=== PATIENT | female | born 1980 | race Caucasian/White ===

== ENCOUNTER → 2019-10-07 | Outpatient (CLI) | payer OTHER ==
[~2019-10-07] MED LIST: ATEN50TA PO; CETI10CA PO; CIPR5DRO OP; FLUO20CA25 PO; TOLTA4 PO
--- NOTE | 2019-10-07 16:10 | Diagnostic Imaging Report ---
PROCEDURE: US Non-ob pelvis comp/trans. TECHNIQUE: Multiple realtime grayscale images were obtained of the pelvis in various projections endovaginally. Transabdominal imaging was also performed. INDICATION: Abnormal uterine bleeding. COMPARISON: None available FINDINGS: The uterus measures 9.0 x 6.0 x 6.9 cm. The endometrium is slightly irregular and ill-defined. The endometrium measures up to 1.8 cm, though it is slightly irregular at this location. No significant fluid within the endometrial cavity. Nabothian cysts within the cervix. The right ovary is not well visualized. The right ovary appears grossly unremarkable. Vascular flow is noted within the right ovary. A 4.6 x 4.5 cm anechoic thin-walled cyst is noted within the left ovary. Otherwise, the left ovary is unremarkable. Vascular flow is seen within the left ovary. No significant free fluid. IMPRESSION: The endometrium is slightly irregular measuring just under 2 cm. This can be simply physiologic for the patient given patient's age, though given irregularity of the endometrial cavity, follow-up ultrasound in four to six weeks is recommended to reevaluate, as underlying malignancy or polyp would be additional considerations. 4.6 cm simple-appearing left ovarian cyst, likely a dominant follicle. Dictated by: Dictated on workstation # [id number]
== END ==
LOC: RAD 14:53
PROVIDERS: ATTEND Obstetrics & Gynecology
DX: N83.202 Unspecified ovarian cyst, left side (principal); N93.8 Other specified abnormal uterine and vaginal bleeding; Z68.34 Body mass index [BMI] 34.0-34.9, adult
CPT/HCPCS: 76830; 76856

== ENCOUNTER → 2019-12-23 | Outpatient (CLI) | payer OTHER ==
--- NOTE | 2019-12-23 15:17 | Diagnostic Imaging Report ---
PROCEDURE: MRI right lower extremity without contrast. TECHNIQUE: Multiplanar, multisequence non contrast-enhanced MRI of the right lower extremity was accomplished. INDICATION: Ulceration on the right fourth toe between the fourth and fifth toes. COMPARISON: None. FINDINGS: There is a soft tissue ulceration at the lateral aspect of the right fourth toe with a small underlying soft tissue fluid collection which measures 7 x 6 x 9 mm in size, may represent an abscess or hematoma. The proximal phalanx of the fourth toe is fractured, with superior and medial displacement. There is significant bone marrow edema and T1-weighted marrow replacement in the proximal phalanx, concerning for osteomyelitis. There is also a focal area of erosive change and edema at the fourth metatarsal head, which could represent osteomyelitis as well. No other fractures are seen. There appear to be old fractures of the first through third metatarsal bases. The fourth and fifth metatarsal bases are not included on the exam. No bony bridging is seen by MRI of these fractures. There is marked edema about the musculature. No other fluid collections are seen. IMPRESSION: 1. Osteomyelitis of the right fourth toe proximal phalanx and possibly fourth metatarsal head, with a displaced fracture of the fourth toe proximal phalanx. 2. Soft tissue ulceration of the left fourth toe with underlying small subcentimeter soft tissue fluid collection. 3. Chronic-appearing fractures of the first through third metatarsal bases. Dictated by: Dictated on workstation # [id number]
== END ==
LOC: RAD 13:44
PROVIDERS: ATTEND Nurse Practitioner Community Health
DX: L03.031 Cellulitis of right toe (principal); M86.171 Other acute osteomyelitis, right ankle and foot

== ENCOUNTER 2020-01-04 05:31 | Outpatient (RCR) | payer OTHER ==
[~2020-01-04] VITALS: Ht 177 cm; Wt 104.5 kg
[~2020-01-04 05:31] MED LIST changes: +FERR-84 PO; +GABA-486 PO; +METF-399 PO; +NAPR-915 PO
== END 2020-01-04 11:00 | disposition home or self-care (01) ==
LOC: PREOP 05:31
PROVIDERS: ATTEND Podiatrist Foot & Ankle Surgery
DX: Z01.812 Encounter for preprocedural laboratory examination (principal); Z20.828 Contact with and (suspected) exposure to other viral communicable diseases
CPT/HCPCS: 87635

== ENCOUNTER 2020-01-06 11:25 | Day surgery (SDC) | payer OTHER ==
[~2020-01-06] VITALS: Ht 152 cm; Wt 104.5 kg
[2020-01-06] VITALS (10 sets, daily range): BP systolic 108–154; BP diastolic 74–98
[2020-01-06] MEDS ORDERED: BUPIVACAINE 0.5% 30 ML (SENSORCAINE) VIAL ONE (11:44)
[2020-01-06] MEDS ORDERED: LIDOCAINE 1% INJ 20 ML 20 ML VIAL ONE (11:45)
[2020-01-06] MEDS ORDERED: LACTATED RINGERS 1,000 ML IV PRN (11:48)
[2020-01-06] MEDS ORDERED: MIDAZOLAM 2 MG/2 ML (VERSED) VIAL ONE (11:51)
[2020-01-06] MEDS ORDERED: PROPOFOL INJECTION 50 ML IV ONE (11:51)
[2020-01-06] MEDS ORDERED: fentaNYL INJECTION 100 MCG/2 ML AMP ONE (11:51)
--- OUTSIDE RECORDS SUMMARY | 2020-01-06 11:53 | XMS REPORT ---
Author Author Anusha Delacruz Organization [facility] Address [address] [place] [address] Care Team Providers Care Cannon Fire Direction Specialist Name Role Phone MALCOLM Delacruz Unavailable PROBLEMS Type Condition ICD9-CM Code [id number] Code Onset Dates Condition S tatus SNOMED Code Problem Hypertension, benign I10 Active 21256491 Problem Polyneuropathy G62.9 Active 03883 000 Problem Major depressive disorder, single episode, unspecified F32.9 Active 17097895 Problem Other chronic pain G89.29 Active 8 6964467 Problem Amenorrhea N91.2 Active 33071468 Problem Vitamin D deficiency, unspecified E55.9 Active 58575975 Problem Iron deficiency anemia, unspecified D50.9 Active 65783957 Problem Obesity (BMI 30-39.9) E66.9 Active 991633783 Problem Type 2 diabetes mellitus wit hout complication, without long-term current use of insulin E11.9 Active 598776343 ALLERGIES No Information ENCOUNTERS Encounter Location Date Diagnosis [place] [address] [place] [id number] [address] [place] [id number] Jan, [place] [address] [place] [id number] [address] [place] [address] Nov, Encounter for other preproce dural examination Z01.818 ; Osteomyelitis of fourth toe of right foot M86.9 ; Type 2 diabetes mellitus without complication, without long-term current use of insulin E11.9 ; Hypertension, benign I10 and Obesity (BMI 30-39.9) E66.9 [place] [address] [facility] [id number] [address] [place] [id number] Nov, [facility] [address] [facility] [id number] [address] [place] [phone] Nov, [place] [address] [place] [id number] [place] [id number] Nov, [facility] [address] [id number] [address] [place] [phone] Nov, Cellulitis of toe, right L03 .031 [facility] [address] [facility] [id number] [address] [place] [phone] Nov, [facility] [address] [facility] [id number] [address] [place] [phone] Nov, [facility] [address] [facility] [id number] [address] [place] [phone] Nov, Cellulitis of toe of right f oot L03.031 [place] [address] [facility] [id number] [address] [place] [id number] Oct, Foot pain, right M79.671 ; I nadir deficiency anemia, unspecified D50.9 and Type 2 diabetes mellitus without complication, without long-term current use of insulin E11.9 [facility] [address] [facility] [id number] [address] [place] [phone] Jul, [place] [address] [facility] [id number] [address] [place] [phone] Jul, [place] [address] [facility] [id number] [address] [place] [phone] Jul, [facility] [address] [facility] [id number] [address] [place] [phone] Jun, Dental infection K04.7 [facility] [address] [facility] [id number] [address] [place] [phone] Jun, [facility] [address] [facility] [id number] [address] [place] [phone] Jun, [place] [address] [facility] [id number] [address] [place] [phone] Jun, Metatarsal stress fracture o f right foot with routine healing M84.374D ; Possible Z32.00 and Amenorrhea N91.2 [place] [address] [facility] [id number] [address] [place] [id number] 06 Jun, 2019 Type 2 diabetes mellitus wit hout complication, without long-term current use of insulin E11.9 [place] [address] [facility] [id number] [address] [place] [phone] Jun, [place] [id number] [place] [address] Jun, [place] [address] [place] [address] Jun, Foot pain, right M79.671 and Other fracture of right foot, initial encounter for closed fracture S92.811A [place] [address] [place] [id number] [place] [address] May, Cellulitis of foot, right L0 3.115 [place] [address] [place] [id number] [address] [place] [address] Apr, Other chronic pain G89.29 an d Pain in right foot M79.671 [facility] [address] [place] [address] Apr, Left otitis media, unspecifi ed otitis media type H66.92 [place] [address] [place] [id number] [place] [address] Mar, Well woman exam with routine gynecological exam Z01.419 ; Obesity (BMI 30-39.9) E66.9 ; Hypertension, benign I10 and Type 2 diabetes mellitus without complication, without long-term current use of insulin E11.9 [place] [address] [place] [id number] [place] [phone] Mar, Encounter for immunization Z 23 [place] [address] [place] [id number] [place] [phone] Dec, Plantar fasciitis of right f oot M72.2 [place] [address] [address] Dec, Hypertension, benign I10 and Iron deficiency anemia, unspecified D50.9 [place] [address] [address] Nov, Hypertension, benign I10 and Iron deficiency anemia, unspecified D50.9 [facility] [address] [address] Oct, Mouth pain K13.79 [facility] [address] [address] Apr, Sore throat J02.9 and Acute sinusitis J01.90 [place] [address] [address] Oct, Iron deficiency anemia, unsp ecified D50.9 [place] [address] [address] Oct, Iron deficiency anemia, unsp ecified D50.9 [place] [address] [address] Oct, Vitamin D deficiency, unspec ified E55.9 ; Iron deficiency anemia, unspecified D50.9 ; Major depressive disorder, single episode, unspecified F32.9 ; Polyneuropathy G62.9 and Hypertension, benign I10 [place] [address] [address] Oct, Vitamin D deficiency, unspec ified E55.9 ; Iron deficiency anemia, unspecified D50.9 ; Major depressive disorder, single episode, unspecified F32.9 ; Polyneuropathy G62.9 ; Hypertension, benign I10 and Hyperglycemia R73.9 [place] [address] [address] Apr, [place] [address] [address] Dec, Polyneuropathy G62.9 [place] [address] [facility] [id number] [address] [place] [phone] Nov, Hyperglycemia R73.9 [place] [address] [facility] [id number] [address] [place] [phone] Nov, Family history of diabetes m ellitus Z83.3 and Hyperglycemia R73.9 [place] [address] [facility] [id number] [address] [place] [phone] Nov, Family history of diabetes m ellitus Z83.3 and Hyperglycemia R73.9 [place] [address] [facility] [id number] [address] [place] [phone] Nov, Neuropathy of both feet G57. 93 and Hypertension, benign I10 [place] [address] [facility] [id number] [address] [place] [id number] Nov, Essential (primary) hyperten elda I10 [place] [address] [place] [id number] [place] [phone] September, Acute non-recurrent frontal sinusitis J01.10 [facility] [address] [facility] [id number] [address] [place] [phone] Jul, Tooth abscess K04.7 [place] [address] [place] [id number] [place] [phone] Jan, [place] [address] [place] [id number] [place] [address] Dec, Hearing loss, bilateral H91. 93 [place] [address] [facility] [id number] [address] [place] [id number] Nov, Retraction of tympanic membr ane of both ears H73.823 [place] [address] [place] [id number] [place] [phone] May, [place] [address] [place] [id number] [place] [address] May, Bronchitis J40 [place] [address] [place] [id number] [place] [phone] Apr, Upper respiratory infection J06.9 [facility] [address] [place] [id number] [place] [phone] Nov, Unspecified iron deficiency anemia 280.9 [facility] [address] [place] [id number] [place] [phone] Oct, Anemia 285.9 [facility] [address] [place] [id number] [place] [phone] September, Unspecified urinary incontin ence 788.30 ; Family history of diabetes mellitus in father V18.0 ; Glucose found in urine on examination 791.5 ; Urinary frequency 788.41 and Hypertension 401.9 [facility] [address] [place] [id number] [place] [phone] September, Unspecified urinary incontin ence 788.30 ; Family history of diabetes mellitus in father V18.0 ; Glucose found in urine on examination 791.5 ; Urinary frequency 788.41 and Hypertension 401.9 [facility] [address] [place] [id number] [place] [phone] Aug, [facility] [address] [facility] [id number] [address] [place] [phone] Aug, [facility] [address] [place] [id number] [place] [id number] Jul, [facility] [address] [facility] [id number] [address] [place] [phone] Jul, [facility] [address] [facility] [id number] [address] [place] [phone] Jun, [facility] [address] [facility] [id number] [address] [place] [phone] Jun, [facility] [address] [facility] [id number] [address] [place] [phone] Jun, [facility] [address] [place] [id number] [place] [id number] Jun, [facility] [address] [id number] [address] [place] [address], [place] [address] May, [facility] [address] [id number] [address] [place] [address], [place] [address] May, [facility] [address] [id number] [address] [place] [address], [place] [address] Oct, [facility] [address] [id number] [address] [place] [address], [place] [address] Oct, [facility] [address] [id number] [address] [place] [address], [place] [address] May, [facility] [address] [id number] [address] [place] [address], [place] [address] May, [facility] [address] [id number] [address] [place] [address], [place] [address] May, [facility] [address] [id number] [address] [place] [address], [place] [address] May, [facility] [address] [id number] [address] [place] [address], [place] [address] Apr, [facility] [address] [id number] [address] [place] [address], [place] [address] Apr, [facility] [address] [id number] [address] [place] [address], [place] [address] Apr, [facility] [address] [id number] [address] [place] [address], [place] [address] Apr, [facility] [address] [id number] [address] [place] [address], [place] [address] Apr, [facility] [address] [id number] [address] [place] [address], [place] [address] Apr, [facility] [address] [id number] [address] [place] [address], [place] [address] Apr, [facility] [address] [id number] [address] [place] [address], [place] [address] Apr, [facility] [address] [id number] [address] [place] [address], [place] [address] Dec, [facility] [address] [id number] [address] [place] [address], [place] [address] Nov, [facility] [address] [id number] [address] [place] [address], [place] [address] Jul, [facility] [address] [id number] [address] [place] [address], [place] [address] May, [facility] [address] [id number] [address] [place] [address], [place] [address] May, [facility] [address] [id number] [address] [place] [address], [place] [address] May, [facility] [address] [id number] [address] [place] [address], [place] [address] May, [facility] [address] [id number] [address] [place] [address], [place] [address] Apr, [facility] [address] [id number] [address] [place] [address], [place] [address] Apr, [facility] [address] [id number] [address] [place] [address], [place] [address] 16 Mar, 2012 [facility] [address] [id number] [address] [place] [address], [place] [address] 16 Mar, 2012 [facility] [address] [id number] [address] [place] [address], [place] [address] Mar, [facility] [address] [id number] [address] [place] [address], [place] [address] 08 Mar, 2012 [facility] [address] [id number] [address] [place] [address], [place] [address] Mar, [facility] [address] [id number] [address] [place] [address], [place] [address] Jan, [facility] [address] [id number] [address] [place] [address], [place] [address] 26 Jan, 2012 [facility] [address] [id number] [address] [place] [address], [place] [address] 25 Jan, 2012 [facility] [address] [id number] [address] [place] [address], [place] [address] 21 Jan, 2012 [facility] [address] [id number] [address] [place] [address], [place] [address] 30 Oct, 2011 [facility] [address] [id number] [address] [place] [address], [place] [address] 18 Oct, 2011 [facility] [address] [id number] [address] [place] [address], [place] [address] 29 Sep, 2011 [facility] [address] [id number] [address] [place] [address], [place] [address] 30 Aug, 2011 [facility] [address] [id number] [address] [place] [address], [place] [address] 24 Aug, 2011 [facility] [address] [id number] [address] [place] [address], [place] [address] 13 Aug, 2011 [facility] [address] [id number] [address] [place] [address], [place] [address] 22 Jul, 2011 [facility] [address] [id number] [address] [place] [address], [place] [address] 19 Jul, 2011 [facility] [address] [id number] [address] [place] [address], [place] [address] 13 Jul, 2011 [facility] [address] [id number] [address] [place] [address], [place] [address] 12 Jul, 2011 [facility] [address] [id number] [address] [place] [address], [place] [address] 07 Jul, 2011 [facility] [address] [id number] [address] [place] [address], [place] [address] 06 Jul, 2011 [facility] [address] [id number] [address] [place] [address], [place] [address] 02 Jul, 2011 [facility] [address] [id number] [address] [place] [address], [place] [address] 20 Jul, 2011 [facility] [address] [id number] [address] [place] [address], [place] [address] 14 Jul, 2011 [facility] [address] [id number] [address] [place] [address], [place] [address] 13 Jul, 2011 [facility] [address] [id number] [address] [place] [address], [place] [address] 11 Jul, 2011 [facility] [address] [id number] [address] [place] [address], [place] [address] 10 Jul, 2011 [facility] [address] [id number] [address] [place] [address], [place] [address] 10 Jul, 2011 [facility] [address] [id number] [address] [place] [address], [place] [address] 07 May, 2010 [facility] [address] [id number] [address] [place] [id number] 18 Oct, 2009 [facility] [address] [id number] [address] [place] [address], [place] [address] Jun, [facility] [address] [id number] [address] [place] [id number] 18 May, 2009 [facility] [address] [id number] [address] [place] [id number] 18 May, 2009 [facility] [address] [id number] [address] [place] [phone] Apr, [facility] [address] [id number] [address] [place] [id number] 23 Mar, 2009 [facility] [address] [id number] [address] [place] [id number] 14 Mar, 2009 [facility] [address] [id number] [address] [place] [id number] 14 Mar, 2009 IMMUNIZATIONS No Known Immunizations SOCIAL HISTORY Never Assessed REASON FOR VISIT PLAN OF CARE VITAL SIGNS Height 67 in 2012-08-06 Weight 246.12 lbs 2012-08-06 Temperature 98.9 degrees Fahrenheit 2012-08-06 Heart Rate 80 bpm 2012-08-06 Respiratory Rate 18 2012-08-06 Blood pressure systolic 132 mmHg 2012-08-06 Blood pressure diastolic 80 mmHg 2012-08-06 MEDICATIONS Unknown Medications RESULTS No Results PROCEDURES No Known procedures INSTRUCTIONS MEDICATIONS ADMINISTERED No Known Medications MEDICAL (GENERAL) HISTORY Type Description Date Medical History Hypertension Medical History borderline Type II diabetes Surgical History Tonsillectomy Surgical History Tubal ligation 2004 Surgical History Otolaryngologic surgery tubes in ears Hospitalization History Child 3 para 3 with 3 full term vaginal delivery (s)
--- OUTSIDE RECORDS SUMMARY | 2020-01-06 11:53 | XMS REPORT ---
Author Author [employer] [facility] Work [facility] Address [address] [address] Care Team Providers Care Hotel Server Name Role Phone ELINA MUNOZ Unavailable Unavailable ALEXANDERELINA Unavailable ALEXANDER ELINA Unavailable TERESA GUERRERO Unavailable Unavailable YOCASTA DENNISON Unavailable Unavailable ZOILA VU Unavailable ALEXANDERELINA Unavailable ELINA MUNOZ Unavailable ELINA MUNOZ Unavailable ALEXANDER ELINA Unavailable ALEXANDER ELINA Unavailable CHARISMA LUEVANO Unavailable Migration, Doctor Unavailable Unavailable Migration, Doctor Unavailable Unavailable Migration, Doctor Unavailable Unavailable Migration, Doctor Unavailable Unavailable Migration, Doctor Unavailable Unavailable Migration, Doctor Unavailable Unavailable Migration, Doctor Unavailable Unavailable TERESA GUERRERO Unavailable ALEXANDER ELINA Unavailable CHARISMA GOMEZ Unavailable ELINA MUNOZ Unavailable ELINA MUNOZ T Unavailable Unavailable ALEXANDERELINA Unavailable TERESA GUERRERO Unavailable LUCILA GUTIERREZ Unavailable AYLA DODGE MD Unavailable Unavailable Migration, Doctor Unavailable Unavailable AYLA BROWN DO Unavailable Unavailable ELINA MUNOZ Unavailable ELINA MUNOZ Unavailable Unavailable Unavailable ELINA MUNOZ T Unavailable Unavailable ALEXANDER ELINA POLK Unavailable Unavailable LIBORIO DPM, FREDDIE Q Unavailable Unavailable MALCOLM Delacruz Unavailable Unavailable Unavailable Unavailable Unavailable Unavailable Unavailable Unavailable Unavailable Allergies The data below is from unstructured sources Substance Reaction Event Type N.K.D.A. Info Not Available Non Drug Allergy Substance Reaction Event Type Date Status N.K.D.A. Unknown Non Archie g Allergy Dec, Unknown No Information Encounters Encounter Date Encounter Type Encounter Diagnosis Care Provider Facility Start: Patient encounter FREDDIE CAPONE DPM [facility] 01-04-2020 [facility] Start: Patient encounter FREDDIE CAPONE DPM [facility] 12-30-2019 procedure [facility] Start: Patient encounter [facility] Start: Patient encounter ELINA MUNOZ [facility] 12-23-2019 procedure [facility] Start: Patient encounter ELINA MUNOZ [facility] ealt 12-16-2019 procedure [facility] Start: Patient encounter ELINA MUNOZ [facility] ealt 11-04-2019 procedure [facility] Start: Patient encounter AYLA BROWN DO [facility] 10-07-2019 procedure [facility] Start: Encounter for other AYLA DODGE MD [facility] 10-03-2019 preprocedural [facility] examination ([id number]) Start: Patient encounter ELINA MUNOZ [facility] ealt 06-13-2019 procedure [facility] ([id number]) Start: Patient encounter ELINA MUNOZ [facility] ealt 06-02-2019 procedure [facility] ([id number]) Start: Patient encounter NA NA [facility] ealt 04-15-2019 procedure [facility] ([id number]) Start: Patient encounter ELINA MUNOZ [facility] ealt 03-02-2019 procedure [facility] ([id number]) Start: Patient encounter NA NA [facility] ealt 12-30-2018 procedure [facility] ([id number]) Start: Patient encounter NA NA [facility] ealth 12-30-2018 procedure [facility] ([id number]) Start: Patient encounter ELINA MUNOZ [facility] ealt 12-22-2018 procedure [facility] ([id number]) Start: Patient encounter ELINA MUNOZ [facility] ealt 12-22-2018 procedure [facility] ([id number]) Start: Patient encounter ELINA MUNOZ [facility] ealt 11-14-2018 procedure [facility] ([id number]) Start: Patient encounter CHINO MAGANA [facility] 04-25-2018 procedure [facility] ([id number]) Start: Patient encounter ELINA MUNOZ [facility] 11-06-2017 [place] [facility] ([id number]) Start: Patient encounter 11-05-2017 Start: Patient encounter AYLA DODGE MD [facility] 02-29-2016 [facility] End: 02-29-2016 Start: Patient encounter AYLA DODGE MD [facility] 02-26-2016 [facility] End: 02-26-2016 Encounter for FREDDIE CAPONE MARIELY [id number] Medical Equipment No Information Goals No Information Immunizations Immunizatio Immunization Notes Care Provider Facility n Date 03-02-2019 influenza, seasonal, NA NA [facility] ([id number]) Interventions No Information Medications Medication Drug Dates Sig Sig (Original) Class(es) (Normalized) amoxicillin 875 mg / Penicillin Start: take 1 tablet Aug mentin 875-125 mg take 1 tablet by clavulanate 125 mg oral -class 07-12-2011 by mouth every oral route every 12 hours Jul, tablet Antibacter twelve hours Active (1 source) ial cephalexin 500 mg oral Cephalospo Start: take 1 capsule Keflex 500 mg take 1 capsule (500 mg) by capsule rin 05-22-2014 by mouth every oral route every 6 hours for 6 days 22 (1 source) Antibacter six hours May, 2014 Activ e ial Gentamicin Sulfate (LONG-TERM) Start: gentamicin 0 .3 % 1 drop by Ophthalmic (1 source) 06-17-2014 route every other h our for 1 day then qid for 6 more days Jun, Active Asvdicnr-Jzdtrsmbs-HL Start: Neomycin-Polymy kathy-HC 3.5-10,000-1 3.5-10,000-1 07-21-2011 mg-unit/mL-% instil l 4 drops into mg-unit/mL-% affected ear(s) by otic rou te 4 times (1 source) per day for 10 day(s) 2011 Active Ofloxacin Quinolone Start: Ofloxacin 0.3 % 3 drop by Otic route 2 (1 source) Antimicrob 11-29-2011 times per day f or 10 day(s) Oct, ial Active sulfamethoxazole 800 mg Dihydrofol Start: take 1 tablet Bactrim DS 800-160 mg 1 tablet by Oral / trimethoprim 160 mg ate 02-24-2012 by mouth twice r oute 2 times per day for 10 day(s) 25 oral tablet Reductase daily Jan, 2012 Activ e (1 source) Inhibitor Antibacter ial, Sulfonamid e Antimicrob ial Payers No Information Plan of Treatment The data below is from unstructured sources Discharge Date 02/26/16 4:04pm Prescriptions See Medication Section Discharge Date 02/29/16 10:35am Instructions/Education Provided DORIS DIEHL INSTRUCTIONS POSTOP DR. DODGE-TYMPANOSTOMY TUBES Prescriptions See Medication Section Activity Details Follow Up prn Reason: Activity Details Follow Up 3 Months Reason:3mo. dm 2 checkup Activity Details Follow Up if not improving with PCP or reg follow up Reason: Problems Problem Problem Date Last Documented Episodic/Chr Provider Classificati Recorded Date onic on Other female Other specified abnormal uterine 10-10-2019 Chron salvador AGUILA genital and vaginal bleeding FENECH DO disorders (2 sources) Other Body mass index (BMI) 34.0-34.9, 10-10-2019 Chronfelicitas AGUILA nutritional; adult FENECH DO endocrine; and metabolic disorders (2 sources) Otitis media Chronic serous otitis media, Chronic AYLA and related bilateral DAR FORD conditions (2 sources) Ovarian cyst Unspecified ovarian cyst, left side 10-10-2019 Ep isodic AYLA (2 sources) FENECH DO Procedures Date Procedure Procedure Detail Performing Cl inician Start: Rinku LUEVANO 04-25-2018 streptococcus group a Start: Shannon MUNOZ 09-12-2011 unilateral 2 views Results Test Name Value Interpreta Reference Facilit Date tion Range y Time not yet categorized on 2019-11-04 Exp date 05/2021 Invalid Communi Interpreta ty tion Code [facility] ([id number]) Lot [id number]~[id number] Invalid Communi Interpreta ty tion Code [facility] (05274) not yet categorized on 2019-06-13 Exp date +~01/2020 Invalid Communi Interpreta ty tion Code [facility] (69244) Lot # [id number] Invalid Communi Interpreta ty tion Code [facility] (45585) RESULTS Negative Invalid Communi Interpreta ty tion Code [facility] (31071) laboratory on 2019-06-02 Basophils (Bld) 0.007 10*3/uL Normal 0-200 Communi [#/Vol] cells/uL ty [facility] (91669) Basophils/100 WBC 0.1 % Normal % Communi (Bld) ty [facility] (10045) Eosinophils (Bld) 0.153 10*3/uL Normal 15-500 Commun i [#/Vol] cells/uL ty [facility] (30006) Eosinophils/100 WBC 2.1 % Normal % Commun i (Bld) [facility] (37120) Erythrocyte 13.3 % Normal 11.0-15.0 Communi distribution width % ty (RBC) [Ratio] [facility] (26664) Hematocrit (Bld) 37.0 % Normal 35.0-45.0 Communi [Volume fraction] % ty [facility] (25968) Hemoglobin (Bld) 11.5 g/dL Low 11.7-15.5 Communi [Mass/Vol] g/dL [facility] (27380) Lymphocytes (Bld) 1.949 10*3/uL Normal 850-3900 Commun i [#/Vol] cells/uL ty [facility] (97406) Lymphocytes/100 WBC 26.7 % Normal % Commun i (Bld) [facility] (09714) MCH (RBC) [Entitic 26.7 pg Low 27.0-33.0 Communi mass] pg ty [facility] (86223) MCHC (RBC) 31.1 g/dL Low 32.0-36.0 Communi [Mass/Vol] g/dL ty [facility] (78558) MCV (RBC) [Entitic 86.0 fL Normal 80.0-100.0 Communi vol] fL [facility] (96335) Monocytes (Bld) 0.416 10*3/uL Normal 200-950 Communi [#/Vol] cells/uL ty [facility] (52247) Monocytes/100 WBC 5.7 % Normal % Communi (Bld) [facility] (56385) Neutrophils (Bld) 4.774 10*3/uL Normal 5801-3991 Commun i [#/Vol] cells/uL ty [facility] (20067) Neutrophils/100 WBC 65.4 % Normal % Commun i (Bld) [facility] (48379) Platelet mean volume 9.7 fL Normal 7.5-12.5 Commu ni (Bld) [Entitic vol] fL [facility] (34065) Platelets (Bld) 284 10*3/uL Normal 140-400 Communi [#/Vol] Thousand/u ty [facility] (74109) RBC (Bld) [#/Vol] 4.30 10*6/uL Normal 3.80-5.10 Communi Million/uL [facility] (01894) Urate [Mass/Vol] 5.1 mg/dL Normal 2.5-7.0 Communi mg/dL [facility] (02065) WBC (Bld) [#/Vol] 7.3 10*3/uL Normal 3.8-10.8 Communi Thousand/u ty L [facility] (68685) not yet categorized on 2019-03-03 Clinical information Normal Communi ty [facility] (28830) COMMENT Invalid Communi Interpreta ty tion Code [facility] (65228) Date of previous N/A Normal Communi biopsy [facility] (61255) Date of previous PAP 2011 Normal Communi smear [facility] (88848) Exp date 08/19 Invalid Communi Interpreta ty tion Code [facility] (07296) Last menstrual 9-19 Normal Communi period start date [facility] (21873) Lot 6.4~7.8~[id number] Invalid Communi Interpreta ty tion Code [facility] (12998) laboratory on 2019-03-03 Nutritional Services Cook Cyto Normal Communi stain Nom (Cvx/Vag) ty [ID] [facility] (96725) HPV E6+E7 mRNA Not Detected Normal NOT Communi RENATO+probe Ql (Cvx) DETECTED ty [facility] (54106) Microscopic Normal Communi observation Cyto ty stain Nom (Cvx) [facility] (90133) Specimen source Cyto Cervix Normal Communi stain Nom (Cvx/Vag) ty [facility] (26239) Statement of Normal Communi adequacy Cyto stain ty (Cvx/Vag) [Interp] [facility] (21354) laboratory on 2018-12-30 Albumin [Mass/Vol] 4.0 g/dL Normal 3.6-5.1 Communi g/dL ty [facility] (99581) Albumin/Globulin 1.5 {ratio} Normal 1.0-2.5 Communi [Mass ratio] (calc) ty [facility] (62431) ALP [Catalytic 46 U/L Normal 33-115 U/L Communi activity/Vol] [facility] (19697) ALT [Catalytic 20 U/L Normal 6-29 U/L Communi activity/Vol] ty [facility] (07894) AST [Catalytic 20 U/L Normal 10-30 U/L Communi activity/Vol] ty [facility] (83437) Basophils (Bld) 0.032 10*3/uL Normal 0-200 Communi [#/Vol] cells/uL ty [facility] (21724) Basophils/100 WBC 0.5 % Normal % Communi (Bld) [facility] (92059) Bilirubin [Mass/Vol] 0.7 mg/dL Normal 0.2-1.2 Commu ni mg/dL ty [facility] (77877) Calcium [Mass/Vol] 9.0 mg/dL Normal 8.6-10.2 Communi mg/dL ty [facility] (71346) Chloride [Moles/Vol] 102 mmol/L Normal 98-110 Commu ni mmol/L ty [facility] (97493) Cholesterol 150 mg/dL Normal <200 mg/dL Communi [Mass/Vol] ty [facility] (29926) Cholesterol in HDL 46 mg/dL Low >50 mg/dL Communi [Mass/Vol] ty [facility] (81668) Cholesterol in LDL 75 mg/dL Normal mg/dL Communi [Mass/Vol] (calc) [facility] (06193) Cholesterol non HDL 104 mg/dL Normal <130 mg/dL Commun i [Mass/Vol] (calc) [facility] (81076) Cholesterol.total/Ch 3.3 {ratio} Normal <5.0 Commu ni olesterol in HDL (calc) ty [Mass ratio] [facility] (01435) CO2 [Moles/Vol] 27 mmol/L Normal 20-32 Communi mmol/L [facility] (20854) Creatinine 0.65 mg/dL Normal 0.50-1.10 Communi [Mass/Vol] mg/dL [facility] (73468) Eosinophils (Bld) 0.183 10*3/uL Normal 15-500 Commun i [#/Vol] cells/uL ty [facility] (41734) Eosinophils/100 WBC 2.9 % Normal % Commun i (Bld) [facility] (76042) Erythrocyte 13.7 % Normal 11.0-15.0 Communi distribution width % ty (RBC) [Ratio] [facility] (28812) GFR/1.73 sq M 131 mL/min/{1.73_m2} Normal > OR = 60 Com missy predicted among mL/min/1.7 ty blacks MDRD [address] [place] [address] (S/P/Bld) [Vol Center rate/Area] [facility] (31954) GFR/1.73 sq 113 mL/min/{1.73_m2} Normal > OR = 60 Commu ni M.predicted MDRD mL/min/1.7 ty (S/P/Bld) [Vol 3m2 Health rate/Area] [facility] (07834) Globulin (S) 2.6 g/dL Normal 1.9-3.7 Communi [Mass/Vol] g/dL ty (calc) [facility] (39567) Glucose [Mass/Vol] 110 mg/dL High 65-99 Communi mg/dL ty [facility] (80366) Hematocrit (Bld) 37.8 % Normal 35.0-45.0 Communi [Volume fraction] % ty [facility] (85301) Hemoglobin (Bld) 11.6 g/dL Low 11.7-15.5 Communi [Mass/Vol] g/dL [facility] (81901) Lymphocytes (Bld) 1.644 10*3/uL Normal 850-3900 Commun i [#/Vol] cells/uL [facility] (85035) Lymphocytes/100 WBC 26.1 % Normal % Commun i (Bld) [facility] (20604) MCH (RBC) [Entitic 26.6 pg Low 27.0-33.0 Communi mass] pg [facility] (58221) MCHC (RBC) 30.7 g/dL Low 32.0-36.0 Communi [Mass/Vol] g/dL [facility] (51404) MCV (RBC) [Entitic 86.7 fL Normal 80.0-100.0 Communi vol] fL [facility] (41728) Monocytes (Bld) 0.46 10*3/uL Normal 200-950 Communi [#/Vol] cells/uL [facility] (52777) Monocytes/100 WBC 7.3 % Normal % Communi (Bld) [facility] (27740) Neutrophils (Bld) 3.982 10*3/uL Normal 6094-2511 Commun i [#/Vol] cells/uL [facility] (74485) Neutrophils/100 WBC 63.2 % Normal % Commun i (Bld) ty [facility] (29168) Platelet mean volume 9.2 fL Normal 7.5-12.5 Commu ni (Bld) [Entitic vol] fL ty [facility] (46161) Platelets (Bld) 273 10*3/uL Normal 140-400 Communi [#/Vol] Thousand/u ty L [facility] (06196) Potassium 5.2 mmol/L Normal 3.5-5.3 Communi [Moles/Vol] mmol/L ty [facility] (19286) Protein [Mass/Vol] 6.6 g/dL Normal 6.1-8.1 Communi g/dL [facility] (42435) RBC (Bld) [#/Vol] 4.36 10*6/uL Normal 3.80-5.10 Communi Million/uL [facility] (26232) Sodium [Moles/Vol] 138 mmol/L Normal 135-146 Communi mmol/L ty [facility] (43292) Triglyceride 192 mg/dL High <150 mg/dL Communi [Mass/Vol] [facility] (45335) TSH Qn 1.00 m[IU]/L Normal mIU/L Communi ty [facility] (36970) Urea nitrogen 9 mg/dL Normal 7-25 mg/dL Communi [Mass/Vol] ty [facility] (14129) Urea NOT APPLICABLE Invalid 11-20 Communi nitrogen/Creatinine Interpreta (calc) ty [Mass ratio] tion [facility] (29684) WBC (Bld) [#/Vol] 6.3 10*3/uL Normal 3.8-10.8 Communi Thousand/u ty L [facility] (61366) strep a (in house) on 2018-04-25 STREP A (IN HOUSE) Negative Invalid [facility] ([address]) STREP A (IN HOUSE) + Invalid Communi Interpreta ty 018 tion Code Health 13:00-0 Center [address] [facility] (45970) STREP A (IN HOUSE) [id number] Invalid Communi Interpreta ty 018 tion Code Health 13:00-0 Center [address] [facility] (91807) STREP A (IN HOUSE) 10/29/2018 Invalid Communi Interpreta ty 018 tion Code Health 13:00-0 Center [address] [facility] (93325) other on 2018-04-25 Exp date Negative Invalid Communi Interpreta ty tion Code [facility] (56160) other on 2017-11-06 Cholesterol in LDL 76 Normal mg/dL Communi mass conc (calc) [facility] (69297) Cholesterol non HDL 99 Normal <130 mg/dL Commun i mass conc (calc) [facility] (28322) Cholesterol.total/Ch 3.8 Normal <5.0 Commu ni olesterol in HDL (calc) ty mass ratio [facility] (16383) cardiac on 2017-11-06 Cholesterol in HDL 36 mg/dL Low >50 mg/dL Communi mass conc [facility] (90124) Cholesterol mass 135 mg/dL Normal <200 mg/dL Communi conc [facility] (45859) Triglyceride mass 150 mg/dL High <150 mg/dL Communi conc [facility] (70139) thyroid on 2017-11-05 Thyrotropin Qn 0.79 m[IU]/L Normal mIU/L other on 2017-11-05 Albumin/Globulin 1.6 Normal 1.0-2.5 Communi mass ratio (calc) [facility] (52798) Calcidiol mass conc 26 ng/mL Low 30-100 Commun i ng/mL [facility] (90397) Exp date 03/09/19 Invalid Interpreta tion Code Exp date 08/18 Invalid Communi Interpreta ty tion Code [facility] (74271) Globulin Calculated 2.7 Normal 1.9-3.7 Commun i mass conc (S) g/dL ty (calc) [facility] (79659) Lot [id number] Invalid Communi Interpreta ty tion Code [facility] (73115) Lot # [id number] Invalid Interpreta tion Code metabolic panel on 2017-11-05 Albumin mass conc 4.4 g/dL Normal 3.6-5.1 Communi g/dL ty [facility] (32873) ALP enzyme act/vol 59 U/L Normal 33-115 U/L Communi ty [facility] (51012) ALT enzyme act/vol 11 U/L Normal 6-29 U/L Communi ty [facility] (56710) AST enzyme act/vol 17 U/L Normal 10-30 U/L Communi ty [facility] (22025) Bilirubin mass conc 1.2 mg/dL Normal 0.2-1.2 Commun i mg/dL ty [facility] (71898) Calcium mass conc 9.6 mg/dL Normal 8.6-10.2 Communi mg/dL ty [facility] (76056) Chloride molar conc 105 mmol/L Normal 98-110 Commun i mmol/L ty [facility] (11117) CO2 molar conc 27 mmol/L Normal 20-31 Communi mmol/L ty [facility] (59953) Creatinine mass conc 0.66 mg/dL Normal 0.50-1.10 Commu ni mg/dL ty [facility] (59811) GFR/1.73 sq M 132 mL/min/{1.73_m2} Normal > OR = 60 Com missy predicted among mL/min/1.7 ty blacks MDRD vol 3m2 Health rate/area (S/P/Bld) [facility] (12104) GFR/1.73 sq 114 mL/min/{1.73_m2} Normal > OR = 60 Commu ni M.predicted MDRD vol mL/min/1.7 ty rate/area 2 [facility] (84008) Glucose mass conc 113 mg/dL High 65-99 Communi mg/dL ty [facility] (27075) Hemoglobin 6.4 High <5.7 % of Communi A1c/Hemoglobin.total total Hgb ty mass fraction (Bld) [facility] (93957) Potassium molar conc 4.2 mmol/L Normal 3.5-5.3 Commu ni mmol/L ty [facility] (79323) Protein mass conc 7.1 g/dL Normal 6.1-8.1 Communi g/dL ty [facility] (30410) Sodium molar conc 137 mmol/L Normal 135-146 Communi mmol/L ty [facility] (56237) Urea nitrogen mass 9 mg/dL Normal 7-25 mg/dL Communi conc [facility] (43723) Urea NOT APPLICABLE Invalid 6-22 Communi nitrogen/Creatinine Interpreta (calc) ty mass ratio tion Code [facility] (42243) hematology on 2017-11-05 Basophils Auto #/vol 0.022 10*3/uL Normal 0-200 Com missy (Bld) cells/uL [facility] (30543) Basophils/100 WBC 0.3 % Normal % Communi Auto (Bld) [facility] (55052) Eosinophils Auto 0.187 10*3/uL Normal 15-500 Communi #/vol (Bld) cells/uL [facility] (79434) Eosinophils/100 WBC 2.6 % Normal % Commun i Auto (Bld) [facility] (70856) Erythrocyte 16.6 % High 11.0-15.0 Communi distribution width % ty Auto Ratio (RBC) [facility] (64742) Hematocrit Auto 28.4 % Low 35.0-45.0 Communi Volume Fraction % ty (Bld) [facility] (76252) Hemoglobin mass conc 7.4 g/dL Low 11.7-15.5 Commu ni (Bld) g/dL [facility] (81267) Lymphocytes Auto 1.685 10*3/uL Normal 850-3900 Communi #/vol (Bld) cells/uL [facility] (84929) Lymphocytes/100 WBC 23.4 % Normal % Commun i Auto (Bld) [facility] (77005) MCH Auto Entitic 16.6 pg Low 27.0-33.0 Communi mass (RBC) pg [facility] (50340) MCHC Auto mass conc 26.1 g/dL Low 32.0-36.0 Commun i (RBC) g/dL [facility] (73913) MCV Auto Entitic 63.7 fL Low 80.0-100.0 Communi volume (RBC) fL [facility] (10967) Monocytes Auto #/vol 0.446 10*3/uL Normal 200-950 Com missy (Bld) cells/uL [facility] (81774) Monocytes/100 WBC 6.2 % Normal % Communi Auto (Bld) [facility] (37031) Neutrophils Auto 4.86 10*3/uL Normal 0612-2920 Communi #/vol (Bld) cells/uL [facility] (61854) Neutrophils/100 WBC 67.5 % Normal % Commun i Auto (Bld) [facility] (70325) Platelet mean volume 9.3 fL Normal 7.5-12.5 Commu ni Auto Entitic volume fL ty (Bld) [facility] (37426) Platelets Auto #/vol 347 10*3/uL Normal 140-400 Commu ni (Bld) Thousand/u ty L [facility] (58280) RBC Auto #/vol (Bld) 4.46 10*6/uL Normal 3.80-5.10 Comm uni Million/uL [facility] (25005) WBC Auto #/vol (Bld) 7.2 10*3/uL Normal 3.8-10.8 Commu ni Thousand/u ty L [facility] (66177) Social History No Information Vital Signs Date Time Vital Sign Value Performing Clinician Facil ity 04-25-2018 BMI (Body Mass 35.24 kg/m2 [facility] 16:20-0500 Index) [facility] (27254) 04-25-2018 Body Temperature 97.4 [degF] [facility] 16:20-0500 [facility] (60903) 04-25-2018 Height 170.18 cm CHARISMA LUEVANO [facility] He alth 16:20-0500 [facility] (34534) 04-25-2018 [facility] 102.06 [facility] 16:20-[facility] (60586) 06-17-2014 Body height 170.18 cm [facility] ealth 14:45-0500 [facility] ([id number]) 06-17-2014 Body temperature 98.6 [degF] [facility] 14:45-0500 [facility] (99586) 06-17-2014 Body weight 106.6 kg [facility] ealt 14:45-0500 [facility] (91168) 06-05-2014 Body height 170.18 cm LUCILA GUTIERREZ [facility] 13:08-0500 [facility] (47350) 06-05-2014 Body temperature 98.2 [degF] LUCILA MATT [facility] hospital 13:08-0500 [facility] (50013) 06-05-2014 Body weight 108.95 kg LUCILA GUTIERREZ [facility] 13:08-0500 [facility] (10213) 05-22-2014 Body Temperature 99 [degF] CHARISMA GOMEZ [facility] 15:40-0500 [facility] ([id number]) 05-22-2014 Body weight 108.23 kg [facility] 15:40-0500 [facility] ([id number]) 05-22-2014 Height 170.18 cm [facility] 15:40-0500 [facility] ([id number]) 11-29-2011 Body height 170.18 cm Doctor Migration [facility] Health 13: [facility] ([id number]) 11-29-2011 Body temperature 99 [degF] Doctor Migration [facility] 13: [facility] ([id number]) 11-29-2011 Body weight 112.21 kg Doctor Migration [facility] 13: [facility] ([id number]) 09-12-2011 Body weight 110.99 kg ELINA MUNOZ [facility] 10:34-0400 [facility] ([id number]) 09-12-2011 Height 170.18 cm ELINA MUNOZ [facility] 10:340400 [facility] ([id number]) Functional Status The data below is from unstructured sourcesNo functional status results.No functional status results.No functional status results. Mental Status No Information Coronavirus Ab Qn (S) 2020-01-04 Note Date & Note Facility Type 01-04-2020 NOT DETECTED (L) [facility] S-CoV-2 RT PCR~~The PENDING LOCATION [facility] Coronavirus Ab SARS-CoV-2 (COVID-19) RT-PCR procedure performed at~[facility] ([id number]) Qn (S) Laboratory is a real-time R T-PCR test intended for~the qualitative detection of SARS-CoV-2 specific nuclei c~acid from upper respiratory tract specimens (nasopharyn geal~or oropharyngeal swabs). The performance of this test hale s~not been established for monitoring treatment of SARS-CoV-2~infe ction. This test was developed and its performance~character istics determined by [facility]. This test~was developed fo r use as a part of a response to the public~health emergency declared to address the outbreak of~COVID-19. This test has not been reviewed by the Food and~Drug Administration. The FDA has de termined that such~clearance or approval is not neces shannan. This test is used~for clinical purposes. It should not be reg arded as~investigational or for research. This laboratory is~certif ied under the Clinical Laboratory Improvement Act of~1987 (CLI A-88) as qualified to perform high complexity~clinical labora tory testing. A positive (DETECTED) result is~indicative of the presence of SARS-CoV-2 RNA but does not~rule out bacterial infecti on or co-infection with other~viruses. Laboratories within the [place] and its~territories are required to report all positive results to~the appropriate public health authorities. A negative (NOT~DETECTED) result does not definitively rule out S ARS-CoV-2~infection and should be combined with clinical observ ations,~patient history, and epidemiological information when ma ~clinical decisions.~~Test Performed at:~[facility]~[address]~[place] [address]~ ~ Summary Purpose eClinicalWorks SubmissioneClinicalWorks SubmissioneClinicalWorks SubmissioneClinicalWorks Submission Advance Directives Directive Response Recor ded Date/Time Advance Directives No 3:55pm Health Care Power of Dietetic Technician No 02/26/16 3:55pm Resuscitation Status Full Code 02/26/16 3:55pm Directive Response Recor ded Date/Time Advance Directives No 7:50am Health Care Power of Dietetic Technician No 02/29/16 7:50am Resuscitation Status Full Code 02/29/16 7:50am Discharge Instructions No hospital discharge instructions.No hospital discharge instructions. Additional Source Comments This clinical document has been generated using [employer] software that has been certified by the Office of the National Coordinator for Health Information Technology (ONC 15.99.04.3023.Diam.31.00.0.337520) and the National Committee for Sales Trader (NCQA, as an eMeasure certified technology). FOR RECORDS PERTAINING TO PATIENTS WHO ARE OR HAVE BEEN ENROLLED IN A CHEMICAL D EPENDENCY/SUBSTANCE ABUSE PROGRAM, SOME INFORMATION MAY BE OMITTED. This clinica l summary was aggregated from multiple sources. Caution should be exercised in using it in the provision of clinical care. This summary normalizes information from multiple sources, and as a consequence, information in this document may ma terially change the coding, format and clinical context of patient data. In sam tion, data may be omitted in some cases. CLINICAL DECISIONS SHOULD BE BASED ON T HE PRIMARY CLINICAL RECORDS. [employer]. provides no warranty or guara ntee of the accuracy or completeness of information in this document.The followi ng information is based on time limited clinical information UNRECOGNIZED CONTENT PROVIDED BELOW FOR UNRECOGNIZED SECTION MEDICAL (GENERAL) HISTORY Type Description Date Medical History Hypertension Medical History borderline Type II diabete s Surgical History Tonsillectomy Surgical History Tubal ligation 2004 Surgical History Otolaryngologic ric jacob tubes in ears Hospitalization History Child 3 para 3 with 3 full term vaginal delivery (s) UNRECOGNIZED CONTENT PROVIDED BELOW FOR UNRECOGNIZED SECTION REASON FOR VISIT Sore throat, right ear pain, sinus congestion x 2 days. Denies fevers. Suphedrin e PE (4mg chlorpheniramine malealte and 10mg phenylephrine) last taken at 11:30 today which relieved the sinus congestion for approximately 3 hours. [facility] [id number]
--- OUTSIDE RECORDS SUMMARY | 2020-01-06 11:53 | XMS REPORT ---
Author Author Anusha Delcid Organization [facility] [place] Address [address] [place] [address] Care Team Providers Care Greaser And Oiler Name Role Phone ROC Delcid Unavailable PROBLEMS Type Condition ICD9-CM Code AKI09-TY Code Onset Dates Condition S tatus SNOMED Code Problem Hypertension, benign I10 Active 35779419 Problem Polyneuropathy G62.9 Active 74571 000 Problem Major depressive disorder, single episode, unspecified F32.9 Active 84786536 Problem Other chronic pain G89.29 Active 8 3770967 Problem Amenorrhea N91.2 Active 55624348 Problem Vitamin D deficiency, unspecified E55.9 Active 94879164 Problem Iron deficiency anemia, unspecified D50.9 Active 51896681 Problem Obesity (BMI 30-39.9) E66.9 Active 713357548 Problem Type 2 diabetes mellitus wit hout complication, without long-term current use of insulin E11.9 Active 960051549 ALLERGIES No Information ENCOUNTERS Encounter Location Date Diagnosis [place] [address] [address] [facility] [id number] [address] [place] [address] Jan, [place] [address] [address] [facility] [id number] [address] [place] [address] Nov, [place] [address] [address] [facility] [id number] [address] [place] [address] Nov, Cellulitis of toe, right L03 .031 [place] [address] [address] [facility] [id number] [address] [place] [address] Nov, [place] [address] [address] [facility] [id number] [address] [place] [address] Nov, [place] [address] [address] [facility] [id number] [address] [place] [address] Nov, Cellulitis of toe of right f oot L03.031 [facility] [place] [address] [id number] [address] [place] [address] Oct, Foot pain, right M79.671 ; I nadir deficiency anemia, unspecified D50.9 and Type 2 diabetes mellitus without complication, without long-term current use of insulin E11.9 [facility] [place] [address] [id number] [address] [place] [address] Jul, [facility] [place] [address] [id number] [address] [place] [address] Jul, [facility] [place] [address] [id number] [address] [place] [address] Jul, [facility] [address] [id number] [address] [place] [address] Jun, Dental infection K04.7 [place] [address] [id number] [address] [place] [address] Jun, [facility] [place] [address] [id number] [address] [place] [address] Jun, [place] [address] [address] [facility] [id number] [address] [place] [address] Jun, Metatarsal stress fracture o f right foot with routine healing M84.374D ; Possible Z32.00 and Amenorrhea N91.2 [place] [address] [id number] [address] [place] [address] Jun, Type 2 diabetes mellitus wit hout complication, without long-term current use of insulin E11.9 [place] [address] [id number] [address] [place] [address] Jun, [place] [address] [id number] [address] [place] [address] Jun, [place] [address] [address] [facility] [id number] [address] [place] [address] Jun, Foot pain, right M79.671 and Other fracture of right foot, initial encounter for closed fracture S92.811A [place] [address] [address] May, Cellulitis of foot, right L0 3.115 [place] [address] [address] 15 Apr, 2019 Other chronic pain G89.29 an d Pain in right foot M79.671 [facility] [address] [address] Apr, Left otitis media, unspecifi ed otitis media type H66.[address] [address] Mar, Well woman exam with routine gynecological exam Z01.419 ; Obesity (BMI 30-39.9) E66.9 ; Hypertension, benign I10 and Type 2 diabetes mellitus without complication, without long-term current use of insulin E11.9 [place] [address] [address] Mar, Encounter for immunization Z 23 [place] [address] [address] Dec, Plantar fasciitis of right f oot M72.[address] [address] Dec, Hypertension, benign I10 and Iron deficiency anemia, unspecified D50.9 [place] [address] [address] Nov, Hypertension, benign I10 and Iron deficiency anemia, unspecified D50.9 [facility] [address] [address] Oct, Mouth pain K13.79 [facility] [address] [place] [address] 25 Nov, 2018 Sore throat J02.9 and Acute sinusitis J01.90 [place] [address] [address] Oct, Iron deficiency anemia, unsp ecified D50.9 [place] [address] [address] Oct, Iron deficiency anemia, unsp ecified D50.9 [place] [address] [address] Oct, Vitamin D deficiency, unspec ified E55.9 ; Iron deficiency anemia, unspecified D50.9 ; Major depressive disorder, single episode, unspecified F32.9 ; Polyneuropathy G62.9 and Hypertension, benign I10 [place] [address] [address] Oct, Vitamin D deficiency, unspec ified E55.9 ; Iron deficiency anemia, unspecified D50.9 ; Major depressive disorder, single episode, unspecified F32.9 ; Polyneuropathy G62.9 ; Hypertension, benign I10 and Hyperglycemia R73.9 [place] [address] [address] Apr, [place] [address] [address] Dec, Polyneuropathy G62.9 [place] [address] [address] Nov, Hyperglycemia R73.9 [place] [address] [address] Nov, Family history of diabetes m enzoitus Z83.3 and Hyperglycemia R73.9 [place] [address] [address] Nov, Family history of diabetes m ellitus Z83.3 and Hyperglycemia R73.9 [place] [address] [address] Nov, Neuropathy of both feet G57. 93 and Hypertension, benign I10 [facility] [place] [address] [place] [id number] [place] [address] Nov, Essential (primary) hyperten elda I10 [facility] [place] [address] [place] [id number] [address] [place] [address] September, Acute non-recurrent frontal sinusitis J01.10 [facility] [address] [place] [id number] [address] [place] [address] Jul, Tooth abscess K04.7 [place] [address] [address] Jan, [place] [address] [address] Dec, Hearing loss, bilateral H91. 93 [place] [address] [address] 14 Nov, 2015 Retraction of tympanic membr ane of both ears H73.823 [place] [address] [address] May, [place] [address] [address] May, Bronchitis J40 [place] [address] [address] Apr, Upper respiratory infection J06.9 [place] [address] [place] [id number] [address] [place] [address] Nov, Unspecified iron deficiency anemia 280.9 [place] [address] [address] Oct, Anemia 285.9 [place] [address] [address] September, Unspecified urinary incontin ence 788.30 ; Family history of diabetes mellitus in father V18.0 ; Glucose found in urine on examination 791.5 ; Urinary frequency 788.41 and Hypertension 401.9 [facility] [place] [address] [id number] [address] [place] [address] September, Unspecified urinary incontin ence 788.30 ; Family history of diabetes mellitus in father V18.0 ; Glucose found in urine on examination 791.5 ; Urinary frequency 788.41 and Hypertension 401.9 [facility] [place] [address] [id number] [address] [place] [address] 14 Aug, 2014 [facility] [place] [address] [id number] [address] [place] [address] Aug, [facility] [place] [address] [id number] [address] [place] [address] Jul, [facility] [place] [address] [id number] [address] [place] [address] Jul, [facility] [place] [address] [id number] [address] [place] [address] Jun, [facility] [place] [address] [id number] [address] [place] [address] Jun, [facility] [place] [address] [id number] [address] [place] [address] Jun, [facility] [place] [address] [id number] [address] [place] [address] Jun, [facility] [place] [address] [id number] [address] [place] [address] May, [facility] [place] [address] [id number] [address] [place] [address] May, [facility] [place] [address] [id number] [address] [place] [address] Oct, [facility] [place] [address] [id number] [address] [place] [address] Oct, [facility] [place] [address] [id number] [address] [place] [address] [place] [address] May, [facility] [address] [id number] [address] [place] [address], [place] [address] May, [facility] [address] [id number] [address] [place] [address], [place] [address] May, [facility] [address] [id number] [address] [place] [address], [place] [address] May, [facility] [address] [id number] [address] [place] [address], [place] [address] Apr, [facility] [address] [id number] [address] [place] [address], [place] [address] Apr, [facility] [address] [id number] [address] [place] [address], [place] [address] Apr, [facility] [address] [id number] [address] [place] [address], [place] [address] Apr, [facility] [address] [id number] [address] [place] [address], [place] [address] Apr, [facility] [address] [id number] [address] [place] [address], [place] [address] Apr, [facility] [address] [id number] [address] [place] [address], [place] [address] Apr, [facility] [address] [id number] [address] [place] [address], [place] [address] Apr, [facility] [address] [id number] [address] [place] [address], [place] [address] Dec, [facility] [address] [id number] [address] [place] [address], [place] [address] Nov, [facility] [address] [id number] [address] [place] [address], [place] [address] Jul, [facility] [address] [id number] [address] [place] [address], [place] [address] May, [facility] [address] [id number] [address] [place] [address], [place] [address] 19 May, 2012 [facility] [address] [id number] [address] [place] [address], [place] [address] 17 May, 2012 [facility] [address] [id number] [address] [place] [address], [place] [address] 17 May, 2012 [facility] [address] [id number] [address] [place] [address], [place] [address] 14 Apr, 2012 [facility] [address] [id number] [address] [place] [address], [place] [address] 14 Apr, 2012 [facility] [address] [id number] [address] [place] [address], [place] [address] 16 Mar, 2012 [facility] [address] [id number] [address] [place] [address], [place] [address] 16 Mar, 2012 [facility] [address] [id number] [address] [place] [address], [place] [address] 11 Mar, 2012 [facility] [address] [id number] [address] [place] [address], [place] [address] 08 Mar, 2012 [facility] [address] [id number] [address] [place] [address], [place] [address] 03 Mar, 2012 [facility] [address] [id number] [address] [place] [address], [place] [address] 27 Jan, 2012 [facility] [address] [id number] [address] [place] [address], [place] [address] 26 Sep2011 [facility] [address] [id number] [address] [place] [address], [place] [address] 25 Sep2011 [facility] [address] [id number] [address] [place] [address], [place] [address] 21 Jan, 2012 [facility] [address] [id number] [address] [place] [address], [place] [address] 30 Oct, 2011 [facility] [address] [id number] [address] [place] [address], [place] [address] 18 Oct, 2011 [facility] [address] [id number] [facility] [place] [address] September, [facility] [address] [id number] [address] [place] [address], [place] [address] 30 Aug, 2011 [facility] [address] [id number] [address] [place] [address], [place] [address] 24 Aug, 2011 [facility] [address] [id number] [address] [place] [address], [place] [address] 13 Aug, 2011 [facility] [address] [id number] [address] [place] [address], [place] [address] 22 Jul, 2011 [facility] [address] [id number] [address] [place] [address], [place] [address] 19 Jul, 2011 [facility] [address] [id number] [address] [place] [address], [place] [address] 13 Jul, 2011 [facility] [address] [id number] [address] [place] [address], [place] [address] 12 Jul, 2011 [facility] [address] [id number] [address] [place] [address], [place] [address] 07 Jul, 2011 [facility] [address] [id number] [address] [place] [address], [place] [address] 06 Jul, 2011 [facility] [address] [id number] [address] [place] [address], [place] [address] 02 Jul, 2011 [facility] [address] [id number] [address] [place] [address], [place] [address] 20 Jul, 2011 [facility] [address] [id number] [address] [place] [address], [place] [address] 14 Jul, 2011 [facility] [address] [id number] [address] [place] [address], [place] [address] 13 Jul, 2011 [facility] [address] [id number] [address] [place] [address], [place] [address] 11 Jul, 2011 [facility] [address] [id number] [address] [place] [address] 10 Jul, 2011 [facility] [place] [address] [id number] [address] [place] [id number] 10 Jul, 2011 [facility] [place] [address] [id number] [address] [place] [address] 07 May, 2010 [facility] [place] [address] [id number] [address] [place] [address] Oct, [facility] [place] [address] [id number] [address] [place] [address] Jun, [facility] [place] [address] [id number] [address] [place] [address] May, [facility] [place] [address] [id number] [address] [place] [address] May, [facility] [place] [address] [id number] [address] [place] [address] Apr, [facility] [place] [address] [id number] [address] [place] [address] Mar, [facility] [place] [address] [id number] [address] [place] [address] Mar, [facility] [place] [address] [id number] [address] [place] [address] Mar, IMMUNIZATIONS No Known Immunizations SOCIAL HISTORY Never Assessed REASON FOR VISIT PLAN OF CARE VITAL SIGNS MEDICATIONS Unknown Medications RESULTS No Results PROCEDURES [...]
--- OUTSIDE RECORDS SUMMARY | 2020-01-06 11:53 | XMS REPORT ---
Author Author Anusha MUNOZ Organization [facility] Address [address] [place] [address] Care Team Providers Care Quality Consultant Name Role Phone ALEXANDERELINA Unavailable PROBLEMS Type Condition ICD9-CM Code LNP24-GJ Code Onset Dates Condition S tatus SNOMED Code Problem Hypertension, benign I10 Active 41006748 Problem Polyneuropathy G62.9 Active 07845 000 Problem Major depressive disorder, single episode, unspecified F32.9 Active 02284982 Problem Other chronic pain G89.29 Active 8 0984509 Problem Amenorrhea N91.2 Active 56879083 Problem Vitamin D deficiency, unspecified E55.9 Active 44807828 Problem Iron deficiency anemia, unspecified D50.9 Active 81895689 Problem Obesity (BMI 30-39.9) E66.9 Active 784427725 Problem Type 2 diabetes mellitus wit hout complication, without long-term current use of insulin E11.9 Active 727186126 ALLERGIES No Information ENCOUNTERS Encounter Location Date Diagnosis [place] [address] [id number] [address] [place] [address] Jan, [place] [address] [address] [facility] [id number] [address] [place] [address] Nov, [place] [address] [id number] [address] [place] [address] Nov, Cellulitis of toe, right L03 .031 [place] [address] [id number] [address] [place] [address] Nov, [place] [address] [address] [facility] [id number] [address] [place] [address] Nov, [place] [address] [id number] [address] [place] [address] Nov, Cellulitis of toe of right f oot L03.031 [facility] [address] [id number] [address] [place] [address] 05 Oct, 2019 Foot pain, right M79.671 ; I nadir deficiency anemia, unspecified D50.9 and Type 2 diabetes mellitus without complication, without long-term current use of insulin E11.9 [facility] [address] [id number] [address] [place] [address] Jul, [facility] [address] [id number] [address] [place] [address] Jul, [facility] [address] [id number] [address] [place] [address] Jul, [facility] [address] [id number] [address] [place] [address] Jun, Dental infection K04.7 [place] [address] [address] [facility] [id number] [address] [place] [address] Jun, [place] [address] [id number] [address] [place] [address] Jun, [place] [address] [address] [facility] [id number] [address] [place] [address] Jun, Metatarsal stress fracture o f right foot with routine healing M84.374D ; Possible Z32.00 and Amenorrhea N91.2 [place] [address] [address] [facility] [id number] [address] [place] [address] Jun, [place] [address] [address] [facility] [id number] [address] [place] [address] Jun, Type 2 diabetes mellitus wit hout complication, without long-term current use of insulin E11.9 [place] [address] [address] [facility] [id number] [address] [place] [address] Jun, [place] [address] [address] [facility] [id number] [address] [place] [address] Jun, Foot pain, right M79.671 and Other fracture of right foot, initial encounter for closed fracture S92.811A [place] [address] [address] 11 May, 2019 Cellulitis of foot, right L0 3.115 [place] [address] [address] 15 Apr, 2019 Other chronic pain G89.29 an d Pain in right foot M79.671 [facility] [address] [address] Apr, Left otitis media, unspecifi ed otitis media type H66.[address] [address] Mar, Well woman exam with routine gynecological exam Z01.419 ; Obesity (BMI 30-39.9) E66.9 ; Hypertension, benign I10 and Type 2 diabetes mellitus without complication, without long-term current use of insulin E11.9 [place] [address] [address] Mar, Encounter for immunization Z [address] [address] Dec, Plantar fasciitis of right f oot M72.[address] [address] Dec, Hypertension, benign I10 and Iron deficiency anemia, unspecified D50.9 [place] [address] [address] Nov, Hypertension, benign I10 and Iron deficiency anemia, unspecified D50.9 [facility] [address] [address] Oct, Mouth pain K13.79 [facility] [address] [address] Apr, Sore throat J02.9 and Acute sinusitis J01.90 [place] [address] [address] Oct, Iron deficiency anemia, unsp ecified D50.9 [place] [address] [address] Oct, Iron deficiency anemia, unsp ecified D50.9 [place] [address] [address] Oct, Vitamin D deficiency, unspec ified E55.9 ; Iron deficiency anemia, unspecified D50.9 ; Major depressive disorder, single episode, unspecified F32.9 ; Polyneuropathy G62.9 and Hypertension, benign I10 [place] [address] [address] Oct, Vitamin D deficiency, unspec ified E55.9 ; Iron deficiency anemia, unspecified D50.9 ; Major depressive disorder, single episode, unspecified F32.9 ; Polyneuropathy G62.9 ; Hypertension, benign I10 and Hyperglycemia R73.9 [place] [address] [address] Apr, [place] [address] [address] Dec, Polyneuropathy G62.9 [place] [address] [address] Nov, Hyperglycemia R73.9 [place] [address] [address] Nov, Family history of diabetes m ellitus Z83.3 and Hyperglycemia R73.9 [place] [address] [address] Nov, Family history of diabetes m ellitus Z83.3 and Hyperglycemia R73.9 [place] [address] [address] 10 Francisco, 2017 Neuropathy of both feet G57. 93 and Hypertension, benign I10 [facility] [address] [place] [id number] [address] [place] [address] Nov, Essential (primary) hyperten elda I10 [facility] [id number] [place] [address] September, Acute non-recurrent frontal sinusitis J01.10 [facility] [address] [address] Jul, Tooth abscess K04.7 [facility] [address] [address] Jan, [place] [address] [address] Dec, Hearing loss, bilateral H91. 93 [place] [address] [address] Nov, Retraction of tympanic membr ane of both ears H73.823 [place] [address] [address] May, [place] [address] [address] May, Bronchitis J40 [place] [address] [address] Apr, Upper respiratory infection J06.9 [place] [address] [address] Nov, Unspecified iron deficiency anemia 280.9 [place] [address] [address] Oct, Anemia 285.9 [place] [address] [address] September, Unspecified urinary incontin ence 788.30 ; Family history of diabetes mellitus in father V18.0 ; Glucose found in urine on examination 791.5 ; Urinary frequency 788.41 and Hypertension 401.9 [facility] [address] [id number] [address] [place] [address] September, Unspecified urinary incontin ence 788.30 ; Family history of diabetes mellitus in father V18.0 ; Glucose found in urine on examination 791.5 ; Urinary frequency 788.41 and Hypertension 401.9 [facility] [address] [id number] [address] [place] [address] 14 Aug, 2014 [facility] [address] [id number] [address] [place] [address] Aug, [facility] [address] [id number] [address] [place] [address] Jul, [facility] [address] [id number] [address] [place] [address] Jul, [facility] [address] [id number] [address] [place] [address] Jun, [facility] [address] [id number] [address] [place] [address] Jun, [facility] [address] [id number] [address] [place] [address] Jun, [facility] [address] [facility] [id number] [address] [place] [address] Jun, [facility] [address] [id number] [address] [place] [address] May, [facility] [address] [id number] [address] [place] [address] May, [facility] [address] [id number] [address] [place] [address] Oct, [facility] [address] [id number] [address] [place] [address] Oct, [facility] [address] [id number] [address] [place] [address] May, [facility] [address] [id number] [address] [place] [address], [place] [address] May, [facility] [address] [id number] [address] [place] [address], [place] [address] May, [facility] [address] [id number] [address] [place] [address], [place] [address] May, [facility] [address] [id number] [address] [place] [address], [place] [address] Apr, [facility] [address] [id number] [address] [place] [address], [place] [address] Apr, [facility] [address] [id number] [address] [place] [address], [place] [address] Apr, [facility] [address] [id number] [address] [place] [address], [place] [address] Apr, [facility] [address] [id number] [address] [place] [address], [place] [address] Apr, [facility] [address] [id number] [address] [place] [address], [place] [address] Apr, [facility] [address] [id number] [address] [place] [address], [place] [address] Apr, [facility] [address] [id number] [address] [place] [address], [place] [address] Apr, [facility] [address] [id number] [address] [place] [address], [place] [address] Dec, [facility] [address] [id number] [address] [place] [address], [place] [address] Nov, [facility] [address] [id number] [address] [place] [address], [place] [address] Jul, [facility] [address] [id number] [address] [place] [address], [place] [address] May, [facility] [address] [id number] [address] [place] [address] [place] [address] 19 May, 2012 [facility] [address] [id number] [address] [place] [address], [place] [address] 17 May, 2012 [facility] [address] [id number] [address] [place] [address], [place] [address] 17 May, 2012 [facility] [address] [id number] [address] [place] [address], [place] [address] 14 Apr, 2012 [facility] [address] [id number] [address] [place] [address], [place] [address] 14 Apr, 2012 [facility] [address] [id number] [address] [place] [address], [place] [address] 16 Mar, 2012 [facility] [address] [id number] [address] [place] [address], [place] [address] 16 Mar, 2012 [facility] [address] [id number] [address] [place] [address], [place] [address] 11 Mar, 2012 [facility] [address] [id number] [address] [place] [address], [place] [address] 08 Mar, 2012 [facility] [address] [id number] [address] [place] [address], [place] [address] 03 Mar, 2012 [facility] [address] [id number] [address] [place] [address], [place] [address] 27 Jan, 2012 [facility] [address] [id number] [address] [place] [address], [place] [address] 26 Jan, 2012 [facility] [address] [id number] [address] [place] [address], [place] [address] 25 Jan, 2012 [facility] [address] [id number] [address] [place] [address], [place] [address] 21 Jan, 2012 [facility] [address] [id number] [address] [place] [address], [place] [address] 30 Oct, 2011 [facility] [address] [id number] [address] [place] [address], [place] [address] 18 Oct, 2011 [facility] [address] [id number] [facility] [place] [address] 29 Sep, 2011 [facility] [address] [id number] [address] [place] [address], [place] [address] 30 Aug, 2011 [facility] [address] [id number] [address] [place] [address], [place] [address] 24 Aug, 2011 [facility] [address] [id number] [address] [place] [address], [place] [address] 13 Aug, 2011 [facility] [address] [id number] [address] [place] [address], [place] [address] 22 Jul, 2011 [facility] [address] [id number] [address] [place] [address], [place] [address] 19 Jul, 2011 [facility] [address] [id number] [address] [place] [address], [place] [address] 13 Jul, 2011 [facility] [address] [id number] [address] [place] [address], [place] [address] 12 Jul, 2011 [facility] [address] [id number] [address] [place] [address], [place] [address] 07 Jul, 2011 [facility] [address] [id number] [address] [place] [address], [place] [address] 06 Jul, 2011 [facility] [address] [id number] [address] [place] [address], [place] [address] 02 Jul, 2011 [facility] [address] [id number] [address] [place] [address], [place] [address] 20 Jul, 2011 [facility] [address] [id number] [address] [place] [address], [place] [address] 14 Jul, 2011 [facility] [address] [id number] [address] [place] [address], [place] [address] 13 Jul, 2011 [facility] [address] [id number] [address] [place] [address], [place] [address] 11 Jul, 2011 [facility] [address] [id number] [address] [place] [address] 10 Jul, 2011 [facility] [address] [id number] [address] [place] [address] 10 Jul, 2011 [facility] [address] [id number] [address] [place] [address] May, [facility] [address] [id number] [address] [place] [address] Oct, [facility] [address] [id number] [address] [place] [address] Jun, [facility] [address] [id number] [address] [place] [address] May, [facility] [address] [id number] [address] [place] [address] May, [facility] [address] [id number] [address] [place] [address] Apr, [facility] [address] [id number] [address] [place] [address] Mar, [facility] [address] [id number] [address] [place] [address] Mar, [facility] [address] [id number] [address] [place] [address] 14 Mar, 2009 IMMUNIZATIONS No Known Immunizations [...]
--- OUTSIDE RECORDS SUMMARY | 2020-01-06 11:54 | XMS REPORT ---
Author Author Anusha GUERRERO Organization [facility] Address [address] [place] [address] Care Team Providers Care Stock Patch Sawyer Name Role Phone TERESA GUERRERO Unavailable PROBLEMS Type Condition ICD9-CM Code [id number] Code Onset Dates Condition S tatus SNOMED Code Problem Hypertension, benign I10 Active 00459394 Problem Polyneuropathy G62.9 Active 42438 000 Problem Major depressive disorder, single episode, unspecified F32.9 Active 13779895 Problem Other chronic pain G89.29 Active 8 8839580 Problem Amenorrhea N91.2 Active 70459893 Problem Vitamin D deficiency, unspecified E55.9 Active 11236348 Problem Iron deficiency anemia, unspecified D50.9 Active 85503256 Problem Obesity (BMI 30-39.9) E66.9 Active 153229387 Problem Type 2 diabetes mellitus wit hout complication, without long-term current use of insulin E11.9 Active 852876924 ALLERGIES No Information ENCOUNTERS Encounter Location Date Diagnosis [facility] [address] [id number] [address] [place] [address] Jul, [facility] [address] [id number] [address] [place] [address] Jul, [facility] [address] [id number] [address] [place] [address] Jul, [facility] [address] [id number] [address] [place] [address] Jun, Dental infection K04.7 [facility] [address] [id number] [address] [place] [address] Jun, [facility] [address] [id number] [address] [place] [address] Jun, [place] [address] [place] [id number] [address] [place] [address] 13 Jun, 2019 Metatarsal stress fracture o f right foot with routine healing M84.374D ; Possible Z32.00 and Amenorrhea N91.2 [place] [address] [place] [address] 06 Jun, 2019 Type 2 diabetes mellitus wit hout complication, without long-term current use of insulin E11.9 [place] [address] [place] [id number] [address] [place] [address] 06 Jun, 2019 [place] [address] [address] Jun, [place] [address] [address] 02 Jun, 2019 Foot pain, right M79.671 and Other fracture of right foot, initial encounter for closed fracture S92.811A [place] [address] [address] May, Cellulitis of foot, right L0 3.115 [place] [address] [address] 15 Apr, 2019 Other chronic pain G89.29 an d Pain in right foot M79.671 [facility] [address] [place] [id number] [address] [place] [address] Apr, Left otitis media, unspecifi ed otitis media type H66.92 [place] [address] [place] [id number] [address] [place] [address] 03 Mar, 2019 Well woman exam with routine gynecological exam Z01.419 ; Obesity (BMI 30-39.9) E66.9 ; Hypertension, benign I10 and Type 2 diabetes mellitus without complication, without long-term current use of insulin E11.9 [place] [address] [place] [address] 02 Mar, 2019 Encounter for immunization Z 23 [place] [address] [address] Dec, Plantar fasciitis of right f oot M72.2 [place] [address] [address] Dec, Hypertension, benign I10 and Iron deficiency anemia, unspecified D50.9 [place] [address] [address] Nov, Hypertension, benign I10 and Iron deficiency anemia, unspecified D50.9 [facility] [place] [address] [address] Oct, Mouth pain K13.79 [facility] [place] [address] [address] Apr, Sore throat J02.9 and Acute sinusitis J01.90 [place] [address] [address] Oct, Iron deficiency anemia, unsp ecified D50.9 [place] [address] [address] Oct, Iron deficiency anemia, unsp ecified D50.9 [place] [address] [address] Oct, Vitamin D deficiency, unspec ified E55.9 ; Iron deficiency anemia, unspecified D50.9 ; Major depressive disorder, single episode, unspecified F32.9 ; Polyneuropathy G62.9 and Hypertension, benign I10 [place] [address] [address] Oct, Vitamin D deficiency, unspec ified E55.9 ; Iron deficiency anemia, unspecified D50.9 ; Major depressive disorder, single episode, unspecified F32.9 ; Polyneuropathy G62.9 ; Hypertension, benign I10 and Hyperglycemia R73.9 [place] [address] [address] Apr, [facility] [address] [place] [address] Dec, Polyneuropathy G62.9 [place] [address] [place] [id number] [address] [place] [address] Nov, Hyperglycemia R73.9 [place] [address] [address] Nov, Family history of diabetes m ellitus Z83.3 and Hyperglycemia R73.9 [place] [address] [place] [id number] [place] [address] Nov, Family history of diabetes m ellitus Z83.3 and Hyperglycemia R73.9 [place] [address] [place] [id number] [place] [address] Nov, Neuropathy of both feet G57. 93 and Hypertension, benign I10 [place] [address] [place] [address] Nov, Essential (primary) hyperten elda I10 [place] [address] [address] September, Acute non-recurrent frontal sinusitis J01.10 [facility] [address] [place] [id number] [address] [place] [address] Jul, Tooth abscess K04.7 [facility] [address] [place] [id number] [address] [place] [address] Jan, [place] [address] [address] Dec, Hearing loss, bilateral H91. 93 [place] [address] [address] Nov, Retraction of tympanic membr ane of both ears H73.823 [place] [address] [address] May, [facility] [address] [place] [address] May, Bronchitis J40 [facility] [address] [place] [id number] [address] [place] [address] 25 Apr, 2015 Upper respiratory infection J06.9 [facility] [address] [place] [id number] [address] [place] [address] 13 Nov, 2014 Unspecified iron deficiency anemia 280.9 [facility] [address] [place] [id number] [address] [place] [address] 12 Oct, 2014 Anemia 285.9 [facility] [address] [address] 13 Sep, 2014 Unspecified urinary incontin ence 788.30 ; Family history of diabetes mellitus in father V18.0 ; Glucose found in urine on examination 791.5 ; Urinary frequency 788.41 and Hypertension 401.9 [facility] [address] [place] [address] 11 Sep, 2014 Unspecified urinary incontin ence 788.30 ; Family history of diabetes mellitus in father V18.0 ; Glucose found in urine on examination 791.5 ; Urinary frequency 788.41 and Hypertension 401.9 [facility] [address] [place] [id number] [address] [place] [phone] 14 Aug, 2014 [facility] [address] [place] [address] Aug, [facility] [address] [place] [id number] [address] [place] [address] Jul, [facility] [address] [place] [id number] [address] [place] [address] Jul, [facility] [address] [place] [id number] [address] [place] [phone] Jun, [facility] [address] [place] [id number] [address] [place] [address] Jun, [facility] [address] [id number] [address] [place] [address], [place] [address] Jun, [facility] [address] [id number] [address] [place] [address], [place] [address] Jun, [facility] [address] [id number] [address] [place] [address], [place] [address] May, [facility] [address] [id number] [address] [place] [address], [place] [address] May, [facility] [address] [id number] [address] [place] [address], [place] [address] Oct, [facility] [address] [id number] [address] [place] [address], [place] [address] Oct, [facility] [address] [id number] [address] [place] [address], [place] [address] May, [facility] [place] [address] [id number] [address] [place] [address], [place] [address] May, [facility] [place] [address] [id number] [address] [place] [address], [place] [address] May, [facility] [address] [id number] [address] [place] [address], [place] [address] May, [facility] [address] [id number] [address] [place] [address], [place] [address] Apr, [facility] [address] [id number] [address] [place] [address], [place] [address] Apr, [facility] [address] [id number] [address] [place] [address], [place] [address] Apr, [facility] [address] [id number] [address] [place] [address], [place] [address] Apr, [facility] [address] [id number] [address] [place] [address], [place] [address] Apr, [facility] [address] [id number] [address] [place] [phone] Apr, [facility] [address] [id number] [address] [place] [address], [place] [address] Apr, [facility] [address] [id number] [address] [place] [address], [place] [address] Apr, [facility] [address] [id number] [address] [place] [address], [place] [address] Dec, [facility] [address] [id number] [address] [place] [address], [place] [address] Nov, [facility] [address] [id number] [address] [place] [address], [place] [address] Jul, [facility] [address] [id number] [address] [place] [address], [place] [address] May, [facility] [address] [id number] [address] [place] [address], [place] [address] May, [facility] [address] [id number] [address] [place] [address], [place] [address] May, [facility] [address] [id number] [address] [place] [address], [place] [address] 17 May, 2012 [facility] [address] [id number] [address] [place] [address], [place] [address] Apr, [facility] [address] [id number] [address] [place] [address], [place] [address] 14 Apr, 2012 [facility] [address] [id number] [address] [place] [address], [place] [address] 16 Mar, 2012 [facility] [address] [id number] [address] [place] [address], [place] [address] 16 Mar, 2012 [facility] [address] [id number] [address] [place] [address], [place] [address] 11 Mar, 2012 [facility] [address] [id number] [address] [place] [address], [place] [address] 08 Mar, 2012 [facility] [address] [id number] [address] [place] [address], [place] [address] 03 Mar, 2012 [facility] [address] [id number] [address] [place] [address], [place] [address] 27 Jan, 2012 [facility] [address] [id number] [address] [place] [address], [place] [address] 26 Jan, 2012 [facility] [address] [id number] [address] [place] [address], [place] [address] 25 Jan, 2012 [facility] [address] [id number] [address] [place] [address], [place] [address] 21 Jan, 2012 [facility] [address] [id number] [address] [place] [address], [place] [address] 30 Oct, 2011 [facility] [address] [id number] [address] [place] [address], [place] [address] 18 Oct, 2011 [facility] [address] [id number] [address] [place] [address], [place] [address] 29 Sep, 2011 [facility] [address] [id number] [address] [place] [address], [place] [address] 30 Aug, 2011 [facility] [address] [id number] [address] [place] [address], [place] [address] 24 Aug, 2011 [facility] [address] [id number] [address] [place] [address], [place] [address] 13 Aug, 2011 [facility] [address] [id number] [address] [place] [address], [place] [address] 22 Jul, 2011 [facility] [address] [id number] [address] [place] [address], [place] [address] 19 Jul, 2011 [facility] [address] [id number] [address] [place] [address], [place] [address] 13 Jul, 2011 [facility] [address] [id number] [address] [place] [address], [place] [address] 12 Jul, 2011 [facility] [address] [id number] [address] [place] [address], [place] [address] 07 Jul, 2011 [facility] [address] [id number] [address] [place] [address], [place] [address] 06 Jul, 2011 [facility] [address] [id number] [address] [place] [address], [place] [address] 02 Jul, 2011 [facility] [address] [id number] [address] [place] [address], [place] [address] 20 Jul, 2011 [facility] [address] [id number] [address] [place] [address], [place] [address] 14 Jul, 2011 [facility] [address] [id number] [address] [place] [address], [place] [address] 13 Jul, 2011 [facility] [address] [id number] [address] [place] [address], [place] [address] 11 Jul, 2011 [facility] [address] [id number] [address] [place] [address], [place] [address] 10 Jul, 2011 [facility] [address] [id number] [address] [place] [address], [place] [address] 10 Jul, 2011 [facility] [address] [id number] [address] [place] [address], [place] [address] May, [facility] [address] [id number] [address] [place] [address], [place] [address] Oct, [facility] [address] [id number] [address] [place] [address], [place] [address] Jun, [facility] [address] [id number] [address] [place] [address], [place] [address] May, [facility] [address] [id number] [address] [place] [address], [place] [address] May, [facility] [address] [id number] [address] [place] [address], [place] [address] Apr, [facility] [address] [id number] [address] [place] [address], [place] [address] Mar, [facility] [address] [id number] [address] [place] [address] 14 Mar, 2009 [facility] [address] [id number] [address] [place] [address] Mar, IMMUNIZATIONS No Known Immunizations SOCIAL HISTORY Never Assessed REASON FOR VISIT PLAN OF CARE VITAL SIGNS Height 67 in 2014-06-17 Weight 235 lbs 2014-06-17 Temperature 98.6 degrees Fahrenheit 2014-06-17 Heart Rate 100 bpm 2014-06-17 Respiratory Rate 20 2014-06-17 Blood pressure systolic 136 mmHg 2014-06-17 Blood pressure diastolic 84 mmHg 2014-06-17 MEDICATIONS Unknown Medications RESULTS No Results PROCEDURES [...]
--- OUTSIDE RECORDS SUMMARY | 2020-01-06 11:54 | XMS REPORT ---
Author Author Anusha GUTIERREZ Organization [facility] Address [address] [place] [address] Care Team Providers Care Quarter Backer Name Role Phone LUCILA GUTIERREZ Unavailable PROBLEMS Type Condition ICD9-CM Code HMM69-MS Code Onset Dates Condition S tatus SNOMED Code Problem Hypertension, benign I10 Active 94023774 Problem Polyneuropathy G62.9 Active 92114 000 Problem Major depressive disorder, single episode, unspecified F32.9 Active 84232723 Problem Other chronic pain G89.29 Active 8 8819819 Problem Amenorrhea N91.2 Active 99036810 Problem Vitamin D deficiency, unspecified E55.9 Active 36131781 Problem Iron deficiency anemia, unspecified D50.9 Active 20319432 Problem Obesity (BMI 30-39.9) E66.9 Active 740283137 Problem Type 2 diabetes mellitus wit hout complication, without long-term current use of insulin E11.9 Active [id number] ALLERGIES No Information ENCOUNTERS Encounter Location Date Diagnosis [facility] [address] [facility] [id number] [address] [place] [address] Jul, [facility] [address] [facility] [id number] [address] [place] [address] Jul, [facility] [address] [facility] [id number] [address] [place] [address] Jul, [facility] [address] [facility] [id number] [address] [place] [address] Jun, Dental infection K04.7 [facility] [address] [facility] [id number] [address] [place] [address] Jun, [facility] [address] [facility] [id number] [address] [place] [address] Jun, [place] [address] [place] [address] 13 Jun, 2019 Metatarsal stress fracture o f right foot with routine healing M84.374D ; Possible Z32.00 and Amenorrhea N91.2 [place] [address] [place] [id number] [address] [place] [address] 06 Jun, 2019 Type 2 diabetes mellitus wit hout complication, without long-term current use of insulin E11.9 [place] [address] [place] [id number] [address] [place] [address] 06 Jun, 2019 [place] [address] [place] [address] Jun, [place] [address] [place] [id number] [address] [place] [address] Jun, Foot pain, right M79.671 and Other fracture of right foot, initial encounter for closed fracture S92.811A [place] [address] [place] [id number] [address] [place] [address] May, Cellulitis of foot, right L0 3.115 [place] [address] [address] Apr, Other chronic pain G89.29 an d Pain in right foot M79.671 [facility] [address] [place] [id number] [address] [place] [address] Apr, Left otitis media, unspecifi ed otitis media type H66.92 [place] [address] [place] [id number] [address] [place] [address] Mar, Well woman exam with routine gynecological exam Z01.419 ; Obesity (BMI 30-39.9) E66.9 ; Hypertension, benign I10 and Type 2 diabetes mellitus without complication, without long-term current use of insulin E11.9 [place] [address] [place] [id number] [address] [place] [address] 02 Mar, 2019 Encounter for immunization Z 23 [place] [address] [address] Dec, Plantar fasciitis of right f oot M72.2 [place] [address] [address] Dec, Hypertension, benign I10 and Iron deficiency anemia, unspecified D50.9 [place] [address] [address] Nov, Hypertension, benign I10 and Iron deficiency anemia, unspecified D50.9 [facility] [place] [address] [address] Oct, Mouth pain K13.79 [facility] [place] [address] [address] Apr, Sore throat J02.9 and Acute sinusitis J01.[address] [address] Oct, Iron deficiency anemia, unsp ecified D50.9 [place] [address] [address] Oct, Iron deficiency anemia, unsp ecified D50.9 [place] [address] [address] Oct, Vitamin D deficiency, unspec ified E55.9 ; Iron deficiency anemia, unspecified D50.9 ; Major depressive disorder, single episode, unspecified F32.9 ; Polyneuropathy G62.9 and Hypertension, benign I10 [place] [address] [address] Oct, Vitamin D deficiency, unspec ified E55.9 ; Iron deficiency anemia, unspecified D50.9 ; Major depressive disorder, single episode, unspecified F32.9 ; Polyneuropathy G62.9 ; Hypertension, benign I10 and Hyperglycemia R73.9 [place] [address] [address] Apr, [facility] [address] [address] Dec, Polyneuropathy G62.9 [place] [address] [place] [address] Nov, Hyperglycemia R73.9 [place] [address] [address] Nov, Family history of diabetes m ellitus Z83.3 and Hyperglycemia R73.9 [place] [address] [address] Nov, Family history of diabetes m ellitus Z83.3 and Hyperglycemia R73.9 [place] [address] [address] Nov, Neuropathy of both feet G57. 93 and Hypertension, benign I10 [place] [address] [address] Nov, Essential (primary) hyperten elda I10 [place] [address] [address] September, Acute non-recurrent frontal sinusitis J01.10 [facility] [address] [address] Jul, Tooth abscess K04.7 [place] [address] [address] Jan, [place] [address] [address] Dec, Hearing loss, bilateral H91. 93 [place] [address] [address] Nov, Retraction of tympanic membr ane of both ears H73.823 [place] [address] [address] May, [facility] [address] [place] [address] 14 May, 2015 Bronchitis J40 [facility] [address] [address] Apr, Upper respiratory infection J06.9 [facility] [address] [place] [id number] [address] [place] [address] 13 Nov, 2014 Unspecified iron deficiency anemia 280.9 [facility] [address] [place] [id number] [address] [place] [address] 12 Oct, 2014 Anemia 285.9 [place] [address] [address] 13 Sep, 2014 Unspecified urinary incontin ence 788.30 ; Family history of diabetes mellitus in father V18.0 ; Glucose found in urine on examination 791.5 ; Urinary frequency 788.41 and Hypertension 401.9 [facility] [address] [place] [id number] [address] [place] [address] 11 Sep, 2014 Unspecified urinary incontin ence 788.30 ; Family history of diabetes mellitus in father V18.0 ; Glucose found in urine on examination 791.5 ; Urinary frequency 788.41 and Hypertension 401.9 [facility] [address] [place] [id number] [address] [place] [address] 14 Aug, 2014 [facility] [address] [place] [address] Aug, [facility] [address] [place] [id number] [address] [place] [address] Jul, [facility] [address] [place] [address] Jul, [facility] [address] [place] [id number] [address] [place] [address] Jun, [facility] [address] [place] [id number] [address] [place] [address] Jun, [facility] [address] [id number] [address] [place] [address], [place] [address] Jun, [facility] [address] [id number] [address] [place] [address], [place] [address] Jun, [facility] [address] [id number] [address] [place] [address], [place] [address] May, [facility] [address] [id number] [address] [place] [address], [place] [address] May, [facility] [address] [id number] [address] [place] [address], [place] [address] Oct, [facility] [address] [id number] [address] [place] [address], [place] [address] Oct, [facility] [address] [id number] [address] [place] [address], [place] [address] May, [facility] [address] [id number] [address] [place] [address], [place] [address] May, [facility] [address] [id number] [address] [place] [address], [place] [address] May, [facility] [address] [id number] [address] [place] [address], [place] [address] May, [facility] [address] [id number] [address] [place] [address], [place] [address] Apr, [facility] [address] [id number] [address] [place] [address], [place] [address] Apr, [facility] [address] [id number] [address] [place] [address], [place] [address] Apr, [facility] [address] [id number] [address] [place] [address], [place] [address] Apr, [facility] [address] [id number] [address] [place] [address], [place] [address] Apr, [facility] [address] [id number] [address] [place] [address], [place] [address] Apr, [facility] [address] [id number] [address] [place] [address], [place] [address] Apr, [facility] [address] [id number] [address] [place] [address], [place] [address] Apr, [facility] [address] [id number] [address] [place] [address], [place] [address] Dec, [facility] [address] [id number] [address] [place] [address], [place] [address] Nov, [facility] [address] [id number] [address] [place] [address], [place] [address] Jul, [facility] [address] [id number] [address] [place] [address], [place] [address] May, [facility] [address] [id number] [address] [place] [address], [place] [address] May, [facility] [address] [id number] [address] [place] [address], [place] [address] 17 May, 2012 [facility] [address] [id number] [address] [place] [address], [place] [address] 17 May, 2012 [facility] [address] [id number] [address] [place] [address], [place] [address] 14 Apr, 2012 [facility] [address] [id number] [address] [place] [address], [place] [address] 14 Apr, 2012 [facility] [address] [id number] [address] [place] [address], [place] [address] 16 Mar, 2012 [facility] [address] [id number] [address] [place] [address], [place] [address] 16 Mar, 2012 [facility] [address] [id number] [address] [place] [address], [place] [address] 11 Mar, 2012 [facility] [address] [id number] [address] [place] [address], [place] [address] 08 Mar, 2012 [facility] [address] [id number] [address] [place] [address], [place] [address] 03 Mar, 2012 [facility] [address] [id number] [address] [place] [address], [place] [address] 27 Jan, 2012 [facility] [address] [id number] [address] [place] [address], [place] [address] 26 Jan, 2012 [facility] [address] [id number] [address] [place] [address], [place] [address] 25 Jan, 2012 [facility] [address] [id number] [address] [place] [address], [place] [address] 21 Jan, 2012 [facility] [address] [id number] [address] [place] [address], [place] [address] 30 Oct, 2011 [facility] [address] [id number] [address] [place] [address], [place] [address] 18 Oct, 2011 [facility] [address] [id number] [address] [place] [address], [place] [address] 29 Sep, 2011 [facility] [address] [id number] [address] [place] [address], [place] [address] 30 Aug, 2011 [facility] [address] [id number] [address] [place] [address], [place] [address] 24 Aug, 2011 [facility] [address] [id number] [address] [place] [address], [place] [address] 13 Aug, 2011 [facility] [address] [id number] [address] [place] [address], [place] [address] 22 Jul, 2011 [facility] [address] [id number] [address] [place] [address], [place] [address] 19 Jul, 2011 [facility] [address] [id number] [address] [place] [address], [place] [address] 13 Jul, 2011 [facility] [address] [id number] [address] [place] [address], [place] [address] 12 Jul, 2011 [facility] [address] [id number] [address] [place] [address], [place] [address] 07 Jul, 2011 [facility] [address] [id number] [address] [place] [address], [place] [address] 06 Jul, 2011 [facility] [address] [id number] [address] [place] [address], [place] [address] 02 Jul, 2011 [facility] [address] [id number] [address] [place] [address], [place] [address] 20 Jul, 2011 [facility] [address] [id number] [address] [place] [address], [place] [address] 14 Jul, 2011 [facility] [address] [id number] [address] [place] [address], [place] [address] 13 Jul, 2011 [facility] [address] [id number] [address] [place] [address], [place] [address] 11 Jul, 2011 [facility] [address] [id number] [address] [place] [address], [place] [address] 10 Jul, 2011 [facility] [address] [id number] [address] [place] [address], [place] [address] 10 Jul, 2011 [facility] [address] [id number] [address] [place] [address], [place] [address] May, [facility] [address] [id number] [address] [place] [address], [place] [address] Oct, [facility] [address] [id number] [address] [place] [address], [place] [address] Jun, [facility] [address] [id number] [address] [place] [address] May, [facility] [address] [id number] [address] [place] [address], [place] [address] May, [facility] [address] [id number] [address] [place] [address], [place] [address] Apr, [facility] [address] [id number] [address] [place] [address], [place] [address] Mar, [facility] [address] [id number] [address] [place] [address] Mar, [facility] [address] [facility] [id number] [address] [place] [address] Mar, IMMUNIZATIONS No Known Immunizations SOCIAL HISTORY Never Assessed REASON FOR VISIT PLAN OF CARE VITAL SIGNS Height 67 in 2014-06-05 Weight 240.2 lbs 2014-06-05 Temperature 98.2 degrees Fahrenheit 2014-06-05 Heart Rate 78 bpm 2014-06-05 Respiratory Rate 16 2014-06-05 Blood pressure systolic 190 mmHg 2014-06-05 Blood pressure diastolic 100 mmHg 2014-06-05 MEDICATIONS Unknown Medications RESULTS No Results PROCEDURES [...]
--- OUTSIDE RECORDS SUMMARY | 2020-01-06 11:54 | XMS REPORT ---
Author Author Anusha MUNOZ Organization [facility] Address [address] [place] [address] Care Team Providers Care Circuitry Negative Inspector Name Role Phone ALEXANDER ELINA Unavailable PROBLEMS Type Condition ICD9-CM Code ZTT21-DB Code Onset Dates Condition S tatus SNOMED Code Problem Hypertension, benign I10 Active 77297633 Problem Polyneuropathy G62.9 Active 84030 000 Problem Major depressive disorder, single episode, unspecified F32.9 Active 73446053 Problem Other chronic pain G89.29 Active 8 3489185 Problem Amenorrhea N91.2 Active 97360680 Problem Vitamin D deficiency, unspecified E55.9 Active 40560982 Problem Iron deficiency anemia, unspecified D50.9 Active 13097901 Problem Obesity (BMI 30-39.9) E66.9 Active 120556413 Problem Type 2 diabetes mellitus wit hout complication, without long-term current use of insulin E11.9 Active [id number] ALLERGIES No Information ENCOUNTERS Encounter Location Date Diagnosis [facility] [address] [facility] [id number] [address] [place] [phone] Oct, [facility] [address] [facility] [id number] [address] [place] [phone] Jul, [facility] [address] [facility] [id number] [address] [place] [address] Jul, [facility] [address] [facility] [id number] [address] [place] [address] Jul, [facility] [address] [facility] [id number] [address] [place] [address] Jun, Dental infection K04.7 [facility] [address] [facility] [id number] [address] [place] [address] Jun, [facility] [address] [place] [id number] [address] [place] [address] 17 Jun, 2019 [facility] [address] [facility] [id number] [address] [place] [address] Jun, Metatarsal stress fracture o f right foot with routine healing M84.374D ; Possible Z32.00 and Amenorrhea N91.2 [place] [address] [place] [address] 06 Jun, 2019 Type 2 diabetes mellitus wit hout complication, without long-term current use of insulin E11.9 [place] [address] [place] [id number] [address] [place] [address] Jun, [place] [address] [place] [id number] [address] [place] [address] Jun, [place] [address] [place] [address] Jun, Foot pain, right M79.671 and Other fracture of right foot, initial encounter for closed fracture S92.811A [place] [address] [address] [place] [id number] [address] [place] [address] May, Cellulitis of foot, right L0 3.115 [place] [address] [address] [place] [id number] [address] [place] [address] Apr, Other chronic pain G89.29 an d Pain in right foot M79.671 [facility] [address] [place] [id number] [address] [place] [address] Apr, Left otitis media, unspecifi ed otitis media type H66.92 [place] [address] [address] [place] [id number] [address] [place] [address] Mar, Well woman exam with routine gynecological exam Z01.419 ; Obesity (BMI 30-39.9) E66.9 ; Hypertension, benign I10 and Type 2 diabetes mellitus without complication, without long-term current use of insulin E11.9 [place] [address] [place] [id number] [place] [address] Mar, Encounter for immunization Z 23 [place] [address] [address] Dec, Plantar fasciitis of right f oot M72.2 [place] [address] [address] Dec, Hypertension, benign I10 and Iron deficiency anemia, unspecified D50.9 [place] [address] [address] Nov, Hypertension, benign I10 and Iron deficiency anemia, unspecified D50.9 [facility] [address] [address] Oct, Mouth pain K13.79 [facility] [address] [address] Apr, Sore throat J02.9 and Acute sinusitis J01.90 [place] [address] [address] Oct, Iron deficiency anemia, unsp ecified D50.9 [place] [address] [address] Oct, Iron deficiency anemia, unsp ecified D50.9 [place] [address] [address] Oct, Vitamin D deficiency, unspec ified E55.9 ; Iron deficiency anemia, unspecified D50.9 ; Major depressive disorder, single episode, unspecified F32.9 ; Polyneuropathy G62.9 and Hypertension, benign I10 [place] [address] [address] 07 Oct, 2017 Vitamin D deficiency, unspec ified E55.9 ; Iron deficiency anemia, unspecified D50.9 ; Major depressive disorder, single episode, unspecified F32.9 ; Polyneuropathy G62.9 ; Hypertension, benign I10 and Hyperglycemia R73.9 [facility] [address] [facility] [id number] [address] [place] [address] Apr, [facility] [address] [facility] [id number] [address] [place] [address] Dec, Polyneuropathy G62.9 [facility] [address] [facility] [id number] [address] [place] [address] Nov, Hyperglycemia R73.9 [facility] [address] [facility] [id number] [address] [place] [address] Nov, Family history of diabetes m ellitus Z83.3 and Hyperglycemia R73.9 [place] [address] [facility] [id number] [address] [place] [address] Nov, Family history of diabetes m ellitus Z83.3 and Hyperglycemia R73.9 [place] [address] [place] [id number] [address] [place] [address] Nov, Neuropathy of both feet G57. 93 and Hypertension, benign I10 [facility] [address] [facility] [id number] [address] [place] [address] Nov, Essential (primary) hyperten elda I10 [place] [address] [facility] [id number] [address] [place] [address] September, Acute non-recurrent frontal sinusitis J01.10 [facility] [address] [facility] [id number] [address] [place] [address] Jul, Tooth abscess K04.7 [facility] [address] [facility] [id number] [address] [place] [address] Jan, [place] [address] [place] [id number] [address] [place] [address] Dec, Hearing loss, bilateral H91. 93 [place] [address] [facility] [id number] [address] [place] [address] 14 Nov, 2015 Retraction of tympanic membr ane of both ears H73.823 [place] [id number] [facility] [id number] [address] [place] [address] May, [facility] [address] [place] [id number] [address] [place] [address] 14 May, 2015 Bronchitis J40 [facility] [address] [facility] [id number] [address] [place] [address] 25 Apr, 2015 Upper respiratory infection J06.9 [facility] [address] [place] [id number] [address] [place] [address] 13 Nov, 2014 Unspecified iron deficiency anemia 280.9 [facility] [address] [place] [id number] [address] [place] [address] 12 Oct, 2014 Anemia 285.9 [facility] [address] [place] [id number] [address] [place] [address] 13 Sep, 2014 Unspecified urinary incontin ence 788.30 ; Family history of diabetes mellitus in father V18.0 ; Glucose found in urine on examination 791.5 ; Urinary frequency 788.41 and Hypertension 401.9 [facility] [address] [place] [address] 11 Sep, 2014 Unspecified urinary incontin ence 788.30 ; Family history of diabetes mellitus in father V18.0 ; Glucose found in urine on examination 791.5 ; Urinary frequency 788.41 and Hypertension 401.9 [facility] [address] [place] [id number] [address] [place] [address] 14 Aug, 2014 [facility] [address] [place] [id number] [address] [place] [address] 13 Aug, 2014 [facility] [address] [place] [id number] [address] [place] [address] Jul, [facility] [address] [place] [id number] [address] [place] [address] Jul, [facility] [address] [place] [id number] [address] [place] [address] 17 Jun, 2014 [facility] [address] [id number] [address] [place] [address], [place] [address] Jun, [facility] [address] [id number] [address] [place] [address], [place] [address] Jun, [facility] [address] [id number] [address] [place] [address], [place] [address] Jun, [facility] [address] [id number] [address] [place] [address], [place] [address] May, [facility] [address] [id number] [address] [place] [address], [place] [address] May, [facility] [address] [id number] [address] [place] [address], [place] [address] Oct, [facility] [address] [id number] [address] [place] [address], [place] [address] Oct, [facility] [address] [id number] [address] [place] [address], [place] [address] May, [facility] [address] [id number] [address] [place] [address], [place] [address] May, [facility] [address] [id number] [address] [place] [address], [place] [address] May, [facility] [address] [id number] [address] [place] [address], [place] [address] May, [facility] [address] [id number] [address] [place] [address], [place] [address] Apr, [facility] [address] [id number] [address] [place] [address], [place] [address] Apr, [facility] [address] [id number] [address] [place] [address], [place] [address] Apr, [facility] [address] [id number] [address] [place] [address], [place] [address] Apr, [facility] [address] [id number] [address] [place] [address], [place] [address] Apr, [facility] [address] [id number] [address] [place] [address], [place] [address] Apr, [facility] [address] [id number] [address] [place] [address], [place] [address] Apr, [facility] [address] [id number] [address] [place] [address], [place] [address] Apr, [facility] [address] [id number] [address] [place] [address], [place] [address] Dec, [facility] [address] [id number] [address] [place] [address], [place] [address] Nov, [facility] [address] [id number] [address] [place] [address], [place] [address] Jul, [facility] [address] [id number] [address] [place] [address], [place] [address] May, [facility] [address] [id number] [address] [place] [address], [place] [address] 19 May, 2012 [facility] [address] [id number] [address] [place] [address], [place] [address] 17 May, 2012 [facility] [address] [id number] [address] [place] [address], [place] [address] 17 May, 2012 [facility] [address] [id number] [address] [place] [address], [place] [address] 14 Apr, 2012 [facility] [address] [id number] [address] [place] [address], [place] [address] 14 Apr, 2012 [facility] [address] [id number] [address] [place] [address], [place] [address] 16 Mar, 2012 [facility] [address] [id number] [address] [place] [address], [place] [address] 16 Mar, 2012 [facility] [address] [id number] [address] [place] [address], [place] [address] 11 Mar, 2012 [facility] [address] [id number] [address] [place] [address], [place] [address] 08 Mar, 2012 [facility] [address] [id number] [address] [place] [address], [place] [address] 03 Mar, 2012 [facility] [address] [id number] [address] [place] [address], [place] [address] 27 Jan, 2012 [facility] [address] [id number] [address] [place] [address], [place] [address] 26 Jan, 2012 [facility] [address] [id number] [address] [place] [address], [place] [address] 25 Jan, 2012 [facility] [address] [id number] [address] [place] [address], [place] [address] 21 Jan, 2012 [facility] [address] [id number] [address] [place] [address], [place] [address] 30 Oct, 2011 [facility] [address] [id number] [address] [place] [address], [place] [address] 18 Oct, 2011 [facility] [address] [id number] [address] [place] [address], [place] [address] 29 Sep, 2011 [facility] [address] [id number] [address] [place] [address], [place] [address] 30 Aug, 2011 [facility] [address] [id number] [address] [place] [address], [place] [address] 24 Aug, 2011 [facility] [address] [id number] [address] [place] [address], [place] [address] 13 Aug, 2011 [facility] [address] [id number] [address] [place] [address], [place] [address] 22 Jul, 2011 [facility] [address] [id number] [address] [place] [address], [place] [address] 19 Jul, 2011 [facility] [address] [id number] [address] [place] [address], [place] [address] 13 Jul, 2011 [facility] [address] [id number] [address] [place] [address], [place] [address] 12 Jul, 2011 [facility] [address] [id number] [address] [place] [address], [place] [address] 07 Jul, 2011 [facility] [address] [id number] [address] [place] [address], [place] [address] 06 Jul, 2011 [facility] [address] [id number] [address] [place] [address], [place] [address] 02 Jul, 2011 [facility] [address] [id number] [address] [place] [address], [place] [address] 20 Jul, 2011 [facility] [address] [id number] [address] [place] [address], [place] [address] 14 Jul, 2011 [facility] [address] [id number] [address] [place] [address], [place] [address] 13 Jul, 2011 [facility] [address] [id number] [address] [place] [address], [place] [address] 11 Jul, 2011 [facility] [address] [id number] [address] [place] [address], [place] [address] 10 Jul, 2011 [facility] [address] [id number] [address] [place] [address], [place] [address] 10 Jul, 2011 [facility] [address] [id number] [address] [place] [address], [place] [address] 07 May, 2010 [facility] [address] [id number] [address] [place] [id number] Oct, [facility] [address] [id number] [address] [place] [address] Jun, [facility] [address] [id number] [address] [place] [address], [place] [address] May, [facility] [address] [id number] [address] [place] [address], [place] [address] May, [facility] [address] [id number] [address] [place] [address] Apr, [facility] [address] [id number] [address] [place] [address] Mar, [facility] [address] [facility] [id number] [address] [place] [address] Mar, [facility] [address] [facility] [id number] [address] [place] [address] Mar, IMMUNIZATIONS No Known Immunizations SOCIAL HISTORY Never Assessed REASON FOR VISIT PLAN OF CARE VITAL SIGNS MEDICATIONS Unknown Medications RESULTS No Results PROCEDURES Procedure Date Ordered Result Body Site COMPLETE CBC W/AUTO DIFF WBC Apr 26, 2013 ASSAY THYROID STIM HORMONE Apr 26, 2013 LIPID PANEL Apr 26, 2013 COMPREHEN METABOLIC PANEL Apr 26, 2013 ASSAY OF VITAMIN D Apr 26, 2013 VENIPUNCT, ROUTINE* Apr 26, 2013 INSTRUCTIONS MEDICATIONS ADMINISTERED No Known Medications MEDICAL (GENERAL) HISTORY Type Description Date Medical History Hypertension Medical History borderline Type II diabetes Surgical History Tonsillectomy Surgical History Tubal ligation 2004 Surgical History Otolaryngologic surgery tubes in ears Hospitalization History Child 3 para 3 with 3 full term vaginal delivery (s)
--- OUTSIDE RECORDS SUMMARY | 2020-01-06 11:54 | XMS REPORT ---
Author Author Anusha MUNOZ Organization [facility] Address [address] [place] [address] Care Team Providers Care Electro Plater Name Role Phone ALEXANDERELINA Unavailable PROBLEMS Type Condition ICD9-CM Code NFA02-KH Code Onset Dates Condition S tatus SNOMED Code Problem Hypertension, benign I10 Active 42745723 Problem Polyneuropathy G62.9 Active 28642 000 Problem Major depressive disorder, single episode, unspecified F32.9 Active 09495736 Problem Other chronic pain G89.29 Active 8 9221666 Problem Amenorrhea N91.2 Active 44512448 Problem Vitamin D deficiency, unspecified E55.9 Active 66337976 Problem Iron deficiency anemia, unspecified D50.9 Active 99174158 Problem Obesity (BMI 30-39.9) E66.9 Active 277015022 Problem Type 2 diabetes mellitus wit hout complication, without long-term current use of insulin E11.9 Active 247765467 ALLERGIES No Information ENCOUNTERS Encounter Location Date Diagnosis [place] [address] [id number] [address] [place] [address] Jan, [place] [address] [facility] [id number] [address] [place] [address] Nov, [place] [address] [id number] [address] [place] [address] Nov, Cellulitis of toe, right L03 .031 [place] [address] [id number] [address] [place] [address] Nov, [place] [address] [facility] [id number] [address] [place] [address] Nov, [place] [address] [id number] [address] [place] [address] Nov, Cellulitis of toe of right f oot L03.031 [facility] [address] [id number] [address] [place] [address] 05 Oct, 2019 Foot pain, right M79.671 ; I nadir deficiency anemia, unspecified D50.9 and Type 2 diabetes mellitus without complication, without long-term current use of insulin E11.9 [facility] [address] [id number] [address] [place] [address] Jul, [facility] [address] [id number] [address] [place] [address] Jul, [facility] [address] [id number] [address] [place] [address] Jul, [facility] [address] [id number] [address] [place] [address] Jun, Dental infection K04.7 [place] [address] [facility] [id number] [address] [place] [address] Jun, [place] [address] [id number] [address] [place] [address] Jun, [place] [address] [facility] [id number] [address] [place] [address] Jun, Metatarsal stress fracture o f right foot with routine healing M84.374D ; Possible Z32.00 and Amenorrhea N91.2 [place] [address] [facility] [id number] [address] [place] [address] Jun, [place] [address] [facility] [id number] [address] [place] [address] Jun, Type 2 diabetes mellitus wit hout complication, without long-term current use of insulin E11.9 [place] [address] [facility] [id number] [address] [place] [address] Jun, [place] [address] [facility] [id number] [address] [place] [address] Jun, Foot pain, right M79.671 and Other fracture of right foot, initial encounter for closed fracture S92.811A [place] [address] [address] 11 May, 2019 Cellulitis of foot, right L0 3.115 [place] [address] [address] 15 Apr, 2019 Other chronic pain G89.29 an d Pain in right foot M79.671 [facility] WALK IN [address] [address] Apr, Left otitis media, unspecifi ed otitis media type H66.[address] [address] Mar, Well woman exam with routine gynecological exam Z01.419 ; Obesity (BMI 30-39.9) E66.9 ; Hypertension, benign I10 and Type 2 diabetes mellitus without complication, without long-term current use of insulin E11.9 [place] [address] [address] Mar, Encounter for immunization Z [address] [address] Dec, Plantar fasciitis of right f oot M72.[address] [address] Dec, Hypertension, benign I10 and Iron deficiency anemia, unspecified D50.9 [place] [address] [address] Nov, Hypertension, benign I10 and Iron deficiency anemia, unspecified D50.9 [facility] WALK IN [address] [address] Oct, Mouth pain K13.79 [facility] IN [address] [address] Apr, Sore throat J02.9 and Acute sinusitis J01.90 [place] [address] [address] Oct, Iron deficiency anemia, unsp ecified D50.9 [place] [address] [address] Oct, Iron deficiency anemia, unsp ecified D50.9 [place] [address] [address] Oct, Vitamin D deficiency, unspec ified E55.9 ; Iron deficiency anemia, unspecified D50.9 ; Major depressive disorder, single episode, unspecified F32.9 ; Polyneuropathy G62.9 and Hypertension, benign I10 [place] [address] [address] Oct, Vitamin D deficiency, unspec ified E55.9 ; Iron deficiency anemia, unspecified D50.9 ; Major depressive disorder, single episode, unspecified F32.9 ; Polyneuropathy G62.9 ; Hypertension, benign I10 and Hyperglycemia R73.9 [place] [address] [address] Apr, [place] [address] [address] Dec, Polyneuropathy G62.9 [place] [address] [address] Nov, Hyperglycemia R73.9 [place] [address] [address] Nov, Family history of diabetes m ellitus Z83.3 and Hyperglycemia R73.9 [place] [address] [address] Nov, Family history of diabetes m ellitus Z83.3 and Hyperglycemia R73.9 [place] [address] [address] 10 Francisco, 2017 Neuropathy of both feet G57. 93 and Hypertension, benign I10 [facility] [address] [place] [id number] [address] [place] [address] Nov, Essential (primary) hyperten elda I10 [facility] [id number] [place] [address] September, Acute non-recurrent frontal sinusitis J01.10 [facility] [address] [address] Jul, Tooth abscess K04.7 [facility] [address] [address] Jan, [place] [address] [address] Dec, Hearing loss, bilateral H91. 93 [place] [address] [address] Nov, Retraction of tympanic membr ane of both ears H73.823 [place] [address] [address] May, [place] [address] [address] May, Bronchitis J40 [place] [address] [address] Apr, Upper respiratory infection J06.9 [place] [address] [address] Nov, Unspecified iron deficiency anemia 280.9 [place] [address] [address] Oct, Anemia 285.9 [place] [address] [address] September, Unspecified urinary incontin ence 788.30 ; Family history of diabetes mellitus in father V18.0 ; Glucose found in urine on examination 791.5 ; Urinary frequency 788.41 and Hypertension 401.9 [facility] [address] [id number] [address] [place] [address] September, Unspecified urinary incontin ence 788.30 ; Family history of diabetes mellitus in father V18.0 ; Glucose found in urine on examination 791.5 ; Urinary frequency 788.41 and Hypertension 401.9 [facility] [address] [id number] [address] [place] [address] 14 Aug, 2014 [facility] [address] [id number] [address] [place] [address] Aug, [facility] [address] [id number] [address] [place] [address] Jul, [facility] [address] [id number] [address] [place] [address] Jul, [facility] [address] [id number] [address] [place] [address] Jun, [facility] [address] [id number] [address] [place] [address] Jun, [facility] [address] [id number] [address] [place] [address] Jun, [facility] [address] [facility] [id number] [address] [place] [address] Jun, [facility] [address] [id number] [address] [place] [address] May, [facility] [address] [id number] [address] [place] [address] May, [facility] [address] [id number] [address] [place] [address] Oct, [facility] [address] [id number] [address] [place] [address] Oct, [facility] [address] [id number] [address] [place] [address] May, [facility] [address] [id number] [address] [place] [address], [place] [address] May, [facility] [address] [id number] [address] [place] [address], [place] [address] May, [facility] [address] [id number] [address] [place] [address], [place] [address] May, [facility] [address] [id number] [address] [place] [address], [place] [address] Apr, [facility] [address] [id number] [address] [place] [address], [place] [address] Apr, [facility] [address] [id number] [address] [place] [address], [place] [address] Apr, [facility] [address] [id number] [address] [place] [address], [place] [address] Apr, [facility] [address] [id number] [address] [place] [address], [place] [address] Apr, [facility] [address] [id number] [address] [place] [address], [place] [address] Apr, [facility] [address] [id number] [address] [place] [address], [place] [address] Apr, [facility] [address] [id number] [address] [place] [address], [place] [address] Apr, [facility] [address] [id number] [address] [place] [address], [place] [address] Dec, [facility] [address] [id number] [address] [place] [address], [place] [address] Nov, [facility] [address] [id number] [address] [place] [address], [place] [address] Jul, [facility] [address] [id number] [address] [place] [address], [place] [address] May, [facility] [address] [id number] [address] [place] [address] [place] [address] 19 May, 2012 [facility] [address] [id number] [address] [place] [address], [place] [address] 17 May, 2012 [facility] [address] [id number] [address] [place] [address], [place] [address] 17 May, 2012 [facility] [address] [id number] [address] [place] [address], [place] [address] 14 Apr, 2012 [facility] [address] [id number] [address] [place] [address], [place] [address] 14 Apr, 2012 [facility] [address] [id number] [address] [place] [address], [place] [address] 16 Mar, 2012 [facility] [address] [id number] [address] [place] [address], [place] [address] 16 Mar, 2012 [facility] [address] [id number] [address] [place] [address], [place] [address] 11 Mar, 2012 [facility] [address] [id number] [address] [place] [address], [place] [address] 08 Mar, 2012 [facility] [address] [id number] [address] [place] [address], [place] [address] 03 Mar, 2012 [facility] [address] [id number] [address] [place] [address], [place] [address] 27 Jan, 2012 [facility] [address] [id number] [address] [place] [address], [place] [address] 26 Jan, 2012 [facility] [address] [id number] [address] [place] [address], [place] [address] 25 Jan, 2012 [facility] [address] [id number] [address] [place] [address], [place] [address] 21 Jan, 2012 [facility] [address] [id number] [address] [place] [address], [place] [address] 30 Oct, 2011 [facility] [address] [id number] [address] [place] [address], [place] [address] 18 Oct, 2011 [facility] [address] [id number] [facility] [address] 29 Sep, 2011 [facility] [address] [id number] [address] [place] [address], [place] [address] 30 Aug, 2011 [facility] [address] [id number] [address] [place] [address], [place] [address] 24 Aug, 2011 [facility] [address] [id number] [address] [place] [address], [place] [address] 13 Aug, 2011 [facility] [address] [id number] [address] [place] [address], [place] [address] 22 Jul, 2011 [facility] [address] [id number] [address] [place] [address], [place] [address] 19 Jul, 2011 [facility] [address] [id number] [address] [place] [address], [place] [address] 13 Jul, 2011 [facility] [address] [id number] [address] [place] [address], [place] [address] 12 Jul, 2011 [facility] [address] [id number] [address] [place] [address], [place] [address] 07 Jul, 2011 [facility] [address] [id number] [address] [place] [address], [place] [address] 06 Jul, 2011 [facility] [address] [id number] [address] [place] [address], [place] [address] 02 Jul, 2011 [facility] [address] [id number] [address] [place] [address], [place] [address] 20 Jul, 2011 [facility] [address] [id number] [address] [place] [address], [place] [address] 14 Jul, 2011 [facility] [address] [id number] [address] [place] [address], [place] [address] 13 Jul, 2011 [facility] [address] [id number] [address] [place] [address], [place] [address] 11 Jul, 2011 [facility] [address] [id number] [address] [place] [address] 10 Jul, 2011 [facility] [address] [id number] [address] [place] [address] 10 Jul, 2011 [facility] [address] [id number] [address] [place] [address] May, [facility] [address] [id number] [address] [place] [address] 18 Oct, 2009 [facility] [address] [id number] [address] [place] [address] Jun, [facility] [address] [id number] [address] [place] [address] May, [facility] [address] [id number] [address] [place] [address] May, [facility] [address] [id number] [address] [place] [address] Apr, [facility] [address] [id number] [address] [place] [address] Mar, [facility] [address] [id number] [address] [place] [address] Mar, [facility] [address] [id number] [address] [place] [address] 14 Mar, 2009 IMMUNIZATIONS No Known Immunizations SOCIAL HISTORY Never Assessed REASON FOR VISIT PLAN OF CARE VITAL SIGNS Height 67 in 2013-04-22 Weight 248 lbs 2013-04-22 Heart Rate 80 bpm 2013-04-22 Respiratory Rate 20 2013-04-22 Blood pressure systolic 128 mmHg 2013-04-22 Blood pressure diastolic 62 mmHg 2013-04-22 MEDICATIONS Unknown Medications RESULTS No Results PROCEDURES [...]
--- OUTSIDE RECORDS SUMMARY | 2020-01-06 11:54 | XMS REPORT ---
Author Author Anusha Martin Doctor Organization [facility] Address Unknown Phone Unavailable Care Team Providers Care Drill Sharpener Operator Name Role Phone Migration, Doctor Unavailable Unavailable PROBLEMS Type Condition ICD9-CM Code VPA34-MT Code Onset Dates Condition S tatus SNOMED Code Problem Hypertension, benign I10 Active 71478697 Problem Polyneuropathy G62.9 Active 78344 000 Problem Major depressive disorder, single episode, unspecified F32.9 Active 18676979 Problem Other chronic pain G89.29 Active 8 9437732 Problem Amenorrhea N91.2 Active 66361130 Problem Vitamin D deficiency, unspecified E55.9 Active 16943509 Problem Iron deficiency anemia, unspecified D50.9 Active 55695348 Problem Obesity (BMI 30-39.9) E66.9 Active 967615543 Problem Type 2 diabetes mellitus wit hout complication, without long-term current use of insulin E11.9 Active [id number] ALLERGIES No Information ENCOUNTERS Encounter Location Date Diagnosis [facility] [address] [facility] [id number] [address] [place] [address] Jul, [facility] [address] [facility] [id number] [address] [place] [address] Jul, [facility] [address] [facility] [id number] [address] [place] [address] Jul, [facility] [address] [facility] [id number] [address] [place] [address] Jun, Dental infection K04.7 [facility] [address] [facility] [id number] [address] [place] [address] Jun, [facility] [address] [facility] [id number] [address] [place] [address] Jun, [facility] [address] [facility] [id number] [address] [place] [address] Jun, Metatarsal stress fracture o f right foot with routine healing M84.374D ; Possible Z32.00 and Amenorrhea N91.2 [place] [address] [address] Jun, Type 2 diabetes mellitus wit hout complication, without long-term current use of insulin E11.9 [place] [address] [place] [address] Jun, [place] [address] [address] Jun, [place] [address] [address] Jun, Foot pain, right M79.671 and Other fracture of right foot, initial encounter for closed fracture S92.811A [place] [address] [address] May, Cellulitis of foot, right L0 3.115 [place] [address] [address] 15 Apr, 2019 Other chronic pain G89.29 an d Pain in right foot M79.671 [facility] [address] [place] [id number] [address] [place] [address] Apr, Left otitis media, unspecifi ed otitis media type H66.92 [place] [address] [address] [place] [id number] [address] [place] [address] Mar, Well woman exam with routine gynecological exam Z01.419 ; Obesity (BMI 30-39.9) E66.9 ; Hypertension, benign I10 and Type 2 diabetes mellitus without complication, without long-term current use of insulin E11.9 [place] [address] [address] [place] [id number] [address] [place] [address] Mar, Encounter for immunization Z 23 [place] [address] [address] [place] [id number] [address] [place] [address] 27 Aug, 2019 Plantar fasciitis of right f oot M72.2 [place] [address] [address] Dec, Hypertension, benign I10 and Iron deficiency anemia, unspecified D50.9 [place] [address] [address] Nov, Hypertension, benign I10 and Iron deficiency anemia, unspecified D50.9 [facility] [place] [address] [address] Oct, Mouth pain K13.79 [facility] [place] [address] [address] Apr, Sore throat J02.9 and Acute sinusitis J01.90 [place] [address] [address] Oct, Iron deficiency anemia, unsp ecified D50.9 [place] [address] [address] Oct, Iron deficiency anemia, unsp ecified D50.9 [place] [address] [address] Oct, Vitamin D deficiency, unspec ified E55.9 ; Iron deficiency anemia, unspecified D50.9 ; Major depressive disorder, single episode, unspecified F32.9 ; Polyneuropathy G62.9 and Hypertension, benign I10 [place] [address] [address] Oct, Vitamin D deficiency, unspec ified E55.9 ; Iron deficiency anemia, unspecified D50.9 ; Major depressive disorder, single episode, unspecified F32.9 ; Polyneuropathy G62.9 ; Hypertension, benign I10 and Hyperglycemia R73.9 [place] [address] [address] Apr, [place] [address] [address] Dec, Polyneuropathy G62.9 [place] [id number] [facility] [id number] [address] [place] [address] Nov, Hyperglycemia R73.9 [place] [address] [address] [place] [id number] [address] [place] [address] Nov, Family history of diabetes m ellitus Z83.3 and Hyperglycemia R73.9 [place] [address] [place] [address] Nov, Family history of diabetes m ellitus Z83.3 and Hyperglycemia R73.9 [place] [address] [address] Nov, Neuropathy of both feet G57. 93 and Hypertension, benign I10 [place] [address] [address] Nov, Essential (primary) hyperten elda I10 [place] [address] [address] [place] [id number] [address] [place] [address] September, Acute non-recurrent frontal sinusitis J01.10 [facility] [address] [address] Jul, Tooth abscess K04.7 [place] [address] [place] [id number] [address] [place] [address] Jan, [place] [address] [address] 08 Dec, 2015 Hearing loss, bilateral H91. 93 [place] [address] [address] 14 Nov, 2015 Retraction of tympanic membr ane of both ears H73.823 [place] [address] [address] [place] [id number] [address] [place] [address] May, [place] [address] [address] May, Bronchitis J40 [facility] [address] [place] [id number] [address] [place] [address] Apr, Upper respiratory infection J06.9 [facility] [address] [place] [id number] [address] [place] [address] 13 Nov, 2014 Unspecified iron deficiency anemia 280.9 [facility] [address] [address] 12 Oct, 2014 Anemia 285.9 [facility] [address] [address] 13 Sep, 2014 Unspecified urinary incontin ence 788.30 ; Family history of diabetes mellitus in father V18.0 ; Glucose found in urine on examination 791.5 ; Urinary frequency 788.41 and Hypertension 401.9 [facility] [address] [place] [id number] [address] [place] [address] September, Unspecified urinary incontin ence 788.30 ; Family history of diabetes mellitus in father V18.0 ; Glucose found in urine on examination 791.5 ; Urinary frequency 788.41 and Hypertension 401.9 [facility] [address] [place] [id number] [address] [place] [address] 14 Aug, 2014 [facility] [address] [place] [id number] [address] [place] [address] Aug, [facility] [address] [place] [id number] [address] [place] [address] Jul, [facility] [address] [place] [address] Jul, [facility] [address] [address] Jun, [facility] [address] [place] [id number] [address] [place] [address] Jun, [facility] [address] [place] [id number] [address] [place] [address] Jun, [facility] [address] [id number] [address] [place] [address], [place] [address] Jun, [facility] [address] [id number] [address] [place] [address], [place] [address] May, [facility] [address] [id number] [address] [place] [address], [place] [address] May, [facility] [address] [id number] [address] [place] [address], [place] [address] Oct, [facility] [address] [id number] [address] [place] [address], [place] [address] Oct, [facility] [address] [id number] [address] [place] [address], [place] [address] May, [facility] [address] [id number] [address] [place] [address], [place] [address] May, [facility] [address] [id number] [address] [place] [address], [place] [address] May, [facility] [address] [id number] [address] [place] [address], [place] [address] May, [facility] [address] [id number] [address] [place] [address], [place] [address] Apr, [facility] [address] [id number] [address] [place] [address], [place] [address] Apr, [facility] [address] [id number] [address] [place] [address], [place] [address] Apr, [facility] [address] [id number] [address] [place] [address], [place] [address] Apr, [facility] [address] [id number] [address] [place] [address], [place] [address] Apr, [facility] [address] [id number] [address] [place] [address], [place] [address] Apr, [facility] [address] [id number] [address] [place] [address] Apr, [facility] [address] [id number] [address] [place] [address], [place] [address] Apr, [facility] [address] [id number] [address] [place] [address], [place] [address] Dec, [facility] [address] [id number] [address] [place] [address], [place] [address] Nov, [facility] [address] [id number] [address] [place] [address], [place] [address] Jul, [facility] [address] [id number] [address] [place] [address], [place] [address] May, [facility] [address] [id number] [address] [place] [address], [place] [address] May, [facility] [address] [id number] [address] [place] [address], [place] [address] May, [facility] [address] [id number] [address] [place] [address], [place] [address] 17 May, 2012 [facility] [address] [id number] [address] [place] [address], [place] [address] 14 Apr, 2012 [facility] [address] [id number] [address] [place] [address], [place] [address] 14 Apr, 2012 [facility] [address] [id number] [address] [place] [address], [place] [address] 16 Mar, 2012 [facility] [address] [id number] [address] [place] [address] 16 Mar, 2012 [facility] [address] [id number] [address] [place] [address], [place] [address] 11 Mar, 2012 [facility] [address] [id number] [address] [place] [address], [place] [address] 08 Mar, 2012 [facility] [address] [id number] [address] [place] [address], [place] [address] Mar, [facility] [address] [id number] [facility] [place] [address] 27 Sep2011 [facility] [address] [id number] [address] [place] [address], [place] [address] 26 Jan, 2012 [facility] [address] [id number] [address] [place] [address], [place] [address] 25 Jan, 2012 [facility] [address] [id number] [address] [place] [address], [place] [address] 21 Jan, 2012 [facility] [address] [id number] [address] [place] [address], [place] [address] 30 Oct, 2011 [facility] [address] [id number] [address] [place] [address], [place] [address] 18 Oct, 2011 [facility] [address] [id number] [address] [place] [address], [place] [address] 29 Sep, 2011 [facility] [address] [id number] [address] [place] [address], [place] [address] 30 Aug, 2011 [facility] [address] [id number] [address] [place] [address], [place] [address] 24 Aug, 2011 [facility] [address] [id number] [address] [place] [address], [place] [address] 13 Aug, 2011 [facility] [address] [id number] [address] [place] [address], [place] [address] 22 Jul, 2011 [facility] [address] [id number] [address] [place] [address], [place] [address] 19 Jul, 2011 [facility] [address] [id number] [address] [place] [address], [place] [address] 13 Jul, 2011 [facility] [address] [id number] [address] [place] [address], [place] [address] 12 Jul, 2011 [facility] [address] [id number] [address] [place] [address], [place] [address] 07 Jul, 2011 [facility] [address] [id number] [address] [place] [address], [place] [address] 06 Jul, 2011 [facility] [address] [id number] [address] [place] [address], [place] [address] Jul, [facility] [address] [id number] [address] [place] [address], [place] [address] 20 Jul, 2011 [facility] [address] [id number] [address] [place] [address], [place] [address] 14 Jul, 2011 [facility] [address] [id number] [address] [place] [address], [place] [address] 13 Jul, 2011 [facility] [address] [id number] [address] [place] [address], [place] [address] 11 Jul, 2011 [facility] [address] [id number] [address] [place] [address], [place] [address] 10 Jul, 2011 [facility] [address] [id number] [address] [place] [address], [place] [address] 10 Jul, 2011 [facility] [address] [id number] [address] [place] [address], [place] [address] May, [facility] [address] [id number] [address] [place] [address], [place] [address] Oct, [facility] [address] [id number] [address] [place] [address], [place] [address] Jun, [facility] [address] [id number] [address] [place] [address], [place] [address] May, [facility] [address] [id number] [address] [place] [address], [place] [address] 18 May, 2009 [facility] [address] [id number] [address] [place] [address], [place] [address] Apr, [facility] [address] [id number] [address] [place] [address], [place] [address] 23 Mar, 2009 [facility] [address] [id number] [address] [place] [address], [place] [address] 14 Mar, 2009 [facility] [address] [id number] [address] [place] [address] 14 Mar, 2009 IMMUNIZATIONS No Known Immunizations SOCIAL HISTORY Never Assessed REASON FOR VISIT PLAN OF CARE VITAL SIGNS Height 67 in 2011-11-29 Weight 247.38 lbs 2011-11-29 Temperature 99 degrees Fahrenheit 2011-11-29 Heart Rate 72 bpm 2011-11-29 Respiratory Rate 18 2011-11-29 Blood pressure systolic 124 mmHg 2011-11-29 Blood pressure diastolic 80 mmHg 2011-11-29 MEDICATIONS Unknown Medications RESULTS No Results PROCEDURES [...]
--- OUTSIDE RECORDS SUMMARY | 2020-01-06 11:54 | XMS REPORT ---
Author Author Anusha MUNOZ Organization [facility] Address [address] [place] [address] Care Team Providers Care Organ Tuner Name Role Phone ALEXANDER ELINA Unavailable PROBLEMS Type Condition ICD9-CM Code [id number] Code Onset Dates Condition S tatus SNOMED Code Problem Hypertension, benign I10 Active 84949426 Problem Polyneuropathy G62.9 Active 45481 000 Problem Major depressive disorder, single episode, unspecified F32.9 Active 46915903 Problem Other chronic pain G89.29 Active 8 4151456 Problem Amenorrhea N91.2 Active 27687127 Problem Vitamin D deficiency, unspecified E55.9 Active 36072716 Problem Iron deficiency anemia, unspecified D50.9 Active 08035678 Problem Obesity (BMI 30-39.9) E66.9 Active 328417578 Problem Type 2 diabetes mellitus wit hout complication, without long-term current use of insulin E11.9 Active [id number] ALLERGIES No Information ENCOUNTERS Encounter Location Date Diagnosis [facility] [address] [facility] [id number] [address] [place] [address] Oct, [facility] [address] [facility] [id number] [address] [place] [address] Jul, [facility] [address] [facility] [id number] [address] [place] [address] Jul, [facility] [address] [facility] [id number] [address] [place] [id number] Jul, [facility] [address] [facility] [id number] [address] [place] [address] Jun, Dental infection K04.7 [facility] [address] [facility] [id number] [address] [place] [address] Jun, [facility] [address] [place] [id number] [address] [place] [id number] 17 Jun, 2019 [facility] [address] [facility] [id number] [address] [place] [address] Jun, Metatarsal stress fracture o f right foot with routine healing M84.374D ; Possible Z32.00 and Amenorrhea N91.2 [place] [address] [place] [id number] 06 Jun, 2019 Type 2 diabetes mellitus wit hout complication, without long-term current use of insulin E11.9 [place] [address] [place] [id number] [address] [place] [address] Jun, [place] [address] [place] [id number] [address] [place] [address] Jun, [place] [address] [place] [address] Jun, Foot pain, right M79.671 and Other fracture of right foot, initial encounter for closed fracture S92.811A [place] [address] [place] [id number] [address] [place] [address] May, Cellulitis of foot, right L0 3.115 [place] [address] [place] [id number] [address] [place] [address] Apr, Other chronic pain G89.29 an d Pain in right foot M79.671 [facility] [address] [place] [id number] [address] [place] [address] Apr, Left otitis media, unspecifi ed otitis media type H66.92 [place] [address] [place] [id number] [address] [place] [address] Mar, Well woman exam with routine gynecological exam Z01.419 ; Obesity (BMI 30-39.9) E66.9 ; Hypertension, benign I10 and Type 2 diabetes mellitus without complication, without long-term current use of insulin E11.9 [place] [address] [place] [id number] [place] [address] Mar, Encounter for immunization Z 23 [place] [address] [address] Dec, Plantar fasciitis of right f oot M72.2 [place] [address] [address] Dec, Hypertension, benign I10 and Iron deficiency anemia, unspecified D50.9 [place] [address] [address] Nov, Hypertension, benign I10 and Iron deficiency anemia, unspecified D50.9 [facility] [address] [address] Oct, Mouth pain K13.79 [facility] [address] [address] Apr, Sore throat J02.9 and Acute sinusitis J01.90 [place] [address] [address] Oct, Iron deficiency anemia, unsp ecified D50.9 [place] [address] [address] Oct, Iron deficiency anemia, unsp ecified D50.9 [place] [address] [address] Oct, Vitamin D deficiency, unspec ified E55.9 ; Iron deficiency anemia, unspecified D50.9 ; Major depressive disorder, single episode, unspecified F32.9 ; Polyneuropathy G62.9 and Hypertension, benign I10 [place] [address] [address] 07 Oct, 2017 Vitamin D deficiency, unspec ified E55.9 ; Iron deficiency anemia, unspecified D50.9 ; Major depressive disorder, single episode, unspecified F32.9 ; Polyneuropathy G62.9 ; Hypertension, benign I10 and Hyperglycemia R73.9 [facility] [address] [facility] [id number] [address] [place] [address] Apr, [facility] [address] [facility] [id number] [address] [place] [id number] Dec, Polyneuropathy G62.9 [facility] [address] [facility] [id number] [address] [place] [address] Nov, Hyperglycemia R73.9 [facility] [address] [facility] [id number] [address] [place] [address] Nov, Family history of diabetes m ellitus Z83.3 and Hyperglycemia R73.9 [place] [address] [facility] [id number] [address] [place] [address] Nov, Family history of diabetes m ellitus Z83.3 and Hyperglycemia R73.9 [place] [address] [place] [id number] [address] [place] [address] Nov, Neuropathy of both feet G57. 93 and Hypertension, benign I10 [facility] [address] [facility] [id number] [address] [place] [address] Nov, Essential (primary) hyperten elda I10 [place] [address] [facility] [id number] [address] [place] [address] September, Acute non-recurrent frontal sinusitis J01.10 [facility] [address] [facility] [id number] [address] [place] [address] Jul, Tooth abscess K04.7 [facility] [address] [facility] [id number] [address] [place] [address] Jan, [place] [address] [place] [id number] [address] [place] [address] Dec, Hearing loss, bilateral H91. 93 [place] [address] [facility] [id number] [address] [place] [address] 14 Nov, 2015 Retraction of tympanic membr ane of both ears H73.823 [place] [address] [facility] [id number] [address] [place] [address] May, [facility] [address] [place] [id number] [address] [place] [address] 14 May, 2015 Bronchitis J40 [facility] [address] [facility] [id number] [address] [place] [address] 25 Apr, 2015 Upper respiratory infection J06.9 [facility] [address] [place] [id number] [address] [place] [address] 13 Nov, 2014 Unspecified iron deficiency anemia 280.9 [facility] [address] [place] [id number] [address] [place] [address] 12 Oct, 2014 Anemia 285.9 [facility] [address] [place] [id number] [address] [place] [address] 13 Sep, 2014 Unspecified urinary incontin ence 788.30 ; Family history of diabetes mellitus in father V18.0 ; Glucose found in urine on examination 791.5 ; Urinary frequency 788.41 and Hypertension 401.9 [facility] [address] [place] [address] 11 Sep, 2014 Unspecified urinary incontin ence 788.30 ; Family history of diabetes mellitus in father V18.0 ; Glucose found in urine on examination 791.5 ; Urinary frequency 788.41 and Hypertension 401.9 [facility] [address] [place] [id number] [address] [place] [address] 14 Aug, 2014 [facility] [address] [place] [id number] [address] [place] [id number] 13 Aug, 2014 [facility] [address] [place] [id number] [address] [place] [address] Jul, [facility] [address] [place] [id number] [address] [place] [address] Jul, [facility] [address] [place] [id number] [address] [place] [id number] 17 Jun, 2014 [facility] [address] [id number] [address] [place] [address], [place] [address] Jun, [facility] [address] [id number] [address] [place] [address], [place] [address] Jun, [facility] [address] [id number] [address] [place] [address], [place] [address] Jun, [facility] [address] [id number] [address] [place] [address], [place] [address] May, [facility] [address] [id number] [address] [place] [address], [place] [address] May, [facility] [address] [id number] [address] [place] [address], [place] [address] Oct, [facility] [address] [id number] [address] [place] [address], [place] [address] Oct, [facility] [address] [id number] [address] [place] [address], [place] [address] May, [facility] [address] [id number] [address] [place] [address], [place] [address] May, [facility] [address] [id number] [address] [place] [address], [place] [address] May, [facility] [address] [id number] [address] [place] [address], [place] [address] May, [facility] [address] [id number] [address] [place] [address], [place] [address] Apr, [facility] [address] [id number] [address] [place] [address], [place] [address] Apr, [facility] [address] [id number] [address] [place] [address], [place] [address] Apr, [facility] [address] [id number] [address] [place] [address], [place] [address] Apr, [facility] [address] [id number] [address] [place] [address], [place] [address] Apr, [facility] [address] [id number] [address] [place] [address], [place] [address] Apr, [facility] [address] [id number] [address] [place] [address], [place] [address] Apr, [facility] [address] [id number] [address] [place] [address], [place] [address] Apr, [facility] [address] [id number] [address] [place] [address], [place] [address] Dec, [facility] [address] [id number] [address] [place] [address], [place] [address] Nov, [facility] [address] [id number] [address] [place] [address], [place] [address] Jul, [facility] [address] [id number] [address] [place] [address], [place] [address] May, [facility] [address] [id number] [address] [place] [address], [place] [address] 19 May, 2012 [facility] [address] [id number] [address] [place] [address], [place] [address] 17 May, 2012 [facility] [address] [id number] [address] [place] [address], [place] [address] 17 May, 2012 [facility] [address] [id number] [address] [place] [address], [place] [address] 14 Apr, 2012 [facility] [address] [id number] [address] [place] [address], [place] [address] 14 Apr, 2012 [facility] [address] [id number] [address] [place] [address], [place] [address] 16 Mar, 2012 [facility] [address] [id number] [address] [place] [address], [place] [address] 16 Mar, 2012 [facility] [address] [id number] [address] [place] [address], [place] [address] 11 Mar, 2012 [facility] [address] [id number] [address] [place] [address], [place] [address] 08 Mar, 2012 [facility] [address] [id number] [address] [place] [address], [place] [address] 03 Mar, 2012 [facility] [address] [id number] [address] [place] [address], [place] [address] 27 Jan, 2012 [facility] [address] [id number] [address] [place] [address], [place] [address] 26 Jan, 2012 [facility] [address] [id number] [address] [place] [address], [place] [address] 25 Jan, 2012 [facility] [address] [id number] [address] [place] [address], [place] [address] 21 Jan, 2012 [facility] [address] [id number] [address] [place] [address], [place] [address] 30 Oct, 2011 [facility] [address] [id number] [address] [place] [address], [place] [address] 18 Oct, 2011 [facility] [address] [id number] [address] [place] [address], [place] [address] 29 Sep, 2011 [facility] [address] [id number] [address] [place] [address], [place] [address] 30 Aug, 2011 [facility] [address] [id number] [address] [place] [address], [place] [address] 24 Aug, 2011 [facility] [address] [id number] [address] [place] [address], [place] [address] 13 Aug, 2011 [facility] [address] [id number] [address] [place] [address], [place] [address] 22 Jul, 2011 [facility] [address] [id number] [address] [place] [address], [place] [address] 19 Jul, 2011 [facility] [address] [id number] [address] [place] [address], [place] [address] 13 Jul, 2011 [facility] [address] [id number] [address] [place] [address], [place] [address] 12 Jul, 2011 [facility] [address] [id number] [address] [place] [address], [place] [address] 07 Jul, 2011 [facility] [address] [id number] [address] [place] [address], [place] [address] 06 Jul, 2011 [facility] [address] [id number] [address] [place] [address], [place] [address] 02 Jul, 2011 [facility] [address] [id number] [address] [place] [address], [place] [address] 20 Jul, 2011 [facility] [address] [id number] [address] [place] [address], [place] [address] 14 Jul, 2011 [facility] [address] [id number] [address] [place] [address], [place] [address] 13 Jul, 2011 [facility] [address] [id number] [address] [place] [address], [place] [address] 11 Jul, 2011 [facility] [address] [id number] [address] [place] [address], [place] [address] 10 Jul, 2011 [facility] [address] [id number] [address] [place] [address], [place] [address] 10 Jul, 2011 [facility] [address] [id number] [address] [place] [address], [place] [address] 07 May, 2010 [facility] [address] [id number] [address] [place] [address] Oct, [facility] [address] [id number] [address] [place] [address] Jun, [facility] [address] [id number] [address] [place] [address], [place] [address] May, [facility] [address] [id number] [address] [place] [address], [place] [address] May, [facility] [address] [id number] [address] [place] [address] Apr, [facility] [address] [id number] [address] [place] [address] Mar, [facility] [address] [facility] [id number] [address] [place] [address] Mar, [facility] [address] [facility] [id number] [address] [place] [address] Mar, IMMUNIZATIONS No Known Immunizations SOCIAL HISTORY Never Assessed REASON FOR VISIT PLAN OF CARE VITAL SIGNS Height 67 in 2013-04-29 Weight 250.4 lbs 2013-04-29 Heart Rate 80 bpm 2013-04-29 Respiratory Rate 20 2013-04-29 Blood pressure systolic 144 mmHg 2013-04-29 Blood pressure diastolic 72 mmHg 2013-04-29 MEDICATIONS Unknown Medications RESULTS No Results PROCEDURES [...]
--- OUTSIDE RECORDS SUMMARY | 2020-01-06 11:55 | XMS REPORT ---
Author Author Anusha GOMEZ Organization [facility] Address [address] [place] [address] Care Team Providers Care Refinery Operator Helper Name Role Phone CHARISMA GOMEZ Unavailable PROBLEMS Type Condition ICD9-CM Code RRG98-FC Code Onset Dates Condition S tatus SNOMED Code Problem Vitamin D deficiency, unspecified E55.9 Active 83577060 Problem Iron deficiency anemia, unspecified D50.9 Active 81355371 Problem Hypertension, benign I10 Active 58143871 Problem Polyneuropathy G62.9 Active 47015 000 Problem Major depressive disorder, single episode, unspecified F32.9 Active 13038090 ALLERGIES No Information ENCOUNTERS Encounter Location Date Diagnosis [place] [address] [address] Dec, Plantar fasciitis of right f oot M72.2 [place] [address] [address] Dec, Hypertension, benign I10 and Iron deficiency anemia, unspecified D50.9 [place] [address] [address] Nov, Hypertension, benign I10 and Iron deficiency anemia, unspecified D50.9 [facility] [address] [address] Oct, Mouth pain K13.79 [facility] [address] [address] Apr, Sore throat J02.9 and Acute sinusitis J01.90 [place] [address] [address] [place] [id number] [place] [address] Oct, Iron deficiency anemia, unsp ecified D50.9 [place] [address] [address] Oct, Iron deficiency anemia, unsp ecified D50.9 [place] [address] [address] Oct, Vitamin D deficiency, unspec ified E55.9 ; Iron deficiency anemia, unspecified D50.9 ; Major depressive disorder, single episode, unspecified F32.9 ; Polyneuropathy G62.9 and Hypertension, benign I10 [place] [address] [address] Oct, Vitamin D deficiency, unspec ified E55.9 ; Iron deficiency anemia, unspecified D50.9 ; Major depressive disorder, single episode, unspecified F32.9 ; Polyneuropathy G62.9 ; Hypertension, benign I10 and Hyperglycemia R73.9 [place] [address] [address] Apr, [place] [address] [address] Dec, Polyneuropathy G62.9 [place] [address] [address] Nov, Hyperglycemia R73.9 [place] [address] [address] Nov, Family history of diabetes m ellitus Z83.3 and Hyperglycemia R73.9 [place] [address] [address] Nov, Family history of diabetes m ellitus Z83.3 and Hyperglycemia R73.9 [place] [address] [address] Nov, Neuropathy of both feet G57. 93 and Hypertension, benign I10 [place] [address] [address] [place] [id number] [address] [place] [address] Nov, Essential (primary) hyperten elda I10 [facility] [id number] [place] [address] September, Acute non-recurrent frontal sinusitis J01.10 [facility] [address] [place] [id number] [address] [place] [address] Jul, Tooth abscess K04.7 [place] [address] [address] [place] [id number] [address] [place] [address] Jan, [facility] [address] [address] Dec, Hearing loss, bilateral H91. 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.823 [place] [address] [address] May, [place] [address] [address] May, Bronchitis J40 [place] [address] [address] Apr, Upper respiratory infection J06.9 [place] [address] [address] 13 Nov, 2014 Unspecified iron deficiency anemia 280.9 [place] [address] [address] 12 Oct, 2014 Anemia 285.9 [place] [address] [address] [place] [id number] [address] [place] [address] September, Unspecified urinary incontin ence 788.30 ; Family history of diabetes mellitus in father V18.0 ; Glucose found in urine on examination 791.5 ; Urinary frequency 788.41 and Hypertension 401.9 [place] [address] [address] [place] [id number] [address] [place] [address] September, Unspecified urinary incontin ence 788.30 ; Family history of diabetes mellitus in father V18.0 ; Glucose found in urine on examination 791.5 ; Urinary frequency 788.41 and Hypertension 401.9 [facility] [address] [id number] [address] [place] [address] 14 Aug, 2014 [facility] [address] [facility] [id number] [address] [place] [address] Aug, [facility] [address] [id number] [address] [place] [address] Jul, [facility] [address] [id number] [address] [place] [address] Jul, [facility] [address] [id number] [address] [place] [address] Jun, [facility] [address] [id number] [address] [place] [address] Jun, [facility] [address] [id number] [address] [place] [address] Jun, [facility] [address] [id number] [address] [place] [address] Jun, [facility] [address] [facility] [id number] [address] [place] [address] May, [facility] [address] [id number] [address] [place] [address] May, [facility] [address] [id number] [address] [place] [address] Oct, [facility] [address] [id number] [address] [place] [address] Oct, [facility] [address] [id number] [address] [place] [address] May, [facility] [address] [facility] [id number] [address] [place] [address] May, [facility] [address] [id number] [address] [place] [address], [place] [address] May, [facility] [address] [id number] [address] [place] [address], [place] [address] May, [facility] [address] [id number] [address] [place] [address], [place] [address] Apr, [facility] [address] [id number] [address] [place] [address], [place] [address] Apr, [facility] [address] [id number] [address] [place] [address], [place] [address] Apr, [facility] [address] [id number] [address] [place] [address], [place] [address] Apr, [facility] [address] [id number] [address] [place] [address], [place] [address] Apr, [facility] [address] [id number] [address] [place] [address], [place] [address] Apr, [facility] [address] [id number] [address] [place] [address], [place] [address] Apr, [facility] [address] [id number] [address] [place] [address], [place] [address] Apr, [facility] [address] [id number] [address] [place] [address], [place] [address] Dec, [facility] [address] [id number] [address] [place] [address], [place] [address] Nov, [facility] [address] [id number] [address] [place] [address], [place] [address] Jul, [facility] [address] [id number] [address] [place] [address], [place] [address] May, [facility] [address] [id number] [address] [place] [address], [place] [address] May, [facility] [address] [id number] [address] [place] [address], [place] [address] 17 May, 2012 [facility] [address] [id number] [address] [place] [address], [place] [address] May, [facility] [address] [id number] [address] [place] [address], [place] [address] Apr, [facility] [address] [id number] [address] [place] [address], [place] [address] Apr, [facility] [address] [id number] [address] [place] [address], [place] [address] 16 Mar, 2012 [facility] [address] [id number] [address] [place] [address], [place] [address] 16 Mar, 2012 [facility] [address] [id number] [address] [place] [address], [place] [address] Mar, [facility] [address] [id number] [address] [place] [address], [place] [address] 08 Mar, 2012 [facility] [address] [id number] [address] [place] [address], [place] [address] Mar, [facility] [address] [id number] [address] [place] [address], [place] [address] 27 Jan, 2012 [facility] [address] [id number] [address] [place] [address], [place] [address] 26 Jan, 2012 [facility] [address] [id number] [address] [place] [address], [place] [address] 25 Jan, 2012 [facility] [address] [id number] [address] [place] [address], [place] [address] Jan, [facility] [address] [id number] [address] [place] [address], [place] [address] Oct, [facility] [address] [id number] [address] [place] [address], [place] [address] Oct, [facility] [address] [id number] [address] [place] [address], [place] [address] September, [facility] [address] [id number] [address] [place] [address], [place] [address] 30 Aug, 2011 [facility] [address] [id number] [address] [place] [address], [place] [address] 24 Aug, 2011 [facility] [address] [id number] [address] [place] [address], [place] [address] 13 Aug, 2011 [facility] [address] [id number] [address] [place] [address], [place] [address] 22 Jul, 2011 [facility] [address] [id number] [address] [place] [address], [place] [address] 19 Jul, 2011 [facility] [address] [id number] [address] [place] [address], [place] [address] 13 Jul, 2011 [facility] [address] [id number] [address] [place] [address], [place] [address] 12 Jul, 2011 [facility] [address] [id number] [address] [place] [address], [place] [address] 07 Jul, 2011 [facility] [address] [id number] [address] [place] [address], [place] [address] 06 Jul, 2011 [facility] [address] [id number] [address] [place] [address], [place] [address] 02 Jul, 2011 [facility] [address] [id number] [address] [place] [address], [place] [address] 20 Jul, 2011 [facility] [address] [id number] [address] [place] [address], [place] [address] 14 Jul, 2011 [facility] [address] [id number] [address] [place] [address], [place] [address] 13 Jul, 2011 [facility] [address] [id number] [address] [place] [address], [place] [address] 11 Jul, 2011 [facility] [address] [id number] [address] [place] [address], [place] [address] 10 Jul, 2011 [facility] [address] [id number] [address] [place] [address], [place] [address] 10 Jul, 2011 [facility] [address] [id number] [address] [place] [address] May, [facility] [address] [id number] [address] [place] [address] Oct, [facility] [address] [id number] [address] [place] [address] Jun, [facility] [address] [id number] [address] [place] [address] May, [facility] [address] [id number] [address] [place] [address] May, [facility] [address] [id number] [address] [place] [address] Apr, [facility] [address] [id number] [address] [place] [address] Mar, [facility] [address] [id number] [address] [place] [address] Mar, [facility] [address] [id number] [address] [place] [address] Mar, IMMUNIZATIONS No Known Immunizations SOCIAL HISTORY Never Assessed REASON FOR VISIT PLAN OF CARE VITAL SIGNS Height 67 in 2014-05-22 Weight 238.6 lbs 2014-05-22 Temperature 99 degrees Fahrenheit 2014-05-22 Heart Rate 112 bpm 2014-05-22 Respiratory Rate 20 2014-05-22 Blood pressure systolic 198 mmHg 2014-05-22 Blood pressure diastolic 98 mmHg 2014-05-22 MEDICATIONS No Known Medications RESULTS No Results PROCEDURES No Known [...]
--- OUTSIDE RECORDS SUMMARY | 2020-01-06 11:55 | XMS REPORT ---
Author Author Anusha MUNOZ Organization [facility] Address [address] [place] [address] Care Team Providers Care Robotics Technician Name Role Phone ALEXANDERELINA Unavailable PROBLEMS Type Condition ICD9-CM Code HAN22-BF Code Onset Dates Condition S tatus SNOMED Code Problem Vitamin D deficiency, unspecified E55.9 Active 95437899 Problem Iron deficiency anemia, unspecified D50.9 Active 16219898 Problem Hypertension, benign I10 Active 98696155 Problem Polyneuropathy G62.9 Active 59647 000 Problem Major depressive disorder, single episode, unspecified F32.9 Active 40753362 ALLERGIES No Information ENCOUNTERS Encounter Location Date Diagnosis [place] [id number] [address] Mar, [address] [address] Dec, Plantar fasciitis of right f oot M72.[address] [address] Dec, Hypertension, benign I10 and Iron deficiency anemia, unspecified D50.[address] [address] Nov, Hypertension, benign I10 and Iron deficiency anemia, unspecified D50.9 [facility] [address] [place] [address] Oct, Mouth pain K13.79 [facility] [address] [place] [address] Apr, Sore throat J02.9 and Acute sinusitis J01.[address] [address] Oct, Iron deficiency anemia, unsp ecified D50.9 [place] [address] [place] [id number] [place] [address] Oct, Iron deficiency anemia, unsp ecified D50.9 [place] [address] [place] [id number] [address] [place] [address] Oct, Vitamin D deficiency, unspec ified E55.9 ; Iron deficiency anemia, unspecified D50.9 ; Major depressive disorder, single episode, unspecified F32.9 ; Polyneuropathy G62.9 and Hypertension, benign I10 [place] [address] [address] Oct, Vitamin D deficiency, unspec ified E55.9 ; Iron deficiency anemia, unspecified D50.9 ; Major depressive disorder, single episode, unspecified F32.9 ; Polyneuropathy G62.9 ; Hypertension, benign I10 and Hyperglycemia R73.9 [place] [address] [address] Apr, [place] [address] [address] Dec, Polyneuropathy G62.9 [place] [address] [address] Nov, Hyperglycemia R73.9 [place] [address] [address] Nov, Family history of diabetes m ellitus Z83.3 and Hyperglycemia R73.9 [place] [address] [place] [id number] [address] [place] [address] Nov, Family history of diabetes m ellitus Z83.3 and Hyperglycemia R73.9 [place] [address] [place] [id number] [address] [place] [address] Nov, Neuropathy of both feet G57. 93 and Hypertension, benign I10 [place] [address] [place] [id number] [place] [address] Nov, Essential (primary) hyperten elda I10 [place] [address] [address] September, Acute non-recurrent frontal sinusitis J01.10 [facility] [address] [address] Jul, Tooth abscess K04.7 [place] [address] [address] Jan, [place] [address] [address] Dec, Hearing loss, bilateral H91. [address] [address] 14 Nov, 2015 Retraction of tympanic membr ane of both ears H73.823 [place] [address] [address] May, [address] [address] May, Bronchitis J40 [place] [address] [address] Apr, Upper respiratory infection J06.[address] [address] Nov, Unspecified iron deficiency anemia 280.[address] [address] Oct, Anemia 285.[address] [address] September, Unspecified urinary incontin ence 788.30 ; Family history of diabetes mellitus in father V18.0 ; Glucose found in urine on examination 791.5 ; Urinary frequency 788.41 and Hypertension 401.9 [place] [address] [place] [id number] [place] [address] September, Unspecified urinary incontin ence 788.30 ; Family history of diabetes mellitus in father V18.0 ; Glucose found in urine on examination 791.5 ; Urinary frequency 788.41 and Hypertension 401.9 [facility] [address] [id number] [address] [place] [address] 14 Aug, 2014 [facility] [address] [id number] [address] [place] [address] Aug, [facility] [address] [id number] [address] [place] [address] Jul, [facility] [address] [id number] [address] [place] [address] Jul, [facility] [address] [facility] [id number] [address] [place] [address] Jun, [facility] [address] [id number] [address] [place] [address] Jun, [facility] [address] [id number] [address] [place] [address] Jun, [facility] [address] [facility] [id number] [address] [place] [address] Jun, [facility] [address] [facility] [id number] [address] [place] [phone] May, [facility] [address] [id number] [address] [place] [address] May, [facility] [address] [id number] [address] [place] [address] Oct, [facility] [address] [id number] [address] [place] [id number] Oct, [facility] [address] [facility] [id number] [address] [place] [phone] May, [facility] [address] [id number] [address] [place] [address] May, [facility] [address] [id number] [address] [place] [address], [place] [address] May, [facility] [address] [id number] [address] [place] [address], [place] [address] May, [facility] [address] [id number] [address] [place] [address], [place] [address] Apr, [facility] [address] [id number] [address] [place] [address], [place] [address] Apr, [facility] [address] [id number] [address] [place] [address], [place] [address] Apr, [facility] [address] [id number] [address] [place] [address], [place] [address] Apr, [facility] [address] [id number] [address] [place] [address], [place] [address] Apr, [facility] [address] [id number] [address] [place] [address], [place] [address] Apr, [facility] [address] [id number] [address] [place] [address], [place] [address] Apr, [facility] [address] [id number] [address] [place] [address], [place] [address] Apr, [facility] [address] [id number] [address] [place] [address], [place] [address] Dec, [facility] [address] [id number] [address] [place] [address], [place] [address] Nov, [facility] [address] [id number] [address] [place] [address], [place] [address] Jul, [facility] [address] [id number] [address] [place] [address], [place] [address] May, [facility] [address] [id number] [address] [place] [address], [place] [address] May, [facility] [address] [id number] [address] [place] [address], [place] [address] 17 May, 2012 [facility] [address] [id number] [address] [place] [address], [place] [address] 17 May, 2012 [facility] [address] [id number] [address] [place] [address], [place] [address] 14 Apr, 2012 [facility] [address] [id number] [address] [place] [address], [place] [address] 14 Apr, 2012 [facility] [address] [id number] [address] [place] [address], [place] [address] 16 Mar, 2012 [facility] [address] [id number] [address] [place] [address], [place] [address] 16 Mar, 2012 [facility] [address] [id number] [address] [place] [address], [place] [address] 11 Mar, 2012 [facility] [address] [id number] [address] [place] [address], [place] [address] 08 Mar, 2012 [facility] [address] [id number] [address] [place] [address], [place] [address] 03 Mar, 2012 [facility] [address] [id number] [address] [place] [address], [place] [address] 27 Jan, 2012 [facility] [address] [id number] [address] [place] [address], [place] [address] 26 Jan, 2012 [facility] [address] [id number] [address] [place] [address], [place] [address] 25 Jan, 2012 [facility] [address] [id number] [address] [place] [address], [place] [address] 21 Jan, 2012 [facility] [address] [id number] [address] [place] [address], [place] [address] 30 Oct, 2011 [facility] [address] [id number] [address] [place] [address], [place] [address] Oct, [facility] [address] [id number] [address] [place] [address], [place] [address] September, [facility] [address] [id number] [address] [place] [address], [place] [address] 30 Aug, 2011 [facility] [address] [id number] [address] [place] [address], [place] [address] 24 Aug, 2011 [facility] [address] [id number] [address] [place] [address], [place] [address] 13 Aug, 2011 [facility] [address] [id number] [address] [place] [address], [place] [address] 22 Jul, 2011 [facility] [address] [id number] [address] [place] [address], [place] [address] 19 Jul, 2011 [facility] [address] [id number] [address] [place] [address], [place] [address] 13 Jul, 2011 [facility] [address] [id number] [address] [place] [address], [place] [address] Jul, [facility] [address] [id number] [address] [place] [address], [place] [address] 07 Jul, 2011 [facility] [address] [id number] [address] [place] [address], [place] [address] 06 Jul, 2011 [facility] [address] [id number] [address] [place] [address], [place] [address] 02 Jul, 2011 [facility] [address] [id number] [address] [place] [address], [place] [address] 20 Jul, 2011 [facility] [address] [id number] [address] [place] [address], [place] [address] 14 Jul, 2011 [facility] [address] [id number] [address] [place] [address], [place] [address] 13 Jul, 2011 [facility] [address] [id number] [address] [place] [address], [place] [address] 11 Jul, 2011 [facility] [address] [id number] [address] [place] [address], [place] [address] 10 Jul, 2011 [facility] [address] [id number] [address] [place] [address] 10 Jul, 2011 [facility] [address] [id number] [address] [place] [address] May, [facility] [address] [id number] [address] [place] [id number] Oct, [facility] [address] [id number] [address] [place] [address] Jun, [facility] [address] [id number] [address] [place] [id number] May, [facility] [address] [id number] [address] [place] [phone] May, [facility] [address] [id number] [address] [place] [id number] Apr, [facility] [address] [id number] [address] [place] [id number] Mar, [facility] [address] [id number] [address] [place] [id number] Mar, [facility] [address] [id number] [address] [place] [address] Mar, IMMUNIZATIONS No Known Immunizations SOCIAL HISTORY Never Assessed REASON FOR VISIT PLAN OF CARE VITAL SIGNS Height 67 in 2013-11-02 Weight 244.8 lbs 2013-11-02 Temperature 97.8 degrees Fahrenheit 2013-11-02 Heart Rate 84 bpm 2013-11-02 Respiratory Rate 18 2013-11-02 Blood pressure systolic 112 mmHg 2013-11-02 Blood pressure diastolic 76 mmHg 2013-11-02 MEDICATIONS Unknown Medications RESULTS No Results PROCEDURES [...]
--- OUTSIDE RECORDS SUMMARY | 2020-01-06 11:55 | XMS REPORT ---
Author Author Anusha MUNOZ Organization 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 Role Phone ELINA MUNOZ Unavailable PROBLEMS Type Condition ICD9-CM Code FAA07-EQ Code Onset Dates Condition S tatus SNOMED Code Problem Vitamin D deficiency, unspecified E55.9 Active 94408675 Problem Iron deficiency anemia, unspecified D50.9 Active 40964916 Problem Hypertension, benign I10 Active 98016224 Problem Polyneuropathy G62.9 Active 32917 000 Problem Major depressive disorder, single episode, unspecified F32.9 Active 06995038 ALLERGIES No Information ENCOUNTERS Encounter Location Date Diagnosis [place] [address] [address] Nov, Hypertension, benign I10 and Iron deficiency anemia, unspecified D50.9 [facility] [address] [place] [address] Oct, Mouth pain K13.79 [facility] [address] [place] [address] Apr, Sore throat J02.9 and Acute sinusitis J01.90 [place] [address] [address] Oct, Iron deficiency anemia, unsp ecified D50.9 [place] [address] [address] Oct, Iron deficiency anemia, unsp ecified D50.9 [place] [address] [address] Oct, Vitamin D deficiency, unspec ified E55.9 ; Iron deficiency anemia, unspecified D50.9 ; Major depressive disorder, single episode, unspecified F32.9 ; Polyneuropathy G62.9 and Hypertension, benign I10 [place] [address] [address] Oct, Vitamin D deficiency, unspec ified E55.9 ; Iron deficiency anemia, unspecified D50.9 ; Major depressive disorder, single episode, unspecified F32.9 ; Polyneuropathy G62.9 ; Hypertension, benign I10 and Hyperglycemia R73.9 [place] [address] [address] Apr, [place] [address] [address] Dec, Polyneuropathy G62.9 [place] [address] [address] Nov, Hyperglycemia R73.9 [place] [address] [address] Nov, Family history of diabetes m ellitus Z83.3 and Hyperglycemia R73.9 [place] [address] [address] Nov, Family history of diabetes m ellitus Z83.3 and Hyperglycemia R73.9 [place] [address] [address] Nov, Neuropathy of both feet G57. 93 and Hypertension, benign I10 [place] [address] [address] Nov, Essential (primary) hyperten elda I10 [place] [address] [address] September, Acute non-recurrent frontal sinusitis J01.10 [facility] [address] [address] Jul, Tooth abscess K04.7 [place] [address] [address] [place] [id number] [place] [address] 22 Jan, 2016 [place] [address] [address] [place] [id number] [address] [place] [address] Dec, Hearing loss, bilateral H91. 93 [place] [address] [address] [place] [id number] [address] [place] [address] 14 Nov, 2015 Retraction of tympanic membr ane of both ears H73.823 [place] [address] [address] [place] [id number] [address] [place] [address] May, [place] [address] [address] May, Bronchitis J40 [place] [address] [address] Apr, Upper respiratory infection J06.[address] [address] Nov, Unspecified iron deficiency anemia 280.9 [place] [id number] [address] [place] [address] Oct, Anemia 285.9 [place] [address] [address] [place] [id number] [address] [place] [address] September, Unspecified urinary incontin ence 788.30 ; Family history of diabetes mellitus in father V18.0 ; Glucose found in urine on examination 791.5 ; Urinary frequency 788.41 and Hypertension 401.9 [place] [address] [address] [place] [id number] [address] [place] [address] 11 Sep, 2014 Unspecified urinary incontin ence 788.30 ; Family history of diabetes mellitus in father V18.0 ; Glucose found in urine on examination 791.5 ; Urinary frequency 788.41 and Hypertension 401.9 [place] [address] [address] [place] [id number] [address] [place] [address] 14 Aug, 2014 [place] [address] [address] [place] [id number] [address] [place] [address] Aug, [facility] [address] [id number] [address] [place] [address], [place] [address] Jul, [facility] [address] [id number] [address] [place] [address], [place] [address] Jul, [facility] [address] [id number] [address] [place] [address], [place] [address] Jun, [facility] [address] [id number] [address] [place] [address], [place] [address] Jun, [facility] [address] [id number] [address] [place] [address], [place] [address] Jun, [facility] [address] [id number] [address] [place] [address], [place] [address] Jun, [facility] [address] [id number] [address] [place] [address], [place] [address] May, [facility] [address] [id number] [address] [place] [address], [place] [address] May, [facility] [address] [id number] [address] [place] [address], [place] [address] Oct, [facility] [address] [id number] [address] [place] [address], [place] [address] Oct, [facility] [address] [id number] [address] [place] [address], [place] [address] May, [facility] [address] [id number] [address] [place] [address], [place] [address] May, [facility] [address] [id number] [address] [place] [address], [place] [address] May, [facility] [address] [id number] [address] [place] [address], [place] [address] May, [facility] [address] [id number] [address] [place] [address], [place] [address] Apr, [facility] [address] [id number] [address] [place] [address], [place] [address] Apr, [facility] [address] [id number] [address] [place] [address], [place] [address] Apr, [facility] [address] [id number] [address] [place] [address], [place] [address] Apr, [facility] [address] [id number] [address] [place] [address], [place] [address] Apr, [facility] [address] [id number] [address] [place] [address], [place] [address] Apr, [facility] [address] [id number] [address] [place] [address], [place] [address] Apr, [facility] [address] [id number] [address] [place] [address], [place] [address] Apr, [facility] [address] [id number] [address] [place] [address], [place] [address] Dec, [facility] [address] [id number] [address] [place] [address], [place] [address] Nov, [facility] [address] [id number] [address] [place] [address], [place] [address] Jul, [facility] [address] [id number] [address] [place] [address], [place] [address] May, [facility] [address] [id number] [address] [place] [address], [place] [address] 19 May, 2012 [facility] [address] [id number] [address] [place] [address], [place] [address] 17 May, 2012 [facility] [address] [id number] [address] [place] [address], [place] [address] 17 May, 2012 [facility] [address] [id number] [address] [place] [address], [place] [address] 14 Apr, 2012 [facility] [address] [id number] [address] [place] [address], [place] [address] 14 Apr, 2012 [facility] [address] [id number] [address] [place] [address], [place] [address] 16 Mar, 2012 [facility] [address] [id number] [address] [place] [address], [place] [address] 16 Mar, 2012 [facility] [address] [id number] [address] [place] [address], [place] [address] 11 Mar, 2012 [facility] [address] [id number] [address] [place] [address], [place] [address] 08 Mar, 2012 [facility] [address] [id number] [address] [place] [address], [place] [address] 03 Mar, 2012 [facility] [address] [id number] [address] [place] [address], [place] [address] 27 Jan, 2012 [facility] [address] [id number] [address] [place] [address], [place] [address] 26 Jan, 2012 [facility] [address] [id number] [address] [place] [address], [place] [address] 25 Jan, 2012 [facility] [address] [id number] [address] [place] [address], [place] [address] Jan, [facility] [address] [id number] [address] [place] [address], [place] [address] 30 Oct, 2011 [facility] [address] [id number] [address] [place] [address], [place] [address] Oct, [facility] [address] [id number] [address] [place] [address], [place] [address] September, [facility] [address] [id number] [address] [place] [address], [place] [address] 30 Aug, 2011 [facility] [address] [id number] [address] [place] [address], [place] [address] 24 Aug, 2011 [facility] [address] [id number] [address] [place] [address], [place] [address] 13 Aug, 2011 [facility] [address] [id number] [address] [place] [address], [place] [address] 22 Jul, 2011 [facility] [address] [id number] [address] [place] [address], [place] [address] 19 Jul, 2011 [facility] [address] [id number] [address] [place] [address], [place] [address] 13 Jul, 2011 [facility] [address] [id number] [address] [place] [address], [place] [address] 12 Jul, 2011 [facility] [address] [id number] [address] [place] [address], [place] [address] 07 Jul, 2011 [facility] [address] [id number] [address] [place] [address], [place] [address] 06 Jul, 2011 [facility] [address] [id number] [address] [place] [address], [place] [address] 02 Jul, 2011 [facility] [address] [id number] [address] [place] [address], [place] [address] 20 Jul, 2011 [facility] [address] [id number] [address] [place] [address], [place] [address] 14 Jul, 2011 [facility] [address] [id number] [address] [place] [address], [place] [address] 13 Jul, 2011 [facility] [address] [id number] [address] [place] [address], [place] [address] 11 Jul, 2011 [facility] [address] [id number] [address] [place] [address], [place] [address] 10 Jul, 2011 [facility] [address] [id number] [address] [place] [address], [place] [address] 10 Jul, 2011 [facility] [address] [id number] [address] [place] [address], [place] [address] 07 May, 2010 [facility] [address] [id number] [address] [place] [address], [place] [address] 18 Oct, 2009 [facility] [address] [id number] [address] [place] [address], [place] [address] Jun, [facility] [address] [id number] [address] [place] [address] May, [facility] [address] [id number] [address] [place] [address] May, [facility] [address] [id number] [address] [place] [id number] Apr, [facility] [address] [facility] [id number] [address] [place] [phone] Mar, [facility] [address] [id number] [address] [place] [address] Mar, [facility] [address] [facility] [id number] [address] [place] [id number] Mar, IMMUNIZATIONS No Known Immunizations SOCIAL HISTORY Never Assessed REASON FOR VISIT PLAN OF CARE VITAL SIGNS Height 67 in 2011-09-12 Weight 244.69 lbs 2011-09-12 Heart Rate 80 bpm 2011-09-12 Respiratory Rate 20 2011-09-12 Blood pressure systolic 142 mmHg 2011-09-12 Blood pressure diastolic 78 mmHg 2011-09-12 MEDICATIONS No Known Medications RESULTS No Results PROCEDURES Procedure Date Ordered Result Body Site X-RAY EXAM OF RIBS September 12, 2011 INSTRUCTIONS MEDICATIONS ADMINISTERED No Known Medications MEDICAL (GENERAL) HISTORY Type Description Date Medical History Hypertension Medical History borderline Type II diabetes Surgical History Tonsillectomy Surgical History Tubal ligation 2004 Surgical History Otolaryngologic surgery tubes in ears Hospitalization History Child 3 para 3 with 3 full term vaginal delivery (s)
--- OUTSIDE RECORDS SUMMARY | 2020-01-06 11:55 | XMS REPORT ---
Author Author Anusha Martin Doctor Organization [facility] Address Unknown Phone Unavailable Care Team Providers Care Pattern Stamper Name Role Phone Migration, Doctor Unavailable Unavailable PROBLEMS Type Condition ICD9-CM Code [id number] Code Onset Dates Condition S tatus SNOMED Code Problem Vitamin D deficiency, unspecified E55.9 Active 93976675 Problem Iron deficiency anemia, unspecified D50.9 Active 75031728 Problem Hypertension, benign I10 Active 81154789 Problem Polyneuropathy G62.9 Active 14021 000 Problem Major depressive disorder, single episode, unspecified F32.9 Active 28630636 ALLERGIES No Information ENCOUNTERS Encounter Location Date Diagnosis [facility] [address] [id number] [address] [place] [address] Apr, Sore throat J02.9 and Acute sinusitis J01.90 [facility] [address] [id number] Oct, Iron deficiency anemia, unsp ecified D50.9 [place] [address] [id number] [place] [address] Oct, Iron deficiency anemia, unsp ecified D50.9 [place] [address] [id number] [address] [place] [address] Oct, Vitamin D deficiency, unspec ified E55.9 ; Iron deficiency anemia, unspecified D50.9 ; Major depressive disorder, single episode, unspecified F32.9 ; Polyneuropathy G62.9 and Hypertension, benign I10 [facility] [address] [address] Oct, Vitamin D deficiency, unspec ified E55.9 ; Iron deficiency anemia, unspecified D50.9 ; Major depressive disorder, single episode, unspecified F32.9 ; Polyneuropathy G62.9 ; Hypertension, benign I10 and Hyperglycemia R73.9 [facility] [address] [facility] [id number] [address] [place] [address] Apr, [facility] [address] [facility] [id number] [address] [place] [address] Dec, Polyneuropathy G62.9 [facility] [address] [facility] [id number] [address] [place] [address] Nov, Hyperglycemia R73.9 [facility] [address] [facility] [id number] [address] [place] [address] Nov, Family history of diabetes m ellitus Z83.3 and Hyperglycemia R73.9 [place] [address] [facility] [id number] [address] [place] [address] Nov, Family history of diabetes m ellitus Z83.3 and Hyperglycemia R73.9 [place] [address] [id number] [address] [place] [address] Nov, Neuropathy of both feet G57. 93 and Hypertension, benign I10 [facility] [address] [facility] [id number] [address] [place] [address] Nov, Essential (primary) hyperten elda I10 [facility] [address] [facility] [id number] [address] [place] [address] September, Acute non-recurrent frontal sinusitis J01.10 [facility] [address] [facility] [id number] [address] [place] [address] Jul, Tooth abscess K04.7 [facility] [address] [facility] [id number] [address] [place] [address] Jan, [facility] [address] [id number] [address] [place] [address] Dec, Hearing loss, bilateral H91. 93 [facility] [address] [facility] [id number] [address] [place] [address] 14 Nov, 2015 Retraction of tympanic membr ane of both ears H73.823 [facility] [address] [facility] [id number] [address] [place] [address] 29 May, 2015 [facility] [address] [id number] [address] [place] [address] 14 May, 2015 Bronchitis J40 [facility] [address] [facility] [id number] [address] [place] [address] 25 Apr, 2015 Upper respiratory infection J06.9 [facility] [address] [id number] [address] [place] [address] 13 Nov, 2014 Unspecified iron deficiency anemia 280.9 [facility] [address] [id number] [address] [place] [address] 12 Oct, 2014 Anemia 285.9 [facility] [address] [id number] [address] [place] [address] 13 Sep, 2014 Unspecified urinary incontin ence 788.30 ; Family history of diabetes mellitus in father V18.0 ; Glucose found in urine on examination 791.5 ; Urinary frequency 788.41 and Hypertension 401.9 [facility] [address] [id number] [address] [place] [address] 11 Sep, 2014 Unspecified urinary incontin ence 788.30 ; Family history of diabetes mellitus in father V18.0 ; Glucose found in urine on examination 791.5 ; Urinary frequency 788.41 and Hypertension 401.9 [facility] [address] [facility] [id number] [address] [place] [address] 14 Aug, 2014 [facility] [address] [facility] [id number] [address] [place] [address] 13 Aug, 2014 [facility] [address] [facility] [id number] [address] [place] [address] Jul, [facility] [address] [id number] [address] [place] [address] Jul, [facility] [address] [id number] [address] [place] [address] 17 Jun, 2014 [facility] [address] [id number] [address] [place] [address], [place] [address] Jun, [facility] [address] [id number] [address] [place] [address], [place] [address] Jun, [facility] [address] [id number] [address] [place] [address], [place] [address] Jun, [facility] [address] [id number] [address] [place] [address], [place] [address] May, [facility] [address] [id number] [address] [place] [address], [place] [address] May, [facility] [address] [id number] [address] [place] [address], [place] [address] Oct, [facility] [address] [id number] [address] [place] [address], [place] [address] Oct, [facility] [address] [id number] [address] [place] [address], [place] [address] May, [facility] [address] [id number] [address] [place] [address], [place] [address] May, [facility] [address] [id number] [address] [place] [address], [place] [address] May, [facility] [address] [id number] [address] [place] [address], [place] [address] May, [facility] [address] [id number] [address] [place] [address], [place] [address] Apr, [facility] [address] [id number] [address] [place] [address], [place] [address] Apr, [facility] [address] [id number] [address] [place] [address], [place] [address] Apr, [facility] [address] [id number] [address] [place] [address], [place] [address] Apr, [facility] [address] [id number] [address] [place] [address], [place] [address] Apr, [facility] [address] [id number] [address] [place] [address], [place] [address] Apr, [facility] [address] [id number] [address] [place] [address], [place] [address] Apr, [facility] [address] [id number] [address] [place] [address], [place] [address] Apr, [facility] [address] [id number] [address] [place] [address], [place] [address] Dec, [facility] [address] [id number] [address] [place] [address], [place] [address] Nov, [facility] [address] [id number] [address] [place] [address], [place] [address] Jul, [facility] [address] [id number] [address] [place] [address], [place] [address] May, [facility] [address] [id number] [address] [place] [address], [place] [address] 19 May, 2012 [facility] [address] [id number] [address] [place] [address], [place] [address] 17 May, 2012 [facility] [address] [id number] [address] [place] [address], [place] [address] 17 May, 2012 [facility] [address] [id number] [address] [place] [address], [place] [address] 14 Apr, 2012 [facility] [address] [id number] [address] [place] [address], [place] [address] 14 Apr, 2012 [facility] [address] [id number] [address] [place] [address], [place] [address] 16 Mar, 2012 [facility] [address] [id number] [address] [place] [address], [place] [address] 16 Mar, 2012 [facility] [address] [id number] [address] [place] [address], [place] [address] 11 Mar, 2012 [facility] [address] [id number] [address] [place] [address], [place] [address] 08 Mar, 2012 [facility] [address] [id number] [address] [place] [address], [place] [address] 03 Mar, 2012 [facility] [address] [id number] [address] [place] [address], [place] [address] 27 Jan, 2012 [facility] [address] [id number] [address] [place] [address], [place] [address] 26 Jan, 2012 [facility] [address] [id number] [address] [place] [address], [place] [address] 25 Jan, 2012 [facility] [address] [id number] [address] [place] [address], [place] [address] 21 Jan, 2012 [facility] [address] [id number] [address] [place] [address], [place] [address] 30 Oct, 2011 [facility] [address] [id number] [address] [place] [address], [place] [address] 18 Oct, 2011 [facility] [address] [id number] [address] [place] [address], [place] [address] 29 Sep, 2011 [facility] [address] [id number] [address] [place] [address], [place] [address] 30 Aug, 2011 [facility] [address] [id number] [address] [place] [address], [place] [address] 24 Aug, 2011 [facility] [address] [id number] [address] [place] [address], [place] [address] 13 Aug, 2011 [facility] [address] [id number] [address] [place] [address], [place] [address] 22 Jul, 2011 [facility] [address] [id number] [address] [place] [address], [place] [address] 19 Jul, 2011 [facility] [address] [id number] [address] [place] [address], [place] [address] 13 Jul, 2011 [facility] [address] [id number] [address] [place] [address], [place] [address] 12 Jul, 2011 [facility] [address] [id number] [address] [place] [address], [place] [address] 07 Jul, 2011 [facility] [address] [id number] [address] [place] [address], [place] [address] 06 Jul, 2011 [facility] [address] [id number] [address] [place] [address], [place] [address] 02 Jul, 2011 [facility] [address] [id number] [address] [place] [address], [place] [address] 20 Jul, 2011 [facility] [address] [id number] [address] [place] [address], [place] [address] 14 Jul, 2011 [facility] [address] [id number] [address] [place] [address], [place] [address] 13 Jul, 2011 [facility] [address] [id number] [address] [place] [address], [place] [address] 11 Jul, 2011 [facility] [address] [id number] [address] [place] [address], [place] [address] 10 Jul, 2011 [facility] [address] [id number] [address] [place] [address], [place] [address] 10 Jul, 2011 [facility] [address] [id number] [address] [place] [address], [place] [address] 07 May, 2010 [facility] [address] [id number] [address] [place] [address], [place] [address] 18 Oct, 2009 [facility] [address] [id number] [address] [place] [address], [place] [address] Jun, [facility] [address] [id number] [address] [place] [address], [place] [address] May, [facility] [address] [id number] [address] [place] [address], [place] [address] May, [facility] [address] [id number] [address] [place] [address], [place] [address] Apr, [facility] [address] [id number] [address] [place] [address] 23 Mar, 2009 [facility] [address] [facility] [id number] [address] [place] [address] Mar, [facility] [address] [facility] [id number] [address] [place] [address] Mar, IMMUNIZATIONS No Known Immunizations SOCIAL HISTORY Never Assessed REASON FOR VISIT [place] [place] VITAL SIGNS MEDICATIONS No Known Medications RESULTS No Results [...]
--- OUTSIDE RECORDS SUMMARY | 2020-01-06 11:55 | XMS REPORT ---
Author Author Anusha Martin Doctor Organization [facility] Address Unknown Phone Unavailable Care Team Providers Care Powdered Sugar Supervisor Name Role Phone Migration, Doctor Unavailable Unavailable PROBLEMS Type Condition ICD9-CM Code IGN44-LR Code Onset Dates Condition S tatus SNOMED Code Problem Vitamin D deficiency, unspecified E55.9 Active 46218894 Problem Iron deficiency anemia, unspecified D50.9 Active 30569544 Problem Hypertension, benign I10 Active 09506391 Problem Polyneuropathy G62.9 Active 29034 000 Problem Major depressive disorder, single episode, unspecified F32.9 Active [id number] ALLERGIES No Information ENCOUNTERS Encounter Location Date Diagnosis [facility] [address] [id number] [address] [place] [address] Apr, Sore throat J02.9 and Acute sinusitis J01.90 [facility] [address] [address] Oct, Iron deficiency anemia, unsp ecified D50.9 [facility] [address] [id number] [address] [place] [address] Oct, Iron deficiency anemia, unsp ecified D50.9 [place] [address] [id number] [address] [place] [address] Oct, Vitamin D deficiency, unspec ified E55.9 ; Iron deficiency anemia, unspecified D50.9 ; Major depressive disorder, single episode, unspecified F32.9 ; Polyneuropathy G62.9 and Hypertension, benign I10 [facility] [address] [address] Oct, Vitamin D deficiency, unspec ified E55.9 ; Iron deficiency anemia, unspecified D50.9 ; Major depressive disorder, single episode, unspecified F32.9 ; Polyneuropathy G62.9 ; Hypertension, benign I10 and Hyperglycemia R73.9 [facility] [address] [facility] [id number] [address] [place] [address] Apr, [facility] [address] [facility] [id number] [address] [place] [address] Dec, Polyneuropathy G62.9 [facility] [address] [facility] [id number] [address] [place] [address] Nov, Hyperglycemia R73.9 [facility] [address] [facility] [id number] [address] [place] [address] Nov, Family history of diabetes m ellitus Z83.3 and Hyperglycemia R73.9 [place] [address] [facility] [id number] [address] [place] [address] Nov, Family history of diabetes m ellitus Z83.3 and Hyperglycemia R73.9 [place] [address] [id number] [address] [place] [address] Nov, Neuropathy of both feet G57. 93 and Hypertension, benign I10 [facility] [address] [facility] [id number] [address] [place] [address] Nov, Essential (primary) hyperten elda I10 [facility] [address] [facility] [id number] [address] [place] [address] September, Acute non-recurrent frontal sinusitis J01.10 [facility] [address] [facility] [id number] [address] [place] [address] Jul, Tooth abscess K04.7 [facility] [address] [facility] [id number] [address] [place] [address] Jan, [facility] [address] [id number] [address] [place] [address] Dec, Hearing loss, bilateral H91. 93 [facility] [address] [facility] [id number] [address] [place] [address] 14 Nov, 2015 Retraction of tympanic membr ane of both ears H73.823 [facility] [address] [facility] [id number] [address] [place] [address] 29 May, 2015 [facility] [address] [id number] [address] [place] [address] 14 May, 2015 Bronchitis J40 [facility] [address] [facility] [id number] [address] [place] [address] 25 Apr, 2015 Upper respiratory infection J06.9 [facility] [address] [id number] [address] [place] [address] 13 Nov, 2014 Unspecified iron deficiency anemia 280.9 [facility] [address] [id number] [address] [place] [address] 12 Oct, 2014 Anemia 285.9 [facility] [address] [id number] [address] [place] [address] 13 Sep, 2014 Unspecified urinary incontin ence 788.30 ; Family history of diabetes mellitus in father V18.0 ; Glucose found in urine on examination 791.5 ; Urinary frequency 788.41 and Hypertension 401.9 [facility] [address] [id number] [address] [place] [address] 11 Sep, 2014 Unspecified urinary incontin ence 788.30 ; Family history of diabetes mellitus in father V18.0 ; Glucose found in urine on examination 791.5 ; Urinary frequency 788.41 and Hypertension 401.9 [facility] [address] [facility] [id number] [address] [place] [address] 14 Aug, 2014 [facility] [address] [facility] [id number] [address] [place] [address] 13 Aug, 2014 [facility] [address] [facility] [id number] [address] [place] [address] Jul, [facility] [address] [id number] [address] [place] [address] Jul, [facility] [address] [id number] [address] [place] [address] 17 Jun, 2014 [facility] [address] [id number] [address] [place] [address], [place] [address] Jun, [facility] [address] [id number] [address] [place] [address], [place] [address] Jun, [facility] [address] [id number] [address] [place] [address], [place] [address] Jun, [facility] [address] [id number] [address] [place] [address], [place] [address] May, [facility] [address] [id number] [address] [place] [address], [place] [address] May, [facility] [address] [id number] [address] [place] [address], [place] [address] Oct, [facility] [address] [id number] [address] [place] [address], [place] [address] Oct, [facility] [address] [id number] [address] [place] [address], [place] [address] May, [facility] [address] [id number] [address] [place] [address], [place] [address] May, [facility] [address] [id number] [address] [place] [address], [place] [address] May, [facility] [address] [id number] [address] [place] [address], [place] [address] May, [facility] [address] [id number] [address] [place] [address], [place] [address] Apr, [facility] [address] [id number] [address] [place] [address], [place] [address] Apr, [facility] [address] [id number] [address] [place] [address], [place] [address] Apr, [facility] [address] [id number] [address] [place] [address], [place] [address] Apr, [facility] [address] [id number] [address] [place] [address], [place] [address] Apr, [facility] [address] [id number] [address] [place] [address], [place] [address] Apr, [facility] [address] [id number] [address] [place] [address], [place] [address] Apr, [facility] [address] [id number] [address] [place] [address], [place] [address] Apr, [facility] [address] [id number] [address] [place] [address], [place] [address] Dec, [facility] [address] [id number] [address] [place] [address], [place] [address] Nov, [facility] [address] [id number] [address] [place] [address], [place] [address] Jul, [facility] [address] [id number] [address] [place] [address], [place] [address] May, [facility] [address] [id number] [address] [place] [address], [place] [address] 19 May, 2012 [facility] [address] [id number] [address] [place] [address], [place] [address] 17 May, 2012 [facility] [address] [id number] [address] [place] [address], [place] [address] 17 May, 2012 [facility] [address] [id number] [address] [place] [address], [place] [address] 14 Apr, 2012 [facility] [address] [id number] [address] [place] [address], [place] [address] 14 Apr, 2012 [facility] [address] [id number] [address] [place] [address], [place] [address] 16 Mar, 2012 [facility] [address] [id number] [address] [place] [address], [place] [address] 16 Mar, 2012 [facility] [address] [id number] [address] [place] [address], [place] [address] 11 Mar, 2012 [facility] [address] [id number] [address] [place] [address], [place] [address] 08 Mar, 2012 [facility] [address] [id number] [address] [place] [address], [place] [address] 03 Mar, 2012 [facility] [address] [id number] [address] [place] [address], [place] [address] 27 Jan, 2012 [facility] [address] [id number] [address] [place] [address], [place] [address] 26 Jan, 2012 [facility] [address] [id number] [address] [place] [address], [place] [address] 25 Jan, 2012 [facility] [address] [id number] [address] [place] [address], [place] [address] 21 Jan, 2012 [facility] [address] [id number] [address] [place] [address], [place] [address] 30 Oct, 2011 [facility] [address] [id number] [address] [place] [address], [place] [address] 18 Oct, 2011 [facility] [address] [id number] [address] [place] [address], [place] [address] 29 Sep, 2011 [facility] [address] [id number] [address] [place] [address], [place] [address] 30 Aug, 2011 [facility] [address] [id number] [address] [place] [address], [place] [address] 24 Aug, 2011 [facility] [address] [id number] [address] [place] [address], [place] [address] 13 Aug, 2011 [facility] [address] [id number] [address] [place] [address], [place] [address] 22 Jul, 2011 [facility] [address] [id number] [address] [place] [address], [place] [address] 19 Jul, 2011 [facility] [address] [id number] [address] [place] [address], [place] [address] 13 Jul, 2011 [facility] [address] [id number] [address] [place] [address], [place] [address] 12 Jul, 2011 [facility] [address] [id number] [address] [place] [address], [place] [address] 07 Jul, 2011 [facility] [address] [id number] [address] [place] [address], [place] [address] 06 Jul, 2011 [facility] [address] [id number] [address] [place] [address], [place] [address] 02 Jul, 2011 [facility] [address] [id number] [address] [place] [address], [place] [address] 20 Jul, 2011 [facility] [address] [id number] [address] [place] [address], [place] [address] 14 Jul, 2011 [facility] [address] [id number] [address] [place] [address], [place] [address] 13 Jul, 2011 [facility] [address] [id number] [address] [place] [address], [place] [address] 11 Jul, 2011 [facility] [address] [id number] [address] [place] [address], [place] [address] 10 Jul, 2011 [facility] [address] [id number] [address] [place] [address], [place] [address] 10 Jul, 2011 [facility] [address] [id number] [address] [place] [address], [place] [address] 07 May, 2010 [facility] [address] [id number] [address] [place] [address], [place] [address] 18 Oct, 2009 [facility] [address] [id number] [address] [place] [address], [place] [address] Jun, [facility] [address] [id number] [address] [place] [address], [place] [address] May, [facility] [address] [id number] [address] [place] [address], [place] [address] May, [facility] [address] [id number] [address] [place] [address], [place] [address] Apr, [facility] [address] [id number] [address] [place] [address] 23 Mar, 2009 [facility] [address] [facility] [id number] [address] [place] [address] Mar, [facility] [address] [facility] [id number] [address] [place] [address] Mar, IMMUNIZATIONS No Known Immunizations SOCIAL HISTORY Never Assessed [place]AS[place] [place] VITAL SIGNS MEDICATIONS No [...]
--- OUTSIDE RECORDS SUMMARY | 2020-01-06 11:55 | XMS REPORT ---
Author Author Anusha MUNOZ Organization [facility], [place] Address [address] [place] [address] Care Team Providers Care Casting Operator Name Role Phone ALEXANDER ELINA Unavailable PROBLEMS Type Condition ICD9-CM Code SOX53-UK Code Onset Dates Condition S tatus SNOMED Code Problem Hypertension, benign I10 Active 11425320 Problem Polyneuropathy G62.9 Active 82629 000 Problem Major depressive disorder, single episode, unspecified F32.9 Active 11637479 Problem Other chronic pain G89.29 Active 8 6569688 Problem Amenorrhea N91.2 Active 36467646 Problem Vitamin D deficiency, unspecified E55.9 Active 30378358 Problem Iron deficiency anemia, unspecified D50.9 Active 09356938 Problem Obesity (BMI 30-39.9) E66.9 Active 420324812 Problem Type 2 diabetes mellitus wit hout complication, without long-term current use of insulin E11.9 Active [id number] ALLERGIES No Information ENCOUNTERS Encounter Location Date Diagnosis [facility], [place] [id number] [place] [address] Jul, [facility], [place] [id number] [place] [address] Jul, [facility], [place] [address] [id number] [place] [address] Jul, [facility] [address] [facility] [id number] [address] [place] [address] Jun, Dental infection K04.7 [facility], [place] [address] [id number] [place] [address] Jun, [facility], [place] [address] [id number] [place] [address] Jun, [facility], [place] [id number] [place] [address] Jun, Metatarsal stress fracture of right foot with routine healing M84.374D ; Possible Z32.00 and Amenorrhea N91.2 [place] [address] [address] Jun, Type 2 diabetes mellitus without complic ation, without long-term current use of insulin E11.9 [place] [address] [address] Jun, [place] [address] [address] Jun, [place] [address] [address] Jun, Foot pain, right M79.671 and Other fract ure of right foot, initial encounter for closed fracture S92.811A [place] [address] [address] May, Cellulitis of foot, right L03.115 [place] [address] [address] 15 Apr, 2019 Other chronic pain G89.29 and Pain in ri ght foot M79.671 [facility] [address] [facility] [id number] [address] [place] [address] Apr, Left otitis media, unspecifi ed otitis media type H66.92 [place] [address] [address] Mar, Well woman exam with routine gynecologic al exam Z01.419 ; Obesity (BMI 30-39.9) E66.9 ; Hypertension, benign I10 and Type 2 diabetes mellitus without complication, without long-term current use of insulin E11.9 [place] [address] [address] Mar, Encounter for immunization Z23 [place] [address] [address] Dec, Plantar fasciitis of right foot M72.2 [place] [address] [address] Dec, Hypertension, benign I10 and Iron defici ency anemia, unspecified D50.9 [place] [address] [address] Nov, Hypertension, benign I10 and Iron defici ency anemia, unspecified D50.9 [facility] [place] [address] [place] [address] Oct, Mouth pain K13.79 [facility] [address] [address] Apr, Sore throat J02.9 and Acute sinusitis J01.90 [place] [address] [address] Oct, Iron deficiency anemia, unspecified D50. 9 [place] [address] [address] Oct, Iron deficiency anemia, unspecified D50. 9 [place] [address] [address] Oct, Vitamin D deficiency, unspecified E55.9 ; Iron deficiency anemia, unspecified D50.9 ; Major depressive disorder, single episode, unspecified F32.9 ; Polyneuropathy G62.9 and Hypertension, benign I10 [place] [address] [address] Oct, Vitamin D deficiency, unspecified E55.9 ; Iron deficiency anemia, unspecified D50.9 ; Major depressive disorder, single episode, unspecified F32.9 ; Polyneuropathy G62.9 ; Hypertension, benign I10 and Hyperglycemia R73.9 [place] [address] [address] Apr, [place] [address] [address] Dec, Polyneuropathy G62.9 [place] [address] [address] Nov, Hyperglycemia R73.9 [facility], [place] [address] [address] Nov, Family history of diabetes mellitus Z83. 3 and Hyperglycemia R73.9 [place] [address] [address] Nov, Family history of diabetes mellitus Z83. 3 and Hyperglycemia R73.9 [place] [address] [address] Nov, Neuropathy of both feet G57.93 and Hyper tension, benign I10 [place] [address] [address] Nov, Essential (primary) hypertension I10 [place] [address] [address] September, Acute non-recurrent frontal sinusitis J0 1.10 [facility] [address] [facility] [id number] [address] [place] [address] Jul, Tooth abscess K04.7 [place] [address] [address] Jan, [place] [address] [address] Dec, Hearing loss, bilateral H91.93 [place] [address] [address] Nov, Retraction of tympanic membrane of both ears H73.823 [place] [address] [address] May, [place] [address] [address] May, Bronchitis J40 [place] [address] [address] Apr, Upper respiratory infection J06.9 [place] [id number] [place] [address] 13 Nov, 2014 Unspecified iron deficiency anemia 280.9 [facility], [place] [id number] [place] [address] 12 Oct, 2014 Anemia 285.9 [facility], [place] [id number] [place] [address] 13 Sep, 2014 Unspecified urinary incontinence 788.30 ; Family history of diabetes mellitus in father V18.0 ; Glucose found in urine on examination 791.5 ; Urinary frequency 788.41 and Hypertension 401.9 [facility], [place] [id number] [place] [address] 11 Sep, 2014 Unspecified urinary incontinence 788.30 ; Family history of diabetes mellitus in father V18.0 ; Glucose found in urine on examination 791.5 ; Urinary frequency 788.41 and Hypertension 401.9 [facility], [place] [id number] [place] [address] 14 Aug, 2014 [facility], [place] [id number] [place] [address] Aug, [facility], [place] [id number] [place] [address] Jul, [facility], [place] [id number] [place] [address] Jul, [facility], [place] [id number] [place] [address] Jun, [facility], [place] [id number] [place] [address] Jun, [facility], [place] [id number] [place] [address] Jun, [facility], [place] [id number] [place] [address] Jun, [facility], [place] [id number] [place] [address] May, [facility], [place] [id number] [place] [address] May, [facility] [address] [id number] [place] [address] Oct, [facility] [address] [id number] [place] [address] Oct, [facility] [address] [id number] [place] [address] May, [facility] [address] [id number] [place] [address] May, [facility] [address] [id number] [place] [address] May, [facility] [address] [id number] [place] [address] May, [facility] [address] [id number] [place] [address] Apr, [facility] [address] [id number] [place] [address] Apr, [facility] [address] [id number] [place] [address] Apr, [facility] [address] [id number] [place] [address] Apr, [facility] [address] [id number] [place] [address] Apr, [facility] [address] [id number] [place] [address] Apr, [facility] [address] [id number] [place] [address] Apr, [facility] [address] [id number] [place] [address] Apr, [facility] [address] [id number] [place] [address] Dec, [facility] [address] [id number] [place] [address] Nov, [facility] [address] [id number] [place] [address] 08 Jul, 2012 [facility] [address] [id number] [place] [address] 19 May, 2012 [facility] [address] [id number] [place] [address] 19 May, 2012 [facility] [address] [id number] [place] [address] 17 May, 2012 [facility] [address] [id number] [place] [address] 17 May, 2012 [facility] [address] [id number] [place] [address] 14 Apr, 2012 [facility] [address] [id number] [place] [address] 14 Apr, 2012 [facility] [address] [id number] [place] [address] 16 Mar, 2012 [facility] [address] [id number] [place] [address] 16 Mar, 2012 [facility] [address] [id number] [place] [address] 11 Mar, 2012 [facility] [address] [id number] [place] [address] 08 Mar, 2012 [facility] [address] [id number] [place] [address] 03 Mar, 2012 [facility] [address] [id number] [place] [address] 27 Jan, 2012 [facility] [address] [id number] [place] [address] 26 Sep2011 [facility] [id number] [place] [address] 25 Jan, 2012 [facility] [address] [id number] [place] [address] 21 Jan, 2011 [facility] [address] [id number] [place] [address] 30 Oct, 2011 [facility] [address] [id number] [place] [address] 18 Oct, 2011 [facility] [address] [id number] [place] [address] September, [facility] [address] [id number] [place] [address] 30 Aug, 2011 [facility] [address] [id number] [place] [address] 24 Aug, 2011 [facility] [address] [id number] [place] [address] Aug, [facility] [address] [id number] [place] [address] 22 Jul, 2011 [facility] [address] [id number] [place] [address] Jul, [facility] [address] [id number] [place] [address] 13 Jul, 2011 [facility] [address] [id number] [place] [address] Jul, [facility] [address] [id number] [place] [address] 07 Jul, 2011 [facility] [address] [id number] [place] [address] 06 Jul, 2011 [facility] [address] [id number] [place] [address] 02 Jul, 2011 [facility] [address] [id number] [place] [address] 20 Jul, 2011 [facility] [address] [id number] [place] [address] 14 Jul, 2011 [facility] [address] [id number] [place] [address] 13 Jul, 2011 [facility] [address] [id number] [place] [address] 11 Jul, 2011 [facility] [address] [id number] [place] [address] 10 Jul, 2011 [facility], [place] [address] [id number] [place] [address] 10 Jul, 2011 [facility], [place] [address] [id number] [place] [address] May, [facility], [place] [id number] [place] [address] Oct, [facility], [place] [address] [address] Jun, [facility], [place] [id number] [place] [address] May, [facility], [place] [id number] [place] [address] May, [facility], [place] [id number] [place] [address] Apr, [facility], [place] [id number] [place] [address] Mar, [facility], [place] [id number] [place] [address] Mar, [facility], [place] [id number] [place] [address] 14 Mar, 2009 IMMUNIZATIONS No Known Immunizations [...]
--- OUTSIDE RECORDS SUMMARY | 2020-01-06 11:55 | XMS REPORT ---
Author Author Anusha Martin Doctor Organization [facility] Address Unknown Phone Unavailable Care Team Providers Care Section Hand Name Role Phone Migration, Doctor Unavailable Unavailable PROBLEMS Type Condition ICD9-CM Code [id number] Code Onset Dates Condition S tatus SNOMED Code Problem Vitamin D deficiency, unspecified E55.9 Active 84271922 Problem Iron deficiency anemia, unspecified D50.9 Active 25845835 Problem Hypertension, benign I10 Active 54000664 Problem Polyneuropathy G62.9 Active 95560 000 Problem Major depressive disorder, single episode, unspecified F32.9 Active [id number] ALLERGIES No Information ENCOUNTERS Encounter Location Date Diagnosis [facility] IN [facility] [address] [address] Apr, Sore throat J02.9 and Acute sinusitis J01.90 [facility] [address] [address] Oct, Iron deficiency anemia, unsp ecified D50.9 [place] [address] [place] [id number] [place] [phone] Oct, Iron deficiency anemia, unsp ecified D50.9 [place] [address] [place] [id number] [address] [place] [phone] Oct, Vitamin D deficiency, unspec ified E55.9 ; Iron deficiency anemia, unspecified D50.9 ; Major depressive disorder, single episode, unspecified F32.9 ; Polyneuropathy G62.9 and Hypertension, benign I10 [facility] [address] [address] Oct, Vitamin D deficiency, unspec ified E55.9 ; Iron deficiency anemia, unspecified D50.9 ; Major depressive disorder, single episode, unspecified F32.9 ; Polyneuropathy G62.9 ; Hypertension, benign I10 and Hyperglycemia R73.9 [facility] [address] [facility] [id number] [address] [place] [phone] Apr, [facility] [address] [facility] [id number] [address] [place] [phone] Dec, Polyneuropathy G62.9 [facility] [address] [facility] [id number] [address] [place] [phone] Nov, Hyperglycemia R73.9 [facility] [address] [facility] [id number] [address] [place] [phone] Nov, Family history of diabetes m ellitus Z83.3 and Hyperglycemia R73.9 [place] [address] [facility] [id number] [address] [place] [phone] Nov, Family history of diabetes m ellitus Z83.3 and Hyperglycemia R73.9 [place] [address] [place] [id number] [address] [place] [phone] Nov, Neuropathy of both feet G57. 93 and Hypertension, benign I10 [facility] [address] [facility] [id number] [address] [place] [phone] Nov, Essential (primary) hyperten elda I10 [facility] [address] [facility] [id number] [address] [place] [phone] September, Acute non-recurrent frontal sinusitis J01.10 [facility] [address] [facility] [id number] [address] [place] [phone] Jul, Tooth abscess K04.7 [facility] [address] [facility] [id number] [address] [place] [phone] Jan, [facility] [address] [place] [id number] [address] [place] [phone] Dec, Hearing loss, bilateral H91. 93 [facility] [address] [facility] [id number] [address] [place] [phone] 14 Nov, 2015 Retraction of tympanic membr ane of both ears H73.823 [facility] [address] [facility] [id number] [address] [place] [phone] 29 May, 2015 [facility] [address] [place] [id number] [address] [place] [phone] 14 May, 2015 Bronchitis J40 [facility] [address] [facility] [id number] [address] [place] [phone] 25 Apr, 2015 Upper respiratory infection J06.9 [facility] [address] [place] [id number] [address] [place] [phone] 13 Nov, 2014 Unspecified iron deficiency anemia 280.9 [facility] [address] [place] [id number] [address] [place] [phone] 12 Oct, 2014 Anemia 285.9 [facility] [address] [place] [id number] [address] [place] [phone] 13 Sep, 2014 Unspecified urinary incontin ence 788.30 ; Family history of diabetes mellitus in father V18.0 ; Glucose found in urine on examination 791.5 ; Urinary frequency 788.41 and Hypertension 401.9 [facility] [address] [place] [id number] [address] [place] [phone] 11 Sep, 2014 Unspecified urinary incontin ence 788.30 ; Family history of diabetes mellitus in father V18.0 ; Glucose found in urine on examination 791.5 ; Urinary frequency 788.41 and Hypertension 401.9 [facility] [address] [facility] [id number] [address] [place] [phone] 14 Aug, 2014 [facility] [address] [facility] [id number] [address] [place] [phone] 13 Aug, 2014 [facility] [address] [facility] [id number] [address] [place] [phone] Jul, [facility] [address] [place] [id number] [address] [place] [phone] Jul, [facility] [address] [place] [id number] [address] [place] [phone] 17 Jun, 2014 [facility] [address] [id number] [address] [place] [address], [place] [address] Jun, [facility] [address] [id number] [address] [place] [address], [place] [address] Jun, [facility] [address] [id number] [address] [place] [address], [place] [address] Jun, [facility] [address] [id number] [address] [place] [address], [place] [address] May, [facility] [address] [id number] [address] [place] [address], [place] [address] May, [facility] [address] [id number] [address] [place] [address], [place] [address] Oct, [facility] [address] [id number] [address] [place] [address], [place] [address] Oct, [facility] [address] [id number] [address] [place] [address], [place] [address] May, [facility] [address] [id number] [address] [place] [address], [place] [address] May, [facility] [address] [id number] [address] [place] [address], [place] [address] May, [facility] [address] [id number] [address] [place] [address], [place] [address] May, [facility] [address] [id number] [address] [place] [address], [place] [address] Apr, [facility] [address] [id number] [address] [place] [address], [place] [address] Apr, [facility] [address] [id number] [address] [place] [address], [place] [address] Apr, [facility] [address] [id number] [address] [place] [address], [place] [address] Apr, [facility] [address] [id number] [address] [place] [address], [place] [address] Apr, [facility] [address] [id number] [address] [place] [address], [place] [address] Apr, [facility] [address] [id number] [address] [place] [address], [place] [address] Apr, [facility] [address] [id number] [address] [place] [address], [place] [address] Apr, [facility] [address] [id number] [address] [place] [address], [place] [address] Dec, [facility] [address] [id number] [address] [place] [address], [place] [address] Nov, [facility] [address] [id number] [address] [place] [address], [place] [address] Jul, [facility] [address] [id number] [address] [place] [address], [place] [address] May, [facility] [address] [id number] [address] [place] [address], [place] [address] 19 May, 2012 [facility] [address] [id number] [address] [place] [address], [place] [address] 17 May, 2012 [facility] [address] [id number] [address] [place] [address], [place] [address] 17 May, 2012 [facility] [address] [id number] [address] [place] [address], [place] [address] 14 Apr, 2012 [facility] [address] [id number] [address] [place] [address], [place] [address] 14 Apr, 2012 [facility] [address] [id number] [address] [place] [address], [place] [address] 16 Mar, 2012 [facility] [address] [id number] [address] [place] [address], [place] [address] 16 Mar, 2012 [facility] [address] [id number] [address] [place] [address], [place] [address] 11 Mar, 2012 [facility] [address] [id number] [address] [place] [address], [place] [address] 08 Mar, 2012 [facility] [address] [id number] [address] [place] [address], [place] [address] 03 Mar, 2012 [facility] [address] [id number] [address] [place] [address], [place] [address] 27 Jan, 2012 [facility] [address] [id number] [address] [place] [address], [place] [address] 26 Jan, 2012 [facility] [address] [id number] [address] [place] [address], [place] [address] 25 Jan, 2012 [facility] [address] [id number] [address] [place] [address], [place] [address] 21 Jan, 2012 [facility] [address] [id number] [address] [place] [address], [place] [address] 30 Oct, 2011 [facility] [address] [id number] [address] [place] [address], [place] [address] 18 Oct, 2011 [facility] [address] [id number] [address] [place] [address], [place] [address] 29 Sep, 2011 [facility] [address] [id number] [address] [place] [address], [place] [address] 30 Aug, 2011 [facility] [address] [id number] [address] [place] [address], [place] [address] 24 Aug, 2011 [facility] [address] [id number] [address] [place] [address], [place] [address] 13 Aug, 2011 [facility] [address] [id number] [address] [place] [address], [place] [address] 22 Jul, 2011 [facility] [address] [id number] [address] [place] [address], [place] [address] 19 Jul, 2011 [facility] [address] [id number] [address] [place] [address], [place] [address] 13 Jul, 2011 [facility] [address] [id number] [address] [place] [address], [place] [address] 12 Jul, 2011 [facility] [address] [id number] [address] [place] [address], [place] [address] 07 Jul, 2011 [facility] [address] [id number] [address] [place] [address], [place] [address] 06 Jul, 2011 [facility] [address] [id number] [address] [place] [address], [place] [address] 02 Jul, 2011 [facility] [address] [id number] [address] [place] [address], [place] [address] 20 Jul, 2011 [facility] [address] [id number] [address] [place] [address], [place] [address] 14 Jul, 2011 [facility] [address] [id number] [address] [place] [address], [place] [address] 13 Jul, 2011 [facility] [address] [id number] [address] [place] [address], [place] [address] 11 Jul, 2011 [facility] [address] [id number] [address] [place] [address], [place] [address] 10 Jul, 2011 [facility] [address] [id number] [address] [place] [address], [place] [address] 10 Jul, 2011 [facility] [address] [id number] [address] [place] [address], [place] [address] 07 May, 2010 [facility] [address] [id number] [address] [place] [address], [place] [address] 18 Oct, 2009 [facility] [address] [id number] [address] [place] [address], [place] [address] Jun, [facility] [address] [id number] [address] [place] [address], [place] [address] May, [facility] [address] [id number] [address] [place] [address], [place] [address] May, [facility] [address] [id number] [address] [place] [address], [place] [address] Apr, [facility] [address] [id number] [address] [place] [id number] 23 Mar, 2009 [facility] [address] [facility] [id number] [address] [place] [phone] Mar, [facility] [address] [facility] [id number] [address] [place] [phone] Mar, IMMUNIZATIONS No Known Immunizations SOCIAL HISTORY Never Assessed REASON FOR VISIT EMR[place] [place] CARE VITAL SIGNS MEDICATIONS No [...]
--- OUTSIDE RECORDS SUMMARY | 2020-01-06 11:55 | XMS REPORT ---
Author Author Anusha GUERRERO Organization [facility], [place] Address [address] [place] [address] Care Team Providers Care Tube Coremaker Name Role Phone TERESA GUERRERO Unavailable PROBLEMS Type Condition ICD9-CM Code FZP08-TO Code Onset Dates Condition S tatus SNOMED Code Problem Vitamin D deficiency, unspecified E55.9 Active 44320257 Problem Iron deficiency anemia, unspecified D50.9 Active 63060013 Problem Hypertension, benign I10 Active 53222226 Problem Polyneuropathy G62.9 Active 89541 000 Problem Major depressive disorder, single episode, unspecified F32.9 Active 11669782 ALLERGIES No Information ENCOUNTERS Encounter Location Date Diagnosis [place] [address] [address] Nov, [facility] [place] [address] [address] Oct, Mouth pain K13.79 [facility] [place] [address] [address] Apr, Sore throat J02.9 and Acute sinusitis J01.90 [place] [address] [address] Oct, Iron deficiency anemia, unsp ecified D50.9 [place] [address] [address] Oct, Iron deficiency anemia, unsp ecified D50.9 [place] [address] [address] Oct, Vitamin D deficiency, unspec ified E55.9 ; Iron deficiency anemia, unspecified D50.9 ; Major depressive disorder, single episode, unspecified F32.9 ; Polyneuropathy G62.9 and Hypertension, benign I10 [place] [address] [address] Oct, Vitamin D deficiency, unspec ified E55.9 ; Iron deficiency anemia, unspecified D50.9 ; Major depressive disorder, single episode, unspecified F32.9 ; Polyneuropathy G62.9 ; Hypertension, benign I10 and Hyperglycemia R73.9 [place] [address] [place] [address] Apr, [place] [address] [address] Dec, Polyneuropathy G62.9 [place] [address] [address] Nov, Hyperglycemia R73.9 [place] [address] [address] Nov, Family history of diabetes m ellitus Z83.3 and Hyperglycemia R73.9 [place] [address] [address] Nov, Family history of diabetes m ellitus Z83.3 and Hyperglycemia R73.9 [place] [address] [address] Nov, Neuropathy of both feet G57. 93 and Hypertension, benign I10 [place] [address] [address] [place] [id number] [place] [address] Nov, Essential (primary) hyperten elda I10 [place] [address] [address] September, Acute non-recurrent frontal sinusitis J01.10 [facility] [address] [place] [id number] [place] [address] Jul, Tooth abscess K04.7 [facility] [place] [address] [address] Jan, [place] [address] [place] [address] Dec, Hearing loss, bilateral H91. 93 [place] [address] [address] [place] [id number] [place] [address] 14 Nov, 2015 Retraction of tympanic membr ane of both ears H73.823 [place] [address] [address] [place] [id number] [place] [address] May, [place] [address] [address] May, Bronchitis J40 [place] [address] [address] Apr, Upper respiratory infection J06.[address] [address] Nov, Unspecified iron deficiency anemia 280.9 [place] [address] [address] [place] [id number] [place] [address] Oct, Anemia 285.9 [place] [address] [address] [place] [id number] [place] [address] September, Unspecified urinary incontin ence 788.30 ; Family history of diabetes mellitus in father V18.0 ; Glucose found in urine on examination 791.5 ; Urinary frequency 788.41 and Hypertension 401.9 [place] [address] [address] [place] [id number] [place] [address] 11 Sep, 2014 Unspecified urinary incontin ence 788.30 ; Family history of diabetes mellitus in father V18.0 ; Glucose found in urine on examination 791.5 ; Urinary frequency 788.41 and Hypertension 401.9 [place] [address] [address] [place] [id number] [place] [address] 14 Aug, 2014 [place] [address] [address] [place] [id number] [place] [address] Aug, [facility] [address] [id number] [address] [place] [address], [place] [address] Jul, [facility] [address] [id number] [address] [place] [address], [place] [address] Jul, [facility] [address] [id number] [address] [place] [address], [place] [address] Jun, [facility] [address] [id number] [address] [place] [address], [place] [address] Jun, [facility] [address] [id number] [address] [place] [address], [place] [address] Jun, [facility] [address] [id number] [address] [place] [address], [place] [address] Jun, [facility] [address] [id number] [address] [place] [address], [place] [address] May, [facility] [address] [id number] [address] [place] [address], [place] [address] May, [facility] [address] [id number] [address] [place] [address], [place] [address] Oct, [facility] [address] [id number] [address] [place] [address], [place] [address] Oct, [facility] [address] [id number] [address] [place] [address], [place] [address] May, [facility] [address] [id number] [address] [place] [address], [place] [address] May, [facility] [address] [id number] [address] [place] [address], [place] [address] May, [facility] [address] [id number] [address] [place] [address], [place] [address] May, [facility] [address] [id number] [address] [place] [address], [place] [address] Apr, [facility] [address] [id number] [address] [place] [address], [place] [address] Apr, [facility] [address] [id number] [address] [place] [address], [place] [address] Apr, [facility] [address] [id number] [address] [place] [address], [place] [address] Apr, [facility] [address] [id number] [address] [place] [address], [place] [address] Apr, [facility] [address] [id number] [address] [place] [address], [place] [address] Apr, [facility] [address] [id number] [address] [place] [address], [place] [address] Apr, [facility] [address] [id number] [address] [place] [address], [place] [address] Apr, [facility] [address] [id number] [address] [place] [address], [place] [address] Dec, [facility] [address] [id number] [address] [place] [address], [place] [address] Nov, [facility] [address] [id number] [address] [place] [address], [place] [address] Jul, [facility] [address] [id number] [address] [place] [address], [place] [address] May, [facility] [address] [id number] [address] [place] [address], [place] [address] May, [facility] [address] [id number] [address] [place] [address], [place] [address] 17 May, 2012 [facility] [address] [id number] [address] [place] [address], [place] [address] 17 May, 2012 [facility] [address] [id number] [address] [place] [address], [place] [address] 14 Apr, 2012 [facility] [address] [id number] [address] [place] [address], [place] [address] 14 Apr, 2012 [facility] [address] [id number] [address] [place] [address], [place] [address] 16 Mar, 2012 [facility] [address] [id number] [address] [place] [address], [place] [address] 16 Mar, 2012 [facility] [address] [id number] [address] [place] [address], [place] [address] 11 Mar, 2012 [facility] [address] [id number] [address] [place] [address], [place] [address] 08 Mar, 2012 [facility] [address] [id number] [address] [place] [address], [place] [address] 03 Mar, 2012 [facility] [address] [id number] [address] [place] [address], [place] [address] 27 Jan, 2012 [facility] [address] [id number] [address] [place] [address], [place] [address] 26 Jan, 2012 [facility] [address] [id number] [address] [place] [address], [place] [address] 25 Jan, 2012 [facility] [address] [id number] [address] [place] [address], [place] [address] 21 Jan, 2012 [facility] [address] [id number] [address] [place] [address], [place] [address] 30 Oct, 2011 [facility] [address] [id number] [address] [place] [address], [place] [address] 18 Oct, 2011 [facility] [address] [id number] [address] [place] [address], [place] [address] September, [facility] [address] [id number] [address] [place] [address], [place] [address] 30 Aug, 2011 [facility] [address] [id number] [address] [place] [address], [place] [address] 24 Aug, 2011 [facility] [address] [id number] [address] [place] [address], [place] [address] 13 Aug, 2011 [facility] [address] [id number] [address] [place] [address], [place] [address] 22 Jul, 2011 [facility] [address] [id number] [address] [place] [address], [place] [address] 19 Jul, 2011 [facility] [address] [id number] [address] [place] [address], [place] [address] 13 Jul, 2011 [facility] [address] [id number] [address] [place] [address], [place] [address] 12 Jul, 2011 [facility] [address] [id number] [address] [place] [address], [place] [address] 07 Jul, 2011 [facility] [address] [id number] [address] [place] [address], [place] [address] 06 Jul, 2011 [facility] [address] [id number] [address] [place] [address], [place] [address] 02 Jul, 2011 [facility] [address] [id number] [address] [place] [address], [place] [address] 20 Jul, 2011 [facility] [address] [id number] [address] [place] [address], [place] [address] 14 Jul, 2011 [facility] [address] [id number] [address] [place] [address], [place] [address] 13 Jul, 2011 [facility] [address] [id number] [address] [place] [address], [place] [address] 11 Jul, 2011 [facility] [address] [id number] [address] [place] [address], [place] [address] 10 Jul, 2011 [facility] [address] [id number] [address] [place] [address], [place] [address] 10 Jul, 2011 [facility] [address] [id number] [address] [place] [address], [place] [address] May, [facility] [address] [id number] [address] [place] [address], [place] [address] Oct, [facility] [address] [id number] [address] [place] [address], [place] [address] Jun, [facility] [address] [id number] [address] [place] [address] May, [facility] [place] [address] [facility] [id number] [address] [place] [address] May, [facility] [place] [address] [facility] [id number] [address] [place] [address] Apr, [facility] [place] [address] [facility] [id number] [address] [place] [address] Mar, [facility] [place] [address] [facility] [id number] [address] [place] [address] Mar, [facility] [place] [address] [facility] [id number] [address] [place] [address] Mar, IMMUNIZATIONS No Known Immunizations SOCIAL HISTORY [...]
--- OUTSIDE RECORDS SUMMARY | 2020-01-06 11:56 | XMS REPORT ---
Author Author Anusha Martin Doctor Organization [facility] Address Unknown Phone Unavailable Care Team Providers Care Foster Care Case Manager Name Role Phone Migration, Doctor Unavailable Unavailable PROBLEMS Type Condition ICD9-CM Code [id number] Code Onset Dates Condition S tatus SNOMED Code Problem Vitamin D deficiency, unspecified E55.9 Active 71185064 Problem Iron deficiency anemia, unspecified D50.9 Active 09437487 Problem Hypertension, benign I10 Active 04761655 Problem Polyneuropathy G62.9 Active 52646 000 Problem Major depressive disorder, single episode, unspecified F32.9 Active [id number] ALLERGIES No Information ENCOUNTERS Encounter Location Date Diagnosis [facility] [id number] [place] [phone] Apr, Sore throat J02.9 and Acute sinusitis J01.90 [facility] [address] [address] Oct, Iron deficiency anemia, unsp ecified D50.9 [place] [id number] [place] [address] Oct, Iron deficiency anemia, unsp ecified D50.9 [place] [id number] [place] [address] Oct, Vitamin D deficiency, unspec ified E55.9 ; Iron deficiency anemia, unspecified D50.9 ; Major depressive disorder, single episode, unspecified F32.9 ; Polyneuropathy G62.9 and Hypertension, benign I10 [facility] [address] [address] Oct, Vitamin D deficiency, unspec ified E55.9 ; Iron deficiency anemia, unspecified D50.9 ; Major depressive disorder, single episode, unspecified F32.9 ; Polyneuropathy G62.9 ; Hypertension, benign I10 and Hyperglycemia R73.9 [facility] [address] [facility] [id number] [address] [place] [id number] Apr, [facility] [address] [facility] [id number] [address] [place] [address] Dec, Polyneuropathy G62.9 [facility] [address] [facility] [id number] [address] [place] [address] Nov, Hyperglycemia R73.9 [facility] [address] [facility] [id number] [address] [place] [address] Nov, Family history of diabetes m ellitus Z83.3 and Hyperglycemia R73.9 [place] [address] [facility] [id number] [address] [place] [phone] Nov, Family history of diabetes m ellitus Z83.3 and Hyperglycemia R73.9 [place] [address] [place] [id number] [address] [place] [address] Nov, Neuropathy of both feet G57. 93 and Hypertension, benign I10 [facility] [address] [facility] [id number] [address] [place] [address] Nov, Essential (primary) hyperten elda I10 [facility] [address] [facility] [id number] [address] [place] [address] September, Acute non-recurrent frontal sinusitis J01.10 [facility] [address] [facility] [id number] [address] [place] [phone] Jul, Tooth abscess K04.7 [facility] [address] [facility] [id number] [address] [place] [address] Jan, [facility] [address] [place] [id number] [address] [place] [address] Dec, Hearing loss, bilateral H91. 93 [facility] [address] [facility] [id number] [address] [place] [id number] 14 Nov, 2015 Retraction of tympanic membr ane of both ears H73.823 [facility] [address] [facility] [id number] [address] [place] [phone] 29 May, 2015 [facility] [address] [id number] [address] [place] [address] 14 May, 2015 Bronchitis J40 [facility] [address] [facility] [id number] [address] [place] [id number] 25 Apr, 2015 Upper respiratory infection J06.9 [facility] [address] [id number] [address] [place] [address] 13 Nov, 2014 Unspecified iron deficiency anemia 280.9 [facility] [address] [id number] [address] [place] [id number] 12 Oct, 2014 Anemia 285.9 [facility] [address] [id number] [address] [place] [id number] 13 Sep, 2014 Unspecified urinary incontin ence 788.30 ; Family history of diabetes mellitus in father V18.0 ; Glucose found in urine on examination 791.5 ; Urinary frequency 788.41 and Hypertension 401.9 [facility] [address] [id number] [address] [place] [address] 11 Sep, 2014 Unspecified urinary incontin ence 788.30 ; Family history of diabetes mellitus in father V18.0 ; Glucose found in urine on examination 791.5 ; Urinary frequency 788.41 and Hypertension 401.9 [facility] [address] [facility] [id number] [address] [place] [phone] 14 Aug, 2014 [facility] [address] [facility] [id number] [address] [place] [phone] 13 Aug, 2014 [facility] [address] [facility] [id number] [address] [place] [phone] Jul, [facility] [address] [id number] [address] [place] [address] Jul, [facility] [address] [id number] [address] [place] [id number] 17 Jun, 2014 [facility] [address] [id number] [address] [place] [address], [place] [address] Jun, [facility] [address] [id number] [address] [place] [address], [place] [address] Jun, [facility] [address] [id number] [address] [place] [address], [place] [address] Jun, [facility] [address] [id number] [address] [place] [address], [place] [address] May, [facility] [address] [id number] [address] [place] [address], [place] [address] May, [facility] [address] [id number] [address] [place] [address], [place] [address] Oct, [facility] [address] [id number] [address] [place] [address], [place] [address] Oct, [facility] [address] [id number] [address] [place] [address], [place] [address] May, [facility] [address] [id number] [address] [place] [address], [place] [address] May, [facility] [address] [id number] [address] [place] [address], [place] [address] May, [facility] [address] [id number] [address] [place] [address], [place] [address] May, [facility] [address] [id number] [address] [place] [address], [place] [address] Apr, [facility] [address] [id number] [address] [place] [address], [place] [address] Apr, [facility] [address] [id number] [address] [place] [address], [place] [address] Apr, [facility] [address] [id number] [address] [place] [address], [place] [address] Apr, [facility] [address] [id number] [address] [place] [address], [place] [address] Apr, [facility] [address] [id number] [address] [place] [address], [place] [address] Apr, [facility] [address] [id number] [address] [place] [address], [place] [address] Apr, [facility] [address] [id number] [address] [place] [address], [place] [address] Apr, [facility] [address] [id number] [address] [place] [address], [place] [address] Dec, [facility] [address] [id number] [address] [place] [address], [place] [address] Nov, [facility] [address] [id number] [address] [place] [address], [place] [address] Jul, [facility] [address] [id number] [address] [place] [address], [place] [address] May, [facility] [address] [id number] [address] [place] [address], [place] [address] 19 May, 2012 [facility] [address] [id number] [address] [place] [address], [place] [address] 17 May, 2012 [facility] [address] [id number] [address] [place] [address], [place] [address] 17 May, 2012 [facility] [address] [id number] [address] [place] [address], [place] [address] 14 Apr, 2012 [facility] [address] [id number] [address] [place] [address], [place] [address] 14 Apr, 2012 [facility] [address] [id number] [address] [place] [address], [place] [address] 16 Mar, 2012 [facility] [address] [id number] [address] [place] [address], [place] [address] 16 Mar, 2012 [facility] [address] [id number] [address] [place] [address], [place] [address] 11 Mar, 2012 [facility] [address] [id number] [address] [place] [address], [place] [address] 08 Mar, 2012 [facility] [address] [id number] [address] [place] [address], [place] [address] 03 Mar, 2012 [facility] [address] [id number] [address] [place] [address], [place] [address] 27 Jan, 2012 [facility] [address] [id number] [address] [place] [address], [place] [address] 26 Jan, 2012 [facility] [address] [id number] [address] [place] [address], [place] [address] 25 Jan, 2012 [facility] [address] [id number] [address] [place] [address], [place] [address] 21 Jan, 2012 [facility] [address] [id number] [address] [place] [address], [place] [address] 30 Oct, 2011 [facility] [address] [id number] [address] [place] [address], [place] [address] 18 Oct, 2011 [facility] [address] [id number] [address] [place] [address], [place] [address] 29 Sep, 2011 [facility] [address] [id number] [address] [place] [address], [place] [address] 30 Aug, 2011 [facility] [address] [id number] [address] [place] [address], [place] [address] 24 Aug, 2011 [facility] [address] [id number] [address] [place] [address], [place] [address] 13 Aug, 2011 [facility] [address] [id number] [address] [place] [address], [place] [address] 22 Jul, 2011 [facility] [address] [id number] [address] [place] [address], [place] [address] 19 Jul, 2011 [facility] [address] [id number] [address] [place] [address], [place] [address] 13 Jul, 2011 [facility] [address] [id number] [address] [place] [address], [place] [address] 12 Jul, 2011 [facility] [address] [id number] [address] [place] [address], [place] [address] 07 Jul, 2011 [facility] [address] [id number] [address] [place] [address], [place] [address] 06 Jul, 2011 [facility] [address] [id number] [address] [place] [address], [place] [address] 02 Jul, 2011 [facility] [address] [id number] [address] [place] [address], [place] [address] 20 Jul, 2011 [facility] [address] [id number] [address] [place] [address], [place] [address] 14 Jul, 2011 [facility] [address] [id number] [address] [place] [address], [place] [address] 13 Jul, 2011 [facility] [address] [id number] [address] [place] [address], [place] [address] 11 Jul, 2011 [facility] [address] [id number] [address] [place] [address], [place] [address] 10 Jul, 2011 [facility] [address] [id number] [address] [place] [address], [place] [address] 10 Jul, 2011 [facility] [address] [id number] [address] [place] [address], [place] [address] 07 May, 2010 [facility] [address] [id number] [address] [place] [address], [place] [address] 18 Oct, 2009 [facility] [address] [id number] [address] [place] [address], [place] [address] Jun, [facility] [address] [id number] [address] [place] [address], [place] [address] May, [facility] [address] [id number] [address] [place] [address], [place] [address] May, [facility] [address] [id number] [address] [place] [address], [place] [address] Apr, [facility] [address] [id number] [address] [place] [address] 23 Mar, 2009 [facility] [address] [facility] [id number] [address] [place] [address] Mar, [facility] [address] [facility] [id number] [address] [place] [address] Mar, IMMUNIZATIONS No Known Immunizations SOCIAL HISTORY Never Assessed REASON FOR VISIT EMR-[facility] PLAN OF CARE VITAL SIGNS MEDICATIONS No [...]
--- OUTSIDE RECORDS SUMMARY | 2020-01-06 11:56 | XMS REPORT ---
Author Author Aunsha LUEVANO [facility] Address [address] [place] [address] Care Team Providers Care Train Caller Name Role Phone CHARISMA LUEVANO Unavailable PROBLEMS Type Condition ICD9-CM Code QRN14-PJ Code Onset Dates Condition S tatus SNOMED Code Problem Iron deficiency anemia, unspecified D50.9 Active 59970725 Problem Vitamin D deficiency, unspecified E55.9 Active 11936708 Problem Hypertension, benign I10 Active 86452339 Problem Major depressive disorder, single episode, unspecified F32.9 Active 10558586 Problem Polyneuropathy G62.9 Active 72325 000 ALLERGIES No Known Allergies ENCOUNTERS Encounter Location Date Diagnosis [facility] [address] [address] Apr, Sore throat J02.9 and Acute sinusitis J01.90 [place] [address] [address] Oct, Iron deficiency anemia, unsp ecified D50.9 [place] [address] [address] Oct, Iron deficiency anemia, unsp ecified D50.9 [place] [address] [address] Oct, Vitamin D deficiency, unspec ified E55.9 ; Iron deficiency anemia, unspecified D50.9 ; Major depressive disorder, single episode, unspecified F32.9 ; Polyneuropathy G62.9 and Hypertension, benign I10 [place] [address] [address] [place] [id number] [place] [address] 07 Oct, 2017 Vitamin D deficiency, unspec ified E55.9 ; Iron deficiency anemia, unspecified D50.9 ; Major depressive disorder, single episode, unspecified F32.9 ; Polyneuropathy G62.9 ; Hypertension, benign I10 and Hyperglycemia R73.9 [facility] [address] [facility] [id number] [address] [place] [address] Apr, [place] [address] [facility] [id number] [address] [place] [address] Dec, Polyneuropathy G62.9 [place] [address] [facility] [id number] [address] [place] [address] Nov, Hyperglycemia R73.9 [place] [address] [facility] [id number] [address] [place] [address] Nov, Family history of diabetes m ellitus Z83.3 and Hyperglycemia R73.9 [place] [address] [address] [place] [id number] [address] [place] [address] Nov, Family history of diabetes m ellitus Z83.3 and Hyperglycemia R73.9 [place] [address] [facility] [id number] [address] [place] [address] Nov, Neuropathy of both feet G57. 93 and Hypertension, benign I10 [place] [address] [facility] [id number] [address] [place] [address] Nov, Essential (primary) hyperten edla I10 [place] [address] [facility] [id number] [address] [place] [address] September, Acute non-recurrent frontal sinusitis J01.10 [facility] [address] [facility] [id number] [address] [place] [address] Jul, Tooth abscess K04.7 [facility] [address] [facility] [id number] [address] [place] [address] Jan, [facility] [address] [place] [id number] [address] [place] [address] Dec, Hearing loss, bilateral H91. 93 [facility] [address] [place] [id number] [address] [place] [address] 14 Nov, 2015 Retraction of tympanic membr ane of both ears H73.823 [facility] [address] [place] [address] May, [facility] [address] [place] [address] May, Bronchitis J40 [facility] [address] [place] [id number] [address] [place] [address] Apr, Upper respiratory infection J06.9 [facility] [address] [place] [address] Nov, Unspecified iron deficiency anemia 280.9 [place] [address] [place] [id number] [address] [place] [address] Oct, Anemia 285.9 [place] [address] [place] [id number] [address] [place] [address] September, Unspecified urinary incontin ence 788.30 ; Family history of diabetes mellitus in father V18.0 ; Glucose found in urine on examination 791.5 ; Urinary frequency 788.41 and Hypertension 401.9 [place] [address] [address] [place] [id number] [address] [place] [address] September, Unspecified urinary incontin ence 788.30 ; Family history of diabetes mellitus in father V18.0 ; Glucose found in urine on examination 791.5 ; Urinary frequency 788.41 and Hypertension 401.9 [facility] [address] [place] [id number] [address] [place] [address] 14 Aug, 2014 [facility] [address] [place] [id number] [address] [place] [phone] Aug, [facility] [address] [place] [id number] [address] [place] [address] Jul, [facility] [address] [place] [id number] [address] [place] [address] Jul, [facility] [address] [id number] [address] [place] [address], [place] [address] Jun, [facility] [address] [id number] [address] [place] [address], [place] [address] Jun, [facility] [address] [id number] [address] [place] [address], [place] [address] Jun, [facility] [address] [id number] [address] [place] [address], [place] [address] Jun, [facility] [address] [id number] [address] [place] [address], [place] [address] May, [facility] [address] [id number] [address] [place] [address], [place] [address] May, [facility] [address] [id number] [address] [place] [address], [place] [address] Oct, [facility] [address] [id number] [address] [place] [address], [place] [address] Oct, [facility] [address] [id number] [address] [place] [address], [place] [address] May, [facility] [address] [id number] [address] [place] [address], [place] [address] May, [facility] [address] [id number] [address] [place] [address], [place] [address] May, [facility] [address] [id number] [address] [place] [address], [place] [address] May, [facility] [address] [id number] [address] [place] [address], [place] [address] Apr, [facility] [address] [id number] [address] [place] [address], [place] [address] Apr, [facility] [address] [id number] [address] [place] [address], [place] [address] Apr, [facility] [address] [id number] [address] [place] [address], [place] [address] Apr, [facility] [address] [id number] [address] [place] [address], [place] [address] Apr, [facility] [address] [id number] [address] [place] [address], [place] [address] Apr, [facility] [address] [id number] [address] [place] [address], [place] [address] Apr, [facility] [address] [id number] [address] [place] [address], [place] [address] Apr, [facility] [address] [id number] [address] [place] [address], [place] [address] Dec, [facility] [address] [id number] [address] [place] [address], [place] [address] Nov, [facility] [address] [id number] [address] [place] [address], [place] [address] Jul, [facility] [address] [id number] [address] [place] [address], [place] [address] May, [facility] [address] [id number] [address] [place] [address], [place] [address] May, [facility] [address] [id number] [address] [place] [address] 17 May, 2012 [facility] [address] [id number] [address] [place] [address], [place] [address] 17 May, 2012 [facility] [address] [id number] [address] [place] [address] 14 Apr, 2012 [facility] [address] [id number] [address] [place] [address], [place] [address] 14 Apr, 2012 [facility] [address] [id number] [address] [place] [address], [place] [address] 16 Mar, 2012 [facility] [address] [id number] [address] [place] [address] 16 Mar, 2012 [facility] [address] [id number] [address] [place] [address] 11 Mar, 2012 [facility] [address] [id number] [address] [place] [address], [place] [address] 08 Mar, 2012 [facility] [address] [id number] [address] [place] [address], [place] [address] 03 Mar, 2012 [facility] [address] [id number] [address] [place] [address], [place] [address] 27 Jan, 2012 [facility] [address] [id number] [address] [place] [address], [place] [address] 26 Jan, 2012 [facility] [address] [id number] [address] [place] [address], [place] [address] 25 Jan, 2012 [facility] [address] [id number] [address] [place] [address], [place] [address] 21 Jan, 2012 [facility] [address] [id number] [address] [place] [address], [place] [address] 30 Oct, 2011 [facility] [address] [id number] [address] [place] [address], [place] [address] 18 Oct, 2011 [facility] [address] [id number] [address] [place] [address], [place] [address] 29 Sep, 2011 [facility] [address] [id number] [address] [place] [address], [place] [address] 30 Aug, 2011 [facility] [address] [id number] [address] [place] [address], [place] [address] 24 Aug, 2011 [facility] [address] [id number] [address] [place] [address], [place] [address] 13 Aug, 2011 [facility] [address] [id number] [address] [place] [address], [place] [address] 22 Jul, 2011 [facility] [address] [id number] [address] [place] [address], [place] [address] 19 Jul, 2011 [facility] [address] [id number] [address] [place] [address], [place] [address] 13 Jul, 2011 [facility] [address] [id number] [address] [place] [address], [place] [address] 12 Jul, 2011 [facility] [address] [id number] [address] [place] [address], [place] [address] 07 Jul, 2011 [facility] [address] [id number] [address] [place] [address], [place] [address] 06 Jul, 2011 [facility] [address] [id number] [address] [place] [address], [place] [address] 02 Jul, 2011 [facility] [address] [id number] [address] [place] [address], [place] [address] 20 Jul, 2011 [facility] [address] [id number] [address] [place] [address], [place] [address] 14 Jul, 2011 [facility] [address] [id number] [address] [place] [address], [place] [address] 13 Jul, 2011 [facility] [address] [id number] [address] [place] [address], [place] [address] 11 Jul, 2011 [facility] [address] [id number] [address] [place] [address], [place] [address] 10 Jul, 2011 [facility] [address] [id number] [address] [place] [address], [place] [address] 10 Jul, 2011 [facility] [address] [id number] [address] [place] [address], [place] [address] 07 May, 2010 [facility] [address] [id number] [address] [place] [address], [place] [address] 18 Oct, 2009 [facility] [address] [id number] [address] [place] [address], [place] [address] Jun, [facility] [address] [id number] [address] [place] [address], [place] [address] May, [facility] [address] [id number] [address] [place] [address], [place] [address] 18 May, 2009 [facility] [address] [id number] [address] [place] [address] Apr, [facility] [address] [facility] [id number] [address] [place] [address] Mar, [facility] [address] [facility] [id number] [address] [place] [address] Mar, [facility] [address] [facility] [id number] [address] [place] [address] Mar, IMMUNIZATIONS No Known Immunizations SOCIAL HISTORY Never Assessed REASON FOR VISIT Sore throat, right ear pain, sinus congestion x 2 days. Denies fevers. Suphedri ne PE (4mg chlorpheniramine malealte and 10mg phenylephrine) last taken at 11:30 today which relieved the sinus congestion for approximately 3 hours. zay clemons PLAN OF CARE Activity Details Follow Up if not improving with PCP or reg follow up Reason: VITAL SIGNS Height 67 in 2018-04-25 Weight 225 lbs 2018-04-25 Temperature 97.4 degrees Fahrenheit 2018-04-25 Heart Rate 80 bpm 2018-04-25 Respiratory Rate 20 2018-04-25 BMI 35.24 kg/m2 2018-04-25 Blood pressure systolic 120 mmHg 2018-04-25 Blood pressure diastolic 82 mmHg 2018-04-25 MEDICATIONS Medication Instructions Dosage Frequency Start Date End Date Duration S tatus Atenolol 50 mg TAKE ONE TABLET BY MOUTH ONCE DAILY 24h 90 Active PredniSONE 20 MG Orally Once a day 2 tablet 24h 25 Apr, 2018 5 days Active Zyrtec Allergy 10 MG Orally Once a day 1 tablet as needed 24h Active Ferrous Sulfate 325 (65 Fe) MG Orally Once a day 1 tablet 24h 0 8 Oct, 2017 30 day(s) Active Metformin HCl 1000 MG TAKE ONE TABLET BY MOUTH TWICE DAILY W ITH MEALS 30 Active Gabapentin 100 mg TAKE THREE CAPSULES BY MOUTH ONCE DAILY AT BED TIME 30 Active RESULTS Name Result Date Reference Range STREP A (IN HOUSE) 2018-04-25 STREP A negative Control + Lot # [id number] Exp date 10/29/2018 PROCEDURES Procedure Date Ordered Result Body Site STREP A ASSAY W/OPTIC Apr 25, 2018 INSTRUCTIONS MEDICATIONS ADMINISTERED No Known Medications MEDICAL (GENERAL) HISTORY Type Description Date Medical History Hypertension Medical History borderline Type II diabetes Surgical History Tonsillectomy Surgical History Tubal ligation 2004 Surgical History Otolaryngologic surgery tubes in ears Hospitalization History Child 3 para 3 with 3 full term vaginal delivery (s)
--- OUTSIDE RECORDS SUMMARY | 2020-01-06 11:56 | XMS REPORT ---
Author Author Anusha Martin Doctor Organization [facility] Address Unknown Phone Unavailable Care Team Providers Care Splitter Head Name Role Phone Migration, Doctor Unavailable Unavailable PROBLEMS Type Condition ICD9-CM Code OFX70-PJ Code Onset Dates Condition S tatus SNOMED Code Problem Vitamin D deficiency, unspecified E55.9 Active 70938228 Problem Iron deficiency anemia, unspecified D50.9 Active 86702105 Problem Hypertension, benign I10 Active 53403682 Problem Polyneuropathy G62.9 Active 49359 000 Problem Major depressive disorder, single episode, unspecified F32.9 Active [id number] ALLERGIES No Information ENCOUNTERS Encounter Location Date Diagnosis [facility] [id number] [place] [id number] Apr, Sore throat J02.9 and Acute sinusitis J01.90 [facility] [address] [address] Oct, Iron deficiency anemia, unsp ecified D50.9 [place] [id number] [place] [address] Oct, Iron deficiency anemia, unsp ecified D50.9 [place] [id number] [place] [address] Oct, Vitamin D deficiency, unspec ified E55.9 ; Iron deficiency anemia, unspecified D50.9 ; Major depressive disorder, single episode, unspecified F32.9 ; Polyneuropathy G62.9 and Hypertension, benign I10 [facility] [address] [address] Oct, Vitamin D deficiency, unspec ified E55.9 ; Iron deficiency anemia, unspecified D50.9 ; Major depressive disorder, single episode, unspecified F32.9 ; Polyneuropathy G62.9 ; Hypertension, benign I10 and Hyperglycemia R73.9 [facility] [address] [facility] [id number] [address] [place] [id number] Apr, [facility] [address] [facility] [id number] [address] [place] [phone] Dec, Polyneuropathy G62.9 [facility] [address] [facility] [id number] [address] [place] [address] Nov, Hyperglycemia R73.9 [facility] [address] [facility] [id number] [address] [place] [address] Nov, Family history of diabetes m ellitus Z83.3 and Hyperglycemia R73.9 [place] [address] [facility] [id number] [address] [place] [id number] Nov, Family history of diabetes m ellitus Z83.3 and Hyperglycemia R73.9 [place] [address] [id number] [address] [place] [id number] Nov, Neuropathy of both feet G57. 93 and Hypertension, benign I10 [facility] [address] [facility] [id number] [address] [place] [address] Nov, Essential (primary) hyperten elda I10 [facility] [address] [facility] [id number] [address] [place] [address] September, Acute non-recurrent frontal sinusitis J01.10 [facility] [address] [facility] [id number] [address] [place] [id number] Jul, Tooth abscess K04.7 [facility] [address] [facility] [id number] [address] [place] [address] Jan, [facility] [address] [id number] [address] [place] [address] Dec, Hearing loss, bilateral H91. 93 [facility] [address] [facility] [id number] [address] [place] [address] 14 Nov, 2015 Retraction of tympanic membr ane of both ears H73.823 [facility] [address] [facility] [id number] [address] [place] [phone] 29 May, 2015 [facility] [address] [id number] [address] [place] [id number] 14 May, 2015 Bronchitis J40 [facility] [address] [facility] [id number] [address] [place] [phone] 25 Apr, 2015 Upper respiratory infection J06.9 [facility] [address] [id number] [address] [place] [id number] 13 Nov, 2014 Unspecified iron deficiency anemia 280.9 [facility] [address] [id number] [address] [place] [phone] 12 Oct, 2014 Anemia 285.9 [facility] [address] [id number] [address] [place] [address] 13 Sep, 2014 Unspecified urinary incontin ence 788.30 ; Family history of diabetes mellitus in father V18.0 ; Glucose found in urine on examination 791.5 ; Urinary frequency 788.41 and Hypertension 401.9 [facility] [address] [id number] [address] [place] [address] 11 Sep, 2014 Unspecified urinary incontin ence 788.30 ; Family history of diabetes mellitus in father V18.0 ; Glucose found in urine on examination 791.5 ; Urinary frequency 788.41 and Hypertension 401.9 [facility] [address] [facility] [id number] [address] [place] [phone] 14 Aug, 2014 [facility] [address] [facility] [id number] [address] [place] [phone] 13 Aug, 2014 [facility] [address] [facility] [id number] [address] [place] [phone] Jul, [facility] [address] [id number] [address] [place] [phone] Jul, [facility] [address] [id number] [address] [place] [phone] 17 Jun, 2014 [facility] [address] [id number] [address] [place] [address], [place] [address] Jun, [facility] [address] [id number] [address] [place] [address], [place] [address] Jun, [facility] [address] [id number] [address] [place] [address], [place] [address] Jun, [facility] [address] [id number] [address] [place] [address], [place] [address] May, [facility] [address] [id number] [address] [place] [address], [place] [address] May, [facility] [address] [id number] [address] [place] [address], [place] [address] Oct, [facility] [address] [id number] [address] [place] [address], [place] [address] Oct, [facility] [address] [id number] [address] [place] [address], [place] [address] May, [facility] [address] [id number] [address] [place] [address], [place] [address] May, [facility] [address] [id number] [address] [place] [address], [place] [address] May, [facility] [address] [id number] [address] [place] [address], [place] [address] May, [facility] [address] [id number] [address] [place] [address], [place] [address] Apr, [facility] [address] [id number] [address] [place] [address], [place] [address] Apr, [facility] [address] [id number] [address] [place] [address], [place] [address] Apr, [facility] [address] [id number] [address] [place] [address], [place] [address] Apr, [facility] [address] [id number] [address] [place] [address], [place] [address] Apr, [facility] [address] [id number] [address] [place] [address], [place] [address] Apr, [facility] [address] [id number] [address] [place] [address], [place] [address] Apr, [facility] [address] [id number] [address] [place] [address], [place] [address] Apr, [facility] [address] [id number] [address] [place] [address], [place] [address] Dec, [facility] [address] [id number] [address] [place] [address], [place] [address] Nov, [facility] [address] [id number] [address] [place] [address], [place] [address] Jul, [facility] [address] [id number] [address] [place] [address], [place] [address] May, [facility] [address] [id number] [address] [place] [address], [place] [address] 19 May, 2012 [facility] [address] [id number] [address] [place] [address], [place] [address] 17 May, 2012 [facility] [address] [id number] [address] [place] [address], [place] [address] 17 May, 2012 [facility] [address] [id number] [address] [place] [address], [place] [address] 14 Apr, 2012 [facility] [address] [id number] [address] [place] [address], [place] [address] 14 Apr, 2012 [facility] [address] [id number] [address] [place] [address], [place] [address] 16 Mar, 2012 [facility] [address] [id number] [address] [place] [address], [place] [address] 16 Mar, 2012 [facility] [address] [id number] [address] [place] [address], [place] [address] 11 Mar, 2012 [facility] [address] [id number] [address] [place] [address], [place] [address] 08 Mar, 2012 [facility] [address] [id number] [address] [place] [address], [place] [address] 03 Mar, 2012 [facility] [address] [id number] [address] [place] [address], [place] [address] 27 Jan, 2012 [facility] [address] [id number] [address] [place] [address], [place] [address] 26 Jan, 2012 [facility] [address] [id number] [address] [place] [address], [place] [address] 25 Jan, 2012 [facility] [address] [id number] [address] [place] [address], [place] [address] 21 Jan, 2012 [facility] [address] [id number] [address] [place] [address], [place] [address] 30 Oct, 2011 [facility] [address] [id number] [address] [place] [address], [place] [address] 18 Oct, 2011 [facility] [address] [id number] [address] [place] [address], [place] [address] 29 Sep, 2011 [facility] [address] [id number] [address] [place] [address], [place] [address] 30 Aug, 2011 [facility] [address] [id number] [address] [place] [address], [place] [address] 24 Aug, 2011 [facility] [address] [id number] [address] [place] [address], [place] [address] 13 Aug, 2011 [facility] [address] [id number] [address] [place] [address], [place] [address] 22 Jul, 2011 [facility] [address] [id number] [address] [place] [address], [place] [address] 19 Jul, 2011 [facility] [address] [id number] [address] [place] [address], [place] [address] 13 Jul, 2011 [facility] [address] [id number] [address] [place] [address], [place] [address] 12 Jul, 2011 [facility] [address] [id number] [address] [place] [address], [place] [address] 07 Jul, 2011 [facility] [address] [id number] [address] [place] [address], [place] [address] 06 Jul, 2011 [facility] [address] [id number] [address] [place] [address], [place] [address] 02 Jul, 2011 [facility] [address] [id number] [address] [place] [address], [place] [address] 20 Jul, 2011 [facility] [address] [id number] [address] [place] [address], [place] [address] 14 Jul, 2011 [facility] [address] [id number] [address] [place] [address], [place] [address] 13 Jul, 2011 [facility] [address] [id number] [address] [place] [address], [place] [address] 11 Jul, 2011 [facility] [address] [id number] [address] [place] [address], [place] [address] 10 Jul, 2011 [facility] [address] [id number] [address] [place] [address], [place] [address] 10 Jul, 2011 [facility] [address] [id number] [address] [place] [address], [place] [address] 07 May, 2010 [facility] [address] [id number] [address] [place] [address], [place] [address] 18 Oct, 2009 [facility] [address] [id number] [address] [place] [address], [place] [address] Jun, [facility] [address] [id number] [address] [place] [address], [place] [address] May, [facility] [address] [id number] [address] [place] [address], [place] [address] May, [facility] [address] [id number] [address] [place] [address], [place] [address] Apr, [facility] [address] [id number] [address] [place] [id number] 23 Mar, 2009 [facility] [address] [facility] [id number] [address] [place] [id number] Mar, [facility] [address] [facility] [id number] [address] [place] [address] Mar, IMMUNIZATIONS No Known Immunizations SOCIAL HISTORY [...]
--- OUTSIDE RECORDS SUMMARY | 2020-01-06 11:56 | XMS REPORT ---
Author Author Anusha MUNOZ Organization [facility] Address [address] [place] [address] Care Team Providers Care Jigger Machine Operator Name Role Phone ELINA MUNOZ Unavailable PROBLEMS Type Condition ICD9-CM Code [id number] Code Onset Dates Condition S tatus SNOMED Code Problem Iron deficiency anemia, unspecified D50.9 Active 32473751 Problem Vitamin D deficiency, unspecified E55.9 Active 74171372 Problem Hypertension, benign I10 Active 44772973 Problem Major depressive disorder, single episode, unspecified F32.9 Active 79875398 Problem Polyneuropathy G62.9 Active 03627 000 ALLERGIES No Known Allergies ENCOUNTERS Encounter Location Date Diagnosis [place] [address] [address] Oct, Iron deficiency anemia, unsp ecified D50.9 [place] [id number] [address] Oct, Iron deficiency anemia, unsp ecified D50.9 [place] [address] [address] Oct, Vitamin D deficiency, unspec ified E55.9 ; Iron deficiency anemia, unspecified D50.9 ; Major depressive disorder, single episode, unspecified F32.9 ; Polyneuropathy G62.9 and Hypertension, benign I10 [place] [address] [address] Oct, Vitamin D deficiency, unspec ified E55.9 ; Iron deficiency anemia, unspecified D50.9 ; Major depressive disorder, single episode, unspecified F32.9 ; Polyneuropathy G62.9 ; Hypertension, benign I10 and Hyperglycemia R73.9 [place] [address] [address] Apr, [facility] [address] [place] [phone] Dec, Polyneuropathy G62.9 [place] [address] [place] [id number] [place] [phone] Nov, Hyperglycemia R73.9 [place] [address] [address] Nov, Family history of diabetes m ellitus Z83.3 and Hyperglycemia R73.9 [place] [address] [place] [id number] [place] [phone] Nov, Family history of diabetes m ellitus Z83.3 and Hyperglycemia R73.9 [place] [address] [place] [id number] [place] [phone] Nov, Neuropathy of both feet G57. 93 and Hypertension, benign I10 [place] [address] [place] [phone] Nov, Essential (primary) hyperten elda I10 [place] [address] [address] September, Acute non-recurrent frontal sinusitis J01.10 [facility] WALK IN [facility] [address] [place] [id number] [place] [phone] Jul, Tooth abscess K04.7 [facility] [address] [place] [id number] [address] [place] [phone] Jan, [place] [address] [address] Dec, Hearing loss, bilateral H91. 93 [place] [address] [address] Nov, Retraction of tympanic membr ane of both ears H73.823 [place] [address] [address] May, [facility] [address] [place] [address] May, Bronchitis J40 [facility] [address] [place] [id number] [address] [place] [phone] 25 Apr, 2015 Upper respiratory infection J06.9 [facility] [address] [place] [id number] [address] [place] [phone] 13 Nov, 2014 Unspecified iron deficiency anemia 280.9 [facility] [address] [place] [id number] [address] [place] [phone] 12 Oct, 2014 Anemia 285.9 [facility] [address] [address] 13 Sep, 2014 Unspecified urinary incontin ence 788.30 ; Family history of diabetes mellitus in father V18.0 ; Glucose found in urine on examination 791.5 ; Urinary frequency 788.41 and Hypertension 401.9 [facility] [address] [place] [address] 11 Sep, 2014 Unspecified urinary incontin ence 788.30 ; Family history of diabetes mellitus in father V18.0 ; Glucose found in urine on examination 791.5 ; Urinary frequency 788.41 and Hypertension 401.9 [facility] [address] [place] [id number] [place] [phone] 14 Aug, 2014 [facility] [address] [place] [phone] Aug, [facility] [address] [place] [id number] [place] [phone] Jul, [facility] [address] [place] [id number] [address] [place] [address] Jul, [facility] [address] [place] [id number] [place] [phone] Jun, [facility] [address] [place] [id number] [place] [phone] Jun, [facility] [address] [id number] [address] [place] [address], [place] [address] Jun, [facility] [address] [id number] [address] [place] [address], [place] [phone] Jun, [facility] [address] [id number] [address] [place] [address], [place] [address] May, [facility] [address] [id number] [address] [place] [address], [place] [address] May, [facility] [address] [id number] [address] [place] [address], [place] [address] Oct, [facility] [address] [id number] [address] [place] [address], [place] [address] Oct, [facility] [address] [id number] [address] [place] [address], [place] [address] May, [facility] [address] [id number] [address] [place] [address], [place] [address] May, [facility] [address] [id number] [address] [place] [address], [place] [address] May, [facility] [address] [id number] [address] [place] [address], [place] [address] May, [facility] [address] [id number] [address] [place] [address], [place] [address] Apr, [facility] [address] [id number] [address] [place] [address], [place] [address] Apr, [facility] [address] [id number] [address] [place] [address], [place] [address] Apr, [facility] [address] [id number] [address] [place] [address], [place] [address] Apr, [facility] [address] [id number] [address] [place] [address], [place] [address] Apr, [facility] [address] [id number] [address] [place] [phone] Apr, [facility] [address] [id number] [address] [place] [address], [place] [address] Apr, [facility] [address] [id number] [address] [place] [address], [place] [address] Apr, [facility] [address] [id number] [address] [place] [address], [place] [address] Dec, [facility] [address] [id number] [address] [place] [address], [place] [address] Nov, [facility] [address] [id number] [address] [place] [address], [place] [address] Jul, [facility] [address] [id number] [address] [place] [address], [place] [address] May, [facility] [address] [id number] [address] [place] [address], [place] [address] May, [facility] [address] [id number] [address] [place] [address], [place] [address] May, [facility] [address] [id number] [address] [place] [address], [place] [address] 17 May, 2012 [facility] [address] [id number] [address] [place] [address], [place] [address] Apr, [facility] [address] [id number] [address] [place] [address], [place] [address] 14 Apr, 2012 [facility] [address] [id number] [address] [place] [address], [place] [id number] 16 Mar, 2012 [facility] [address] [id number] [address] [place] [address], [place] [id number] 16 Mar, 2012 [facility] [address] [id number] [address] [place] [address], [place] [address] 11 Mar, 2012 [facility] [address] [id number] [address] [place] [address], [place] [id number] 08 Mar, 2012 [facility] [address] [id number] [address] [place] [address], [place] [address] 03 Mar, 2012 [facility] [address] [id number] [address] [place] [address], [place] [address] 27 Jan, 2012 [facility] [address] [id number] [address] [place] [address], [place] [address] 26 Jan, 2012 [facility] [address] [id number] [address] [place] [address], [place] [address] 25 Jan, 2012 [facility] [address] [id number] [address] [place] [address], [place] [address] 21 Jan, 2012 [facility] [address] [id number] [address] [place] [address], [place] [address] 30 Oct, 2011 [facility] [address] [id number] [address] [place] [address], [place] [address] 18 Oct, 2011 [facility] [address] [id number] [address] [place] [address], [place] [id number] 29 Sep, 2011 [facility] [address] [id number] [address] [place] [address], [place] [address] 30 Aug, 2011 [facility] [address] [id number] [address] [place] [address], [place] [id number] 24 Aug, 2011 [facility] [address] [id number] [address] [place] [address], [place] [address] 13 Aug, 2011 [facility] [address] [id number] [address] [place] [address], [place] [address] 22 Jul, 2011 [facility] [address] [id number] [address] [place] [address], [place] [id number] 19 Jul, 2011 [facility] [address] [id number] [address] [place] [address], [place] [address] 13 Jul, 2011 [facility] [address] [id number] [address] [place] [address], [place] [address] 12 Jul, 2011 [facility] [address] [id number] [address] [place] [address], [place] [address] 07 Jul, 2011 [facility] [address] [id number] [address] [place] [address], [place] [id number] 06 Jul, 2011 [facility] [address] [id number] [address] [place] [address], [place] [address] 02 Jul, 2011 [facility] [address] [id number] [address] [place] [address], [place] [address] 20 Jul, 2011 [facility] [address] [id number] [address] [place] [address], [place] [id number] 14 Jul, 2011 [facility] [address] [id number] [address] [place] [address], [place] [id number] 13 Jul, 2011 [facility] [address] [id number] [address] [place] [address], [place] [address] 11 Jul, 2011 [facility] [address] [id number] [address] [place] [address], [place] [address] 10 Jul, 2011 [facility] [address] [id number] [address] [place] [address], [place] [address] 10 Jul, 2011 [facility] [address] [id number] [address] [place] [address], [place] [address] May, [facility] [address] [id number] [address] [place] [address], [place] [address] Oct, [facility] [address] [id number] [address] [place] [address], [place] [address] Jun, [facility] [address] [id number] [address] [place] [address], [place] [address] May, [facility] [address] [id number] [address] [place] [address], [place] [address] May, [facility] [address] [id number] [address] [place] [address], [place] [address] Apr, [facility] [address] [id number] [address] [place] [address], [place] [id number] Mar, [facility] [address] [id number] [address] [place] [phone] 14 Mar, 2009 [facility] [address] [facility] [id number] [address] [place] [phone] Mar, IMMUNIZATIONS No Known Immunizations SOCIAL HISTORY Never Assessed REASON FOR VISIT Hypertension - Jonathan SWANN PLAN OF CARE Activity Details Follow Up 3 Months Reason:3mo. dm 2 ch eckup VITAL SIGNS Height 67 in 2017-11-05 Weight 215.9 lbs 2017-11-05 Temperature 97.9 degrees Fahrenheit 2017-11-05 Heart Rate 70 bpm 2017-11-05 Respiratory Rate 16 2017-11-05 BMI 33.81 kg/m2 2017-11-05 Blood pressure systolic 118 mmHg 2017-11-05 Blood pressure diastolic 82 mmHg 2017-11-05 MEDICATIONS Medication Instructions Dosage Frequency Start Date End Date Duration S tatus Zyrtec Allergy 10 MG Orally Once a day 1 tablet as needed 24h Active Atenolol 50 mg TAKE ONE TABLET BY MOUTH ONCE DAILY 24h 90 Active Metformin HCl 1000 MG TAKE ONE TABLET BY MOUTH TWICE DAILY W ITH MEALS 30 Active Gabapentin 100 mg TAKE THREE CAPSULES BY MOUTH ONCE DAILY AT BED TIME 30 Active RESULTS No Results PROCEDURES Procedure Date Ordered Result Body Site GLYCATED HEMOGLOBIN TEST November 05, 2017 VENIPUNCT, ROUTINE* November 05, 2017 Hemoglobin Test Send Out 0 dollar November 05, 2017 HEMOGLOBIN November 05, 2017 COMPLETE CBC W/AUTO DIFF WBC November 05, 2017 COMPREHEN METABOLIC PANEL November 05, 2017 ASSAY OF VITAMIN D November 05, 2017 ASSAY THYROID STIM HORMONE November 05, 2017 INSTRUCTIONS MEDICATIONS ADMINISTERED No Known Medications MEDICAL (GENERAL) HISTORY Type Description Date Medical History Hypertension Medical History borderline Type II diabetes Surgical History Tonsillectomy Surgical History Tubal ligation 2004 Surgical History Otolaryngologic surgery tubes in ears Hospitalization History Child 3 para 3 with 3 full term vaginal delivery (s)
--- OUTSIDE RECORDS SUMMARY | 2020-01-06 11:56 | XMS REPORT ---
Author Author Anusha MUNOZ Organization [facility] Address [address] [place] [address] Care Team Providers Care Log Deckman Name Role Phone ALEXANDER ELINA Unavailable PROBLEMS Type Condition ICD9-CM Code QTI79-ZG Code Onset Dates Condition S tatus SNOMED Code Problem Iron deficiency anemia, unspecified D50.9 Active 07993190 Problem Vitamin D deficiency, unspecified E55.9 Active 94245478 Problem Hypertension, benign I10 Active 44930216 Problem Major depressive disorder, single episode, unspecified F32.9 Active 01085668 Problem Polyneuropathy G62.9 Active 68810 000 ALLERGIES No Information ENCOUNTERS Encounter Location Date Diagnosis [place] [address] [address] Oct, Iron deficiency anemia, unsp ecified D50.9 [place] [address] [address] Oct, Iron deficiency anemia, unsp ecified D50.9 [place] [address] [address] Oct, Vitamin D deficiency, unspec ified E55.9 ; Iron deficiency anemia, unspecified D50.9 ; Major depressive disorder, single episode, unspecified F32.9 ; Polyneuropathy G62.9 and Hypertension, benign I10 [place] [address] [address] Oct, Vitamin D deficiency, unspec ified E55.9 ; Iron deficiency anemia, unspecified D50.9 ; Major depressive disorder, single episode, unspecified F32.9 ; Polyneuropathy G62.9 ; Hypertension, benign I10 and Hyperglycemia R73.9 [place] [address] [address] Apr, [facility] [address] [address] Dec, Polyneuropathy G62.9 [place] [address] [place] [id number] [place] [address] Nov, Hyperglycemia R73.9 [place] [address] [address] Nov, Family history of diabetes m ellitus Z83.3 and Hyperglycemia R73.9 [place] [address] [place] [id number] [place] [address] Nov, Family history of diabetes m ellitus Z83.3 and Hyperglycemia R73.9 [place] [address] [place] [address] Nov, Neuropathy of both feet G57. 93 and Hypertension, benign I10 [place] [address] [address] Nov, Essential (primary) hyperten elda I10 [place] [address] [address] September, Acute non-recurrent frontal sinusitis J01.10 [facility] [address] [place] [id number] [place] [address] Jul, Tooth abscess K04.7 [facility] [address] [address] Jan, [place] [address] [address] Dec, Hearing loss, bilateral H91. 93 [place] [address] [address] Nov, Retraction of tympanic membr ane of both ears H73.823 [place] [address] [address] May, [facility] [address] [place] [address] May, Bronchitis J40 [facility] [address] [place] [id number] [place] [address] Apr, Upper respiratory infection J06.9 [facility] [address] [place] [id number] [address] [place] [address] 13 Nov, 2014 Unspecified iron deficiency anemia 280.9 [facility] [address] [place] [id number] [address] [place] [phone] 12 Oct, 2014 Anemia 285.9 [place] [address] [address] 13 Sep, 2014 Unspecified urinary incontin ence 788.30 ; Family history of diabetes mellitus in father V18.0 ; Glucose found in urine on examination 791.5 ; Urinary frequency 788.41 and Hypertension 401.9 [facility] [address] [place] [address] 11 Sep, 2014 Unspecified urinary incontin ence 788.30 ; Family history of diabetes mellitus in father V18.0 ; Glucose found in urine on examination 791.5 ; Urinary frequency 788.41 and Hypertension 401.9 [facility] [address] [place] [id number] [place] [address] 14 Aug, 2014 [facility] [address] [place] [id number] [place] [address] Aug, [facility] [address] [place] [id number] [place] [address] Jul, [facility] [address] [place] [address] Jul, [facility] [address] [place] [id number] [place] [id number] Jun, [facility] [address] [place] [id number] [place] [phone] Jun, [facility] [address] [id number] [address] [place] [address], [place] [address] Jun, [facility] [address] [id number] [address] [place] [address], [place] [address] Jun, [facility] [address] [id number] [address] [place] [address], [place] [address] May, [facility] [address] [id number] [address] [place] [address], [place] [address] May, [facility] [address] [id number] [address] [place] [address], [place] [address] Oct, [facility] [address] [id number] [address] [place] [address], [place] [address] Oct, [facility] [address] [id number] [address] [place] [address], [place] [address] May, [facility] [address] [id number] [address] [place] [address], [place] [address] May, [facility] [address] [id number] [address] [place] [address], [place] [address] May, [facility] [address] [id number] [address] [place] [address], [place] [address] May, [facility] [address] [id number] [address] [place] [address], [place] [address] Apr, [facility] [address] [id number] [address] [place] [address], [place] [address] Apr, [facility] [address] [id number] [address] [place] [address], [place] [address] Apr, [facility] [address] [id number] [address] [place] [address], [place] [address] Apr, [facility] [address] [id number] [address] [place] [address], [place] [address] Apr, [facility] [address] [id number] [address] [place] [address], [place] [address] Apr, [facility] [address] [id number] [address] [place] [address], [place] [address] Apr, [facility] [address] [id number] [address] [place] [address], [place] [address] Apr, [facility] [address] [id number] [address] [place] [address], [place] [address] Dec, [facility] [address] [id number] [address] [place] [address], [place] [address] Nov, [facility] [address] [id number] [address] [place] [address], [place] [address] Jul, [facility] [address] [id number] [address] [place] [address], [place] [address] May, [facility] [address] [id number] [address] [place] [address], [place] [address] May, [facility] [address] [id number] [address] [place] [address], [place] [address] May, [facility] [address] [id number] [address] [place] [address], [place] [address] 17 May, 2012 [facility] [address] [id number] [address] [place] [address], [place] [address] Apr, [facility] [address] [id number] [address] [place] [address], [place] [address] 14 Apr, 2012 [facility] [address] [id number] [address] [place] [address], [place] [address] 16 Mar, 2012 [facility] [address] [id number] [address] [place] [address], [place] [address] 16 Mar, 2012 [facility] [address] [id number] [address] [place] [address], [place] [address] 11 Mar, 2012 [facility] [address] [id number] [address] [place] [address], [place] [address] 08 Mar, 2012 [facility] [address] [id number] [address] [place] [address], [place] [address] 03 Mar, 2012 [facility] [address] [id number] [address] [place] [address], [place] [address] 27 Jan, 2012 [facility] [address] [id number] [address] [place] [address], [place] [address] 26 Jan, 2012 [facility] [address] [id number] [address] [place] [address], [place] [address] 25 Jan, 2012 [facility] [address] [id number] [address] [place] [address], [place] [address] 21 Jan, 2012 [facility] [address] [id number] [address] [place] [address], [place] [address] 30 Oct, 2011 [facility] [address] [id number] [address] [place] [address], [place] [address] 18 Oct, 2011 [facility] [address] [id number] [address] [place] [address], [place] [address] 29 Sep, 2011 [facility] [address] [id number] [address] [place] [address], [place] [address] 30 Aug, 2011 [facility] [address] [id number] [address] [place] [address], [place] [address] 24 Aug, 2011 [facility] [address] [id number] [address] [place] [address], [place] [address] 13 Aug, 2011 [facility] [address] [id number] [address] [place] [address], [place] [address] 22 Jul, 2011 [facility] [address] [id number] [address] [place] [address], [place] [address] 19 Jul, 2011 [facility] [address] [id number] [address] [place] [address], [place] [address] 13 Jul, 2011 [facility] [address] [id number] [address] [place] [address], [place] [address] 12 Jul, 2011 [facility] [address] [id number] [address] [place] [address], [place] [address] 07 Jul, 2011 [facility] [address] [id number] [address] [place] [address], [place] [address] 06 Jul, 2011 [facility] [address] [id number] [address] [place] [address], [place] [address] 02 Jul, 2011 [facility] [address] [id number] [address] [place] [address], [place] [address] 20 Jul, 2011 [facility] [address] [id number] [address] [place] [address], [place] [address] 14 Jul, 2011 [facility] [address] [id number] [address] [place] [address], [place] [address] 13 Jul, 2011 [facility] [address] [id number] [address] [place] [address], [place] [address] 11 Jul, 2011 [facility] [address] [id number] [address] [place] [address], [place] [address] 10 Jul, 2011 [facility] [address] [id number] [address] [place] [address], [place] [address] 10 Jul, 2011 [facility] [address] [id number] [address] [place] [address], [place] [address] May, [facility] [address] [id number] [address] [place] [address], [place] [address] Oct, [facility] [address] [id number] [address] [place] [address], [place] [address] Jun, [facility] [address] [id number] [address] [place] [address], [place] [address] May, [facility] [address] [id number] [address] [place] [address], [place] [address] May, [facility] [address] [id number] [address] [place] [address], [place] [address] Apr, [facility] [address] [id number] [address] [place] [address], [place] [address] Mar, [facility] [address] [id number] [address] [place] [address] 14 Mar, 2009 [facility] [address] [facility] [id number] [address] [place] [address] 14 Mar, 2009 IMMUNIZATIONS No Known Immunizations SOCIAL HISTORY Never Assessed REASON FOR VISIT Lab results PLAN OF CARE VITAL SIGNS MEDICATIONS Medication Instructions Dosage Frequency Start Date End Date Duration S tatus Ferrous Sulfate 325 (65 Fe) MG Orally Once a day 1 tablet 24h 0 8 Oct, 2017 30 day(s) Active RESULTS No Results PROCEDURES No Known procedures INSTRUCTIONS MEDICATIONS ADMINISTERED No Known Medications MEDICAL (GENERAL) HISTORY Type Description Date Medical History Hypertension Medical History borderline Type II diabetes Surgical History Tonsillectomy Surgical History Tubal ligation 2004 Surgical History Otolaryngologic surgery tubes in ears Hospitalization History Child 3 para 3 with 3 full term vaginal delivery (s)
--- OUTSIDE RECORDS SUMMARY | 2020-01-06 11:56 | XMS REPORT ---
Author Author Anusha Martin Doctor Organization [facility] Address Unknown Phone Unavailable Care Team Providers Care Reservations Clerk Name Role Phone Migration, Doctor Unavailable Unavailable PROBLEMS Type Condition ICD9-CM Code EFN55-SI Code Onset Dates Condition S tatus SNOMED Code Problem Vitamin D deficiency, unspecified E55.9 Active 73973665 Problem Iron deficiency anemia, unspecified D50.9 Active 33949798 Problem Hypertension, benign I10 Active 41382683 Problem Polyneuropathy G62.9 Active 88872 000 Problem Major depressive disorder, single episode, unspecified F32.9 Active 46611138 ALLERGIES No Information ENCOUNTERS Encounter Location Date Diagnosis [facility] [id number] [place] [phone] Apr, Sore throat J02.9 and Acute sinusitis J01.90 [facility] [address] [id number] Oct, Iron deficiency anemia, unsp ecified D50.9 [place] [id number] [place] [id number] Oct, Iron deficiency anemia, unsp ecified D50.9 [place] [id number] [place] [id number] Oct, Vitamin D deficiency, unspec ified E55.9 ; Iron deficiency anemia, unspecified D50.9 ; Major depressive disorder, single episode, unspecified F32.9 ; Polyneuropathy G62.9 and Hypertension, benign I10 [facility] [address] [id number] Oct, Vitamin D deficiency, unspec ified E55.9 ; Iron deficiency anemia, unspecified D50.9 ; Major depressive disorder, single episode, unspecified F32.9 ; Polyneuropathy G62.9 ; Hypertension, benign I10 and Hyperglycemia R73.9 [facility] [address] [facility] [id number] [address] [place] [id number] Apr, [facility] [address] [facility] [id number] [address] [place] [phone] Dec, Polyneuropathy G62.9 [facility] [address] [facility] [id number] [address] [place] [id number] Nov, Hyperglycemia R73.9 [facility] [address] [facility] [id number] [address] [place] [id number] Nov, Family history of diabetes m ellitus Z83.3 and Hyperglycemia R73.9 [place] [address] [facility] [id number] [address] [place] [phone] Nov, Family history of diabetes m ellitus Z83.3 and Hyperglycemia R73.9 [place] [address] [address] [id number] [address] [place] [phone] Nov, Neuropathy of both feet G57. 93 and Hypertension, benign I10 [facility] [address] [facility] [id number] [address] [place] [phone] Nov, Essential (primary) hyperten elda I10 [facility] [address] [facility] [id number] [address] [place] [address] September, Acute non-recurrent frontal sinusitis J01.10 [facility] [address] [facility] [id number] [address] [place] [id number] Jul, Tooth abscess K04.7 [facility] [address] [facility] [id number] [address] [place] [phone] Jan, [facility] [address] [id number] [address] [place] [address] Dec, Hearing loss, bilateral H91. 93 [facility] [address] [facility] [id number] [address] [place] [id number] 14 Nov, 2015 Retraction of tympanic membr ane of both ears H73.823 [facility] [address] [facility] [id number] [address] [place] [id number] 29 May, 2015 [facility] [address] [id number] [address] [place] [id number] 14 May, 2015 Bronchitis J40 [facility] [address] [facility] [id number] [address] [place] [id number] 25 Apr, 2015 Upper respiratory infection J06.9 [facility] [address] [id number] [address] [place] [id number] 13 Nov, 2014 Unspecified iron deficiency anemia 280.9 [facility] [address] [id number] [address] [place] [id number] 12 Oct, 2014 Anemia 285.9 [facility] [address] [id number] [address] [place] [id number] 13 Sep, 2014 Unspecified urinary incontin ence 788.30 ; Family history of diabetes mellitus in father V18.0 ; Glucose found in urine on examination 791.5 ; Urinary frequency 788.41 and Hypertension 401.9 [facility] [address] [id number] [address] [place] [phone] 11 Sep, 2014 Unspecified urinary incontin ence 788.30 ; Family history of diabetes mellitus in father V18.0 ; Glucose found in urine on examination 791.5 ; Urinary frequency 788.41 and Hypertension 401.9 [facility] [address] [facility] [id number] [address] [place] [id number] 14 Aug, 2014 [facility] [address] [facility] [id number] [address] [place] [id number] 13 Aug, 2014 [facility] [address] [facility] [id number] [address] [place] [phone] Jul, [facility] [address] [id number] [address] [place] [phone] Jul, [facility] [address] [id number] [address] [place] [id number] 17 Jun, 2014 [facility] [address] [id number] [address] [place] [address], [place] [id number] Jun, [facility] [address] [id number] [address] [place] [address], [place] [id number] Jun, [facility] [address] [id number] [address] [place] [address], [place] [id number] Jun, [facility] [address] [id number] [address] [place] [address], [place] [id number] May, [facility] [address] [id number] [address] [place] [address], [place] [id number] May, [facility] [address] [id number] [address] [place] [address], [place] [id number] Oct, [facility] [address] [id number] [address] [place] [address], [place] [id number] Oct, [facility] [address] [id number] [address] [place] [address], [place] [id number] May, [facility] [address] [id number] [address] [place] [address], [place] [id number] May, [facility] [address] [id number] [address] [place] [address], [place] [id number] May, [facility] [address] [id number] [address] [place] [address], [place] [id number] May, [facility] [address] [id number] [address] [place] [address], [place] [id number] Apr, [facility] [address] [id number] [address] [place] [address], [place] [id number] Apr, [facility] [address] [id number] [address] [place] [address], [place] [id number] Apr, [facility] [address] [id number] [address] [place] [address], [place] [id number] Apr, [facility] [address] [id number] [address] [place] [address], [place] [id number] Apr, [facility] [address] [id number] [address] [place] [address], [place] [id number] Apr, [facility] [address] [id number] [address] [place] [address], [place] [id number] Apr, [facility] [address] [id number] [address] [place] [address], [place] [id number] Apr, [facility] [address] [id number] [address] [place] [address], [place] [id number] Dec, [facility] [address] [id number] [address] [place] [address], [place] [id number] Nov, [facility] [address] [id number] [address] [place] [address], [place] [id number] Jul, [facility] [address] [id number] [address] [place] [address], [place] [id number] May, [facility] [address] [id number] [address] [place] [address], [place] [id number] 19 May, 2012 [facility] [address] [id number] [address] [place] [address], [place] [id number] 17 May, 2012 [facility] [address] [id number] [address] [place] [address], [place] [id number] 17 May, 2012 [facility] [address] [id number] [address] [place] [address], [place] [id number] 14 Apr, 2012 [facility] [address] [id number] [address] [place] [address], [place] [id number] 14 Apr, 2012 [facility] [address] [id number] [address] [place] [address], [place] [id number] 16 Mar, 2012 [facility] [address] [id number] [address] [place] [address], [place] [id number] 16 Mar, 2012 [facility] [address] [id number] [address] [place] [address], [place] [id number] 11 Mar, 2012 [facility] [address] [id number] [address] [place] [address], [place] [id number] 08 Mar, 2012 [facility] [address] [id number] [address] [place] [address], [place] [id number] 03 Mar, 2012 [facility] [address] [id number] [address] [place] [address], [place] [id number] 27 Jan, 2012 [facility] [address] [id number] [address] [place] [address], [place] [id number] 26 Jan, 2012 [facility] [address] [id number] [address] [place] [address], [place] [id number] 25 Jan, 2012 [facility] [address] [id number] [address] [place] [address], [place] [id number] 21 Jan, 2012 [facility] [address] [id number] [address] [place] [address], [place] [id number] 30 Oct, 2011 [facility] [address] [id number] [address] [place] [address], [place] [id number] 18 Oct, 2011 [facility] [address] [id number] [address] [place] [address], [place] [id number] 29 Sep, 2011 [facility] [address] [id number] [address] [place] [address], [place] [id number] 30 Aug, 2011 [facility] [address] [id number] [address] [place] [address], [place] [id number] 24 Aug, 2011 [facility] [address] [id number] [address] [place] [address], [place] [id number] 13 Aug, 2011 [facility] [address] [id number] [address] [place] [address], [place] [id number] 22 Jul, 2011 [facility] [address] [id number] [address] [place] [address], [place] [id number] 19 Jul, 2011 [facility] [address] [id number] [address] [place] [address], [place] [id number] 13 Jul, 2011 [facility] [address] [id number] [address] [place] [address], [place] [id number] 12 Jul, 2011 [facility] [address] [id number] [address] [place] [address], [place] [id number] 07 Jul, 2011 [facility] [address] [id number] [address] [place] [address], [place] [id number] 06 Jul, 2011 [facility] [address] [id number] [address] [place] [address], [place] [id number] 02 Jul, 2011 [facility] [address] [id number] [address] [place] [address], [place] [id number] 20 Jul, 2011 [facility] [address] [id number] [address] [place] [address], [place] [id number] 14 Jul, 2011 [facility] [address] [id number] [address] [place] [address], [place] [id number] 13 Jul, 2011 [facility] [address] [id number] [address] [place] [address], [place] [id number] 11 Jul, 2011 [facility] [address] [id number] [address] [place] [address], [place] [id number] 10 Jul, 2011 [facility] [address] [id number] [address] [place] [address], [place] [id number] 10 Jul, 2011 [facility] [address] [id number] [address] [place] [address], [place] [id number] 07 May, 2010 [facility] [address] [id number] [address] [place] [address], [place] [id number] 18 Oct, 2009 [facility] [address] [id number] [address] [place] [address], [place] [id number] Jun, [facility] [address] [id number] [address] [place] [address], [place] [id number] May, [facility] [address] [id number] [address] [place] [address], [place] [id number] May, [facility] [address] [id number] [address] [place] [address], [place] [id number] Apr, [facility] [address] [id number] [address] [place] [id number] 23 Mar, 2009 [facility] [address] [facility] [id number] [address] [place] [id number] Mar, [facility] [address] [facility] [id number] [address] [place] [id number] Mar, IMMUNIZATIONS No Known Immunizations SOCIAL HISTORY Never Assessed REASON FOR VISIT EMR-[facility] PLAN OF CARE VITAL SIGNS MEDICATIONS No [...]
--- OUTSIDE RECORDS SUMMARY | 2020-01-06 11:56 | XMS REPORT ---
Author Author Anusha MUNOZ Organization [facility] Address [address] [place] [address] Care Team Providers Care Exchange Mechanic Name Role Phone ALEXANDER ELINA Unavailable PROBLEMS Type Condition ICD9-CM Code [id number] Code Onset Dates Condition S tatus SNOMED Code Problem Iron deficiency anemia, unspecified D50.9 Active 67941206 Problem Vitamin D deficiency, unspecified E55.9 Active 15215624 Problem Hypertension, benign I10 Active 80332537 Problem Major depressive disorder, single episode, unspecified F32.9 Active 94269878 Problem Polyneuropathy G62.9 Active 58578 000 ALLERGIES No Information ENCOUNTERS Encounter Location Date Diagnosis [place] [address] [address] Oct, Iron deficiency anemia, unsp ecified D50.9 [place] [address] [address] Oct, Iron deficiency anemia, unsp ecified D50.9 [place] [address] [address] Oct, Vitamin D deficiency, unspec ified E55.9 ; Iron deficiency anemia, unspecified D50.9 ; Major depressive disorder, single episode, unspecified F32.9 ; Polyneuropathy G62.9 and Hypertension, benign I10 [place] [address] [address] Oct, Vitamin D deficiency, unspec ified E55.9 ; Iron deficiency anemia, unspecified D50.9 ; Major depressive disorder, single episode, unspecified F32.9 ; Polyneuropathy G62.9 ; Hypertension, benign I10 and Hyperglycemia R73.9 [place] [address] [address] Apr, [facility] [address] [address] Dec, Polyneuropathy G62.9 [place] [address] [place] [id number] [place] [address] Nov, Hyperglycemia R73.9 [place] [address] [address] Nov, Family history of diabetes m ellitus Z83.3 and Hyperglycemia R73.9 [place] [address] [place] [id number] [place] [address] Nov, Family history of diabetes m ellitus Z83.3 and Hyperglycemia R73.9 [place] [address] [place] [address] Nov, Neuropathy of both feet G57. 93 and Hypertension, benign I10 [place] [address] [address] Nov, Essential (primary) hyperten elda I10 [place] [address] [address] September, Acute non-recurrent frontal sinusitis J01.10 [facility] [address] [place] [id number] [place] [address] Jul, Tooth abscess K04.7 [facility] [address] [address] Jan, [place] [address] [address] Dec, Hearing loss, bilateral H91. 93 [place] [address] [address] Nov, Retraction of tympanic membr ane of both ears H73.823 [place] [address] [address] May, [facility] [address] [place] [address] May, Bronchitis J40 [facility] [address] [place] [id number] [address] [place] [address] Apr, Upper respiratory infection J06.9 [facility] [address] [place] [id number] [place] [address] 13 Nov, 2014 Unspecified iron deficiency anemia 280.9 [facility] [address] [place] [id number] [place] [address] 12 Oct, 2014 Anemia 285.9 [place] [address] [address] 13 Sep, 2014 Unspecified urinary incontin ence 788.30 ; Family history of diabetes mellitus in father V18.0 ; Glucose found in urine on examination 791.5 ; Urinary frequency 788.41 and Hypertension 401.9 [facility] [address] [place] [address] 11 Sep, 2014 Unspecified urinary incontin ence 788.30 ; Family history of diabetes mellitus in father V18.0 ; Glucose found in urine on examination 791.5 ; Urinary frequency 788.41 and Hypertension 401.9 [facility] [address] [place] [id number] [place] [phone] 14 Aug, 2014 [facility] [address] [place] [id number] [place] [address] Aug, [facility] [address] [place] [id number] [place] [address] Jul, [facility] [address] [place] [address] Jul, [facility] [address] [place] [id number] [place] [address] Jun, [facility] [address] [place] [id number] [place] [phone] Jun, [facility] [address] [id number] [address] [place] [address], [place] [address] Jun, [facility] [address] [id number] [address] [place] [address], [place] [address] Jun, [facility] [address] [id number] [address] [place] [address], [place] [address] May, [facility] [address] [id number] [address] [place] [address], [place] [address] May, [facility] [address] [id number] [address] [place] [address], [place] [address] Oct, [facility] [address] [id number] [address] [place] [address], [place] [address] Oct, [facility] [address] [id number] [address] [place] [address], [place] [address] May, [facility] [address] [id number] [address] [place] [address], [place] [address] May, [facility] [address] [id number] [address] [place] [address], [place] [address] May, [facility] [address] [id number] [address] [place] [address], [place] [address] May, [facility] [address] [id number] [address] [place] [address], [place] [address] Apr, [facility] [address] [id number] [address] [place] [address], [place] [address] Apr, [facility] [address] [id number] [address] [place] [address], [place] [address] Apr, [facility] [address] [id number] [address] [place] [address], [place] [address] Apr, [facility] [address] [id number] [address] [place] [address], [place] [address] Apr, [facility] [address] [id number] [address] [place] [address], [place] [address] Apr, [facility] [address] [id number] [address] [place] [address], [place] [address] Apr, [facility] [address] [id number] [address] [place] [address], [place] [address] Apr, [facility] [address] [id number] [address] [place] [address], [place] [address] Dec, [facility] [address] [id number] [address] [place] [address], [place] [address] Nov, [facility] [address] [id number] [address] [place] [address], [place] [address] Jul, [facility] [address] [id number] [address] [place] [address], [place] [address] May, [facility] [address] [id number] [address] [place] [address], [place] [address] May, [facility] [address] [id number] [address] [place] [address], [place] [address] May, [facility] [address] [id number] [address] [place] [address], [place] [address] 17 May, 2012 [facility] [address] [id number] [address] [place] [address], [place] [address] Apr, [facility] [address] [id number] [address] [place] [address], [place] [address] 14 Apr, 2012 [facility] [address] [id number] [address] [place] [address], [place] [address] 16 Mar, 2012 [facility] [address] [id number] [address] [place] [address], [place] [address] 16 Mar, 2012 [facility] [address] [id number] [address] [place] [address], [place] [address] 11 Mar, 2012 [facility] [address] [id number] [address] [place] [address], [place] [address] 08 Mar, 2012 [facility] [address] [id number] [address] [place] [address], [place] [address] 03 Mar, 2012 [facility] [address] [id number] [address] [place] [address], [place] [address] 27 Jan, 2012 [facility] [address] [id number] [address] [place] [address], [place] [address] 26 Jan, 2012 [facility] [address] [id number] [address] [place] [address], [place] [address] 25 Jan, 2012 [facility] [address] [id number] [address] [place] [address], [place] [address] 21 Jan, 2012 [facility] [address] [id number] [address] [place] [address], [place] [address] 30 Oct, 2011 [facility] [address] [id number] [address] [place] [address], [place] [address] 18 Oct, 2011 [facility] [address] [id number] [address] [place] [address], [place] [address] 29 Sep, 2011 [facility] [address] [id number] [address] [place] [address], [place] [address] 30 Aug, 2011 [facility] [address] [id number] [address] [place] [address], [place] [address] 24 Aug, 2011 [facility] [address] [id number] [address] [place] [address], [place] [address] 13 Aug, 2011 [facility] [address] [id number] [address] [place] [address], [place] [address] 22 Jul, 2011 [facility] [address] [id number] [address] [place] [address], [place] [address] 19 Jul, 2011 [facility] [address] [id number] [address] [place] [address], [place] [address] 13 Jul, 2011 [facility] [address] [id number] [address] [place] [address], [place] [address] 12 Jul, 2011 [facility] [address] [id number] [address] [place] [address], [place] [address] 07 Jul, 2011 [facility] [address] [id number] [address] [place] [address], [place] [address] 06 Jul, 2011 [facility] [address] [id number] [address] [place] [address], [place] [address] 02 Jul, 2011 [facility] [address] [id number] [address] [place] [address], [place] [address] 20 Jul, 2011 [facility] [address] [id number] [address] [place] [address], [place] [address] 14 Jul, 2011 [facility] [address] [id number] [address] [place] [address], [place] [address] 13 Jul, 2011 [facility] [address] [id number] [address] [place] [address], [place] [address] 11 Jul, 2011 [facility] [address] [id number] [address] [place] [address], [place] [address] 10 Jul, 2011 [facility] [address] [id number] [address] [place] [address], [place] [address] 10 Jul, 2011 [facility] [address] [id number] [address] [place] [address], [place] [address] May, [facility] [address] [id number] [address] [place] [address], [place] [address] Oct, [facility] [address] [id number] [address] [place] [address], [place] [address] Jun, [facility] [address] [id number] [address] [place] [address], [place] [address] May, [facility] [address] [id number] [address] [place] [address], [place] [address] May, [facility] [address] [id number] [address] [place] [address], [place] [address] Apr, [facility] [address] [id number] [address] [place] [address], [place] [address] Mar, [facility] [address] [id number] [address] [place] [id number] 14 Mar, 2009 [facility] [address] [facility] [id number] [address] [place] [id number] 14 Mar, 2009 IMMUNIZATIONS No Known Immunizations SOCIAL HISTORY Never Assessed REASON FOR VISIT labs PLAN OF CARE VITAL SIGNS MEDICATIONS Unknown [...]
--- OUTSIDE RECORDS SUMMARY | 2020-01-06 11:56 | XMS REPORT ---
Author Author Anusha Martin Doctor Organization [facility] Address Unknown Phone Unavailable Care Team Providers Care Oil Pipe Inspector Helper Name Role Phone Migration, Doctor Unavailable Unavailable PROBLEMS Type Condition ICD9-CM Code [id number] Code Onset Dates Condition S tatus SNOMED Code Problem Vitamin D deficiency, unspecified E55.9 Active 37092087 Problem Iron deficiency anemia, unspecified D50.9 Active 36780468 Problem Hypertension, benign I10 Active 90615167 Problem Polyneuropathy G62.9 Active 50943 000 Problem Major depressive disorder, single episode, unspecified F32.9 Active 02205304 ALLERGIES No Information ENCOUNTERS Encounter Location Date Diagnosis [facility] IN [facility] [id number] [place] [phone] Apr, Sore throat J02.9 and Acute sinusitis J01.90 [facility] [address] [address] Oct, Iron deficiency anemia, unsp ecified D50.9 [place] [id number] [place] [phone] Oct, Iron deficiency anemia, unsp ecified D50.9 [place] [id number] [place] [phone] Oct, Vitamin D deficiency, unspec ified E55.9 ; Iron deficiency anemia, unspecified D50.9 ; Major depressive disorder, single episode, unspecified F32.9 ; Polyneuropathy G62.9 and Hypertension, benign I10 [facility] [address] [address] Oct, Vitamin D deficiency, unspec ified E55.9 ; Iron deficiency anemia, unspecified D50.9 ; Major depressive disorder, single episode, unspecified F32.9 ; Polyneuropathy G62.9 ; Hypertension, benign I10 and Hyperglycemia R73.9 [facility] [address] [facility] [id number] [address] [place] [id number] Apr, [facility] [address] [facility] [id number] [address] [place] [id number] Dec, Polyneuropathy G62.9 [facility] [address] [facility] [id number] [address] [place] [id number] Nov, Hyperglycemia R73.9 [facility] [address] [facility] [id number] [address] [place] [id number] Nov, Family history of diabetes m ellitus Z83.3 and Hyperglycemia R73.9 [place] [address] [facility] [id number] [address] [place] [phone] Nov, Family history of diabetes m ellitus Z83.3 and Hyperglycemia R73.9 [place] [address] [id number] [address] [place] [id number] Nov, Neuropathy of both feet G57. 93 and Hypertension, benign I10 [facility] [address] [facility] [id number] [address] [place] [phone] Nov, Essential (primary) hyperten elda I10 [facility] [address] [facility] [id number] [address] [place] [id number] September, Acute non-recurrent frontal sinusitis J01.10 [facility] [address] [facility] [id number] [address] [place] [id number] Jul, Tooth abscess K04.7 [facility] [address] [facility] [id number] [address] [place] [phone] Jan, [facility] [address] [id number] [address] [place] [id number] Dec, Hearing loss, bilateral H91. 93 [facility] [address] [facility] [id number] [address] [place] [id number] 14 Nov, 2015 Retraction of tympanic membr ane of both ears H73.823 [facility] [address] [facility] [id number] [address] [place] [id number] 29 May, 2015 [facility] [address] [id number] [address] [place] [phone] 14 May, 2015 Bronchitis J40 [facility] [address] [facility] [id number] [address] [place] [id number] 25 Apr, 2015 Upper respiratory infection J06.9 [facility] [address] [id number] [address] [place] [id number] 13 Nov, 2014 Unspecified iron deficiency anemia 280.9 [facility] [address] [id number] [address] [place] [id number] 12 Oct, 2014 Anemia 285.9 [facility] [address] [id number] [address] [place] [id number] 13 Sep, 2014 Unspecified urinary incontin ence 788.30 ; Family history of diabetes mellitus in father V18.0 ; Glucose found in urine on examination 791.5 ; Urinary frequency 788.41 and Hypertension 401.9 [facility] [address] [id number] [address] [place] [id number] 11 Sep, 2014 Unspecified urinary incontin ence 788.30 ; Family history of diabetes mellitus in father V18.0 ; Glucose found in urine on examination 791.5 ; Urinary frequency 788.41 and Hypertension 401.9 [facility] [address] [facility] [id number] [address] [place] [phone] 14 Aug, 2014 [facility] [address] [facility] [id number] [address] [place] [id number] 13 Aug, 2014 [facility] [address] [facility] [id number] [address] [place] [phone] Jul, [facility] [address] [id number] [address] [place] [phone] Jul, [facility] [address] [id number] [address] [place] [phone] 17 Jun, 2014 [facility] [address] [id number] [address] [place] [address], [place] [address] Jun, [facility] [address] [id number] [address] [place] [address], [place] [address] Jun, [facility] [address] [id number] [address] [place] [address], [place] [address] Jun, [facility] [address] [id number] [address] [place] [address], [place] [address] May, [facility] [address] [id number] [address] [place] [address], [place] [address] May, [facility] [address] [id number] [address] [place] [address], [place] [address] Oct, [facility] [address] [id number] [address] [place] [address], [place] [address] Oct, [facility] [address] [id number] [address] [place] [address], [place] [address] May, [facility] [address] [id number] [address] [place] [address], [place] [address] May, [facility] [address] [id number] [address] [place] [address], [place] [address] May, [facility] [address] [id number] [address] [place] [address], [place] [address] May, [facility] [address] [id number] [address] [place] [address], [place] [address] Apr, [facility] [address] [id number] [address] [place] [address], [place] [address] Apr, [facility] [address] [id number] [address] [place] [address], [place] [address] Apr, [facility] [address] [id number] [address] [place] [address], [place] [address] Apr, [facility] [address] [id number] [address] [place] [address], [place] [address] Apr, [facility] [address] [id number] [address] [place] [address], [place] [address] Apr, [facility] [address] [id number] [address] [place] [address], [place] [address] Apr, [facility] [address] [id number] [address] [place] [address], [place] [address] Apr, [facility] [address] [id number] [address] [place] [address], [place] [address] Dec, [facility] [address] [id number] [address] [place] [address], [place] [address] Nov, [facility] [address] [id number] [address] [place] [address], [place] [address] Jul, [facility] [address] [id number] [address] [place] [address], [place] [address] May, [facility] [address] [id number] [address] [place] [address], [place] [address] 19 May, 2012 [facility] [address] [id number] [address] [place] [address], [place] [address] 17 May, 2012 [facility] [address] [id number] [address] [place] [address], [place] [address] 17 May, 2012 [facility] [address] [id number] [address] [place] [address], [place] [address] 14 Apr, 2012 [facility] [address] [id number] [address] [place] [address], [place] [address] 14 Apr, 2012 [facility] [address] [id number] [address] [place] [address], [place] [address] 16 Mar, 2012 [facility] [address] [id number] [address] [place] [address], [place] [address] 16 Mar, 2012 [facility] [address] [id number] [address] [place] [address], [place] [address] 11 Mar, 2012 [facility] [address] [id number] [address] [place] [address], [place] [address] 08 Mar, 2012 [facility] [address] [id number] [address] [place] [address], [place] [address] 03 Mar, 2012 [facility] [address] [id number] [address] [place] [address], [place] [address] 27 Jan, 2012 [facility] [address] [id number] [address] [place] [address], [place] [address] 26 Jan, 2012 [facility] [address] [id number] [address] [place] [address], [place] [address] 25 Jan, 2012 [facility] [address] [id number] [address] [place] [address], [place] [address] 21 Jan, 2012 [facility] [address] [id number] [address] [place] [address], [place] [address] 30 Oct, 2011 [facility] [address] [id number] [address] [place] [address], [place] [address] 18 Oct, 2011 [facility] [address] [id number] [address] [place] [address], [place] [address] 29 Sep, 2011 [facility] [address] [id number] [address] [place] [address], [place] [address] 30 Aug, 2011 [facility] [address] [id number] [address] [place] [address], [place] [address] 24 Aug, 2011 [facility] [address] [id number] [address] [place] [address], [place] [address] 13 Aug, 2011 [facility] [address] [id number] [address] [place] [address], [place] [address] 22 Jul, 2011 [facility] [address] [id number] [address] [place] [address], [place] [address] 19 Jul, 2011 [facility] [address] [id number] [address] [place] [address], [place] [address] 13 Jul, 2011 [facility] [address] [id number] [address] [place] [address], [place] [address] 12 Jul, 2011 [facility] [address] [id number] [address] [place] [address], [place] [address] 07 Jul, 2011 [facility] [address] [id number] [address] [place] [address], [place] [address] 06 Jul, 2011 [facility] [address] [id number] [address] [place] [address], [place] [address] 02 Jul, 2011 [facility] [address] [id number] [address] [place] [address], [place] [address] 20 Jul, 2011 [facility] [address] [id number] [address] [place] [address], [place] [address] 14 Jul, 2011 [facility] [address] [id number] [address] [place] [address], [place] [address] 13 Jul, 2011 [facility] [address] [id number] [address] [place] [address], [place] [address] 11 Jul, 2011 [facility] [address] [id number] [address] [place] [address], [place] [address] 10 Jul, 2011 [facility] [address] [id number] [address] [place] [address], [place] [address] 10 Jul, 2011 [facility] [address] [id number] [address] [place] [address], [place] [address] 07 May, 2010 [facility] [address] [id number] [address] [place] [address], [place] [address] 18 Oct, 2009 [facility] [address] [id number] [address] [place] [address], [place] [address] Jun, [facility] [address] [id number] [address] [place] [address], [place] [address] May, [facility] [address] [id number] [address] [place] [address], [place] [address] May, [facility] [address] [id number] [address] [place] [address], [place] [address] Apr, [facility] [address] [id number] [address] [place] [address] Mar, [facility] [address] [facility] [id number] [address] [place] [address] Mar, [facility] [address] [facility] [id number] [address] [place] [address] Mar, IMMUNIZATIONS No Known Immunizations SOCIAL HISTORY Never Assessed REASON FOR VISIT [facility] VITAL SIGNS MEDICATIONS Medication Instructions Dosage Frequency Start Date End Date Duration S juan jose Atenolol 50 mg take 1 tablet by Oral route 1 time per day Jul, Active gentamicin 0.3 % 1 drop by Ophthalmic route every other hour for 1 day then qid for 6 more days Jun, Active Ciprofloxacin 0.3 % 2 drop by Otic route every 4 hours for 7 day(s) use in right ear Jun, Active Amoxicillin 500 mg 2 capsule by Oral route 2 times per day for 10 day(s) Oct, Active Azithromycin 250 mg 2 Tablet by Oral rou te on day 1 then take 1 daily for 4 days May, Active Keflex 500 mg take 1 capsule (500 mg) by oral route every 6 hours for 6 days May, Active Augmentin 875-125 mg take 1 tablet by oral route every 12 hours Jul, Active Ofloxacin 0.3 % 3 drop by Otic route 2 times per day f or 10 day(s) Oct, Active Ephgfslc-Yialebckh-QA 3.5-10,000-1 mg-unit/mL-% instill 4 drops into affected ear(s) by otic route 4 times per day for 10 day(s) Jul, Active Bactrim DS 800-160 mg 1 tablet by Oral route 2 times p er day for 10 day(s) Jan, Active RESULTS No Results PROCEDURES No Known [...]
--- OUTSIDE RECORDS SUMMARY | 2020-01-06 11:57 | XMS REPORT ---
Author Author Anusha MUNOZ Organization [facility] Address [address] [place] [address] Care Team Providers Care Director Underwriter Sales Name Role Phone ELINA MUNOZ Unavailable PROBLEMS Type Condition ICD9-CM Code MOA00-FB Code Onset Dates Condition S tatus SNOMED Code Problem Unspecified infective otitis externa 380.10 Active 94425742 Problem Depressive disorder, not elsewhere classified 311 Active 23527526 Problem Unspecified conjunctivitis 372.30 Act josefa 5802335 Problem Polyneuropathy G62.9 Active 40267 000 Problem Essential (primary) hypertension I10 Active 33706393 Problem Unspecified vitamin D deficiency 268.9 Active 05191169 Problem Unspecified iron deficiency anemia 280.9 Active 61930674 Problem Hypertension, benign I10 Active 94410874 Problem Hypertension 401.9 Active 1377486 3 Problem Screening examination for venereal disease V74.5 Active 827278306 Problem Contusion of abdominal wall 922.2 Ac tive 21771298 Problem Screening for malignant neoplasm of the cervix V76.2 Active 408263693 Problem Unspecified breast screening V76.10 A ctive 949413954 Problem Lump or mass in breast 611.72 Active 33691144 Problem Unspecified cardiac dysrhythmia 427.9 Active 379371228 Problem Urgency of urination 788.63 Active 51966003 Problem Unspecified otitis media 382.9 Activ e 11365840 Problem Unspecified urinary incontinence 788.30 Active 873498247 Problem Unspecified otalgia 388.70 Active 22095465 ALLERGIES No Information ENCOUNTERS Encounter Location Date Diagnosis [facility] [address] [facility] [id number] [address] [place] [address] Oct, [facility] [address] [facility] [id number] [address] [place] [address] Apr, [facility] [address] [facility] [id number] [address] [place] [address] Dec, Polyneuropathy G62.9 [facility] [address] [place] [address] Nov, Hyperglycemia R73.9 [place] [address] [place] [id number] [address] [place] [address] Nov, Family history of diabetes m ellitus Z83.3 and Hyperglycemia R73.9 [place] [address] [place] [address] Nov, Family history of diabetes m ellitus Z83.3 and Hyperglycemia R73.9 [place] [address] [address] Nov, Neuropathy of both feet G57. 93 and Hypertension, benign I10 [place] [address] [address] Nov, Essential (primary) hyperten elda I10 [place] [address] [address] September, Acute non-recurrent frontal sinusitis J01.10 [facility] [address] [address] Jul, Tooth abscess K04.7 [place] [address] [address] Jan, [place] [address] [address] Dec, Hearing loss, bilateral H91. 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.823 [place] [address] [place] [id number] [address] [place] [address] May, [place] [address] [address] May, Bronchitis J40 [facility] [address] [place] [id number] [address] [place] [address] Apr, Upper respiratory infection J06.9 [facility] [address] [address] Nov, Unspecified iron deficiency anemia 280.9 [facility] [address] [place] [id number] [address] [place] [address] Oct, Anemia 285.9 [facility] [address] [place] [id number] [place] [address] September, Unspecified urinary incontin ence 788.30 ; Family history of diabetes mellitus in father V18.0 ; Glucose found in urine on examination 791.5 ; Urinary frequency 788.41 and Hypertension 401.9 [facility] [address] [place] [id number] [address] [place] [address] September, Unspecified urinary incontin ence 788.30 ; Family history of diabetes mellitus in father V18.0 ; Glucose found in urine on examination 791.5 ; Urinary frequency 788.41 and Hypertension 401.9 [facility] [address] [place] [id number] [address] [place] [address] Aug, [facility] [address] [place] [id number] [address] [place] [address] Aug, [facility] [address] [place] [address] Jul, [facility] [address] [place] [id number] [address] [place] [address] Jul, [facility] [address] [place] [id number] [address] [place] [address] Jun, [facility] [address] [place] [id number] [address] [place] [address] Jun, [facility] [address] [place] [id number] [address] [place] [address] Jun, [facility] [address] [id number] [address] [place] [address], [place] [address] Jun, [facility] [address] [id number] [address] [place] [address], [place] [address] May, [facility] [address] [id number] [address] [place] [address], [place] [address] May, [facility] [address] [id number] [address] [place] [address], [place] [address] Oct, [facility] [address] [id number] [address] [place] [address], [place] [address] Oct, [facility] [address] [id number] [address] [place] [address], [place] [address] May, [facility] [address] [id number] [address] [place] [address], [place] [address] May, [facility] [address] [id number] [address] [place] [address], [place] [address] May, [facility] [address] [id number] [address] [place] [address], [place] [address] May, [facility] [address] [id number] [address] [place] [address], [place] [address] Apr, [facility] [address] [id number] [address] [place] [address], [place] [address] Apr, [facility] [address] [id number] [address] [place] [address], [place] [address] Apr, [facility] [address] [id number] [address] [place] [address], [place] [address] Apr, [facility] [address] [id number] [address] [place] [address], [place] [address] Apr, [facility] [address] [id number] [address] [place] [address], [place] [address] Apr, [facility] [address] [id number] [address] [place] [address] [address] Apr, [facility] [address] [id number] [address] [place] [address], [place] [address] Apr, [facility] [address] [id number] [address] [place] [address], [place] [address] Dec, [facility] [address] [id number] [address] [place] [address], [place] [address] Nov, [facility] [address] [id number] [address] [place] [address], [place] [address] Jul, [facility] [address] [id number] [address] [place] [address], [place] [address] May, [facility] [address] [id number] [address] [place] [address], [place] [address] May, [facility] [address] [id number] [address] [place] [address], [place] [address] May, [facility] [address] [id number] [address] [place] [address], [place] [address] 17 May, 2012 [facility] [address] [id number] [address] [place] [address], [place] [address] 14 Apr, 2012 [facility] [address] [id number] [address] [place] [address], [place] [address] 14 Apr, 2012 [facility] [address] [id number] [address] [place] [address], [place] [address] 16 Mar, 2012 [facility] [address] [id number] [address] [place] [address], [place] [address] 16 Mar, 2012 [facility] [address] [id number] [address] [place] [address], [place] [address] 11 Mar, 2012 [facility] [address] [id number] [address] [place] [address], [place] [address] 08 Mar, 2012 [facility] [address] [id number] [address] [place] [address], [place] [address] Mar, [facility] [address] [id number] [address] [place] [address], [place] [address] 27 Sep2011 [facility] [address] [id number] [address] [place] [address], [place] [address] 26 Sep2011 [facility] [address] [id number] [address] [place] [address], [place] [address] 25 Jan, 2012 [facility] [address] [id number] [address] [place] [address], [place] [address] 21 Jan, 2012 [facility] [address] [id number] [address] [place] [address], [place] [address] 30 Oct, 2011 [facility] [address] [id number] [address] [place] [address], [place] [address] 18 Oct, 2011 [facility] [address] [id number] [address] [place] [address], [place] [address] 29 Sep, 2011 [facility] [address] [id number] [address] [place] [address], [place] [address] 30 Aug, 2011 [facility] [address] [id number] [address] [place] [address], [place] [address] 24 Aug, 2011 [facility] [address] [id number] [address] [place] [address], [place] [address] 13 Aug, 2011 [facility] [address] [id number] [address] [place] [address], [place] [address] 22 Jul, 2011 [facility] [address] [id number] [address] [place] [address], [place] [address] 19 Jul, 2011 [facility] [address] [id number] [address] [place] [address], [place] [address] 13 Jul, 2011 [facility] [address] [id number] [address] [place] [address], [place] [address] 12 Jul, 2011 [facility] [address] [id number] [address] [place] [address], [place] [address] 07 Jul, 2011 [facility] [address] [id number] [address] [place] [address], [place] [address] 06 Jul, 2011 [facility] [address] [id number] [address] [place] [address], [place] [address] 02 Jul, 2011 [facility] [address] [id number] [address] [place] [address], [place] [address] 20 Jul, 2011 [facility] [address] [id number] [address] [place] [address], [place] [address] 14 Jul, 2011 [facility] [address] [id number] [address] [place] [address], [place] [address] 13 Jul, 2011 [facility] [address] [id number] [address] [place] [address], [place] [address] 11 Jul, 2011 [facility] [address] [id number] [address] [place] [address], [place] [address] 10 Jul, 2011 [facility] [address] [id number] [address] [place] [address], [place] [address] 10 Jul, 2011 [facility] [address] [id number] [address] [place] [address], [place] [address] 07 May, 2010 [facility] [address] [id number] [address] [place] [address], [place] [address] 18 Oct, 2009 [facility] [address] [id number] [address] [place] [address], [place] [address] Jun, [facility] [address] [id number] [address] [place] [address], [place] [address] 18 May, 2009 [facility] [address] [id number] [address] [place] [address] 18 May, 2009 [facility] [address] [id number] [address] [place] [address], [place] [address] Apr, [facility] [address] [id number] [address] [place] [address], [place] [address] 23 Mar, 2009 [facility] [address] [id number] [address] [place] [address], [place] [address] 14 Mar, 2009 [facility] [address] [id number] [address] [place] [address], [place] [address] 14 Mar, 2009 IMMUNIZATIONS No Known Immunizations SOCIAL HISTORY Never Assessed REASON FOR VISIT Returned call PLAN OF CARE VITAL SIGNS MEDICATIONS Unknown [...]
--- OUTSIDE RECORDS SUMMARY | 2020-01-06 11:57 | XMS REPORT ---
Author Author Anusha MUNOZ Organization [facility] Address [address] [place] [address] Care Team Providers Care Internist Medical Doctor Md Name Role Phone ELINA MUNOZ Unavailable PROBLEMS Type Condition ICD9-CM Code [id number] Code Onset Dates Condition S tatus SNOMED Code Problem Contusion of abdominal wall 922.2 Ac tive 74310066 Problem Unspecified otitis media 382.9 Activ e 35189610 Problem Unspecified infective otitis externa 380.10 Active 03727521 Problem Hypertension 401.9 Active 5207971 3 Problem Lump or mass in breast 611.72 Active 37027272 Problem Unspecified otalgia 388.70 Active 85800579 Problem Unspecified breast screening V76.10 A ctive 710779529 Problem Screening examination for venereal disease V74.5 Active 283764428 Problem Screening for malignant neoplasm of the cervix V76.2 Active 071388842 Problem Unspecified iron deficiency anemia 280.9 Active 42484970 Problem Depressive disorder, not elsewhere classified 311 Active 81094736 Problem Unspecified conjunctivitis 372.30 Act josefa 1982289 Problem Unspecified vitamin D deficiency 268.9 Active 82255161 Problem Urgency of urination 788.63 Active 25125192 Problem Unspecified cardiac dysrhythmia 427.9 Active 533503925 Problem Unspecified urinary incontinence 788.30 Active 328415880 ALLERGIES Unknown Allergies SOCIAL HISTORY No smoking Hx information available PLAN OF CARE VITAL SIGNS MEDICATIONS Medication Instructions Dosage Frequency Start Date End Date Duration S tatus Atenolol 50 mg 1 tablet 24h Jul, 90 days Act josefa RESULTS No Results PROCEDURES No Known procedures IMMUNIZATIONS No Known Immunizations
--- OUTSIDE RECORDS SUMMARY | 2020-01-06 11:57 | XMS REPORT ---
Author Author Anusha VU Organization [facility] Address [address] [place] [address] Care Team Providers Care Camper Assembler Name Role Phone VIVIEN VUICE Unavailable PROBLEMS Type Condition ICD9-CM Code [id number] Code Onset Dates Condition S tatus SNOMED Code Problem Unspecified infective otitis externa 380.10 Active 45130010 Problem Depressive disorder, not elsewhere classified 311 Active 56861368 Problem Unspecified conjunctivitis 372.30 Act josefa 5414857 Problem Polyneuropathy G62.9 Active 87541 000 Problem Essential (primary) hypertension I10 Active 05156851 Problem Unspecified vitamin D deficiency 268.9 Active 83196958 Problem Unspecified iron deficiency anemia 280.9 Active 10310509 Problem Hypertension, benign I10 Active 88972269 Problem Hypertension 401.9 Active 6410670 3 Problem Screening examination for venereal disease V74.5 Active 471042125 Problem Contusion of abdominal wall 922.2 Ac tive 92855415 Problem Screening for malignant neoplasm of the cervix V76.2 Active 855330804 Problem Unspecified breast screening V76.10 A ctive 868700004 Problem Lump or mass in breast 611.72 Active 45943825 Problem Unspecified cardiac dysrhythmia 427.9 Active 638481131 Problem Urgency of urination 788.63 Active 02033180 Problem Unspecified otitis media 382.9 Activ e 37001047 Problem Unspecified urinary incontinence 788.30 Active 535465987 Problem Unspecified otalgia 388.70 Active 69333754 ALLERGIES No Known Allergies SOCIAL HISTORY Never Assessed PLAN OF CARE Activity Details Follow Up prn Reason: VITAL SIGNS Height 67 in 2016-08-06 Weight 242.2 lbs 2016-08-06 Temperature 98.6 degrees Fahrenheit 2016-08-06 Heart Rate 96 bpm 2016-08-06 Respiratory Rate 20 2016-08-06 BMI 37.93 kg/m2 2016-08-06 Blood pressure systolic 142 mmHg 2016-08-06 Blood pressure diastolic 96 mmHg 2016-08-06 MEDICATIONS Medication Instructions Dosage Frequency Start Date End Date Duration S tatus Amoxicillin 500 MG Orally every 8 hrs 2 capsules for first dose the n TID 8h Jul, Jul, 10 day(s) Active Atenolol 50MG TAKE 1 TABLET ONCE A DAY 3 0 Active Atenolol 50 mg 1 tablet 24h Jul, 90 days Act josefa Zyrtec Allergy 10 MG Orally Once a day 1 tablet as needed 24h Active RESULTS No Results PROCEDURES No Known procedures IMMUNIZATIONS No Known Immunizations MEDICAL (GENERAL) HISTORY Type Description Date Medical History Hypertension Medical History borderline Type II diabetes Surgical History Tonsillectomy Surgical History Tubal ligation 2004 Surgical History Otolaryngologic surgery tubes in ears Hospitalization History Child 3 para 3 with 3 full term vaginal delivery (s)
--- OUTSIDE RECORDS SUMMARY | 2020-01-06 11:57 | XMS REPORT ---
Author Anusha Morris [facility] [employer] Address Unknown Phone Unavailable Care Team Providers Care Publication Director Name Role Phone YOCASTA DENNISON CP Unavailable Allergies, Adverse Reactions, Alerts Substance Reaction Event Type N.K.D.A. Info Not Available Non Drug Allergy Problems Problem Type Condition Code Onset Dates Condition Statu s Problem Unspecified urinary incontinence 788.30 Active Problem Unspecified infective otitis externa 380.10 Active Problem Contusion of abdominal wall 922.2 Active Problem Lump or mass in breast 611.72 Activ e Problem Screening examination for venereal disease V74.5 Active Problem Hypertension 401.9 Active Problem Unspecified breast screening V76.10 Active Problem Unspecified otitis media 382.9 Act josefa Problem Screening for malignant neoplasm of the cervix V76.2 Active Problem Unspecified otalgia 388.70 Active Assessment Upper respiratory infection J06.9 Active Problem Unspecified cardiac dysrhythmia 427.9 Active Problem Depressive disorder, not elsewhere classified 311 Active Problem Unspecified iron deficiency anemia 280.9 Active Problem Unspecified conjunctivitis 372.30 A ctive Problem Unspecified vitamin D deficiency 268.9 Active Problem Urgency of urination 788.63 Active Medications Medication Code System Code Instructions Start Date End Date Status Dosage Metformin HCl [facility] [address]-39 500 MG Orally Twice a day October 09 15 1 tablet with meals Ferrous Sulfate [facility] [address]-64 325 (65 Fe) MG Orally Tw ice a day November 10, 2014 1 tablet Atenolol [facility] [address]-12 50 mg August 09, 2014 ta ke 1 tablet by Oral route 1 time per day Zyrtec Allergy [facility] [address]-48 10 MG Orally Once a day 1 tablet as needed PredniSONE [facility] [address]-15 20 MG Orally Once a day Nov , 5 Apr 30, 2015 1 tablet with food or milk Procedures Procedure Coding System Code Date Office Visit, Est Pt., Level 3 CPT-4 59127 N ov 2014 Vital Signs Date/Time: Apr 25, 2015 Temperature 98.8 F Weight 238.0 lbs Height 67 in BMI 37.27 Index Blood Pressure Diastolic 88 mmHg Blood Pressure Systolic 142 mmHg Cardiac Monitoring Heart Rate 78 bpm Results No Known Results Summary Purpose [employer] Submission
--- OUTSIDE RECORDS SUMMARY | 2020-01-06 11:57 | XMS REPORT ---
Author Author Anusha GUERRERO Organization [employer] Address Unknown Phone Unavailable Care Team Providers Care Music Producer Name Role Phone TERESA GUERRERO CP Unavailable Allergies, Adverse Reactions, Alerts Substance [...] Active Problem Unspecified otalgia 388.70 Active Assessment Bronchitis J40 Active Problem Unspecified cardiac dysrhythmia 427.9 Active Problem Depressive disorder, not elsewhere classified 311 Active Problem Unspecified iron deficiency anemia 280.9 Active Problem Unspecified conjunctivitis 372.30 A ctive Problem Unspecified vitamin D deficiency 268.9 Active Problem Urgency of urination 788.63 Active Medications Medication Code System Code Instructions Start Date End Date Status Dosage Atenolol [facility] [address]-07 50 mg August 09, 2014 ta ke 1 tablet by Oral route 1 time per day Metformin HCl [facility] [address]-39 500 MG Orally Twice a day October 09 15 1 tablet with meals Ferrous Sulfate [facility] [address]-67 325 (65 Fe) MG Orally Tw ice a day November 10, 2014 1 tablet Cough & Cold [facility] [address]-09 4-30 MG Orally every 6 hrs 1 tablet as needed Zithromax Z-Helio [facility] [address]-12 250 MG Orally Once a day May 14, 2015 May 19, 2015 2 tablets on the first day, then 1 tablet daily for 4 days Zyrtec Allergy [facility] [address]-17 10 MG Orally Once a day 1 tablet as needed Promethazine-Codeine [facility] [address]-65 6.25-10 MG/ 5ML Orally every 6 hrs prn cough May 14, 2015 5 ml as needed Procedures Procedure Coding System Code Date Office Visit, Est Pt., Level 3 CPT-4 31706 D 2014 Vital Signs Date/Time: May 14, 2015 Temperature 98.0 F Weight 235.7 lbs Height 67 in BMI 36.91 Index Blood Pressure Diastolic 92 mmHg Blood Pressure Systolic 134 mmHg Cardiac Monitoring Heart Rate 88 bpm Results No Known Results Summary Purpose [employer] Submission
--- OUTSIDE RECORDS SUMMARY | 2020-01-06 11:57 | XMS REPORT ---
Author Author Anusha MUNOZ Organization [employer] Address Unknown Phone Unavailable Care Team Providers Care Floral Clerk Name Role Phone ELINA MUNOZ CP Unavailable Allergies No Known Allergies Problems Problem Type Condition Code Onset Dates [...] V76.2 Active Problem Unspecified otalgia 388.70 Active Problem Unspecified cardiac dysrhythmia 427.9 Active Problem Depressive disorder, not elsewhere classified 311 Active Problem Unspecified iron deficiency anemia 280.9 Active Problem Unspecified conjunctivitis 372.30 A ctive Problem Unspecified vitamin D deficiency 268.9 Active Problem Urgency of urination 788.63 Active Medications Medication Code System Code Instructions Start Date End Date Status Dosage Atenolol [facility] [place] 2] [address]-64 50 MG MUST HAVE APPT FOR F URTHER REFILLS August 09, 2014 take 1 tablet by Ora l route 1 time per day Results No Known Results Summary Purpose [employer] Submission
--- OUTSIDE RECORDS SUMMARY | 2020-01-06 11:57 | XMS REPORT ---
Author Author Anusha MUNOZ Organization [facility] Address [address] [place] [address] Care Team Providers Care Cellar Supervisor Name Role Phone ELINA MUNOZ Unavailable PROBLEMS Type Condition ICD9-CM Code MNE22-ED Code Onset Dates Condition S tatus SNOMED Code Problem Unspecified infective otitis externa 380.10 Active 71076942 Problem Depressive disorder, not elsewhere classified 311 Active 28529708 Problem Unspecified conjunctivitis 372.30 Act josefa 0018486 Problem Polyneuropathy G62.9 Active 83355 000 Problem Essential (primary) hypertension I10 Active 35316881 Problem Unspecified vitamin D deficiency 268.9 Active 67099115 Problem Unspecified iron deficiency anemia 280.9 Active 50789909 Problem Hypertension, benign I10 Active 23447615 Problem Hypertension 401.9 Active 1430977 3 Problem Screening examination for venereal disease V74.5 Active 315606621 Problem Contusion of abdominal wall 922.2 Ac tive 00037476 Problem Screening for malignant neoplasm of the cervix V76.2 Active 272226218 Problem Unspecified breast screening V76.10 A ctive 585724222 Problem Lump or mass in breast 611.72 Active 10561623 Problem Unspecified cardiac dysrhythmia 427.9 Active 405078080 Problem Urgency of urination 788.63 Active 96455443 Problem Unspecified otitis media 382.9 Activ e 81235519 Problem Unspecified urinary incontinence 788.30 Active 025681850 Problem Unspecified otalgia 388.70 Active 85360026 ALLERGIES No Information ENCOUNTERS Encounter Location Date Diagnosis [facility] [address] [facility] [id number] [address] [place] [address] Apr, [facility] [address] [facility] [id number] [address] [place] [address] Dec, Polyneuropathy G62.9 [facility] [address] [facility] [id number] [address] [place] [address] Nov, Hyperglycemia R73.9 [facility] [address] [facility] [id number] [address] [place] [address] Nov, Family history of diabetes m enzoitus Z83.3 and Hyperglycemia R73.9 [facility] [address] [facility] [id number] [address] [place] [address] Nov, Family history of diabetes m enzoitus Z83.3 and Hyperglycemia R73.9 [facility] [address] [facility] [id number] [address] [place] [address] Nov, Neuropathy of both feet G57. 93 and Hypertension, benign I10 [place] [address] [place] [id number] [address] [place] [address] Nov, Essential (primary) hyperten elda I10 [place] [id number] [place] [address] September, Acute non-recurrent frontal sinusitis J01.10 [facility] [address] [facility] [id number] [address] [place] [address] Jul, Tooth abscess K04.7 [place] [address] [place] [id number] [address] [place] [address] Jan, [place] [address] [place] [id number] [address] [place] [address] Dec, Hearing loss, bilateral H91. 93 [place] [address] [place] [id number] [address] [place] [address] Nov, Retraction of tympanic membr ane of both ears H73.823 [place] [address] [place] [id number] [address] [place] [address] May, [place] [address] [place] [id number] [address] [place] [address] May, Bronchitis J40 [place] [address] [place] [id number] [address] [place] [address] Apr, Upper respiratory infection J06.9 [facility] [address] [place] [id number] [address] [place] [address] Nov, Unspecified iron deficiency anemia 280.9 [facility] [address] [place] [id number] [address] [place] [address] 12 Oct, 2014 Anemia 285.9 [facility] [address] [place] [id number] [address] [place] [address] September, Unspecified urinary incontin ence 788.30 ; Family history of diabetes mellitus in father V18.0 ; Glucose found in urine on examination 791.5 ; Urinary frequency 788.41 and Hypertension 401.9 [facility] [address] [place] [id number] [address] [place] [address] 11 Sep, 2014 Unspecified urinary incontin ence 788.30 ; Family history of diabetes mellitus in father V18.0 ; Glucose found in urine on examination 791.5 ; Urinary frequency 788.41 and Hypertension 401.9 [facility] [address] [place] [id number] [address] [place] [address] Aug, [facility] [address] [place] [id number] [address] [place] [address] Aug, [facility] [address] [place] [id number] [address] [place] [address] Jul, [facility] [address] [place] [id number] [address] [place] [address] Jul, [facility] [address] [place] [id number] [address] [place] [address] Jun, [facility] [address] [place] [id number] [address] [place] [address] Jun, [facility] [address] [place] [id number] [address] [place] [address] Jun, [facility] [address] [place] [id number] [address] [place] [address] Jun, [facility] [address] [id number] [address] [place] [address], [place] [address] May, [facility] [address] [id number] [address] [place] [address], [place] [address] May, [facility] [address] [id number] [address] [place] [address], [place] [address] Oct, [facility] [address] [id number] [address] [place] [address], [place] [address] Oct, [facility] [address] [id number] [address] [place] [address], [place] [address] May, [facility] [address] [id number] [address] [place] [address], [place] [address] May, [facility] [address] [id number] [address] [place] [address], [place] [address] May, [facility] [address] [id number] [address] [place] [address], [place] [address] May, [facility] [address] [id number] [address] [place] [address], [place] [address] Apr, [facility] [address] [id number] [address] [place] [address], [place] [address] Apr, [facility] [address] [id number] [address] [place] [address], [place] [address] Apr, [facility] [address] [id number] [address] [place] [address], [place] [address] Apr, [facility] [address] [id number] [address] [place] [address], [place] [address] Apr, [facility] [address] [id number] [address] [place] [address], [place] [address] Apr, [facility] [address] [id number] [address] [place] [address], [place] [address] Apr, [facility] [address] [id number] [address] [place] [address] [address] Apr, [facility] [address] [id number] [address] [place] [address], [place] [address] Dec, [facility] [address] [id number] [address] [place] [address], [place] [address] Nov, [facility] [address] [id number] [address] [place] [address], [place] [address] Jul, [facility] [address] [id number] [address] [place] [address], [place] [address] May, [facility] [address] [id number] [address] [place] [address], [place] [address] 19 May, 2012 [facility] [address] [id number] [address] [place] [address], [place] [address] May, [facility] [address] [id number] [address] [place] [address], [place] [address] May, [facility] [address] [id number] [address] [place] [address], [place] [address] Apr, [facility] [address] [id number] [address] [place] [address], [place] [address] 14 Apr, 2012 [facility] [address] [id number] [address] [place] [address], [place] [address] 16 Mar, 2012 [facility] [address] [id number] [address] [place] [address], [place] [address] 16 Mar, 2012 [facility] [address] [id number] [address] [place] [address] Mar, [facility] [address] [id number] [address] [place] [address], [place] [address] 08 Mar, 2012 [facility] [address] [id number] [address] [place] [address], [place] [address] Mar, [facility] [address] [id number] [address] [place] [address], [place] [address] 27 Jan, 2012 [facility] [address] [id number] [address] [place] [address], [place] [address] 26 Jan, 2012 [facility] [address] [id number] [address] [place] [address], [place] [address] 25 Jan, 2012 [facility] [address] [id number] [address] [place] [address], [place] [address] 21 Jan, 2012 [facility] [address] [id number] [address] [place] [address], [place] [address] 30 Oct, 2011 [facility] [address] [id number] [address] [place] [address], [place] [address] 18 Oct, 2011 [facility] [address] [id number] [address] [place] [address], [place] [address] 29 Sep, 2011 [facility] [address] [id number] [address] [place] [address], [place] [address] 30 Aug, 2011 [facility] [address] [id number] [address] [place] [address], [place] [address] 24 Aug, 2011 [facility] [address] [id number] [address] [place] [address], [place] [address] 13 Aug, 2011 [facility] [address] [id number] [address] [place] [address], [place] [address] 22 Jul, 2011 [facility] [address] [id number] [address] [place] [address], [place] [id number] 19 Jul, 2011 [facility] [address] [id number] [address] [place] [address], [place] [address] 13 Jul, 2011 [facility] [address] [id number] [address] [place] [address], [place] [address] 12 Jul, 2011 [facility] [address] [id number] [address] [place] [address], [place] [id number] 07 Jul, 2011 [facility] [address] [id number] [address] [place] [address], [place] [address] 06 Jul, 2011 [facility] [address] [id number] [address] [place] [address], [place] [address] Jul, [facility] [address] [id number] [address] [place] [address] 20 Jul, 2011 [facility] [address] [id number] [address] [place] [address] 14 Jul, 2011 [facility] [address] [id number] [address] [place] [address] Jul, [facility] [address] [id number] [address] [place] [address] Jul, [facility] [address] [id number] [address] [place] [address], [place] [address] Jul, [facility] [address] [id number] [address] [place] [address] Jul, [facility] [address] [id number] [address] [place] [address] May, [facility] [address] [id number] [address] [place] [address] Oct, [facility] [address] [id number] [address] [place] [address] Jun, [facility] [address] [id number] [address] [place] [address] May, [facility] [address] [id number] [address] [place] [address] May, [facility] [address] [id number] [address] [place] [address] Apr, [facility] [address] [id number] [address] [place] [address] Mar, [facility] [address] [id number] [address] [place] [address] Mar, [facility] [address] [id number] [address] [place] [address] Mar, IMMUNIZATIONS No Known Immunizations SOCIAL HISTORY Never Assessed REASON FOR VISIT Requesting A1C results PLAN OF CARE VITAL SIGNS MEDICATIONS Medication Instructions Dosage Frequency Start Date End Date Duration S juan jose Metformin HCl 1000 MG Orally Twice a day 1 tablet with meals 12h Nov, 30 day(s) Active RESULTS No Results PROCEDURES [...]
--- OUTSIDE RECORDS SUMMARY | 2020-01-06 11:57 | XMS REPORT ---
Author Author Anusha MUNOZ Organization [facility] Address [address] [place] [address] Care Team Providers Care Top Lift Nailer Name Role Phone ELINA MUNOZ Unavailable PROBLEMS Type Condition ICD9-CM Code YFL85-ES Code Onset Dates Condition S tatus SNOMED Code Problem Unspecified infective otitis externa 380.10 Active 61696387 Problem Depressive disorder, not elsewhere classified 311 Active 18122667 Problem Unspecified conjunctivitis 372.30 Act josefa 4112490 Problem Polyneuropathy G62.9 Active 60200 000 Problem Essential (primary) hypertension I10 Active 07072516 Problem Unspecified vitamin D deficiency 268.9 Active 07656867 Problem Unspecified iron deficiency anemia 280.9 Active 23818612 Problem Hypertension, benign I10 Active 45257841 Problem Hypertension 401.9 Active 6922691 3 Problem Screening examination for venereal disease V74.5 Active 057814602 Problem Contusion of abdominal wall 922.2 Ac tive 35858090 Problem Screening for malignant neoplasm of the cervix V76.2 Active 030275822 Problem Unspecified breast screening V76.10 A ctive 763441290 Problem Lump or mass in breast 611.72 Active 42883377 Problem Unspecified cardiac dysrhythmia 427.9 Active 917951609 Problem Urgency of urination 788.63 Active 47124760 Problem Unspecified otitis media 382.9 Activ e 92091943 Problem Unspecified urinary incontinence 788.30 Active 434313097 Problem Unspecified otalgia 388.70 Active [id number] ALLERGIES No Information ENCOUNTERS Encounter Location Date Diagnosis [facility] [address] [facility] [id number] [address] [place] [id number] Apr, [facility] [address] [facility] [id number] [address] [place] [phone] Dec, Polyneuropathy G62.9 [facility] [address] [facility] [id number] [address] [place] [address] Nov, Hyperglycemia R73.9 [facility] [address] [facility] [id number] [address] [place] [address] Nov, Family history of diabetes m enzoitus Z83.3 and Hyperglycemia R73.9 [facility] [address] [facility] [id number] [address] [place] [address] Nov, Family history of diabetes m enzoitus Z83.3 and Hyperglycemia R73.9 [place] [address] [facility] [id number] [address] [place] [address] Nov, Neuropathy of both feet G57. 93 and Hypertension, benign I10 [place] [address] [place] [id number] [address] [place] [address] Nov, Essential (primary) hyperten elda I10 [place] [id number] [place] [address] September, Acute non-recurrent frontal sinusitis J01.10 [facility] [address] [facility] [id number] [address] [place] [address] Jul, Tooth abscess K04.7 [place] [address] [place] [id number] [address] [place] [address] Jan, [place] [address] [place] [id number] [address] [place] [address] Dec, Hearing loss, bilateral H91. 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 [place] [address] [place] [id number] [address] [place] [address] May, [place] [address] [place] [id number] [address] [place] [address] May, Bronchitis J40 [place] [address] [place] [id number] [address] [place] [address] Apr, Upper respiratory infection J06.9 [facility] [address] [place] [id number] [address] [place] [address] Nov, Unspecified iron deficiency anemia 280.9 [facility] [address] [place] [id number] [address] [place] [address] 12 Oct, 2014 Anemia 285.9 [facility] [address] [place] [id number] [address] [place] [address] September, Unspecified urinary incontin ence 788.30 ; Family history of diabetes mellitus in father V18.0 ; Glucose found in urine on examination 791.5 ; Urinary frequency 788.41 and Hypertension 401.9 [facility] [address] [place] [id number] [address] [place] [address] 11 Sep, 2014 Unspecified urinary incontin ence 788.30 ; Family history of diabetes mellitus in father V18.0 ; Glucose found in urine on examination 791.5 ; Urinary frequency 788.41 and Hypertension 401.9 [facility] [address] [place] [id number] [address] [place] [address] Aug, [facility] [address] [place] [id number] [address] [place] [address] Aug, [facility] [address] [place] [id number] [address] [place] [address] Jul, [facility] [address] [place] [id number] [address] [place] [address] Jul, [facility] [address] [place] [id number] [address] [place] [address] Jun, [facility] [address] [place] [id number] [address] [place] [address] Jun, [facility] [address] [place] [id number] [address] [place] [phone] Jun, [facility] [address] [place] [id number] [address] [place] [phone] Jun, [facility] [address] [id number] [address] [place] [address], [place] [address] May, [facility] [address] [id number] [address] [place] [address], [place] [address] May, [facility] [address] [id number] [address] [place] [address], [place] [address] Oct, [facility] [address] [id number] [address] [place] [address], [place] [address] Oct, [facility] [address] [id number] [address] [place] [address], [place] [address] May, [facility] [address] [id number] [address] [place] [address], [place] [address] May, [facility] [address] [id number] [address] [place] [address], [place] [address] May, [facility] [address] [id number] [address] [place] [address], [place] [address] May, [facility] [address] [id number] [address] [place] [address], [place] [address] Apr, [facility] [address] [id number] [address] [place] [address], [place] [address] Apr, [facility] [address] [id number] [address] [place] [address], [place] [address] Apr, [facility] [address] [id number] [address] [place] [address], [place] [address] Apr, [facility] [address] [id number] [address] [place] [address], [place] [address] Apr, [facility] [address] [id number] [address] [place] [address], [place] [address] Apr, [facility] [address] [id number] [address] [place] [address], [place] [address] Apr, [facility] [address] [id number] [address] [place] [address] [address] Apr, [facility] [address] [id number] [address] [place] [address], [place] [address] Dec, [facility] [address] [id number] [address] [place] [address], [place] [address] Nov, [facility] [address] [id number] [address] [place] [address], [place] [address] Jul, [facility] [address] [id number] [address] [place] [address], [place] [address] May, [facility] [address] [id number] [address] [place] [address], [place] [address] 19 May, 2012 [facility] [address] [id number] [address] [place] [address], [place] [address] May, [facility] [address] [id number] [address] [place] [address], [place] [address] May, [facility] [address] [id number] [address] [place] [address], [place] [address] Apr, [facility] [address] [id number] [address] [place] [address], [place] [address] 14 Apr, 2012 [facility] [address] [id number] [address] [place] [address], [place] [address] 16 Mar, 2012 [facility] [address] [id number] [address] [place] [address], [place] [address] 16 Mar, 2012 [facility] [address] [id number] [address] [place] [address] Mar, [facility] [address] [id number] [address] [place] [address], [place] [address] 08 Mar, 2012 [facility] [address] [id number] [address] [place] [address], [place] [address] Mar, [facility] [address] [id number] [address] [place] [address], [place] [address] 27 Jan, 2012 [facility] [address] [id number] [address] [place] [address], [place] [address] 26 Jan, 2012 [facility] [address] [id number] [address] [place] [address], [place] [address] 25 Jan, 2012 [facility] [address] [id number] [address] [place] [address], [place] [address] 21 Jan, 2012 [facility] [address] [id number] [address] [place] [address], [place] [address] 30 Oct, 2011 [facility] [address] [id number] [address] [place] [address], [place] [address] 18 Oct, 2011 [facility] [address] [id number] [address] [place] [address], [place] [address] 29 Sep, 2011 [facility] [address] [id number] [address] [place] [address], [place] [address] 30 Aug, 2011 [facility] [address] [id number] [address] [place] [address], [place] [address] 24 Aug, 2011 [facility] [address] [id number] [address] [place] [address], [place] [address] 13 Aug, 2011 [facility] [address] [id number] [address] [place] [address], [place] [address] 22 Jul, 2011 [facility] [address] [id number] [address] [place] [address], [place] [address] 19 Jul, 2011 [facility] [address] [id number] [address] [place] [address], [place] [address] 13 Jul, 2011 [facility] [address] [id number] [address] [place] [address], [place] [address] 12 Jul, 2011 [facility] [address] [id number] [address] [place] [address], [place] [address] 07 Jul, 2011 [facility] [address] [id number] [address] [place] [address], [place] [address] 06 Jul, 2011 [facility] [address] [id number] [address] [place] [address], [place] [address] Jul, [facility] [address] [id number] [address] [place] [address] 20 Jul, 2011 [facility] [address] [id number] [address] [place] [address] 14 Jul, 2011 [facility] [address] [id number] [address] [place] [address] Jul, [facility] [address] [id number] [address] [place] [address] Jul, [facility] [address] [id number] [address] [place] [address], [place] [address] Jul, [facility] [address] [id number] [address] [place] [address] Jul, [facility] [address] [id number] [address] [place] [address] May, [facility] [address] [id number] [address] [place] [address] Oct, [facility] [address] [id number] [address] [place] [address] Jun, [facility] [address] [id number] [address] [place] [address] May, [facility] [address] [id number] [address] [place] [address] May, [facility] [address] [id number] [address] [place] [address] Apr, [facility] [address] [id number] [address] [place] [address] Mar, [facility] [address] [id number] [address] [place] [address] Mar, [facility] [address] [id number] [address] [place] [address] Mar, IMMUNIZATIONS No Known Immunizations SOCIAL HISTORY Never Assessed REASON FOR VISIT Lab (walk-in) PLAN OF CARE VITAL SIGNS MEDICATIONS Unknown Medications RESULTS No Results PROCEDURES Procedure Date Ordered Result Body Site GLYCATED HEMOGLOBIN TEST December 22, 2016 INSTRUCTIONS MEDICATIONS ADMINISTERED No Known Medications MEDICAL (GENERAL) HISTORY Type Description Date Medical History Hypertension Medical History borderline Type II diabetes Surgical History Tonsillectomy Surgical History Tubal ligation 2004 Surgical History Otolaryngologic surgery tubes in ears Hospitalization History Child 3 para 3 with 3 full term vaginal delivery (s)
--- OUTSIDE RECORDS SUMMARY | 2020-01-06 11:57 | XMS REPORT ---
Author Author Anusha MUNOZ Organization [facility] Address [address] [place] [address] Care Team Providers Care Steel Erector Apprentice Name Role Phone ELINA MUNOZ Unavailable PROBLEMS Type Condition ICD9-CM Code HZE76-MB Code Onset Dates Condition S tatus SNOMED Code Problem Unspecified infective otitis externa 380.10 Active 49735179 Problem Depressive disorder, not elsewhere classified 311 Active 54338071 Problem Unspecified conjunctivitis 372.30 Act josefa 1018949 Problem Polyneuropathy G62.9 Active 33209 000 Problem Essential (primary) hypertension I10 Active 83680214 Problem Unspecified vitamin D deficiency 268.9 Active 34520880 Problem Unspecified iron deficiency anemia 280.9 Active 63475387 Problem Hypertension, benign I10 Active 88391679 Problem Hypertension 401.9 Active 5405766 3 Problem Screening examination for venereal disease V74.5 Active 240782330 Problem Contusion of abdominal wall 922.2 Ac tive 70762928 Problem Screening for malignant neoplasm of the cervix V76.2 Active 270598534 Problem Unspecified breast screening V76.10 A ctive 068136360 Problem Lump or mass in breast 611.72 Active 38557813 Problem Unspecified cardiac dysrhythmia 427.9 Active 242039636 Problem Urgency of urination 788.63 Active 88607008 Problem Unspecified otitis media 382.9 Activ e 56268424 Problem Unspecified urinary incontinence 788.30 Active 322205323 Problem Unspecified otalgia 388.70 Active 05723369 ALLERGIES No Information ENCOUNTERS Encounter Location Date Diagnosis [facility] [address] [facility] [id number] [address] [place] [id number] Apr, [facility] [address] [facility] [id number] [address] [place] [address] Dec, Polyneuropathy G62.9 [facility] [address] [facility] [id number] [address] [place] [address] Nov, Hyperglycemia R73.9 [facility] [address] [facility] [id number] [address] [place] [address] Nov, Family history of diabetes m enzoitus Z83.3 and Hyperglycemia R73.9 [facility] [address] [facility] [id number] [address] [place] [address] Nov, Family history of diabetes m enzoitus Z83.3 and Hyperglycemia R73.9 [place] [address] [facility] [id number] [address] [place] [address] Nov, Neuropathy of both feet G57. 93 and Hypertension, benign I10 [place] [address] [place] [id number] [address] [place] [address] Nov, Essential (primary) hyperten elda I10 [place] [id number] [place] [phone] September, Acute non-recurrent frontal sinusitis J01.10 [facility] [address] [facility] [id number] [address] [place] [address] Jul, Tooth abscess K04.7 [place] [address] [place] [id number] [address] [place] [address] Jan, [place] [address] [place] [id number] [address] [place] [address] Dec, Hearing loss, bilateral H91. 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 [place] [address] [place] [id number] [address] [place] [address] May, [place] [address] [place] [id number] [address] [place] [address] May, Bronchitis J40 [place] [address] [place] [id number] [address] [place] [address] Apr, Upper respiratory infection J06.9 [facility] [address] [place] [id number] [address] [place] [address] Nov, Unspecified iron deficiency anemia 280.9 [facility] [address] [place] [id number] [address] [place] [id number] 12 Oct, 2014 Anemia 285.9 [facility] [address] [place] [id number] [address] [place] [address] September, Unspecified urinary incontin ence 788.30 ; Family history of diabetes mellitus in father V18.0 ; Glucose found in urine on examination 791.5 ; Urinary frequency 788.41 and Hypertension 401.9 [facility] [address] [place] [id number] [address] [place] [phone] 11 Sep, 2014 Unspecified urinary incontin ence 788.30 ; Family history of diabetes mellitus in father V18.0 ; Glucose found in urine on examination 791.5 ; Urinary frequency 788.41 and Hypertension 401.9 [facility] [address] [place] [id number] [address] [place] [address] Aug, [facility] [address] [place] [id number] [address] [place] [phone] Aug, [facility] [address] [place] [id number] [address] [place] [address] Jul, [facility] [address] [place] [id number] [address] [place] [address] Jul, [facility] [address] [place] [id number] [address] [place] [phone] Jun, [facility] [address] [place] [id number] [address] [place] [phone] Jun, [facility] [address] [place] [id number] [address] [place] [phone] Jun, [facility] [address] [place] [id number] [address] [place] [phone] Jun, [facility] [address] [id number] [address] [place] [address], [place] [address] May, [facility] [address] [id number] [address] [place] [address], [place] [address] May, [facility] [address] [id number] [address] [place] [address], [place] [address] Oct, [facility] [address] [id number] [address] [place] [address], [place] [address] Oct, [facility] [address] [id number] [address] [place] [address], [place] [address] May, [facility] [address] [id number] [address] [place] [address], [place] [address] May, [facility] [address] [id number] [address] [place] [address], [place] [address] May, [facility] [address] [id number] [address] [place] [address], [place] [address] May, [facility] [address] [id number] [address] [place] [address], [place] [address] Apr, [facility] [address] [id number] [address] [place] [address], [place] [address] Apr, [facility] [address] [id number] [address] [place] [address], [place] [address] Apr, [facility] [address] [id number] [address] [place] [address], [place] [address] Apr, [facility] [address] [id number] [address] [place] [address], [place] [address] Apr, [facility] [address] [id number] [address] [place] [address], [place] [address] Apr, [facility] [address] [id number] [address] [place] [address], [place] [address] Apr, [facility] [address] [id number] [address] [place] [address] [address] Apr, [facility] [address] [id number] [address] [place] [address], [place] [address] Dec, [facility] [address] [id number] [address] [place] [address], [place] [address] Nov, [facility] [address] [id number] [address] [place] [address], [place] [address] Jul, [facility] [address] [id number] [address] [place] [address], [place] [address] May, [facility] [address] [id number] [address] [place] [address], [place] [address] 19 May, 2012 [facility] [address] [id number] [address] [place] [address], [place] [address] May, [facility] [address] [id number] [address] [place] [address], [place] [address] May, [facility] [address] [id number] [address] [place] [address], [place] [address] Apr, [facility] [address] [id number] [address] [place] [address], [place] [address] 14 Apr, 2012 [facility] [address] [id number] [address] [place] [address], [place] [address] 16 Mar, 2012 [facility] [address] [id number] [address] [place] [address], [place] [address] 16 Mar, 2012 [facility] [address] [id number] [address] [place] [address] Mar, [facility] [address] [id number] [address] [place] [address], [place] [address] 08 Mar, 2012 [facility] [address] [id number] [address] [place] [address], [place] [address] Mar, [facility] [address] [id number] [address] [place] [address], [place] [address] 27 Jan, 2012 [facility] [address] [id number] [address] [place] [address], [place] [address] 26 Jan, 2012 [facility] [address] [id number] [address] [place] [address], [place] [address] 25 Jan, 2012 [facility] [address] [id number] [address] [place] [address], [place] [address] 21 Jan, 2012 [facility] [address] [id number] [address] [place] [address], [place] [address] 30 Oct, 2011 [facility] [address] [id number] [address] [place] [address], [place] [address] 18 Oct, 2011 [facility] [address] [id number] [address] [place] [address], [place] [address] 29 Sep, 2011 [facility] [address] [id number] [address] [place] [address], [place] [address] 30 Aug, 2011 [facility] [address] [id number] [address] [place] [address], [place] [address] 24 Aug, 2011 [facility] [address] [id number] [address] [place] [address], [place] [address] 13 Aug, 2011 [facility] [address] [id number] [address] [place] [address], [place] [address] 22 Jul, 2011 [facility] [address] [id number] [address] [place] [address], [place] [address] 19 Jul, 2011 [facility] [address] [id number] [address] [place] [address], [place] [address] 13 Jul, 2011 [facility] [address] [id number] [address] [place] [address], [place] [address] 12 Jul, 2011 [facility] [address] [id number] [address] [place] [address], [place] [address] 07 Jul, 2011 [facility] [address] [id number] [address] [place] [address], [place] [address] 06 Jul, 2011 [facility] [address] [id number] [address] [place] [address], [place] [address] Jul, [facility] [address] [id number] [address] [place] [address] 20 Jul, 2011 [facility] [address] [id number] [address] [place] [address] 14 Jul, 2011 [facility] [address] [id number] [address] [place] [address] Jul, [facility] [address] [id number] [address] [place] [address] Jul, [facility] [address] [id number] [address] [place] [address], [place] [address] Jul, [facility] [address] [id number] [address] [place] [address] Jul, [facility] [address] [id number] [address] [place] [address] May, [facility] [address] [id number] [address] [place] [address] Oct, [facility] [address] [id number] [address] [place] [address] Jun, [facility] [address] [id number] [address] [place] [address] May, [facility] [address] [id number] [address] [place] [address] May, [facility] [address] [id number] [address] [place] [address] Apr, [facility] [address] [id number] [address] [place] [address] Mar, [facility] [address] [id number] [address] [place] [address] Mar, [facility] [address] [id number] [address] [place] [address] Mar, IMMUNIZATIONS No Known Immunizations SOCIAL HISTORY Never Assessed REASON FOR VISIT Requests return call PLAN OF CARE VITAL SIGNS MEDICATIONS Medication Instructions Dosage Frequency Start Date End Date Duration S juan jose Metformin HCl 500 mg Orally Twice a day 1 tablet with [...]
--- OUTSIDE RECORDS SUMMARY | 2020-01-06 11:57 | XMS REPORT ---
Author Author Anusha MUNOZ Organization [employer] Address Unknown Phone Unavailable Care Team Providers Care Maintenance Journeyman Name Role Phone ELINA MUNOZ CP Unavailable Allergies, Adverse Reactions, Alerts Substance [...] Active Problem Unspecified otalgia 388.70 Active Assessment Retraction of tympanic membrane of both ears H73.823 Active Problem Unspecified cardiac dysrhythmia 427.9 Active Problem Depressive disorder, not elsewhere classified 311 Active Problem Unspecified iron deficiency anemia 280.9 Active Problem Unspecified conjunctivitis 372.30 A ctive Problem Unspecified vitamin D deficiency 268.9 Active Problem Urgency of urination 788.63 Active Medications Medication Code System Code Instructions Start Date End Date Status Dosage Atenolol [facility] [address]-03 50 MG MUST HAVE APPT FOR F URTHER REFILLS August 09, 2014 take 1 tablet by Ora l route 1 time per day Zyrtec Allergy [facility] [address]-55 10 MG Orally Once a day 1 [place] [address]-91 20 mg Orally Once a day December 13, 2015 December 18, 2015 2 tablets Procedures Procedure Coding System Code Date Office Visit, Est Pt., Level 3 CPT-4 47215 J [facility] 2015 Vital Signs Date/Time: December 13, 2015 Cardiac Monitoring Heart Rate 88 bpm Weight 238.0 lbs Height 67 in Blood Pressure Diastolic 82 mmHg Blood Pressure Systolic 130 mmHg Results No Known Results Summary Purpose [employer] Submission
--- OUTSIDE RECORDS SUMMARY | 2020-01-06 11:57 | XMS REPORT ---
Author Author Anusha MUNOZ Organization [facility] Address [address] [place] [address] Care Team Providers Care Showplace Manager Name Role Phone ALEXANDER ELINA Unavailable PROBLEMS Type Condition ICD9-CM Code VZT14-ST Code Onset Dates Condition S tatus SNOMED Code Problem Iron deficiency anemia, unspecified D50.9 Active 57220527 Problem Vitamin D deficiency, unspecified E55.9 Active 07916300 Problem Hypertension, benign I10 Active 66836692 Problem Major depressive disorder, single episode, unspecified F32.9 Active 24034846 Problem Polyneuropathy G62.9 Active 01563 000 ALLERGIES No Information ENCOUNTERS Encounter Location Date Diagnosis [place] [address] [address] Oct, Iron deficiency anemia, unsp ecified D50.9 [place] [address] [address] Oct, Iron deficiency anemia, unsp ecified D50.9 [place] [address] [address] Oct, Vitamin D deficiency, unspec ified E55.9 ; Iron deficiency anemia, unspecified D50.9 ; Major depressive disorder, single episode, unspecified F32.9 ; Polyneuropathy G62.9 and Hypertension, benign I10 [place] [address] [address] Oct, Vitamin D deficiency, unspec ified E55.9 ; Iron deficiency anemia, unspecified D50.9 ; Major depressive disorder, single episode, unspecified F32.9 ; Polyneuropathy G62.9 ; Hypertension, benign I10 and Hyperglycemia R73.9 [place] [address] [address] Apr, [facility] [address] [address] Dec, Polyneuropathy G62.9 [place] [address] [place] [id number] [place] [address] Nov, Hyperglycemia R73.9 [place] [address] [address] Nov, Family history of diabetes m ellitus Z83.3 and Hyperglycemia R73.9 [place] [address] [place] [id number] [place] [address] Nov, Family history of diabetes m ellitus Z83.3 and Hyperglycemia R73.9 [place] [address] [place] [address] Nov, Neuropathy of both feet G57. 93 and Hypertension, benign I10 [place] [address] [address] Nov, Essential (primary) hyperten elda I10 [place] [address] [address] September, Acute non-recurrent frontal sinusitis J01.10 [facility] [address] [place] [id number] [place] [address] Jul, Tooth abscess K04.7 [facility] [address] [address] Jan, [place] [address] [address] Dec, Hearing loss, bilateral H91. 93 [place] [address] [address] Nov, Retraction of tympanic membr ane of both ears H73.823 [place] [address] [address] May, [facility] [address] [place] [address] May, Bronchitis J40 [facility] [address] [place] [id number] [place] [address] Apr, Upper respiratory infection J06.9 [facility] [address] [place] [id number] [place] [address] 13 Nov, 2014 Unspecified iron deficiency anemia 280.9 [facility] [address] [place] [id number] [place] [address] 12 Oct, 2014 Anemia 285.9 [place] [address] [address] 13 Sep, 2014 Unspecified urinary incontin ence 788.30 ; Family history of diabetes mellitus in father V18.0 ; Glucose found in urine on examination 791.5 ; Urinary frequency 788.41 and Hypertension 401.9 [facility] [address] [place] [address] 11 Sep, 2014 Unspecified urinary incontin ence 788.30 ; Family history of diabetes mellitus in father V18.0 ; Glucose found in urine on examination 791.5 ; Urinary frequency 788.41 and Hypertension 401.9 [facility] [address] [place] [id number] [place] [address] 14 Aug, 2014 [facility] [address] [place] [id number] [place] [address] Aug, [facility] [address] [place] [id number] [place] [address] Jul, [facility] [address] [place] [address] Jul, [facility] [address] [place] [id number] [place] [address] Jun, [facility] [address] [place] [id number] [place] [address] Jun, [facility] [address] [id number] [address] [place] [address], [place] [address] Jun, [facility] [address] [id number] [address] [place] [address], [place] [address] Jun, [facility] [address] [id number] [address] [place] [address], [place] [address] May, [facility] [address] [id number] [address] [place] [address], [place] [address] May, [facility] [address] [id number] [address] [place] [address], [place] [address] Oct, [facility] [address] [id number] [address] [place] [address], [place] [address] Oct, [facility] [address] [id number] [address] [place] [address], [place] [address] May, [facility] [address] [id number] [address] [place] [address], [place] [address] May, [facility] [address] [id number] [address] [place] [address], [place] [address] May, [facility] [address] [id number] [address] [place] [address], [place] [address] May, [facility] [address] [id number] [address] [place] [address], [place] [address] Apr, [facility] [address] [id number] [address] [place] [address], [place] [address] Apr, [facility] [address] [id number] [address] [place] [address], [place] [address] Apr, [facility] [address] [id number] [address] [place] [address], [place] [address] Apr, [facility] [address] [id number] [address] [place] [address], [place] [address] Apr, [facility] [address] [id number] [address] [place] [address], [place] [address] Apr, [facility] [address] [id number] [address] [place] [address], [place] [address] Apr, [facility] [address] [id number] [address] [place] [address], [place] [address] Apr, [facility] [address] [id number] [address] [place] [address], [place] [address] Dec, [facility] [address] [id number] [address] [place] [address], [place] [address] Nov, [facility] [address] [id number] [address] [place] [address], [place] [address] Jul, [facility] [address] [id number] [address] [place] [address], [place] [address] May, [facility] [address] [id number] [address] [place] [address], [place] [address] May, [facility] [address] [id number] [address] [place] [address], [place] [address] May, [facility] [address] [id number] [address] [place] [address], [place] [address] 17 May, 2012 [facility] [address] [id number] [address] [place] [address], [place] [address] Apr, [facility] [address] [id number] [address] [place] [address], [place] [address] 14 Apr, 2012 [facility] [address] [id number] [address] [place] [address], [place] [address] 16 Mar, 2012 [facility] [address] [id number] [address] [place] [address], [place] [address] 16 Mar, 2012 [facility] [address] [id number] [address] [place] [address], [place] [address] 11 Mar, 2012 [facility] [address] [id number] [address] [place] [address], [place] [address] 08 Mar, 2012 [facility] [address] [id number] [address] [place] [address], [place] [address] 03 Mar, 2012 [facility] [address] [id number] [address] [place] [address], [place] [address] 27 Jan, 2012 [facility] [address] [id number] [address] [place] [address], [place] [address] 26 Jan, 2012 [facility] [address] [id number] [address] [place] [address], [place] [address] 25 Jan, 2012 [facility] [address] [id number] [address] [place] [address], [place] [address] 21 Jan, 2012 [facility] [address] [id number] [address] [place] [address], [place] [address] 30 Oct, 2011 [facility] [address] [id number] [address] [place] [address], [place] [address] 18 Oct, 2011 [facility] [address] [id number] [address] [place] [address], [place] [address] 29 Sep, 2011 [facility] [address] [id number] [address] [place] [address], [place] [address] 30 Aug, 2011 [facility] [address] [id number] [address] [place] [address], [place] [address] 24 Aug, 2011 [facility] [address] [id number] [address] [place] [address], [place] [address] 13 Aug, 2011 [facility] [address] [id number] [address] [place] [address], [place] [address] 22 Jul, 2011 [facility] [address] [id number] [address] [place] [address], [place] [address] 19 Jul, 2011 [facility] [address] [id number] [address] [place] [address], [place] [address] 13 Jul, 2011 [facility] [address] [id number] [address] [place] [address], [place] [address] 12 Jul, 2011 [facility] [address] [id number] [address] [place] [address], [place] [address] 07 Jul, 2011 [facility] [address] [id number] [address] [place] [address], [place] [address] 06 Jul, 2011 [facility] [address] [id number] [address] [place] [address], [place] [address] 02 Jul, 2011 [facility] [address] [id number] [address] [place] [address], [place] [address] 20 Jul, 2011 [facility] [address] [id number] [address] [place] [address], [place] [address] 14 Jul, 2011 [facility] [address] [id number] [address] [place] [address], [place] [address] 13 Jul, 2011 [facility] [address] [id number] [address] [place] [address], [place] [address] 11 Jul, 2011 [facility] [address] [id number] [address] [place] [address], [place] [address] 10 Jul, 2011 [facility] [address] [id number] [address] [place] [address], [place] [address] 10 Jul, 2011 [facility] [address] [id number] [address] [place] [address], [place] [address] May, [facility] [address] [id number] [address] [place] [address], [place] [address] Oct, [facility] [address] [id number] [address] [place] [address], [place] [address] Jun, [facility] [address] [id number] [address] [place] [address], [place] [address] May, [facility] [address] [id number] [address] [place] [address], [place] [address] May, [facility] [address] [id number] [address] [place] [address], [place] [address] Apr, [facility] [address] [id number] [address] [place] [address], [place] [address] Mar, [facility] [address] [id number] [address] [place] [address] 14 Mar, 2009 [facility] [address] [facility] [id number] [address] [place] [address] 14 Mar, 2009 IMMUNIZATIONS No Known Immunizations SOCIAL HISTORY Never Assessed REASON FOR VISIT Lab (walk-in) PLAN OF CARE VITAL SIGNS MEDICATIONS Unknown Medications RESULTS No Results PROCEDURES Procedure Date Ordered Result Body Site LIPID PANEL November 06, 2017 VENIPUNCT, ROUTINE* November 06, 2017 INSTRUCTIONS MEDICATIONS ADMINISTERED No Known Medications MEDICAL (GENERAL) HISTORY Type Description Date Medical History Hypertension Medical History borderline Type II diabetes Surgical History Tonsillectomy Surgical History Tubal ligation 2004 Surgical History Otolaryngologic surgery tubes in ears Hospitalization History Child 3 para 3 with 3 full term vaginal delivery (s)
--- OUTSIDE RECORDS SUMMARY | 2020-01-06 11:57 | XMS REPORT ---
Author Author Anusha MUNOZ [facility] Address [address] [place] [address] Care Team Providers Care Senior Technical Trainer Name Role Phone ELINA MUNOZ Unavailable PROBLEMS Type Condition ICD9-CM Code CGV42-OK Code Onset Dates Condition S tatus SNOMED Code Problem Contusion of abdominal wall 922.2 Ac tive 66893910 Problem Unspecified otitis media 382.9 Activ e 91145405 Problem Unspecified infective otitis externa 380.10 Active 32923963 Problem Hypertension 401.9 Active 3022506 3 Problem Lump or mass in breast 611.72 Active 20477641 Problem Unspecified otalgia 388.70 Active 51283423 Problem Unspecified breast screening V76.10 A ctive 464514153 Problem Screening examination for venereal disease V74.5 Active 125701593 Problem Screening for malignant neoplasm of the cervix V76.2 Active 455585137 Assessment Hearing loss, bilateral H91.93 Dec, Ac tive 13549689 Problem Unspecified iron deficiency anemia 280.9 Active 99491291 Problem Depressive disorder, not elsewhere classified 311 Active 33234858 Problem Unspecified conjunctivitis 372.30 Act josefa 7067365 Problem Unspecified vitamin D deficiency 268.9 Active 19864877 Problem Urgency of urination 788.63 Active 59187786 Problem Unspecified cardiac dysrhythmia 427.9 Active 439545599 Problem Unspecified urinary incontinence 788.30 Active 815613148 ALLERGIES Substance Reaction Event Type Date Status N.K.D.A. Unknown Non Drug Allergy Dec, Unknown SOCIAL HISTORY No smoking Hx information available PLAN OF CARE VITAL SIGNS Height 67 in 2016-01-07 Weight 240.2 lbs 2016-01-07 Heart Rate 84 bpm 2016-01-07 Respiratory Rate 18 2016-01-07 BMI 37.62 kg/m2 2016-01-07 Blood pressure systolic 146 mmHg 2016-01-07 Blood pressure diastolic 90 mmHg 2016-01-07 MEDICATIONS Medication Instructions Dosage Frequency Start Date End Date Duration S tatus Zyrtec Allergy 10 MG Orally Once a day 1 tablet as needed 24h Active Atenolol 50 mg 1 tablet 24h Jul, Act josefa RESULTS No Results PROCEDURES Procedure Date Ordered Related Diagnosis Body Site Office Visit, Est Pt., Level 3 Jan 07, 2016 IMMUNIZATIONS No Known Immunizations
--- OUTSIDE RECORDS SUMMARY | 2020-01-06 11:58 | XMS REPORT | Continuity of Care Document ---
Author Organization Unknown Address Unknown Phone Unavailable Allergies Active Description Code Type Severity Reaction Onset Reported/Identified Relationship to Patient Clinical Status Yes No Known Drug Allergies [id number] Drug Allergy Unknown N/A 12/30/2019 Medications There is no data. Problems Date Dx Coded Attending Type Code Diagnosis Diagnosed By 01/26/2009 296.90 MOO D DISORDER 01/26/2009 401.1 HYPE RTENSION, BENIGN ESSENTIAL 01/26/2009 296.90 MOO D DISORDER 01/26/2009 401.1 HYPE RTENSION, BENIGN ESSENTIAL 01/26/2009 296.90 MOO D DISORDER 01/26/2009 401.1 HYPE RTENSION, BENIGN ESSENTIAL 01/26/2009 MALCOLM POTTER APRN A 296.90 MOOD DISORDER 01/26/2009 MALCOLM POTTER APRN A 40 1.1 HYPERTENSION, BENIGN ESSENTIAL 01/26/2009 ALEXANDER ZAZUETA ELINA T 296.90 MOOD DISORDER 01/26/2009 ALEXANDER ZAZUETA ELINA T 40 1.1 HYPERTENSION, BENIGN ESSENTIAL 01/26/2009 ALEXANDER ZAZUETA ELINA T 296.90 MOOD DISORDER 01/26/2009 ALEXANDER ZAZUETA ELINA T 40 1.1 HYPERTENSION, BENIGN ESSENTIAL 01/26/2009 ALEXANDER ZAZUETA ELINA T 296.90 MOOD DISORDER 01/26/2009 ALEXANDER ZAZUETA ELINA T 40 1.1 HYPERTENSION, BENIGN ESSENTIAL 01/26/2009 MACI ZAZUETA ROC R 296.90 MOOD DISORDER 01/26/2009 MACI ZAZUETA ROC R 401.1 HYPERTENSION, BENIGN ESSENTIAL 01/26/2009 ALEXANDER ZAZUETA ELINA T 296.90 MOOD DISORDER 01/26/2009 ALEXANDER ZAZUETA ELINA T 40 1.1 HYPERTENSION, BENIGN ESSENTIAL 01/26/2009 MATT ZAZUETA LUCILA R 296.90 MOOD DISORDER 01/26/2009 ROZ GUTIERREZ APRNRICIA R 401.1 HYPERTENSION, BENIGN ESSENTIAL 01/26/2009 JAZMINE GUERRERO APRNNDA S 296.90 MOOD DISORDER 01/26/2009 YOLANDA POULTRY INSPECTOR, TERESA S 401.1 HYPERTENSION, BENIGN ESSENTIAL 03/23/2009 701.9 SKIN TAG 03/23/2009 701.9 SKIN TAG 03/23/2009 701.9 SKIN TAG 03/23/2009 MALCOLM POTTER APRN A 70 1.9 SKIN TAG 03/23/2009 ELINA MUNOZ APRN 70 1.9 SKIN TAG 03/23/2009 ELINA MUNOZ APRN 70 1.9 SKIN TAG 03/23/2009 ELINA MUNOZ APRN 70 1.9 SKIN TAG 03/23/2009 MACI ZAZUETA ROC R 701.9 SKIN TAG 03/23/2009 ELINA MUNOZ APRN 70 1.9 SKIN TAG 03/23/2009 ROZ GUTIERREZ APRNRICIA R 701.9 SKIN TAG 03/23/2009 FACUNDO GUERRERO APRNA S 701.9 SKIN TAG 04/06/2009 788.1 DYSURIA 04/06/2009 788.1 DYSURIA 04/06/2009 788.1 DYSURIA 04/06/2009 MALCOLM POTTER APRN A 78 8.1 DYSURIA 04/06/2009 ELINA MUNOZ APRN T 78 8.1 DYSURIA 04/06/2009 ELINA MUNOZ APRN T 78 8.1 DYSURIA 04/06/2009 ELINA MUNOZ APRN 78 8.1 DYSURIA 04/06/2009 MACI ZAZUETA ROC R 788.1 DYSURIA 04/06/2009 ELINA MUNOZ APRN 78 8.1 DYSURIA 04/06/2009 ROZ GUTIERREZ APRNRICIA R 788.1 DYSURIA 04/06/2009 FACUNDO GUERRERO APRNA S 788.1 DYSURIA 06/20/2009 682.9 CELL ULITIS AND ABSCESS OF UNSPECIFIED SITES 06/20/2009 682.9 CELL ULITIS AND ABSCESS OF UNSPECIFIED SITES 06/20/2009 682.9 CELL ULITIS AND ABSCESS OF UNSPECIFIED SITES 06/20/2009 MALCOLM POTTER APRN A 68 2.9 CELLULITIS AND ABSCESS OF UNSPECIFIED SITES 06/20/2009 ELINA MUNOZ APRN 68 2.9 CELLULITIS AND ABSCESS OF UNSPECIFIED SITES 06/20/2009 ELINA MUNOZ APRN 68 2.9 CELLULITIS AND ABSCESS OF UNSPECIFIED SITES 06/20/2009 ALEXANDER POULTRY INSPECTOR, ELINA T 68 2.9 CELLULITIS AND ABSCESS OF UNSPECIFIED SITES 06/20/2009 AARON LUX APRNINA R 682.9 CELLULITIS AND ABSCESS OF UNSPECIFIED SITES 06/20/2009 ELINA MUNOZ APRN T 68 2.9 CELLULITIS AND ABSCESS OF UNSPECIFIED SITES 06/20/2009 JANETTE GUTIERREZ APRNIA R 682.9 CELLULITIS AND ABSCESS OF UNSPECIFIED SITES 06/20/2009 TERESA GUERRERO APRN S 682.9 CELLULITIS AND ABSCESS OF UNSPECIFIED SITES 11/16/2009 692.9 CONT ACT DERMATITIS AND OTHER ECZEMA, UNSPECIFIED CAUSE 11/16/2009 692.9 CONT ACT DERMATITIS AND OTHER ECZEMA, UNSPECIFIED CAUSE 11/16/2009 692.9 CONT ACT DERMATITIS AND OTHER ECZEMA, UNSPECIFIED CAUSE 11/16/2009 MALCOLM POTTER APRN A 69 2.9 CONTACT DERMATITIS AND OTHER ECZEMA, UNSPECIFIED CAUSE 11/16/2009 ELINA MUNOZ APRN 69 2.9 CONTACT DERMATITIS AND OTHER ECZEMA, UNSPECIFIED CAUSE 11/16/2009 ELINA MUNOZ APRN 69 2.9 CONTACT DERMATITIS AND OTHER ECZEMA, UNSPECIFIED CAUSE 11/16/2009 ELINA MUNOZ APRN T 69 2.9 CONTACT DERMATITIS AND OTHER ECZEMA, UNSPECIFIED CAUSE 11/16/2009 AARON LUX APRNINA R 692.9 CONTACT DERMATITIS AND OTHER ECZEMA, UNSPECIFIED CAUSE 11/16/2009 ELINA MUNOZ APRN T 69 2.9 CONTACT DERMATITIS AND OTHER ECZEMA, UNSPECIFIED CAUSE 11/16/2009 LUCILA GUTIERREZ APRN R 692.9 CONTACT DERMATITIS AND OTHER ECZEMA, UNSPECIFIED CAUSE 11/16/2009 TERESA GUERRERO APRN S 692.9 CONTACT DERMATITIS AND OTHER ECZEMA, UNSPECIFIED CAUSE 05/07/2010 599.0 URIN DEYSI TRACT INFECTION 05/07/2010 599.0 URIN DEYSI TRACT INFECTION 05/07/2010 599.0 URIN DEYSI TRACT INFECTION 05/07/2010 MALCOLM POTTER APRN A 59 9.0 URINARY TRACT INFECTION 05/07/2010 ELINA MUNOZ APRN 59 9.0 URINARY TRACT INFECTION 05/07/2010 ELINA MUNOZ APRN 59 9.0 URINARY TRACT INFECTION 05/07/2010 ELINA MUNOZ APRN 59 9.0 URINARY TRACT INFECTION 05/07/2010 MACI POULTRY INSPECTOR, ROC R 599.0 URINARY TRACT INFECTION 05/07/2010 ELINA MUNOZ APRN T 59 9.0 URINARY TRACT INFECTION 05/07/2010 ROZ GUTIERREZ APRNRICIA R 599.0 URINARY TRACT INFECTION 05/07/2010 YOLANDA ZAZUETA, TERESA S 599.0 URINARY TRACT INFECTION 07/11/2011 380.10 LUKE TIS EXTERNA BOTH 07/11/2011 382.00 LUKE TIS MEDIA ACUTE SUPPURATIVE 07/11/2011 380.10 LUKE TIS EXTERNA BOTH 07/11/2011 382.00 LUKE TIS MEDIA ACUTE SUPPURATIVE 07/11/2011 380.10 LUKE TIS EXTERNA BOTH 07/11/2011 382.00 LUKE TIS MEDIA ACUTE SUPPURATIVE 07/11/2011 ATA POTTER APRNIDI A 380.10 OTITIS EXTERNA BOTH 07/11/2011 ATA POTTER APRNIDI A 382.00 OTITIS MEDIA ACUTE SUPPURATIVE 07/11/2011 ELINA MUNOZ APRN T 380.10 OTITIS EXTERNA BOTH 07/11/2011 ELINA MUNOZ APRN T 382.00 OTITIS MEDIA ACUTE SUPPURATIVE 07/11/2011 ELINA MUNOZ APRN T 380.10 OTITIS EXTERNA BOTH 07/11/2011 ALEXANDER ZAZUETA ELINA T 382.00 OTITIS MEDIA ACUTE SUPPURATIVE 07/11/2011 ELINA MUNOZ APRN T 380.10 OTITIS EXTERNA BOTH 07/11/2011 ALEXANDER ZAZUETA ELINA T 382.00 OTITIS MEDIA ACUTE SUPPURATIVE 07/11/2011 MACI ZAZUETA, ROC R 380.10 OTITIS EXTERNA BOTH 07/11/2011 MACI ZAZUETA ROC R 382.00 OTITIS MEDIA ACUTE SUPPURATIVE 07/11/2011 ALEXANDER ZAZUETA ELINA T 380.10 OTITIS EXTERNA BOTH 07/11/2011 ELINA MUNOZ APRN T 382.00 OTITIS MEDIA ACUTE SUPPURATIVE 07/11/2011 JANETTE GUTIERREZ APRNIA R 380.10 OTITIS EXTERNA BOTH 07/11/2011 JANETTE GUTIERREZ APRNIA R 382.00 OTITIS MEDIA ACUTE SUPPURATIVE 07/11/2011 TERESA GUERRERO APRN S 380.10 OTITIS EXTERNA BOTH 07/11/2011 TERESA GUERRERO APRN S 382.00 OTITIS MEDIA ACUTE SUPPURATIVE 07/21/2011 380.4 CERU MEN IMPACTION 07/21/2011 380.4 CERU MEN IMPACTION 07/21/2011 380.4 CERU MEN IMPACTION 07/21/2011 MALCOLM POTTER APRN A 38 0.4 CERUMEN IMPACTION 07/21/2011 ELINA MUNOZ APRN 38 0.4 CERUMEN IMPACTION 07/21/2011 ELINA MUNOZ APRN 38 0.4 CERUMEN IMPACTION 07/21/2011 ELINA MUNOZ APRN 38 0.4 CERUMEN IMPACTION 07/21/2011 ROC LUX APRN R 380.4 CERUMEN IMPACTION 07/21/2011 ELINA MUNOZ APRN 38 0.4 CERUMEN IMPACTION 07/21/2011 LUCILA GUTIERREZ APRN R 380.4 CERUMEN IMPACTION 07/21/2011 TERESA GUERRERO APRN S 380.4 CERUMEN IMPACTION 08/01/2011 611.72 JAZMINE AST LUMP OR MASS 08/01/2011 V74.5 STD SCREEN 08/01/2011 V76.2 CERV ICAL CANCER SCREENING (PAP SMEAR) 08/01/2011 611.72 JAZMINE AST LUMP OR MASS 08/01/2011 V74.5 STD SCREEN 08/01/2011 V76.2 CERV ICAL CANCER SCREENING (PAP SMEAR) 08/01/2011 611.72 JAZMINE AST LUMP OR MASS 08/01/2011 V74.5 STD SCREEN 08/01/2011 V76.2 CERV ICAL CANCER SCREENING (PAP SMEAR) 08/01/2011 MALCOLM POTTER APRN A 611.72 BREAST LUMP OR MASS 08/01/2011 MALCOLM POTTER APRN A V7 4.5 STD SCREEN 08/01/2011 MALCOLM POTTER APRN A V7 6.2 CERVICAL CANCER SCREENING (PAP SMEAR) 08/01/2011 ELINA MUNOZ APRN 611.72 BREAST LUMP OR MASS 08/01/2011 ELINA MUNOZ APRN V7 4.5 STD SCREEN 08/01/2011 ELINA MUNOZ APRN V7 6.2 CERVICAL CANCER SCREENING (PAP SMEAR) 08/01/2011 ELINA MUNOZ APRN 611.72 BREAST LUMP OR MASS 08/01/2011 ELINA MUNOZ APRN V7 4.5 STD SCREEN 08/01/2011 ELINA MUNOZ APRN V7 6.2 CERVICAL CANCER SCREENING (PAP SMEAR) 08/01/2011 ELINA MUNOZ APRN 611.72 BREAST LUMP OR MASS 08/01/2011 ELINA MUNOZ APRN V7 4.5 STD SCREEN 08/01/2011 ELINA MUNOZ APRN V7 6.2 CERVICAL CANCER SCREENING (PAP SMEAR) 08/01/2011 ROC LUX APRN R 611.72 BREAST LUMP OR MASS 08/01/2011 ROC LUX APRN R V74.5 STD SCREEN 08/01/2011 MACI ZAZUETA ROC R V76.2 CERVICAL CANCER SCREENING (PAP SMEAR) 08/01/2011 ELINA MUNOZ APRN 611.72 BREAST LUMP OR MASS 08/01/2011 ELINA MUNOZ APRN V7 4.5 STD SCREEN 08/01/2011 ELINA MUNOZ APRN V7 6.2 CERVICAL CANCER SCREENING (PAP SMEAR) 08/01/2011 LUCILA GUTIERREZ APRN R 611.72 BREAST LUMP OR MASS 08/01/2011 LUCILA GUTIERREZ APRN R V74.5 STD SCREEN 08/01/2011 JANETTE GUTIERREZ APRNIA R V76.2 CERVICAL CANCER SCREENING (PAP SMEAR) 08/01/2011 TERESA GUERRERO APRN S 611.72 BREAST LUMP OR MASS 08/01/2011 TERESA GUERRERO APRN S V74.5 STD SCREEN 08/01/2011 FACUNDO GUERRERO APRNA S V76.2 CERVICAL CANCER SCREENING (PAP SMEAR) 08/21/2011 311 MO DEP RESS NOS 08/21/2011 311 MO DEP RESS NOS 08/21/2011 311 MO DEP RESS NOS 08/21/2011 MALCOLM POTTER APRN 31 1 MO DEPRESS NOS 08/21/2011 ELINA MUNOZ APRN 31 1 MO DEPRESS NOS 08/21/2011 ELINA MUNOZ APRN 31 1 MO DEPRESS NOS 08/21/2011 ELINA MUNOZ APRN 31 1 MO DEPRESS NOS 08/21/2011 ROC LUX APRN R 3 11 MO DEPRESS NOS 08/21/2011 ELINA MUONZ APRN 31 1 MO DEPRESS NOS 08/21/2011 LUCILA GUTIERREZ APRN R 311 MO DEPRESS NOS 08/21/2011 TERESA GUERRERO APRN S 311 MO DEPRESS NOS 09/12/2011 922.2 CONT USION OF ABDOMINAL WALL 09/12/2011 922.2 CONT USION OF ABDOMINAL WALL 09/12/2011 922.2 CONT USION OF ABDOMINAL WALL 09/12/2011 MALCOLM POTTER APRN A 92 2.2 CONTUSION OF ABDOMINAL WALL 09/12/2011 ELINA MUNZO APRN 92 2.2 CONTUSION OF ABDOMINAL WALL 09/12/2011 ELINA MUNOZ APRN 92 2.2 CONTUSION OF ABDOMINAL WALL 09/12/2011 ELINA MUNOZ APRN 92 2.2 CONTUSION OF ABDOMINAL WALL 09/12/2011 ROC LUX APRN R 922.2 CONTUSION OF ABDOMINAL WALL 09/12/2011 ELINA MUNOZ APRN 92 2.2 CONTUSION OF ABDOMINAL WALL 09/12/2011 LUCILA GUTIERREZ APRN R 922.2 CONTUSION OF ABDOMINAL WALL 09/12/2011 TERESA GUERRERO APRN 922.2 CONTUSION OF ABDOMINAL WALL 11/29/2011 380.10 INF ECTIVE OTITIS EXTERNA UNSPECIFIED 11/29/2011 380.10 INF ECTIVE OTITIS EXTERNA UNSPECIFIED 11/29/2011 380.10 INF ECTIVE OTITIS EXTERNA UNSPECIFIED 11/29/2011 MALCOLM POTTER APRN A 380.10 INFECTIVE OTITIS EXTERNA UNSPECIFIED 11/29/2011 ELINA MUNOZ APRN 380.10 INFECTIVE OTITIS EXTERNA UNSPECIFIED 11/29/2011 ELINA MUNOZ APRN 380.10 INFECTIVE OTITIS EXTERNA UNSPECIFIED 11/29/2011 ELINA MUNOZ APRN 380.10 INFECTIVE OTITIS EXTERNA UNSPECIFIED 11/29/2011 ROC LUX APRN R 380.10 INFECTIVE OTITIS EXTERNA UNSPECIFIED 11/29/2011 ELINA MUNOZ APRN 380.10 INFECTIVE OTITIS EXTERNA UNSPECIFIED 11/29/2011 LUCILA GUTIERREZ APRN R 380.10 INFECTIVE OTITIS EXTERNA UNSPECIFIED 11/29/2011 TERESA GUERRERO APRN S 380.10 INFECTIVE OTITIS EXTERNA UNSPECIFIED 02/24/2012 427.9 ARRH YTHMIA, CARDIAC (SINUS) 02/24/2012 599.0 URIN DEYSI TRACT INFECTION 02/24/2012 427.9 ARRH YTHMIA, CARDIAC (SINUS) 02/24/2012 599.0 URIN DEYSI TRACT INFECTION 02/24/2012 427.9 ARRH YTHMIA, CARDIAC (SINUS) 02/24/2012 599.0 URIN DEYSI TRACT INFECTION 02/24/2012 MALCOLM POTTER APRN A 42 7.9 ARRHYTHMIA, CARDIAC (SINUS) 02/24/2012 MALCOLM POTTER APRN A 59 9.0 URINARY TRACT INFECTION 02/24/2012 ELINA MUNOZ APRN T 42 7.9 ARRHYTHMIA, CARDIAC (SINUS) 02/24/2012 ELINA MUNOZ APRN T 59 9.0 URINARY TRACT INFECTION 02/24/2012 ELINA MUNOZ APRN T 42 7.9 ARRHYTHMIA, CARDIAC (SINUS) 02/24/2012 ELINA MUNOZ APRN T 59 9.0 URINARY TRACT INFECTION 02/24/2012 ELINA MUNOZ APRN 42 7.9 ARRHYTHMIA, CARDIAC (SINUS) 02/24/2012 ELINA MUNOZ APRN T 59 9.0 URINARY TRACT INFECTION 02/24/2012 MACI ZAZUETA ROC R 427.9 ARRHYTHMIA, CARDIAC (SINUS) 02/24/2012 MACI ZAZUETA ROC R 599.0 URINARY TRACT INFECTION 02/24/2012 ELINA MUNOZ APRN T 42 7.9 ARRHYTHMIA, CARDIAC (SINUS) 02/24/2012 ELINA MUNOZ APRN T 59 9.0 URINARY TRACT INFECTION 02/24/2012 ROZ GUTIERREZ APRNRICIA R 427.9 ARRHYTHMIA, CARDIAC (SINUS) 02/24/2012 MATT ZAZUETA LUCILA R 599.0 URINARY TRACT INFECTION 02/24/2012 FACUNDO GUERRERO APRNA S 427.9 ARRHYTHMIA, CARDIAC (SINUS) 02/24/2012 FACUNDO GUERRERO APRNA S 599.0 URINARY TRACT INFECTION 03/16/2012 788.30 URI NARY INCONTINENCE UNSPECIFIED 03/16/2012 788.63 URI NARY URGENCY 03/16/2012 788.30 URI NARY INCONTINENCE UNSPECIFIED 03/16/2012 788.63 URI NARY URGENCY 03/16/2012 788.30 URI NARY INCONTINENCE UNSPECIFIED 03/16/2012 788.63 URI NARY URGENCY 03/16/2012 MALCOLM POTTER APRN A 788.30 URINARY INCONTINENCE UNSPECIFIED 03/16/2012 MALCOLM POTTER APRN A 788.63 URINARY URGENCY 03/16/2012 ALEXANDER POULTRY INSPECTOR, ELINA T 788.30 URINARY INCONTINENCE UNSPECIFIED 03/16/2012 ALEXANDER POULTRY INSPECTOR, ELINA T 788.63 URINARY URGENCY 03/16/2012 ALEXANDER DON, ELINA T 788.30 URINARY INCONTINENCE UNSPECIFIED 03/16/2012 ALEXANDER DON, ELINA T 788.63 URINARY URGENCY 03/16/2012 ALEXANDER POULTRY INSPECTOR, ELINA T 788.30 URINARY INCONTINENCE UNSPECIFIED 03/16/2012 ALEXANDER DONELINA T 788.63 URINARY URGENCY 03/16/2012 MACI DON, RCO R 788.30 URINARY INCONTINENCE UNSPECIFIED 03/16/2012 MACI POULTRY INSPECTOR, ROC R 788.63 URINARY URGENCY 03/16/2012 ALEXANDER DON ELINA T 788.30 URINARY INCONTINENCE UNSPECIFIED 03/16/2012 ELINA MUNOZ APRN T 788.63 URINARY URGENCY 03/16/2012 MATT ZAZUETA LUCILA R 788.30 URINARY INCONTINENCE UNSPECIFIED 03/16/2012 MATT ZAZUETA LUCILA R 788.63 URINARY URGENCY 03/16/2012 YOLANDA ZAZUETA TERESA S 788.30 URINARY INCONTINENCE UNSPECIFIED 03/16/2012 YOLANDA ZAZUETA, TERESA S 788.63 URINARY URGENCY 07/27/2012 Ot 427.69 PRE MATURE BEATS NEC 08/06/2012 MALCOLM POTTER APRN A 38 2.9 UNSPECIFIED OTITIS MEDIA 08/06/2012 MALCOLM POTTER APRN A V76.10 BREAST CANCER SCREENING 08/06/2012 ELINA MUNOZ APRN 38 2.9 UNSPECIFIED OTITIS MEDIA 08/06/2012 ELINA MUNOZ APRN V76.10 BREAST CANCER SCREENING 08/06/2012 ELINA MUNOZ APRN T 38 2.9 UNSPECIFIED OTITIS MEDIA 08/06/2012 ELINA MUNOZ APRN T V76.10 BREAST CANCER SCREENING 08/06/2012 ELINA MUNOZ APRN T 38 2.9 UNSPECIFIED OTITIS MEDIA 08/06/2012 ELINA MUNOZ APRN V76.10 BREAST CANCER SCREENING 08/06/2012 MACI ZAZUETA, ROC R 382.9 UNSPECIFIED OTITIS MEDIA 08/06/2012 MACI DON, ROC R V76.10 BREAST CANCER SCREENING 08/06/2012 ELINA MUNOZ APRN T 38 2.9 UNSPECIFIED OTITIS MEDIA 08/06/2012 ELINA MUNOZ APRN T V76.10 BREAST CANCER SCREENING 08/06/2012 ROZ GUTIERREZ APRNRICIA R 382.9 UNSPECIFIED OTITIS MEDIA 08/06/2012 MATT ZAZUETA, LUCILA R V76.10 BREAST CANCER SCREENING 08/06/2012 YOLANDA ZAZUETA, TERESA S 382.9 UNSPECIFIED OTITIS MEDIA 08/06/2012 YOLANDA ZAZUETA, TERESA S V76.10 BREAST CANCER SCREENING 04/29/2013 ALEXANDER ZAZUETA ELINA T 26 8.9 VITAMIN D DEFICIENCY 04/29/2013 ELINA MUNOZ APRN T 28 0.9 ANEMIA, IRON DEFICIENCY 04/29/2013 MACI DON, ROC R 268.9 VITAMIN D DEFICIENCY 04/29/2013 MACI DON, ROC R 280.9 ANEMIA, IRON DEFICIENCY 04/29/2013 ELINA MUNOZ APRN T 26 8.9 VITAMIN D DEFICIENCY 04/29/2013 ALEXANDER ZAZUETA ELINA T 28 0.9 ANEMIA, IRON DEFICIENCY 04/29/2013 ROZ GUTIERREZ APRNRICIA R 268.9 VITAMIN D DEFICIENCY 04/29/2013 ROZ GUTIERREZ APRNRICIA R 280.9 ANEMIA, IRON DEFICIENCY 04/29/2013 YOLANDA ZAZUETA TERESA S 268.9 VITAMIN D DEFICIENCY 04/29/2013 YOLANDA ZAZUETA, TERESA S 280.9 ANEMIA, IRON DEFICIENCY 05/26/2013 MCAI ZAZUETA, ROC R 461.9 SINUSITIS ACUTE 05/26/2013 MACI ZAZUETA, ROC R 786.2 COUGH 05/26/2013 ELINA MUNOZ APRN T 46 1.9 SINUSITIS ACUTE 05/26/2013 ELINA MUNOZ APRN T 78 6.2 COUGH 05/26/2013 ROZ GUTIERREZ APRNRICIA R 461.9 SINUSITIS ACUTE 05/26/2013 ORZ GUTIERREZ APRNRICIA R 786.2 COUGH 05/26/2013 JAZMINE GUERRERO APRNNDA S 461.9 SINUSITIS ACUTE 05/26/2013 JAZMINE GUERRERO APRNNDA S 786.2 COUGH 11/02/2013 ELINA MUNOZ APRN T 382.00 OTITIS MEDIA ACUTE SUPPURATIVE 11/02/2013 JANETTE GUTIERREZ APRNIA R 382.00 OTITIS MEDIA ACUTE SUPPURATIVE 11/02/2013 JAZMINE GUERRERO APRNNDA S 382.00 OTITIS MEDIA ACUTE SUPPURATIVE 05/22/2014 JANETTE GUTIERREZ APRNIA R 466.0 ACUTE BRONCHITIS 05/22/2014 YOLANDA POULTRY INSPECTORFACUNDOA S 466.0 ACUTE BRONCHITIS 06/05/2014 MATT POULTRY INSPECTOR LUCILA R 388.70 OTALGIA 06/05/2014 YOLANDA POULTRY INSPECTORFACUNDO WinklerA S 388.70 OTALGIA 06/17/2014 TERESA GUERRERO APRN S 372.30 CONJUNCTIVITIS UNSPECIFIED 02/07/2016 Ot 611.72 LUM P OR MASS IN BREAST 02/07/2016 Ot 427.69 PRE MATURE BEATS NEC 02/07/2016 Ot 427.69 PRE MATURE BEATS NEC 02/18/2016 Ot 611.72 LUM P OR MASS IN BREAST 02/18/2016 Ot 427.69 PRE MATURE BEATS NEC 02/18/2016 Ot 427.69 PRE MATURE BEATS NEC 02/26/2016 Ot 427.69 PRE MATURE BEATS NEC 02/26/2016 DAR FORD, AYLA Chin Ot H65.23 CHRONIC SEROUS OTITIS MEDIA, BILATERAL 02/26/2016 DAR FORD, AYLA Chin Ot Z01.818 ENCOUNTER FOR OTHER PREPROCEDURAL EXAMIN 02/29/2016 Ot 611.72 LUM P OR MASS IN BREAST 02/29/2016 Ot 427.69 PRE MATURE BEATS NEC 02/29/2016 Ot 427.69 PRE MATURE BEATS NEC 02/29/2016 AYLA DODGE MD Ot H65.23 CHRONIC SEROUS OTITIS MEDIA, BILATERAL 02/29/2016 Ot 611.72 LUM P OR MASS IN BREAST 02/29/2016 Ot 427.69 PRE MATURE BEATS NEC 02/29/2016 Ot 427.69 PRE MATURE BEATS NEC 03/03/2016 AYLA DODGE MD Ot H65.23 CHRONIC SEROUS OTITIS MEDIA, BILATERAL 03/10/2016 AYLA DODGE MD Ot H65.23 CHRONIC SEROUS OTITIS MEDIA, BILATERAL 10/10/2019 FENECH DO, AYLA S Ot N83.202 UNSPECIFIED OVARIAN CYST, LEFT SIDE 10/10/2019 FENECH DO, AYLA S Ot N93.8 OTHER SPECIFIED ABNORMAL UTERINE AND VAG 10/10/2019 FENECH DO, AYLA S Ot Z68.34 BODY MASS INDEX (BMI) 34.0-34.9, ADULT 10/10/2019 FENECH DO, AYLA S Ot N83.202 UNSPECIFIED OVARIAN CYST, LEFT SIDE 10/10/2019 FENECH DO, AYLA S Ot N93.8 OTHER SPECIFIED ABNORMAL UTERINE AND VAG 10/10/2019 AYLA BROWN DO Ot Z68.34 BODY MASS INDEX (BMI) 34.0-34.9, ADULT 12/27/2019 ELINA MUNOZ Ot L03.031 CELLULITIS OF RIGHT TOE 12/27/2019 ELINA MUNOZ Ot M86.171 OTHER ACUTE OSTEOMYELITIS, RIGHT ANKLE A Procedures Code Description [place] [address] NUCL EAR STRESS TESTING 04/14/2012 30370 ROUT INE VENIPUNCTURE 04/26/2013 15952 CBC 04/26/2013 1934930 GF R CALC (RESULT ONLY) 04/26/2013 58839 CMP 04/26/2013 74184 LIPI D PANEL 04/26/2013 29794 HAN MIN D 25-HYDROXY (D2,D3, TOTAL) 04/26/2013 87317 TSH 04/26/2013 09164 OXIMETRY 05/26/2013 Results Test Result Range Urine beta human chorionic gonadotropin (hCG) measurement - 02/29/16 07:30 Urine beta human chorionic gonadotropin (hCG) measurem ent NEGATIVE NEGATIVE Methicillin resistant Staphylococcus aur eus (MRSA) screening culture - 02/29/16 07:35 Methicillin resistant Staphylococcus aureus (MRSA) scr eening culture NEG NRG A1C - 11/05/17 14:24 HEMOGLOBIN A1c 6.4 % of total Hgb <5.7 PLATELET ESTIMATION - 11/05/17 14:24 CBC MORPHOLOGY - 11/05/17 14:24 CBC MORPHOLOGY NORMAL LIPID PANEL - 11/06/17 09:03 CHOLESTEROL, TOTAL 135 mg/dL <200 HDL CHOLESTEROL 36 mg/dL >50 TRIGLYCERIDES 150 mg/dL <150 LDL-CHOLESTEROL 76 mg/dL (calc) NRG CHOL/HDLC RATIO 3.8 (calc) <5.0 NON HDL CHOLESTEROL 99 mg/dL (calc) <130 CBC - 12/30/18 10:19 WHITE BLOOD CELL COUNT 6.3 Thousand/uL 3 .8-10.8 RED BLOOD CELL COUNT 4.36 Million/uL 3.8 0-5.10 HEMOGLOBIN 11.6 g/dL 11.7-15.5 HEMATOCRIT 37.8 % 35.0-45.0 MCV 86.7 fL 80.0-100.0 MCH 26.6 pg 27.0-33.0 MCHC 30.7 g/dL 32.0-36.0 RDW 13.7 % 11.0-15.0 PLATELET COUNT 273 Thousand/uL 140-400 MPV 9.2 fL 7.5-12.5 ABSOLUTE NEUTROPHILS 3982 cells/uL 1500- 7800 ABSOLUTE LYMPHOCYTES 1644 cells/uL 850-3 900 ABSOLUTE MONOCYTES 460 cells/uL 200-950 ABSOLUTE EOSINOPHILS 183 cells/uL 15-500 ABSOLUTE BASOPHILS 32 cells/uL 0-200 NEUTROPHILS 63.2 % NRG LYMPHOCYTES 26.1 % NRG MONOCYTES 7.3 % NRG EOSINOPHILS 2.9 % NRG BASOPHILS 0.5 % NRG TSH - 12/30/18 10:19 TSH 1.00 mIU/L NRG SUREPATH PAP AND HPV mRNA E6/E7 - 19:00 CLINICAL INFORMATION: NRG LMP: 02-02-19 NRG PREV. PAP: 2011 NRG PREV. BX: N/A NRG SOURCE: Cervix NRG STATEMENT OF ADEQUACY: NRG INTERPRETATION/RESULT: NRG PROFESSIONAL SECURITY OFFICER: NRG HPV mRNA E6/E7, SUREPATH VIAL Not Detected NOT DETECTED COMMENT NRG URIC ACID, SERUM - 06/02/19 16:45 URIC ACID 5.1 mg/dL 2.5-7.0 Coronavirus SARS-CoV-2 SO 2018 - 0 08:06 Coronavirus Ab [Units/volume] in Serum NOT DETECTE D Not Detecte Encounters ACCT No. Visit Date/Time Discharge Status Pt. Type Provider Facility Loc./Unit Complaint [id number] 06/17/2014 14:45:00 06/17/2014 23:59: 59 CLS Outpatient TERESA GUERRERO APRN [id number] 06/05/2014 13:08:00 06/05/2014 23:59: 59 CLS Outpatient LUCILA GUTIERREZ APRN [id number] 11/02/2013 18:30:00 11/02/2013 23:59: 59 CLS Outpatient ELINA MUNOZ APRN [id number] 05/26/2013 16:24:00 05/26/2013 23:59: 59 CLS Outpatient ROC LUX APRN [id number] 04/29/2013 15:24:00 04/29/2013 23:59: 59 CLS Outpatient ELINA MUNOZ APRN [id number] 04/26/2013 09:08:00 04/26/2013 23:59: 59 CLS Outpatient ELINA MUNOZ APRN [id number] 04/22/2013 10:06:00 04/22/2013 23:59: 59 CLS Outpatient ELINA MUNOZ APRN [id number] 08/06/2012 15:58:00 08/06/2012 23:59: 59 CLS Outpatient MALCOLM POTTER APRN [id number] 05/19/2012 10:24:00 05/19/2012 23:59: 59 CLS Outpatient [id number] 04/14/2012 09:39:00 04/14/2012 23:59:5 9 CLS Outpatient [id number] 04/14/2012 09:39:00 04/14/2012 23:59: 59 CLS Outpatient [id number] 01/04/2020 05:31:00 11:00:00 DIS Outpatient FREDDIE CAPONE DPM Q [facility] PREOP OSTEOMYELITIS RIGHT 4TH TOE [id number] 12/23/2019 13:44:00 23:59:59 CLS Outpatient ELINA MUNOZ MARKETING PLANNING MANAGER [facility] RAD CELLULITIS OF RIGHT TO E [id number] 10/07/2019 14:53:00 23:59:59 CLS Outpatient AYLA BROWN DO [facility] RAD AUB [id number] 02/29/2016 07:24:00 016 10:35:00 DIS Outpatient AYLA DODGE MD [facility] SDC OTITIS MEDIA [id number] 02/26/2016 05:52:00 016 16:04:00 DIS Outpatient AYLA DODGE MD [facility] PREOP OTITIS MEDIA [id number] 02/01/2020 10:00:00 P EN Preadmit AYLA BROWN DO [facility] RAD THICKENED ENDOMETRIUM. [id number] 01/06/2020 13:00:00 P EN Preadmit FREDDIE CAPONE DPM Q [facility] SDC OSTEOMYELITIS RIGHT 4TH TOE [id number] 07/28/2012 10:00:00 Document Registration [id number] 04/30/2012 12:17:00 Document Registration [id number] 04/28/2012 09:48:00 Document Registration [id number] 08/13/2011 15:18:00 Document Registration [id number] 12/29/2019 13:00:00 12/29/2019 23:59:5 9 CLS Outpatient ELINA MUNOZ APRN [facility] [id number] 06/02/2019 16:20:00 Document Registration [id number] 03/03/2019 12:20:00 Document Registration [id number] 12/30/2018 08:40:00 Document Registration [id number] 11/06/2017 09:40:00 Document Registration [id number] 11/05/2017 13:00:00 Document Registration
[2020-01-06] MEDS ORDERED: ceFAZolin INJECTION 1,000 MG in WATER (STERILE) FOR INJECTION 10 ML IV ONE (12:00)
[2020-01-06] MEDS ORDERED: ceFAZolin INJECTION 1,000 MG ONE (12:07)
[2020-01-06] MEDS ORDERED: WATER (STERILE) FOR INJECTION 10 ML ONE (12:07)
--- NOTE | 2020-01-06 12:07 | Progress Note-Pre Operative ---
Pre-Operative Progress Note H&P Reviewed The H&P was reviewed, patient examined and no changes noted. Date Seen by Provider: Jan 06, 2020 Time Seen by Provider: 12:06 Date H&P Reviewed: Jan 06, 2020 Time H&P Reviewed: 12:06 Pre-Operative Diagnosis: Osteomyelitis right 4th toe and metatarsal head FREDDIE CAPONE DPM Jan 06, 2020 12:07
[2020-01-06] MEDS ORDERED: ONDANSETRON 4 MG/2 ML (SDV) Z0FRAN ONE (12:39)
[2020-01-06] MEDS ORDERED: SEVOFLURANE (ULTANE) 15 ML INHAL SOLN ONE ×7 (12:39→13:24)
[2020-01-06] MEDS ORDERED: LACTATED RINGERS 1,000 ML IV SCH (13:32)
--- NOTE | 2020-01-06 13:32 | Progress Note-Post Operative ---
Post-Operative Progess Note Surgeon (s)/Lean Manufacturing Engineer (s) Surgeon FREDDIE CAPONE DPM Lean Manufacturing Engineer: none Pre-Operative Diagnosis Osteomyelitis right 4th toe and metatarsal head Post-Operative Diagnosis Osteomyelitis right 4th toe Procedure & Operative Findings Date of Procedure 01/06/20 Procedure Performed/Findings amputation of the right 4th toe Anesthesia Type General Estimated Blood Loss Estimated blood loss (mL): Minimal Specimens/Packing Specimens Removed Right 4th toe FREDDIE CAPONE DPM Jan 06, 2020 13:32
[2020-01-06] MEDS ORDERED: HYDR-3812 PO (13:41)
[2020-01-06] MEDS ORDERED: ONDANSETRON 4 MG/2 ML (SDV) Z0FRAN IVP PRN (13:45)
[2020-01-06] MEDS ORDERED: HYDROcodone/APAP 5 MG/325 MG (LORTAB) TAB PO PRN (13:45)
[2020-01-06] MEDS ORDERED: morphine INJ 10 MG/ML 1ML (SYR OR VIAL) IVP ONE (13:45)
[2020-01-06] MEDS ORDERED: fentaNYL INJECTION 100 MCG/2 ML AMP IVP ONE (13:45)
[2020-01-06] MEDS ORDERED: MEPERIDINE (DEMEROL) INJ 50 MG/ML IVP ONE (13:45)
--- NOTE | 2020-01-06 14:17 | Anesthesia-General Post-Op ---
General Patient Condition Mental Status/LOC: Same as Preop Cardiovascular: Satisfactory Nausea/Vomiting: Absent Respiratory: Satisfactory Pain: Controlled Complications: Absent Post Op Complications Complications None Follow Up Care/Instructions Patient Instructions None needed. Anesthesia/Patient Condition Patient Condition Patient is doing well, no complaints, stable vital signs, no apparent adverse anesthesia problems. OSMEL PATTEN DO Jan 06, 2020 14:17
--- NOTE | 2020-01-06 15:16 | Physical Therapy Ortho Eval ---
PT Orthopedic Evaluation Type of Surgery (R) osteomyelitis of 4th toe Prior Level of Function Current Living Status: Significant Other Locomotion (Upon Admit): Independent Subjective Subjective Pt supine in bed upon arrival to room, mother present at bedside Entry Into Home: Stairs With Railing Steps Into Home: 3 Objective Objective Pt independently ambulated with PWB and step to gait pattern with crutches 150', Pt able to ascend/descend curb step with verbal cues, demonstrated good understanding. Motor Control Motor Control: Motor Control WNL ROM ROM: WFL Strength Strength: WFL Transfer Transfers (B, C, W/C) (FIM): 6 independent with sit to stand and bed mobility Gait Gait Assistive Device: Crutches Right Lower Extremity: Right Weight Bearing Status RLE: Partial Weight Bearing Left Lower Extremity: Left Weight Bearing Status LLE: Full Weight Bearing Distance (FIM): 3=150 ft Summary/Comments Independent maintaining PWB on RLE. Utilizing step to gait pattern with crutches, independently Assessment/Goals Goal Time Frame: 1 Visit Time Time In: 1445 Time Out: 1500 Billed Treatment Time 1 visit Eval Low Complexity (15') PRASHANT WEATHERS PT Jan 06, 2020 15:16
--- NOTE | 2020-01-07 00:16 | OPERATIVE REPORT ---
DATE OF SERVICE: 01/06/2020 SURGEON: Donna Capone DPM PREOPERATIVE DIAGNOSIS: Osteomyelitis, right fourth toe. POSTOPERATIVE DIAGNOSIS: Osteomyelitis, right fourth toe. PROCEDURE: Amputation, right fourth toe. WOUND CLASS: Contaminated. ANESTHESIA: General. HEMOSTASIS: Pneumatic thigh tourniquet at 250 mmHg. INDICATIONS: This 39-year-old female presents with a chronic wound to the right fourth toe. X-rays indicated that there is significant destruction to the base of the proximal phalanx, right fourth toe. Risks and complications were discussed at length with the patient. After we discussed conservative and surgical options, she opted for a surgical excision of the right fourth toe. After this lengthy discussion, no guarantees were extended to the patient and she is willing to proceed. DESCRIPTION OF PROCEDURE: The patient was brought back to the operating table, placed in secure supine position. Appropriate timeout was performed. Utilizing aseptic technique, a 12 mL of 1:1 mixture of 1% Xylocaine, 0.5% Marcaine was injected to the right fourth ray. A pneumatic thigh tourniquet was placed on the right lower extremity. A general anesthetic was then induced. The right foot was prepped and draped in normal sterile manner. The right foot was then elevated, allowed to exsanguinate after which the tourniquet was inflated to 250 mmHg. Attention was then directed to the right fourth toe where an incision was created from dorsal to plantar that ellipsed the proximal phalanx diaphysis area with a bias of the medial being longer distally than the lateral and this allowed for a flap to overlie and close the area. The circumscribed incision was carried out to bone, after which the digit was disarticulated at the metatarsophalangeal joint. The proximal phalanx was evaluated and found to be very soft and a specimen of bone was sent for culture and sensitivity. The remainder of the toe was sent for pathology for gross and microscopic evaluation. The extensor and flexor tendons were evaluated and cut as proximally as possible. No other areas of necrosis, purulence or any pathology was noted to the remainder of the right foot at this time through this incision. The area was then flushed with 3000 mL of normal saline with power irrigation. After this was done, a swab culture was taken. The area was then cleansed once again, after which the skin was approximated with 4-0 Prolene in a simple interrupted type stitch after all active bleeders were cauterized. Once the tourniquet was released and the skin was coapted, cap refill time approximately 3 seconds in the area. No ischemic changes were noted. Postoperative dressing consisted of Betadine soaked Adaptic, sterile 4 x 4, sterile Kerlix all secured with a Coban wrap. The patient tolerated the anesthesia and procedure well and was transported from the operating room to the recovery area with vital signs stable and vascular status intact to all the remaining toes of the right foot. The patient is to follow up in my office in one-week period of time or sooner if necessary. Prescription for hydrocodone was dispensed to the patient today. She will continue with her current oral antibiotic, which is Bactrim. Job ID: [id number] DocumentID: [id number] Dictated Date: 01/06/2020 13:46:38 Sewer Pipe Sorter Date: 01/07/2020 00:15:57 Dictated By: DONNA CAPONE DPM
== END 2020-01-06 15:15 | disposition home or self-care (01) ==
LOC: SDC 11:25
PROVIDERS: ATTEND Podiatrist Foot & Ankle Surgery
DX: M86.9 Osteomyelitis, unspecified (principal); I10 Essential (primary) hypertension; F32.9 Major depressive disorder, single episode, unspecified; E11.9 Type 2 diabetes mellitus without complications; E66.9 Obesity, unspecified; Z68.42 Body mass index [BMI] 45.0-49.9, adult; Z79.899 Other long term (current) drug therapy; Z79.84 Long term (current) use of oral hypoglycemic drugs; Z80.3 Family history of malignant neoplasm of breast; Z80.9 Family history of malignant neoplasm, unspecified
CPT/HCPCS: 82962; 84703; 87070; 87075; 87077; 87081; 87186; 87205

== ENCOUNTER → 2020-02-01 | Outpatient (CLI) | payer OTHER ==
[~2020-02-01] MED LIST changes: +HYDR-3812 PO
--- NOTE | 2020-02-01 13:25 | Diagnostic Imaging Report ---
PROCEDURE: US Non-ob pelvis comp/trans. TECHNIQUE: Multiple realtime grayscale images were obtained of the pelvis in various projections endovaginally. Transabdominal imaging was also performed. INDICATION: Dysfunctional uterine bleeding. FINDINGS: Uterus measures 11 x 6 x 8 cm. No myometrial masses are demonstrated. Transvaginal imaging shows diffuse thickening endometrium measuring 1.8 cm. The endometrium is heterogeneous in appearance. Small amount of fluid is seen in endometrial cavity as well. The right ovary is not visualized. There is considerable stool and bowel gas obscuring the right adnexa. The left ovary measures 5.2 x 3 x 3.3 cm. There are two well-circumscribed cysts present within the left ovary both measuring approximately 2.3 cm in diameter. There is normal blood flow to left ovary. There is no free fluid. IMPRESSION: 1. Abnormal thickening of the endometrium measuring 1.8 cm with heterogeneous appearance. 2. Left ovarian cysts, both measuring approximately 2.3 cm with a benign simple appearance. Dictated by: Dictated on workstation # [id number]
== END ==
LOC: RAD 10:00
PROVIDERS: ATTEND Obstetrics & Gynecology
DX: N93.8 Other specified abnormal uterine and vaginal bleeding (principal); N83.202 Unspecified ovarian cyst, left side; R93.89 Abnormal findings on diagnostic imaging of other specified body structures
CPT/HCPCS: 76830; 76856

== ENCOUNTER 2022-01-26 14:06 | Inpatient (IN) | payer SELFPAY ==
[~2022-01-26] VITALS: Ht 170 cm; Wt 103.5 kg
[~2022-01-26 14:06] MED LIST changes: +ACHD5005 PO; -HYDR-3812 PO
[2022-01-26 14:32] LABS: BILIRUBIN,URINE NEGATIVE (NEGATIVE); CLARITY,URINE SL CLOUDY; COLOR,URINE YELLOW; GLUCOSE, URINE (UA) 3+ (NEGATIVE); KETONES,URINE NEGATIVE (NEGATIVE); LEUKOCYTE ESTERASE ,URINE NEGATIVE (NEGATIVE); NITRITE,URINE POSITIVE (NEGATIVE); PROTEIN,URINE TRACE (NEGATIVE)
[2022-01-26 14:48] LABS: BACTERIA,URINE LARGE /HPF
[2022-01-26] MEDS ORDERED: NS IV 1000 ML 1,000 ML IV STA (14:59)
[2022-01-26] MEDS ORDERED: KETOROLAC 30 MG/ML VIAL IVP ONE (15:00)
[2022-01-26] MEDS ORDERED: ACETAMINOPHEN 500 MG TAB (TYLENOL) PO ONE (15:00)
--- NOTE | 2022-01-26 15:02 | ED Back Pain ---
General Chief Complaint: Back Problems Stated Complaint: PELVIC/ABD/BACK PAIN Nursing Triage Note: PT AMB TO RM 2 WITH MOTHER. PT STATED THAT SHE STARTED HAVING LOWER BACK PAIN AND BURNING WITH URINATION, AND URINARY FREQUENCY. Source of Information: Patient Exam Limitations: No Limitations (JASMINA BELL APRN) History of Present Illness Date Seen by Provider: Jan 26, 2022 Time Seen by Provider: 15:02 Initial Comments This is a 41 yo female who presented to the ER with c/o low back pain, burning with urination, and urinary frequency over the past few days. Unknown fevers but does reports chills and nausea. Has not taken anything prior to arrival. (JASMINA BELL APRN) Allergies and Home Medications Allergies Coded Allergies: No Known Drug Allergies (Unverified , 12/30/19) Patient Home Medication List Home Medication List Reviewed: Yes (JASMINA BELL APRN) Atenolol (Atenolol) 50 Mg Tablet, 50 MG PO DAILY, (Reported) Entered as Reported by: SCOT GONZALEZ on 12/30/19 1201 Last Action: Converted Atorvastatin Calcium (Atorvastatin Calcium) 10 Mg Tablet, 10 MG PO HS, (Reported) Entered as Reported by: ALEXUS RODRÍGUEZ on 01/27/22921 Last Action: Reviewed Cefdinir (Cefdinir) 300 Mg Capsule, 300 MG PO BID Prescribed by: KEYLA PADGETT on 01/30/22 113 Citalopram Hydrobromide (Citalopram HBr) 40 Mg Tablet, 40 MG PO HS, (Reported) Entered as Reported by: ALEXUS RODRÍGUEZ on 01/27/22921 Last Action: Converted Cyanocobalamin (Vitamin B-12) (Vitamin B-12) 1,000 Mcg Tablet, 1,000 MCG PO DAILY, (Reported) Entered as Reported by: ALEXUS RODRÍGUEZ on 01/27/22921 Last Action: Reviewed Empagliflozin (Jardiance) 10 Mg Tablet, 10 MG PO DAILY, (Reported) Entered as Reported by: ALEXUS RODRÍGUEZ on 01/27/22921 Last Action: Reviewed Ferrous Sulfate (Iron) 325 Mg (65 Mg Iron) Tablet, 325 MG PO BID Prescribed by: KEYLA PADGETT on 01/30/22 113 Gabapentin (Gabapentin) 400 Mg Capsule, 400 MG PO QID, (Reported) Entered as Reported by: ALEXUS RODRÍGUEZ on 01/27/22921 Last Action: Continued Lisinopril (Lisinopril) 5 Mg Tablet, 5 MG PO HS Prescribed by: KEYLA PADGETT on 01/30/22 1132 Metformin HCl (Metformin HCl) 1,000 Mg Tablet, 1,000 MG PO BID, (Reported) Entered as Reported by: ALEXUS RODRÍGUEZ on 01/27/22921 Last Action: Reviewed Review of Systems Constitutional: see HPI (JASMINA BELL APRN) Past Ftvshzj-Ppwsaz-Pihuzs Hx Patient Social History Tobacco Use?: No Substance use?: No Alcohol Use?: No (JASMINA BELL APRN) Immunizations Up To Date Influenza Vaccine Up-to-Date: No; Not Current (JASMINA BELL APRN) Seasonal Allergies Seasonal Allergies: Yes (JASMINA BELL APRN) Past Medical History Surgeries: Yes (TUBES IN EARS MULTIPLE TIMES) Tubal Ligation Respiratory: No Cardiac: Yes Hypertension Neurological: No Reproductive Disorders: No Sexually Transmitted Disease: No HIV/AIDS: No Genitourinary: No Gastrointestinal: No Musculoskeletal: No Endocrine: Yes Diabetes, Non-Insulin dep HEENT: Yes (GLASSES) Chronic Ear Infection Loss of Vision: Denies Hearing Impairment: Denies, Bilateral Hearing Aide Cancer: No Psychosocial: Yes (HX DEPRESSION) Depression Integumentary: No Blood Disorders: Yes (ANEMIA) Adverse Reaction/Blood Tranf: No (N/A) (JASMINA BELL APRN) Physical Exam Vital Signs Capillary Refill : Less Than 3 Seconds (JASMINA BELL APRN) Height, Weight, BMI Height: 5'8.00" Weight: 248lbs. 0.0oz. [id number]; 35.00 BMI Method: General Appearance: No Apparent Distress, WD/WN HEENT: PERRL/EOMI, Normal ENT Inspection, Pharynx Normal Neck: Normal Inspection, Supple Cardiovascular: Regular Rate, Rhythm, No Edema, No Murmur Respiratory: Lungs Clear, Normal Breath Sounds, No Respiratory Distress Gastrointestinal: Normal Bowel Sounds, Soft, Other (suprapubic tenderness ) Back: Normal Inspection, No CVA Tenderness Extremity: Normal Capillary Refill, Normal Inspection, Normal Range of Motion Neurologic/Psychiatric: Alert, Oriented x3, No Motor/Sensory Deficits, Normal Mood/Affect Skin: Normal Color, Warm/Dry (JASMINA BELL APRN) Progress/Results/Core Measures Results/Orders Lab Results Laboratory Tests Test 01/26/22 14:20 01/26/22 14:48 01/26/22 15:38 Range/Units Urine Color YELLOW Urine Clarity SL CLOUDY Urine pH 5.0 5-9 Urine Specific [place] 1.025 H 1.016-1.022 Urine Protein TRACE H NEGATIVE Urine Glucose (UA) 3+ H NEGATIVE Urine Ketones NEGATIVE NEGATIVE Urine Nitrite POSITIVE H NEGATIVE Urine Bilirubin NEGATIVE NEGATIVE Urine Urobilinogen 0.2 < = 1.0 MG/DL Urine Leukocyte Esterase NEGATIVE NEGATIVE Urine RBC (Auto) 3+ H NEGATIVE Urine RBC 5-10 H /HPF Urine WBC 10-25 H /HPF Urine Squamous Epithelial Cells 10-25 H /HPF Urine Crystals NONE /LPF Urine Bacteria LARGE H /HPF Urine Casts NONE /LPF Urine Mucus NEGATIVE /LPF Urine Culture Indicated YES White Blood Count 17.3 H 4.3-11.0 10^3/uL Red Blood Count 3.80 3.80-5.11 10^6/uL Hemoglobin 10.5 L 11.5-16.0 g/dL Hematocrit 34 L 35-52 % Mean Corpuscular Volume 90 80-99 fL Mean Corpuscular Hemoglobin 28 25-34 pg Mean Corpuscular Hemoglobin Concent 31 L 32-36 g/dL Red Cell Distribution Width 14.0 10.0-14.5 % Platelet Count 382 130-400 10^3/uL Mean Platelet Volume 9.2 9.0-12.2 fL Immature Granulocyte % (Auto) 1 % Neutrophils (%) (Auto) 88 H 42-75 % Lymphocytes (%) (Auto) 8 L 12-44 % Monocytes (%) (Auto) 4 0-12 % Eosinophils (%) (Auto) 0 0-10 % Basophils (%) (Auto) 0 0-10 % Neutrophils # (Auto) 15.1 H 1.8-7.8 X 10^3 Lymphocytes # (Auto) 1.4 1.0-4.0 X 10^3 Monocytes # (Auto) 0.7 0.0-1.0 X 10^3 Eosinophils # (Auto) 0.0 0.0-0.3 10^3/uL Basophils # (Auto) 0.0 0.0-0.1 10^3/uL Immature Granulocyte # (Auto) 0.1 0.0-0.1 10^3/uL Neutrophils % (Manual) 91 % Lymphocytes % (Manual) 6 % Monocytes % (Manual) 3 % Polychromasia SLIGHT Sodium Level 134 L 135-145 MMOL/L Potassium Level 3.8 3.6-5.0 MMOL/L Chloride Level 95 L 98-107 MMOL/L Carbon Dioxide Level 21 21-32 MMOL/L Anion Gap 18 H 5-14 MMOL/L Blood Urea Nitrogen 16 7-18 MG/DL Creatinine 1.23 0.60-1.30 MG/DL Estimat Glomerular Filtration Rate 57 BUN/Creatinine Ratio 13 Glucose Level 214 H 70-105 MG/DL Calcium Level 9.8 8.5-10.1 MG/DL Corrected Calcium 9.7 8.5-10.1 MG/DL Total Bilirubin 2.1 H 0.1-1.0 MG/DL Aspartate Amino Transf (AST/SGOT) 14 5-34 U/L Alanine Aminotransferase (ALT/SGPT) 18 0-55 U/L Alkaline Phosphatase 63 40-136 U/L C-Reactive Protein High Sensitivity 45.74 H 0.00-0.50 MG/DL Total Protein 8.2 6.4-8.2 GM/DL Albumin 4.1 3.2-4.5 GM/DL Lactic Acid Level 3.84 *H 0.50-2.00 MMOL/L (KATIE DENT MD) Micro Results Microbiology 01/26/22 Blood Culture - Final, Complete No growth 01/26/22 Urine Culture - Final, Complete Escherichia coli Mixed Bacterial Oralia (KATIE DENT MD) My Orders Orders - KATIE DENT MD Ua Culture If Indicated (01/26/22 14:13) Urine Culture (01/26/22 14:20) (KATIE DENT MD) Blood Pressure Mean: 77 Progress Progress Note : Progress Note Patient examined and in no acute distress. She does have temperature of 38.9, orders placed for Tylenol 1000mg PO. Labs, COVID swab, and CT abd/pelvis ordered. WBC-17.3, Bili-2.1, CRP-45, lactic and blood cultures ordered. Initiated NS bolus and Cefepime 1gm IV for concerns of sepsis. CT abd/pelvis + for cystitis, UA + for UTI, lactic 3.83. Will admit inpatient ICU for urosepsis. (JASMINA BELL COATER OPERATOR INSULATION BOARD) Diagnostic Imaging Diagonstic Imaging: CT Comments [facility]. [place], [place] NAME: JOANNA SALCEDO [facility] REC#: [id number] PT STATUS: ADM IN : 1980 PHYSICIAN: JASMINA BELL APRN ADMIT DATE: 01/26/22/ICU Signed Date of Exam:01/26/22 CT ABDOMEN/PELVIS WO PROCEDURE: CT abdomen and pelvis without contrast. TECHNIQUE: Multiple contiguous axial images were obtained through the abdomen and pelvis without the use of intravenous contrast. Auto Exposure Controls were utilized during the CT exam to meet ALARA standards for radiation dose reduction. INDICATION: Abdominal pain. Hematuria. Low back pain. Dysuria. COMPARISON: None. FINDINGS: Lung bases are clear. Diffuse fatty infiltration of the liver. The gallbladder, pancreas, adrenals, spleen, kidneys and collecting systems are negative on this noncontrast exam. Reproductive structures are grossly unremarkable. Diffuse bladder wall thickening. No free intraperitoneal air or fluid. Normal appendix. No lymphadenopathy. No evidence of bowel obstruction or inflammation. No acute osseous finding. IMPRESSION: 1. Diffuse bladder wall thickening suspicious for cystitis. Recommend correlation with urinalysis. The kidneys and collecting systems are negative on this noncontrast exam. No other acute appearing CT findings. 2. Hepatic steatosis. Dictated by: Dictated on workstation # [id number] Dict: 01/26/22 1536 Trans: 01/26/22 1724 [facility] [id number] Interpreted by: SAIRA FRY MD Electronically signed by: SAIRA FRY MD 01/26/22 1724 (JASMINA BELL COATER OPERATOR [employer]ARD) Departure Communication (Admissions) Time/Spoke to Admitting Phy: 16:20 Dr. Rodriguez (JASMINA BELL COATER OPERATOR [employer]ATION BOARD) Impression Primary Impression: Sepsis Additional Impression: Cystitis Disposition: ADMITTED INPATIENT Condition: Stable Admissions Decision to Admit Reason: Admit from ER (General) Decision to Admit/Date: Jan 26, 2022 Time/Decision to Admit Time: 16:08 (JASMINA BELL APRN) Departure-Patient Inst. Referrals: [facility]/NARAYAN (PCP) Primary Care Physician IRWIN HUDSON APRN (Family) Primary Care Physician Scripts Cefdinir (Cefdinir) 300 Mg Capsule 300 MG PO BID for 5 Days, #10 CAP Prov: KEYLA PADGETT MD 01/30/22 Lisinopril (Lisinopril) 5 Mg Tablet 5 MG PO HS for 14 Days, TAB Hold until seen by your PCP Prov: KEYLA PADGETT MD 01/30/22 Ferrous Sulfate (Iron) 325 Mg (65 Mg Iron) Tablet 325 MG PO BID, #60 TAB Prov: KEYLA PADGETT MD 01/30/22 ATTENDING PHYSICIAN NOTE: I was physically present as attending physician in the emergency department during the care of this patient, but I was not directly involved in the decision making or delivery of care for this patient. (KATIE DENT MD) JASIMNA BELL APRN Jan 26, 2022 15:02 KATIE DENT MD Feb 04, 2022 06:19
[2022-01-26 15:11] LABS: BASOPHILS % (AUTO) 0 % (0-10); EOSINOPHILS % (AUTO) 0 % (0-10); HEMATOCRIT 34 % (35-52); HEMOGLOBIN 10.5 g/dL (11.5-16.0); LYMPHOCYTES # (AUTO) 1.4 X 10^3 (1.0-4.0); LYMPHOCYTES % (AUTO) 8 % (12-44); MEAN CORPUSCULAR HEMOGLOBIN 28 pg (25-34); MEAN CORPUSCULAR HGB CONC 31 g/dL (32-36); MEAN CORPUSCULAR VOLUME 90 fL (80-99); MEAN PLATELET VOLUME 9.2 fL (9.0-12.2); MONOCYTES # (AUTO) 0.7 X 10^3 (0.0-1.0); MONOCYTES % (AUTO) 4 % (0-12); NEUTROPHILS # (AUTO) 15.1 X 10^3 (1.8-7.8); NEUTROPHILS % (AUTO) 88 % (42-75); PLATELET COUNT 382 10^3/uL (130-400); WHITE BLOOD COUNT 17.3 10^3/uL (4.3-11.0)
[2022-01-26 15:13] LABS: ALBUMIN 4.1 GM/DL (3.2-4.5); POTASSIUM 3.8 MMOL/L (3.6-5.0)
[2022-01-26 15:14] LABS: CALCIUM 9.8 MG/DL (8.5-10.1)
[2022-01-26 15:15] LABS: TOTAL PROTEIN 8.2 GM/DL (6.4-8.2)
[2022-01-26] MEDS ORDERED: cefTRIAXone 1 GM PRE-MIX 50 ML IV ONE (15:15)
[2022-01-26 15:17] LABS: BILIRUBIN,TOTAL 2.1 MG/DL (0.1-1.0)
[2022-01-26 15:19] LABS: CREATININE SERUM 1.23 MG/DL (0.60-1.30)
[2022-01-26 15:34] LABS: LYMPHOCYTES % (MANUAL) 6 %; MONOCYTES % (MANUAL) 3 %; NEUTROPHILS % (MANUAL) 91 %
[2022-01-26 15:35] LABS: POLYCHROMASIA SLIGHT
--- NOTE | 2022-01-26 15:57 | Diagnostic Imaging Report ---
PROCEDURE: CT abdomen and pelvis without contrast. TECHNIQUE: Multiple contiguous axial images were obtained through the abdomen and pelvis without the use of intravenous contrast. Auto Exposure Controls were utilized during the CT exam to meet ALARA standards for radiation dose reduction. INDICATION: Abdominal pain. Hematuria. Low back pain. Dysuria. COMPARISON: None. FINDINGS: Lung bases are clear. Diffuse fatty infiltration of the liver. The gallbladder, pancreas, adrenals, spleen, kidneys and collecting systems are negative on this noncontrast exam. Reproductive structures are grossly unremarkable. Diffuse bladder wall thickening. No free intraperitoneal air or fluid. Normal appendix. No lymphadenopathy. No evidence of bowel obstruction or inflammation. No acute osseous finding. IMPRESSION: 1. Diffuse bladder wall thickening suspicious for cystitis. Recommend correlation with urinalysis. The kidneys and collecting systems are negative on this noncontrast exam. No other acute appearing CT findings. 2. Hepatic steatosis. Dictated by: Dictated on workstation # [id number]
[2022-01-26] MEDS ORDERED: NS IV 1000 ML 1,000 ML IV ONE (16:15)
--- NOTE | 2022-01-26 16:56 | Tele-ICU Consult ---
Progress Note 41 y/o female admitted with urosepsis Focused Exam Lactate Level 01/26/22 15:38: Lactic Acid Level 3.84*H Height, Weight, BMI Height: 5'8.00" Weight: 248lbs. 0.0oz. 112.875259vw; 35.00 BMI Method: Lactic Acid Level Laboratory Tests Test 01/26/22 15:38 Lactic Acid Level 3.84 MMOL/L (0.50-2.00) *H Labs Laboratory Tests 01/26/22 14:48 Results Results/Procedures Labs Laboratory Tests 01/26/22 14:48 Patient resulted labs reviewed. Lab results: Laboratory Tests Test 01/26/22 14:20 01/26/22 14:48 01/26/22 15:38 Range/Units Urine Color YELLOW Urine Clarity SL CLOUDY Urine pH 5.0 5-9 Urine Specific [place] 1.025 H 1.016-1.022 Urine Protein TRACE H NEGATIVE Urine Glucose (UA) 3+ H NEGATIVE Urine Ketones NEGATIVE NEGATIVE Urine Nitrite POSITIVE H NEGATIVE Urine Bilirubin NEGATIVE NEGATIVE Urine Urobilinogen 0.2 < = 1.0 MG/DL Urine Leukocyte Esterase NEGATIVE NEGATIVE Urine RBC (Auto) 3+ H NEGATIVE Urine RBC 5-10 H /HPF Urine WBC 10-25 H /HPF Urine Squamous Epithelial Cells 10-25 H /HPF Urine Crystals NONE /LPF Urine Bacteria LARGE H /HPF Urine Casts NONE /LPF Urine Mucus NEGATIVE /LPF Urine Culture Indicated YES White Blood Count 17.3 H 4.3-11.0 10^3/uL Red Blood Count 3.80 3.80-5.11 10^6/uL Hemoglobin 10.5 L 11.5-16.0 g/dL Hematocrit 34 L 35-52 % Mean Corpuscular Volume 90 80-99 fL Mean Corpuscular Hemoglobin 28 25-34 pg Mean Corpuscular Hemoglobin Concent 31 L 32-36 g/dL Red Cell Distribution Width 14.0 10.0-14.5 % Platelet Count 382 130-400 10^3/uL Mean Platelet Volume 9.2 9.0-12.2 fL Immature Granulocyte % (Auto) 1 % Neutrophils (%) (Auto) 88 H 42-75 % Lymphocytes (%) (Auto) 8 L 12-44 % Monocytes (%) (Auto) 4 0-12 % Eosinophils (%) (Auto) 0 0-10 % Basophils (%) (Auto) 0 0-10 % Neutrophils # (Auto) 15.1 H 1.8-7.8 X 10^3 Lymphocytes # (Auto) 1.4 1.0-4.0 X 10^3 Monocytes # (Auto) 0.7 0.0-1.0 X 10^3 Eosinophils # (Auto) 0.0 0.0-0.3 10^3/uL Basophils # (Auto) 0.0 0.0-0.1 10^3/uL Immature Granulocyte # (Auto) 0.1 0.0-0.1 10^3/uL Neutrophils % (Manual) 91 % Lymphocytes % (Manual) 6 % Monocytes % (Manual) 3 % Polychromasia SLIGHT Sodium Level 134 L 135-145 MMOL/L Potassium Level 3.8 3.6-5.0 MMOL/L Chloride Level 95 L 98-107 MMOL/L Carbon Dioxide Level 21 21-32 MMOL/L Anion Gap 18 H 5-14 MMOL/L Blood Urea Nitrogen 16 7-18 MG/DL Creatinine 1.23 0.60-1.30 MG/DL Estimat Glomerular Filtration Rate 57 BUN/Creatinine Ratio 13 Glucose Level 214 H 70-105 MG/DL Calcium Level 9.8 8.5-10.1 MG/DL Corrected Calcium 9.7 8.5-10.1 MG/DL Total Bilirubin 2.1 H 0.1-1.0 MG/DL Aspartate Amino Transf (AST/SGOT) 14 5-34 U/L Alanine Aminotransferase (ALT/SGPT) 18 0-55 U/L Alkaline Phosphatase 63 40-136 U/L C-Reactive Protein High Sensitivity 45.74 H 0.00-0.50 MG/DL Total Protein 8.2 6.4-8.2 GM/DL Albumin 4.1 3.2-4.5 GM/DL Lactic Acid Level 3.84 *H 0.50-2.00 MMOL/L Results Labs Labs Laboratory Tests 01/26/22 14:20: Urine Color YELLOW, Urine Clarity SL CLOUDY, Urine pH 5.0, Urine Specific [place] 1.025H, Urine Protein TRACEH, Urine Glucose (UA) 3+H, Urine Ketones NEGATIVE, Urine Nitrite POSITIVEH, Urine Bilirubin NEGATIVE, Urine Urobilinogen 0.2, Urine Leukocyte Esterase NEGATIVE, Urine RBC (Auto) 3+H, Urine RBC 5-10H, Urine WBC 10-25H, Urine Squamous Epithelial Cells 10-25H, Urine Crystals NONE, Urine Bacteria LARGEH, Urine Casts NONE, Urine Mucus NEGATIVE, Urine Culture Indicated YES 01/26/22 14:48: White Blood Count 17.3H, Red Blood Count 3.80, Hemoglobin 10.5L, Hematocrit 34L, Mean Corpuscular Volume 90, Mean Corpuscular Hemoglobin 28, Mean Corpuscular Hemoglobin Concent 31L, Red Cell Distribution Width 14.0, Platelet Count 382, Mean Platelet Volume 9.2, Immature Granulocyte % (Auto) 1, Neutrophils (%) (Auto) 88H, Lymphocytes (%) (Auto) 8L, Monocytes (%) (Auto) 4, Eosinophils (%) (Auto) 0, Basophils (%) (Auto) 0, Neutrophils # (Auto) 15.1H, Lymphocytes # (Auto) 1.4, Monocytes # (Auto) 0.7, Eosinophils # (Auto) 0.0, Basophils # (Auto) 0.0, Immature Granulocyte # (Auto) 0.1, Neutrophils % (Manual) 91, Lymphocytes % (Manual) 6, Monocytes % (Manual) 3, Polychromasia SLIGHT, Sodium Level 134L, Potassium Level 3.8, Chloride Level 95L, Carbon Dioxide Level 21, Anion Gap 18H, Blood Urea Nitrogen 16, Creatinine 1.23, Estimat Glomerular Filtration Rate 57, BUN/Creatinine Ratio 13, Glucose Level 214H, Calcium Level 9.8, Corrected Calcium 9.7, Total Bilirubin 2.1H, Aspartate Amino Transf (AST/SGOT) 14, Alanine Aminotransferase (ALT/SGPT) 18, Alkaline Phosphatase 63, C-Reactive Protein High Sensitivity 45.74H, Total Protein 8.2, Albumin 4.1 01/26/22 15:38: Lactic Acid Level 3.84*H SUJATHA MEYERS MD Jan 26, 2022 16:56
[2022-01-26] MEDS ORDERED: ONDANSETRON 4 MG (ZOFRAN) ORAL DISSOLVE TAB PO PRN (17:15)
[2022-01-26] MEDS ORDERED: diphenhydrAMINE 50 MG/ML INJ (BENADRYL) IVP PRN (17:15)
[2022-01-26] MEDS ORDERED: ONDANSETRON 4 MG/2 ML (SDV) Z0FRAN IV PRN (17:15)
[2022-01-26] MEDS ORDERED: morphine IMMEDIATE RELEASE 15 MG TABLET PO PRN (17:15)
[2022-01-26] MEDS ORDERED: LORazepam 0.5 MG (ATIVAN) TABLET PO PRN (17:15)
[2022-01-26] MEDS ORDERED: polyethylene glycoL POWDER 17 GM (MIRALAX) PACK PO PRN (17:15)
[2022-01-26] MEDS ORDERED: ANTACID SUSP 30 ML UDC (MYLANTA) PO PRN (17:15)
[2022-01-26] MEDS ORDERED: NS IV 500 ML 500 ML IV PRN (17:15)
[2022-01-26] MEDS ORDERED: BISACODYL 10 MG SUPP (DULCOLAX) PR PRN (17:15)
[2022-01-26] MEDS ORDERED: LACTULOSE SYRUP 10GM/15ML (ENULOSE) 30ML UDC PO PRN (17:15)
[2022-01-26] MEDS ORDERED: morphine INJ 4 MG/ML 1 ML (VIAL/SYRINGE) IV PRN (17:15)
[2022-01-26] MEDS ORDERED: MILK OF MAGNESIA 400 MG/5 ML 30 ML UDC PO PRN (17:15)
[2022-01-26] MEDS ORDERED: VANCOMYCIN INJECTION 0.1 MG in NS (IVPB) 250 ML IV SCH (17:15)
[2022-01-26] MEDS ORDERED: MELATONIN 3 MG TABLET PO PRN (17:15)
[2022-01-26] MEDS ORDERED: diphenhydrAMINE 25 MG TAB (BENADRYL) PO PRN (17:15)
[2022-01-26] MEDS ORDERED: CALCIUM CARBONATE 500 MG (TUMS) TAB.CHEW PO PRN (17:15)
[2022-01-26 17:18] VITALS: BP 105/63
[2022-01-26] MEDS ORDERED: RT-ALBUTEROL/IPRATROPIUM 3 ML (DUONEB) VIAL INH PRN (17:30)
[2022-01-26] MEDS ORDERED: NS IV 1000 ML 1,000 ML ONE (17:39)
[2022-01-26] MEDS: NS IV 1000 ML 1,000 ML IV SCH (17:46)
[2022-01-26] MEDS: DOCUSATE SODIUM 100 MG (COLACE) CAP PO SCH (20:35)
[2022-01-26] MEDS: SENNOSIDES 8.6 MG (SENOKOT) TAB PO SCH (20:35)
[2022-01-26] MEDS: inSUlin ASPART (NovoLOG) 1 UNIT/0.01 ML (CHARGE PER UNIT) SC SCH (20:47)
[2022-01-26] MEDS ORDERED: LIDOCAINE UROJET 2% GEL 10 ML PKG TOP ONE (21:00)
[2022-01-26] MEDS: ENOXAPARIN 40 MG/0.4 ML (LOVENOX) SYR SC SCH (21:41)
[2022-01-26] MEDS: VANCOMYCIN 1 GM/NS 250 ML IVPB IV SCH ×4 (21:41→22:46)
[2022-01-26] MEDS: ACETAMINOPHEN 325 MG TABLET PO PRN (21:46)
[2022-01-27] MEDS: NS IV 1000 ML 1,000 ML IV SCH ×4 (02:04→14:39)
[2022-01-27] MEDS: KETOROLAC 30 MG/ML VIAL IVP PRN ×3 (02:04→21:50)
[2022-01-27 04:55] LABS: BASOPHILS % (AUTO) 0 % (0-10); EOSINOPHILS % (AUTO) 0 % (0-10); HEMATOCRIT 27 % (35-52); HEMOGLOBIN 8.2 g/dL (11.5-16.0); LYMPHOCYTES # (AUTO) 0.9 10^3/uL (1.0-4.0); LYMPHOCYTES % (AUTO) 8 % (12-44); MEAN CORPUSCULAR HEMOGLOBIN 27 pg (25-34); MEAN CORPUSCULAR HGB CONC 30 g/dL (32-36); MEAN CORPUSCULAR VOLUME 90 fL (80-99); MEAN PLATELET VOLUME 9.1 fL (9.0-12.2); MONOCYTES # (AUTO) 0.5 10^3/uL (0.0-1.0); MONOCYTES % (AUTO) 4 % (0-12); NEUTROPHILS # (AUTO) 9.9 10^3/uL (1.8-7.8); NEUTROPHILS % (AUTO) 86 % (42-75); PLATELET COUNT 247 10^3/uL (130-400); WHITE BLOOD COUNT 11.5 10^3/uL (4.3-11.0)
[2022-01-27 05:00] LABS: ALBUMIN 3.1 GM/DL (3.2-4.5); POTASSIUM 3.6 MMOL/L (3.6-5.0)
[2022-01-27 05:01] LABS: CALCIUM 8.2 MG/DL (8.5-10.1)
[2022-01-27 05:03] LABS: TOTAL PROTEIN 6.2 GM/DL (6.4-8.2)
[2022-01-27 05:04] LABS: BILIRUBIN,TOTAL 1.3 MG/DL (0.1-1.0)
[2022-01-27 05:06] LABS: CREATININE SERUM 0.93 MG/DL (0.60-1.30); PHOSPHORUS 2.2 MG/DL (2.3-4.7)
[2022-01-27 05:09] LABS: MAGNESIUM 1.7 MG/DL (1.6-2.4)
[2022-01-27] MEDS: inSUlin ASPART (NovoLOG) 1 UNIT/0.01 ML (CHARGE PER UNIT) SC SCH ×4 (05:14→20:18)
[2022-01-27] MEDS ORDERED: KCL 20 MEQ TAB (K-DUR) PO ONE (05:15)
[2022-01-27] MEDS: MAGNESIUM 1 GM/100 ML IVPB 100 ML IV SCH ×2 (05:20→06:15)
[2022-01-27] MEDS ORDERED: MAGNESIUM 1 GM/100 ML IVPB 100 ML IV SCH (06:00)
[2022-01-27] MEDS ORDERED: POTASSIUM CL 10MEQ/50ML IVPB 50 ML IV SCH (06:00)
[2022-01-27] MEDS ORDERED: KCL 20 MEQ TAB (K-DUR) PO SCH (06:00)
[2022-01-27] MEDS: DOCUSATE SODIUM 100 MG (COLACE) CAP PO SCH ×2 (07:37→20:19)
[2022-01-27] MEDS: SENNOSIDES 8.6 MG (SENOKOT) TAB PO SCH ×2 (07:37→20:20)
[2022-01-27] MEDS ORDERED: METF-399 PO (09:22)
[2022-01-27] MEDS ORDERED: ATOR10TA66 PO (09:22)
[2022-01-27] MEDS ORDERED: GABA-490 PO (09:22)
[2022-01-27] MEDS ORDERED: EMPA10TA PO (09:22)
[2022-01-27] MEDS ORDERED: CITA40TA13 PO (09:22)
[2022-01-27] MEDS ORDERED: CYAN-41 PO (09:22)
[2022-01-27] MEDS ORDERED: LISI5TAB20 PO (09:23)
[2022-01-27] MEDS ORDERED: VANCOMYCIN 1250 MG/NS 250 ML IVPB IV SCH ×2 (09:30)
--- NOTE | 2022-01-27 11:00 | Progress Note ---
SUJATHA VU 01/27/22 1100: Subjective Subjective/Events-last exam Patient is a 41 yo F admitted for sepsis secondary to cystitis. She complains of back pain that she rates as a 7/10. She indicates that she has been experiencing headache, chills, abdominal pain, dysuria, fatigue and diarrhea. She denies palpitations, nausea and vomiting. Review of Systems General: Chills, Fatigue HEENT: Head Aches Pulmonary: Other (SOB) Cardiovascular: No: Palpitations Gastrointestinal: Abdominal Pain, Diarrhea; No: Nausea, Vomiting, Constipation Genitourinary: Dysuria Musculoskeletal: back pain Neurological: No: Confusion Focused Exam Sepsis Stage: Sepsis (Patient has known route of infection, 3.84 lactic acid at admission, and WBC of 17.3 at admission. She lacks tachypnea and tachycardia presently.) Possible Source: Genitouriary (Cystitis) Lactate Level 01/26/22 15:38: Lactic Acid Level 3.84*H 01/26/22 17:50: Lactic Acid Level 2.61*H 01/26/22 20:22: Lactic Acid Level 2.00 Objective Exam Last Set of Vital Signs Vital Signs Date Time Temp Pulse Resp B/P (MAP) Pulse Ox O2 Delivery O2 Flow Rate FiO2 01/27/22 10:00 105 22 133/91 98 Room Air 01/27/22 08:27 36.8 01/26/22 17:18 21 Capillary Refill : Less Than 3 Seconds I&O Intake and Output 01/27/22 00:00 Intake Total 2680 ml Output Total 200 ml Balance 2480 ml Intake Oral 130 ml IV Total 2550 ml Output Urine Total 200 ml Daily Weight Change No General: Alert, Oriented X3, Cooperative, No Acute Distress Neck: No JVD Lungs: Clear to Auscultation, Normal Air Movement Heart: Regular Rate, Normal S1, Normal S2, No Murmurs Neuro: Normal Speech, Normal Tone Psych/Mental Status: Mental Status NL, Mood NL Results/Procedures Lab Laboratory Tests 01/26/22 14:20: Urine Color YELLOW, Urine Clarity SL CLOUDY, Urine pH 5.0, Urine Specific [place] y 1.025H, Urine Protein TRACEH, Urine Glucose (UA) 3+H, Urine Ketones NEGATIVE, Urine Nitrite POSITIVEH, Urine Bilirubin NEGATIVE, Urine Urobilinogen 0.2, Urine Leukocyte Esterase NEGATIVE, Urine RBC (Auto) 3+H, Urine RBC 5-10H, Urine WBC 10-25H, Urine Squamous Epithelial Cells 10-25H, Urine Crystals NONE, Urine Bacteria LARGEH, Urine Casts NONE, Urine Mucus NEGATIVE, Urine Culture Indicated YES 01/26/22 14:48: White Blood Count 17.3H, Red Blood Count 3.80, Hemoglobin 10.5L, Hematocrit 34L, Mean Corpuscular Volume 90, Mean Corpuscular Hemoglobin 28, Mean Corpuscular Hemoglobin Concent 31L, Red Cell Distribution Width 14.0, Platelet Count 382, Mean Platelet Volume 9.2, Immature Granulocyte % (Auto) 1, Neutrophils (%) (Auto) 88H, Lymphocytes (%) (Auto) 8L, Monocytes (%) (Auto) 4, Eosinophils (%) (Auto) 0, Basophils (%) (Auto) 0, Neutrophils # (Auto) 15.1H, Lymphocytes # (Auto) 1.4, Monocytes # (Auto) 0.7, Eosinophils # (Auto) 0.0, Basophils # (Auto) 0.0, Immature Granulocyte # (Auto) 0.1, Neutrophils % (Manual) 91, Lymphocytes % (Manual) 6, Monocytes % (Manual) 3, Polychromasia SLIGHT, Sodium Level 134L, Potassium Level 3.8, Chloride Level 95L, Carbon Dioxide Level 21, Anion Gap 18H, Blood Urea Nitrogen 16, Creatinine 1.23, Estimat Glomerular Filtration Rate 57, BUN/Creatinine Ratio 13, Glucose Level 214H, Calcium Level 9.8, Corrected Calcium 9.7, Total Bilirubin 2.1H, Aspartate Amino Transf (AST/SGOT) 14, Alanine Aminotransferase (ALT/SGPT) 18, Alkaline Phosphatase 63, C-Reactive Protein High Sensitivity 45.74H, Total Protein 8.2, Albumin 4.1 01/26/22 15:38: Lactic Acid Level 3.84*H 01/26/22 17:50: Lactic Acid Level 2.61*H 01/26/22 20:22: Lactic Acid Level 2.00 01/26/22 20:46: Glucometer 150H 01/27/22 04:40: Sodium Level 138, Potassium Level 3.6, Chloride Level 105, Carbon Dioxide Level 19L, Anion Gap 14, Blood Urea Nitrogen 17, Creatinine 0.93, Estimat Glomerular Filtration Rate 80, BUN/Creatinine Ratio 18, Glucose Level 129H, Calcium Level 8.2L, Corrected Calcium 8.9, Phosphorus Level 2.2L, Magnesium Level 1.7, Total Bilirubin 1.3H, Aspartate Amino Transf (AST/SGOT) 11, Alanine Aminotransferase (ALT/SGPT) 13, Alkaline Phosphatase 48, Total Protein 6.2L, Albumin 3.1L 01/27/22 04:45: White Blood Count 11.5H, Red Blood Count 3.02L, Hemoglobin 8.2L, Hematocrit 27L, Mean Corpuscular Volume 90, Mean Corpuscular Hemoglobin 27, Mean Corpuscular Hemoglobin Concent 30L, Red Cell Distribution Width 14.1, Platelet Count 247, Mean Platelet Volume 9.1, Immature Granulocyte % (Auto) 1, Neutrophils (%) (Auto) 86H, Lymphocytes (%) (Auto) 8L, Monocytes (%) (Auto) 4, Eosinophils (%) (Auto) 0, Basophils (%) (Auto) 0, Neutrophils # (Auto) 9.9H, Lymphocytes # (Auto) 0.9L, Monocytes # (Auto) 0.5, Eosinophils # (Auto) 0.0, Basophils # (Auto) 0.0, Immature Granulocyte # (Auto) 0.2H Microbiology 01/26/22 Urine Culture - Preliminary, Resulted Escherichia coli Radiology PROCEDURE: CT abdomen and pelvis without contrast. TECHNIQUE: Multiple contiguous axial images were obtained through the abdomen and pelvis without the use of intravenous contrast. Auto Exposure Controls were utilized during the CT exam to meet ALARA standards for radiation dose reduction. INDICATION: Abdominal pain. Hematuria. Low back pain. Dysuria. COMPARISON: None. FINDINGS: Lung bases are clear. Diffuse fatty infiltration of the liver. The gallbladder, pancreas, adrenals, spleen, kidneys and collecting systems are negative on this noncontrast exam. Reproductive structures are grossly unremarkable. Diffuse bladder wall thickening. No free intraperitoneal air or fluid. Normal appendix. No lymphadenopathy. No evidence of bowel obstruction or inflammation. No acute osseous finding. IMPRESSION: 1. Diffuse bladder wall thickening suspicious for cystitis. Recommend correlation with urinalysis. The kidneys and collecting systems are negative on this noncontrast exam. No other acute appearing CT findings. 2. Hepatic steatosis. Dictated by: Dictated on workstation # [id number] Dict: 01/26/22 1536 Trans: 01/26/22 1724 [facility] [id number] Interpreted by: SAIRA FRY MD Electronically signed by: SAIRA FRY MD 01/26/22 1724 Meds As indicated in Medications List Assessment/Plan Assessment/Plan Admission Dx Sepsis secondary to cystitis Admission Status: Inpatient Order (span 2 midnights) Reason for Inpatient Admission: Patient was admitted for sepsis possibly secondary to cystitis. Assessment & Plan Sepsis secondary to UTI - ceftriaxone and vancomycin IV DVT prophylaxis - patient has been prescribed enoxaparin Diabetes - insulin aspart paired with close glucose monitoring Diarrhea - Patient prescribed senna and docusate sodium Back pain - ketorolac Q6HR PRN, morphine sulfate, oxycodone Obesity - Weight loss management and counseling if needed Clinical Quality Measures Admission Status Admission Dx Sepsis secondary to cystitis Admission Status: Inpatient Order (span 2 midnights) Reason for Inpatient Admission: Patient admission required for close monitoring of infection and treatment with IV antibiotics. DVT/VTE Risk/Contraindication: VTE Addressed: Yes (DVT prophylaxis addressed with enoxaparin) VTE Present on Admission: No KEYLA TREVINO MD 01/27/22 1352: Objective Exam General: Alert, Oriented X3, Cooperative, No Acute Distress Lungs: Clear to Auscultation, Normal Air Movement Heart: Regular Rate, No Murmurs Abdomen: Normal Bowel Sounds, Soft, No Tenderness, No Masses Extremities: No Edema, No Tenderness/Swelling Supervisory-Addendum Brief Verification & Attestation Participated in pt care: history, physical Personally performed: exam, history Care discussed with: Medical Student Procedures: n/a Verification and Attestation of Medical Student E/M Service A medical student performed and documented this service in my presence. I reviewed and verified all information documented by the medical student and made modifications to such information, when appropriate. I personally performed the physical exam and medical decision making. Keyla Trevino, Jan 27, 2022,13:51 SUJATHA VU Jan 27, 2022 11:00 KEYLA TREVINO MD Jan 27, 2022 13:52
--- NOTE | 2022-01-27 14:03 | History & Physical ---
HPI History of Present Illness: 41 yo F that presented with bilateral back pain and increase in urinary frequency and burning for the last 48hrs. States that she has not had anything like this recently and never been hospitalized for similar concerns. States that she has DM that is controlled with oral mediations. Source: patient Exam Limitations: no limitations Date seen by provider: Jan 27, 2022 Time Seen by Provider: 09:15 Attending Physician [place] PCP Admitting Physician: Rachel Rodriguez DO Attending Physician: Keyla Trevino MD Consult Date of Admission Jan 26, 2022 at 16:37 Home Medications Home Medications Reviewed patient Home Medication Reconciliation performed by pharmacy medication reconciliations sales and service technician and/or nursing. Patients Allergies have been reviewed. Allergies Coded Allergies: No Known Drug Allergies (Unverified , 12/30/19) PRO-[id number]-[id number] Hx Patient Social History Smoking Status: Never a Smoker 2nd Hand Smoke Exposure: No Recent Hopitalizations: No Alcohol Use?: No Have you traveled recently?: No Immunizations Up To Date Influenza Vaccine Up-to-Date: No; Not Current Past Medical History NIDDM HTN Review of Systems ([facility]) Constitutional: chills, fever, malaise EENTM: no symptoms reported; No mouth pain, No nose congestion, No nose pain Respiratory: no symptoms reported; No cough, No dyspnea on exertion, No short of breath Cardiovascular: no symptoms reported; No chest pain, No edema, No palpitations Gastrointestinal: abdominal pain; No constipation, No diarrhea, No nausea, No vomiting Genitourinary: dysuria, frequency; No hematuria : No Musculoskeletal: back pain; No joint pain, No muscle pain Skin: no symptoms reported; No lesions, No rash Psychiatric/Neurological: No Symptoms Reported; Denies Anxiety, Denies Depressed Reviewed Test Results Reviewed Test Results Lab Laboratory Tests Test 01/26/22 14:20 01/26/22 14:48 01/26/22 15:38 01/26/22 17:50 Range/Units Urine Color YELLOW Urine Clarity SL CLOUDY Urine pH 5.0 5-9 Urine Specific [place] 1.025 H 1.016-1.022 Urine Protein TRACE H NEGATIVE Urine Glucose (UA) 3+ H NEGATIVE Urine Ketones NEGATIVE NEGATIVE Urine Nitrite POSITIVE H NEGATIVE Urine Bilirubin NEGATIVE NEGATIVE Urine Urobilinogen 0.2 < = 1.0 MG/DL Urine Leukocyte Esterase NEGATIVE NEGATIVE Urine RBC (Auto) 3+ H NEGATIVE Urine RBC 5-10 H /HPF Urine WBC 10-25 H /HPF Urine Squamous Epithelial Cells 10-25 H /HPF Urine Crystals NONE /LPF Urine Bacteria LARGE H /HPF Urine Casts NONE /LPF Urine Mucus NEGATIVE /LPF Urine Culture Indicated YES White Blood Count 17.3 H 4.3-11.0 10^3/uL Red Blood Count 3.80 3.80-5.11 10^6/uL Hemoglobin 10.5 L 11.5-16.0 g/dL Hematocrit 34 L 35-52 % Mean Corpuscular Volume 90 80-99 fL Mean Corpuscular Hemoglobin 28 25-34 pg Mean Corpuscular Hemoglobin Concent 31 L 32-36 g/dL Red Cell Distribution Width 14.0 10.0-14.5 % Platelet Count 382 130-400 10^3/uL Mean Platelet Volume 9.2 9.0-12.2 fL Immature Granulocyte % (Auto) 1 % Neutrophils (%) (Auto) 88 H 42-75 % Lymphocytes (%) (Auto) 8 L 12-44 % Monocytes (%) (Auto) 4 0-12 % Eosinophils (%) (Auto) 0 0-10 % Basophils (%) (Auto) 0 0-10 % Neutrophils # (Auto) 15.1 H 1.8-7.8 X 10^3 Lymphocytes # (Auto) 1.4 1.0-4.0 X 10^3 Monocytes # (Auto) 0.7 0.0-1.0 X 10^3 Eosinophils # (Auto) 0.0 0.0-0.3 10^3/uL Basophils # (Auto) 0.0 0.0-0.1 10^3/uL Immature Granulocyte # (Auto) 0.1 0.0-0.1 10^3/uL Neutrophils % (Manual) 91 % Lymphocytes % (Manual) 6 % Monocytes % (Manual) 3 % Polychromasia SLIGHT Sodium Level 134 L 135-145 MMOL/L Potassium Level 3.8 3.6-5.0 MMOL/L Chloride Level 95 L 98-107 MMOL/L Carbon Dioxide Level 21 21-32 MMOL/L Anion Gap 18 H 5-14 MMOL/L Blood Urea Nitrogen 16 7-18 MG/DL Creatinine 1.23 0.60-1.30 MG/DL Estimat Glomerular Filtration Rate 57 BUN/Creatinine Ratio 13 Glucose Level 214 H 70-105 MG/DL Calcium Level 9.8 8.5-10.1 MG/DL Corrected Calcium 9.7 8.5-10.1 MG/DL Total Bilirubin 2.1 H 0.1-1.0 MG/DL Aspartate Amino Transf (AST/SGOT) 14 5-34 U/L Alanine Aminotransferase (ALT/SGPT) 18 0-55 U/L Alkaline Phosphatase 63 40-136 U/L C-Reactive Protein High Sensitivity 45.74 H 0.00-0.50 MG/DL Total Protein 8.2 6.4-8.2 GM/DL Albumin 4.1 3.2-4.5 GM/DL Lactic Acid Level 3.84 *H 2.61 *H 0.50-2.00 MMOL/L Test 01/26/22 20:22 01/26/22 20:46 01/27/22 04:40 01/27/22 04:45 Range/Units Lactic Acid Level 2.00 0.50-2.00 MMOL/L Glucometer 150 H 70-110 MG/DL Sodium Level 138 135-145 MMOL/L Potassium Level 3.6 3.6-5.0 MMOL/L Chloride Level 105 98-107 MMOL/L Carbon Dioxide Level 19 L 21-32 MMOL/L Anion Gap 14 5-14 MMOL/L Blood Urea Nitrogen 17 7-18 MG/DL Creatinine 0.93 0.60-1.30 MG/DL Estimat Glomerular Filtration Rate 80 BUN/Creatinine Ratio 18 Glucose Level 129 H 70-105 MG/DL Calcium Level 8.2 L 8.5-10.1 MG/DL Corrected Calcium 8.9 8.5-10.1 MG/DL Phosphorus Level 2.2 L 2.3-4.7 MG/DL Magnesium Level 1.7 1.6-2.4 MG/DL Total Bilirubin 1.3 H 0.1-1.0 MG/DL Aspartate Amino Transf (AST/SGOT) 11 5-34 U/L Alanine Aminotransferase (ALT/SGPT) 13 0-55 U/L Alkaline Phosphatase 48 40-136 U/L Total Protein 6.2 L 6.4-8.2 GM/DL Albumin 3.1 L 3.2-4.5 GM/DL White Blood Count 11.5 H 4.3-11.0 10^3/uL Red Blood Count 3.02 L 3.80-5.11 10^6/uL Hemoglobin 8.2 L 11.5-16.0 g/dL Hematocrit 27 L 35-52 % Mean Corpuscular Volume 90 80-99 fL Mean Corpuscular Hemoglobin 27 25-34 pg Mean Corpuscular Hemoglobin Concent 30 L 32-36 g/dL Red Cell Distribution Width 14.1 10.0-14.5 % Platelet Count 247 130-400 10^3/uL Mean Platelet Volume 9.1 9.0-12.2 fL Immature Granulocyte % (Auto) 1 % Neutrophils (%) (Auto) 86 H 42-75 % Lymphocytes (%) (Auto) 8 L 12-44 % Monocytes (%) (Auto) 4 0-12 % Eosinophils (%) (Auto) 0 0-10 % Basophils (%) (Auto) 0 0-10 % Neutrophils # (Auto) 9.9 H 1.8-7.8 10^3/uL Lymphocytes # (Auto) 0.9 L 1.0-4.0 10^3/uL Monocytes # (Auto) 0.5 0.0-1.0 10^3/uL Eosinophils # (Auto) 0.0 0.0-0.3 10^3/uL Basophils # (Auto) 0.0 0.0-0.1 10^3/uL Immature Granulocyte # (Auto) 0.2 H 0.0-0.1 10^3/uL Test 01/27/22 11:41 Range/Units Glucometer 147 H 70-110 MG/DL Radiology PROCEDURE: CT abdomen and pelvis without contrast. TECHNIQUE: Multiple contiguous axial images were obtained through the abdomen and pelvis without the use of intravenous contrast. Auto Exposure Controls were utilized during the CT exam to meet ALARA standards for radiation dose reduction. INDICATION: Abdominal pain. Hematuria. Low back pain. Dysuria. COMPARISON: None. FINDINGS: Lung bases are clear. Diffuse fatty infiltration of the liver. The gallbladder, pancreas, adrenals, spleen, kidneys and collecting systems are negative on this noncontrast exam. Reproductive structures are grossly unremarkable. Diffuse bladder wall thickening. No free intraperitoneal air or fluid. Normal appendix. No lymphadenopathy. No evidence of bowel obstruction or inflammation. No acute osseous finding. IMPRESSION: 1. Diffuse bladder wall thickening suspicious for cystitis. Recommend correlation with urinalysis. The kidneys and collecting systems are negative on this noncontrast exam. No other acute appearing CT findings. 2. Hepatic steatosis. Dictated by: Dictated on workstation # [id number] Dict: 01/26/22 1536 Trans: 01/26/22 1724 [facility] [id number] Interpreted by: SAIRA FRY MD Electronically signed by: SAIRA FRY MD 01/26/22 1724 Physical Exam-([facility]) Physical Exam Vital Signs VS - Last 72 Hours, by Label 01/26/22 01/26/22 01/26/22 01/26/22 14:25 15:02 15:25 17:00 Temp 38.9 38.9 38.9 Pulse 100 87 Resp 14 21 B/P (MAP) 102/64 (77) 103/66 Pulse Ox 98 95 O2 Delivery Room Air Room Air 01/26/22 01/26/22 01/26/22 01/26/22 17:00 17:05 17:18 17:50 Temp 38.9 Pulse 88 91 91 B/P (MAP) 105/63 Pulse Ox 93 93 O2 Delivery Room Air Room Air FiO2 21 01/26/22 01/26/22 01/26/22 01/26/22 18:00 18:56 19:00 19:00 Temp 36.5 Pulse 88 90 87 Resp 21 17 B/P (MAP) 98/65 99/63 Pulse Ox 96 96 95 O2 Delivery Room Air Room Air Room Air 01/26/22 01/26/22 01/26/22 01/26/22 19:15 20:00 21:00 22:00 Pulse 89 87 93 Resp 23 19 19 B/P (MAP) 94/61 114/70 113/65 Pulse Ox 95 98 97 97 O2 Delivery Room Air Room Air Room Air Room Air 01/26/22 01/26/22 01/26/22 01/27/22 23:00 23:40 23:40 00:00 Temp 37.1 Pulse 96 102 104 Resp 17 24 19 B/P (MAP) 91/59 91/59 115/63 Pulse Ox 96 93 93 96 O2 Delivery Room Air Room Air Room Air Room Air 01/27/22 01/27/22 01/27/22 01/27/22 01:00 01:00 02:00 03:00 Pulse 103 103 104 107 Resp 18 20 18 B/P (MAP) 122/76 113/80 101/66 Pulse Ox 92 98 93 O2 Delivery Room Air Room Air Room Air 01/27/22 01/27/22 01/27/22 01/27/22 04:00 04:00 05:00 06:00 Temp 36.8 Pulse 101 98 96 Resp 24 17 20 B/P (MAP) 108/68 106/70 115/77 Pulse Ox 97 97 95 94 O2 Delivery Room Air Room Air Room Air Room Air 01/27/22 01/27/22 01/27/22 01/27/22 06:45 07:00 07:00 08:00 Pulse 90 90 98 Resp 29 B/P (MAP) 126/80 125/77 Pulse Ox 95 96 97 O2 Delivery Room Air Room Air Room Air 01/27/22 01/27/22 01/27/22 01/27/22 08:00 08:27 09:00 10:00 Temp 36.8 Pulse 100 105 Resp 23 22 B/P (MAP) 133/86 133/91 Pulse Ox 95 98 98 O2 Delivery Room Air Room Air Room Air 01/27/22 11:58 Temp 36.7 Pulse 103 Resp 18 B/P (MAP) 107/70 (82) Pulse Ox 95 O2 Delivery Room Air Capillary Refill : Less Than 3 Seconds General Appearance: WD/WN, no apparent distress HEENT: PERRL/EOMI Neck: non-tender, full range of motion, supple Respiratory: chest non-tender, lungs clear, normal breath sounds, no respiratory distress, no accessory muscle use Cardiovascular: normal peripheral pulses, regular rate, rhythm, no edema, no murmur Gastrointestinal: normal bowel sounds, non tender, soft Back: CVA tenderness (R), CVA tenderness (L) Extremities: normal range of motion, non-tender, normal inspection, no pedal edema, no calf tenderness, normal capillary refill Neurologic/Psychiatric: test tech II-XII nml as tested, no motor/sensory deficits, alert, normal mood/affect, oriented x 3 Skin: normal color, warm/dry Lymphatic: no adenopathy Assessment/Plan Assessment/Plan Admission Status: Inpatient Order (span 2 midnights) Reason for Inpatient Admission: High risk for decompensation, requiring IVF and IV antibiotics Assessment & Plan (1) Sepsis Status: Resolved Assessment & Plan: - Resolved at time of visit, Continue IV antibiotics, HDS, waiting for sensitivities Qualifiers: Qualified Codes: A41.51 - Sepsis due to Escherichia coli [e. coli] (2) Pyelonephritis Status: Acute (3) Non-insulin dependent type 2 diabetes mellitus Status: Chronic Assessment & Plan: - Continue home meds (4) HTN (hypertension) Status: Chronic Assessment & Plan: - HDS Qualifiers: Qualified Codes: I10 - Essential (primary) hypertension Clinical Quality Measures DVT/VTE Risk/Contraindication: VTE Addressed: Yes (DVT prophylaxis addressed with enoxaparin) VTE Present on Admission: No KEYLA TREVINO MD Jan 27, 2022 14:03
[2022-01-27] MEDS: cefTRIAXone 1 GM PRE-MIX 50 ML IV SCH (15:43)
[2022-01-27] MEDS: ACETAMINOPHEN 325 MG TABLET PO PRN (15:44)
[2022-01-27] MEDS: ENOXAPARIN 40 MG/0.4 ML (LOVENOX) SYR SC SCH (20:19)
[2022-01-28] MEDS: NS IV 1000 ML 1,000 ML IV SCH ×2 (02:27→13:27)
[2022-01-28] MEDS: ACETAMINOPHEN 325 MG TABLET PO PRN ×2 (03:38→11:27)
[2022-01-28] MEDS: inSUlin ASPART (NovoLOG) 1 UNIT/0.01 ML (CHARGE PER UNIT) SC SCH ×4 (05:16→20:38)
[2022-01-28 05:45] LABS: BASOPHILS % (AUTO) 0 % (0-10); EOSINOPHILS % (AUTO) 0 % (0-10); HEMATOCRIT 28 % (35-52); HEMOGLOBIN 8.2 g/dL (11.5-16.0); LYMPHOCYTES # (AUTO) 0.6 10^3/uL (1.0-4.0); LYMPHOCYTES % (AUTO) 6 % (12-44); MEAN CORPUSCULAR HEMOGLOBIN 27 pg (25-34); MEAN CORPUSCULAR HGB CONC 29 g/dL (32-36); MEAN CORPUSCULAR VOLUME 92 fL (80-99); MEAN PLATELET VOLUME 9.3 fL (9.0-12.2); MONOCYTES # (AUTO) 0.4 10^3/uL (0.0-1.0); MONOCYTES % (AUTO) 5 % (0-12); NEUTROPHILS # (AUTO) 8.3 10^3/uL (1.8-7.8); NEUTROPHILS % (AUTO) 88 % (42-75); PLATELET COUNT 309 10^3/uL (130-400); WHITE BLOOD COUNT 9.4 10^3/uL (4.3-11.0)
[2022-01-28 05:51] LABS: ALBUMIN 3.2 GM/DL (3.2-4.5)
[2022-01-28 05:52] LABS: POTASSIUM 3.7 MMOL/L (3.6-5.0)
[2022-01-28 05:53] LABS: CALCIUM 8.8 MG/DL (8.5-10.1)
[2022-01-28 05:54] LABS: TOTAL PROTEIN 6.9 GM/DL (6.4-8.2)
[2022-01-28 05:57] LABS: PHOSPHORUS 2.4 MG/DL (2.3-4.7)
[2022-01-28 05:58] LABS: CREATININE SERUM 0.8 MG/DL (0.60-1.30)
[2022-01-28] MEDS: SENNOSIDES 8.6 MG (SENOKOT) TAB PO SCH ×2 (09:17→20:38)
[2022-01-28] MEDS: DOCUSATE SODIUM 100 MG (COLACE) CAP PO SCH ×2 (09:17→20:37)
[2022-01-28 11:22] VITALS: BP 120/70
[2022-01-28] MEDS ORDERED: ACETAMINOPHEN 325 MG TABLET PO PRN (12:15)
--- NOTE | 2022-01-28 12:55 | Progress Note ---
SUJATHA VU 01/28/22 1255: Subjective Subjective/Events-last exam Patient is a 41 yo female admitted for sepsis secondary to cystitis. She complains of back pain tat she rates as a 7/10. She also states that she has headaches, chills, abdominal pain mostly in her lower abdomen as well as SOB. She denies palpitations, nausea, vomiting, dysuria or problems urinating. She also indicates that she has been passing clots and says that it has been painful. She says that she had her period before her hospital admission and typically has a heavy flow, but notes that the pain is not normally present. Review of Systems General: Chills, Fatigue HEENT: Head Aches Pulmonary: Dyspnea (SOB), Other Cardiovascular: No: Chest Pain, Palpitations Gastrointestinal: Abdominal Pain (Most prominent in hypogastric and lower right quadrant regions); No: Nausea, Vomiting, Diarrhea, Constipation Genitourinary: No Dysuria, No Frequency, No Incontinence, No Retention Musculoskeletal: back pain (Likely due to cystitis) Focused Exam Sepsis Stage: Sepsis Possible Source: Genitouriary (Cystitis or pyelonephritis) Lactate Level 01/26/22 15:38: Lactic Acid Level 3.84*H 01/26/22 17:50: Lactic Acid Level 2.61*H 01/26/22 20:22: Lactic Acid Level 2.00 Objective Exam Last Set of Vital Signs Vital Signs Date Time Temp Pulse Resp B/P (MAP) Pulse Ox O2 Delivery O2 Flow Rate FiO2 01/28/22 11:27 38.5 01/28/22 11:22 122 20 120/70 (87) 96 Room Air 01/28/22 08:40 0.00 01/26/22 17:18 21 Capillary Refill : Less Than 3 Seconds I&O Intake and Output 01/28/22 00:00 Intake Total 2967.5 ml Output Total 950 ml Balance 2017.5 ml Intake Oral 1505 ml IV Total 1462.5 ml Output Urine Total 950 ml # Voids 4 # Bowel Movements 3 General: Alert, Oriented X3, Cooperative, Mild Distress Neck: Supple, No JVD Lungs: Clear to Auscultation, Normal Air Movement Heart: Regular Rate, Normal S1, Normal S2, No Murmurs Abdomen: Normal Bowel Sounds, Other (Tenderness to palpation in hypogastric and lower right quadrant regions) Skin: No Rashes, No Significant Lesion Neuro: Normal Speech Psych/Mental Status: Mental Status NL Results/Procedures Lab Laboratory Tests 01/27/22 15:27: Glucometer 102 01/27/22 20:15: Glucometer 165H 01/28/22 05:11: Glucometer 160H 01/28/22 05:21: White Blood Count 9.4, Red Blood Count 3.07L, Hemoglobin 8.2L, Hematocrit 28L, Mean Corpuscular Volume 92, Mean Corpuscular Hemoglobin 27, Mean Corpuscular Hemoglobin Concent 29L, Red Cell Distribution Width 13.9, Platelet Count 309, Mean Platelet Volume 9.3, Immature Granulocyte % (Auto) 1, Neutrophils (%) (Auto) 88H, Lymphocytes (%) (Auto) 6L, Monocytes (%) (Auto) 5, Eosinophils (%) (Auto) 0, Basophils (%) (Auto) 0, Neutrophils # (Auto) 8.3H, Lymphocytes # (Auto) 0.6L, Monocytes # (Auto) 0.4, Eosinophils # (Auto) 0.0, Basophils # (Auto) 0.0, Immature Granulocyte # (Auto) 0.1, Sodium Level 138, Potassium Level 3.7, Chloride Level 105, Carbon Dioxide Level 18L, Anion Gap 15H, Blood Urea Nitrogen 11, Creatinine 0.80, Estimat Glomerular Filtration Rate 95, BUN/Creatinine Ratio 14, Glucose Level 171H, Calcium Level 8.8, Corrected Calcium 9.4, Phosphorus Level 2.4, Magnesium Level 2.0, Total Bilirubin 1.0, Aspartate Amino Transf (AST/SGOT) 14, Alanine Aminotransferase (ALT/SGPT) 13, Alkaline Phosphatase 59, Total Protein 6.9, Albumin 3.2 01/28/22 10:33: Glucometer 208H 01/28/22 11:11: Glucometer 198H Microbiology 01/26/22 MRSA Screen - Final, Complete MRSA not isolated 01/26/22 Blood Culture - Preliminary, Resulted No growth 01/26/22 Urine Culture - Final, Complete Escherichia coli Mixed Bacterial Oralia Radiology PROCEDURE: CT abdomen and pelvis without contrast. TECHNIQUE: Multiple contiguous axial images were obtained through the abdomen and pelvis without the use of intravenous contrast. Auto Exposure Controls were utilized during the CT exam to meet ALARA standards for radiation dose reduction. INDICATION: Abdominal pain. Hematuria. Low back pain. Dysuria. COMPARISON: None. FINDINGS: Lung bases are clear. Diffuse fatty infiltration of the liver. The gallbladder, pancreas, adrenals, spleen, kidneys and collecting systems are negative on this noncontrast exam. Reproductive structures are grossly unremarkable. Diffuse bladder wall thickening. No free intraperitoneal air or fluid. Normal appendix. No lymphadenopathy. No evidence of bowel obstruction or inflammation. No acute osseous finding. IMPRESSION: 1. Diffuse bladder wall thickening suspicious for cystitis. Recommend correlation with urinalysis. The kidneys and collecting systems are negative on this noncontrast exam. No other acute appearing CT findings. 2. Hepatic steatosis. Dictated by: Dictated on workstation # [id number] Dict: 01/26/22 1536 Trans: 01/26/22 1724 [facility] [id number] Interpreted by: SAIRA FRY MD Electronically signed by: SAIRA FRY MD 01/26/22 1724 Meds As listed in medications list Assessment/Plan Assessment/Plan Admission Dx Sepsis secondary to cystitis Admission Status: Inpatient Order (span 2 midnights) Reason for Inpatient Admission: Patient requires IV antibiotics and careful monitoring of vital signs and infectious course. Assessment & Plan Sepsis secondary to cystitis - Ceftriaxone sodium dextrose, vancomycin was discontinued DVT prophylaxis - enoxaparin Diabetes - SS insulin paired with careful glucose monitoring Diarrhea - senna and docusate sodium Back pain - ketorolac and acetaminophen Vaginal bleeding (passing clots) - ultrasound may be needed at hospital follow/up (1) Sepsis Status: Resolved Assessment & Plan: - Resolved at time of visit, Continue IV antibiotics, HDS, sensitivities acquired showing quinn-sensitive E. Coli to all antibiotics tested. Qualifiers: Qualified Codes: A41.51 - Sepsis due to Escherichia coli [e. coli] (2) Pyelonephritis Status: Acute Assessment & Plan: Continue antibiotics (3) Non-insulin dependent type 2 diabetes mellitus Status: Chronic Assessment & Plan: - Continue home meds (4) HTN (hypertension) Status: Chronic Assessment & Plan: - HDS Qualifiers: Qualified Codes: I10 - Essential (primary) hypertension Clinical Quality Measures Admission Status Admission Dx Sepsis secondary to cystitis Admission Status: Inpatient Order (span 2 midnights) Reason for Inpatient Admission: Inpatient admission needed for IV antibiotics and for careful monitoring of vitals, labwork, and infectious course. DVT/VTE Risk/Contraindication: VTE Addressed: Yes (DVT prophylaxis addressed with enoxaparin) VTE Present on Admission: No KEYLA PADGETT MD 01/28/222057: Objective Exam General: Alert, Oriented X3, Other (ill appearing this AM) HEENT: Mucous Memb Moist/[place] Lungs: Clear to Auscultation, Normal Air Movement Heart: Regular Rate, No Murmurs Abdomen: Normal Bowel Sounds, Soft, Other (Tenderness to palpation in hypogastric and lower right quadrant regions) Extremities: No Edema, No Tenderness/Swelling Neuro: Normal Speech Supervisory-Addendum Brief Verification & Attestation Participated in pt care: history, physical Personally performed: exam, history Care discussed with: Medical Student Procedures: n/a Verification and Attestation of Medical Student E/M Service A medical student performed and documented this service in my presence. I reviewed and verified all information documented by the medical student and made modifications to such information, when appropriate. I personally performed the physical exam and medical decision making. Keyla Padgett, Jan 28, 2022,20:54 Sepisis Pyelonephritis Quinn-sensitive Ecoli UTI - Continue IVFs, IV antibiotics, continues to have fevers Anemia -Likely 2/2 to heavy vaginal bleeding, Iron panel pending, started on provera, will need outpatient workup NIDDM - SSI, Holding PO meds incase contrast is needed HTN - Normotensive Abnormal Uterine bleeding - Needs outpatient workup Hepatic Steateosis - Seen on CT scan, needs to focus on diet and exercise with goal of weight loss DVT Px:SUJATHA Dugan Jan 28, 2022 12:55 KEYLA PADGETT MD Jan 28, 2022 20:58
[2022-01-28] MEDS: cefTRIAXone 1 GM PRE-MIX 50 ML IV SCH (14:41)
[2022-01-28 16:00] VITALS: BP 116/68
[2022-01-28] MEDS: KETOROLAC 30 MG/ML VIAL IVP PRN (19:29)
[2022-01-28 19:54] VITALS: BP 131/78
[2022-01-28] MEDS: ENOXAPARIN 40 MG/0.4 ML (LOVENOX) SYR SC SCH (20:38)
[2022-01-28] MEDS: medroxyPROGESTERone 10 MG (PROVERA) TAB PO SCH (22:32)
[2022-01-29] VITALS: BP 105/74
[2022-01-29] MEDS: NS IV 1000 ML 1,000 ML IV SCH (03:56)
[2022-01-29] MEDS: ACETAMINOPHEN 500 MG TAB (TYLENOL) PO PRN ×2 (03:59→15:43)
[2022-01-29 04:01] VITALS: BP 101/56
[2022-01-29 05:38] LABS: BASOPHILS % (AUTO) 0 % (0-10); EOSINOPHILS % (AUTO) 0 % (0-10); HEMATOCRIT 24 % (35-52); HEMOGLOBIN 7.1 g/dL (11.5-16.0); LYMPHOCYTES # (AUTO) 0.8 10^3/uL (1.0-4.0); LYMPHOCYTES % (AUTO) 8 % (12-44); MEAN CORPUSCULAR HEMOGLOBIN 27 pg (25-34); MEAN CORPUSCULAR HGB CONC 30 g/dL (32-36); MEAN CORPUSCULAR VOLUME 90 fL (80-99); MEAN PLATELET VOLUME 9.3 fL (9.0-12.2); MONOCYTES # (AUTO) 0.6 10^3/uL (0.0-1.0); MONOCYTES % (AUTO) 6 % (0-12); NEUTROPHILS # (AUTO) 8.3 10^3/uL (1.8-7.8); NEUTROPHILS % (AUTO) 84 % (42-75); PLATELET COUNT 300 10^3/uL (130-400); WHITE BLOOD COUNT 9.9 10^3/uL (4.3-11.0)
[2022-01-29 05:53] LABS: POTASSIUM 3.4 MMOL/L (3.6-5.0)
[2022-01-29 05:54] LABS: CALCIUM 8.6 MG/DL (8.5-10.1)
[2022-01-29 05:56] LABS: TOTAL PROTEIN 6.5 GM/DL (6.4-8.2)
[2022-01-29 05:57] LABS: BILIRUBIN,TOTAL 0.7 MG/DL (0.1-1.0)
[2022-01-29 05:59] LABS: CREATININE SERUM 0.68 MG/DL (0.60-1.30); PHOSPHORUS 2.4 MG/DL (2.3-4.7)
[2022-01-29] MEDS: inSUlin ASPART (NovoLOG) 1 UNIT/0.01 ML (CHARGE PER UNIT) SC SCH ×4 (06:00→20:44)
[2022-01-29 06:02] LABS: MAGNESIUM 1.8 MG/DL (1.6-2.4)
[2022-01-29 08:23] VITALS: BP 108/72
[2022-01-29] MEDS: SENNOSIDES 8.6 MG (SENOKOT) TAB PO SCH ×2 (09:04→20:38)
[2022-01-29] MEDS: DOCUSATE SODIUM 100 MG (COLACE) CAP PO SCH ×2 (09:04→20:38)
[2022-01-29] MEDS: ATENOLOL 25 MG (TENORMIN) TAB PO SCH (09:05)
[2022-01-29] MEDS: medroxyPROGESTERone 10 MG (PROVERA) TAB PO SCH ×2 (09:05→20:36)
[2022-01-29] MEDS: GABAPENTIN 400 MG (NEURONTIN) CAP PO SCH ×4 (09:07→20:36)
[2022-01-29 12:01] VITALS: BP 100/65
--- NOTE | 2022-01-29 12:56 | Progress Note ---
SUJATHA VU 01/29/22 1256: Subjective Subjective/Events-last exam Patient is a 41 year old female admitted for sepsis secondary to cystitis. She states that she is feeling much better today. She says that her back pain has improved substantially as well as her abdominal pain. She denies headaches, chills, nausea, vomiting, dysuria, or frequency. States that she still feels shortness of breath when getting up to move. Review of Systems General: No Chills HEENT: No Head Aches Pulmonary: Other (Shortness of breath when walking) Cardiovascular: No: Lt Headedness Gastrointestinal: Abdominal Pain (Mostly localized to LRQ); No: Nausea, Vomiting, Diarrhea, Constipation Genitourinary: No Dysuria, No Frequency Focused Exam Sepsis Stage: Ruled Out Reason for ruling out sepsis: Patient no longer meets SIRS criteria for sepsis diagnosis Possible Source: Genitouriary Lactate Level 01/26/22 15:38: Lactic Acid Level 3.84*H 01/26/22 17:50: Lactic Acid Level 2.61*H 01/26/22 20:22: Lactic Acid Level 2.00 Objective Exam Last Set of Vital Signs Vital Signs Date Time Temp Pulse Resp B/P (MAP) Pulse Ox O2 Delivery O2 Flow Rate FiO2 01/29/22 12:01 37.2 91 20 100/65 (77) 98 Room Air 01/29/22 08:00 0.00 01/26/22 17:18 21 Capillary Refill : Less Than 3 Seconds I&O Intake and Output 01/29/22 00:00 Intake Total 2560 ml Balance 2560 ml Intake Oral 2560 ml # Voids 8 General: Alert, Oriented X3, Cooperative, No Acute Distress Neck: Supple, No JVD Lungs: Clear to Auscultation, Normal Air Movement Heart: Regular Rate, Normal S1, Normal S2, No Murmurs Abdomen: Normal Bowel Sounds, Soft, No Hepatosplenomegaly, No Masses, Other (Mild tenderness to palpation in lower right quadrant) Skin: No Rashes, No Breakdown, No Significant Lesion Neuro: Normal Speech, Normal Tone, Sensation Intact Psych/Mental Status: Mental Status NL, Mood NL Results/Procedures Lab Laboratory Tests 01/28/22 15:35: Glucometer 148H 01/28/22 20:13: Glucometer 224H 01/29/22 05:12: White Blood Count 9.9, Red Blood Count 2.64L, Hemoglobin 7.1L, Hematocrit 24L, Mean Corpuscular Volume 90, Mean Corpuscular Hemoglobin 27, Mean Corpuscular Hemoglobin Concent 30L, Red Cell Distribution Width 14.1, Platelet Count 300, Mean Platelet Volume 9.3, Immature Granulocyte % (Auto) 1, Neutrophils (%) (Auto) 84H, Lymphocytes (%) (Auto) 8L, Monocytes (%) (Auto) 6, Eosinophils (%) (Auto) 0, Basophils (%) (Auto) 0, Neutrophils # (Auto) 8.3H, Lymphocytes # (Auto) 0.8L, Monocytes # (Auto) 0.6, Eosinophils # (Auto) 0.0, Basophils # (Auto) 0.0, Immature Granulocyte # (Auto) 0.1, Sodium Level 139, Potassium Level 3.4L, Chloride Level 105, Carbon Dioxide Level 20L, Anion Gap 14, Blood Urea Nitrogen 6L, Creatinine 0.68, Estimat Glomerular Filtration Rate 113, BUN/Creatinine Ratio 9, Glucose Level 180H, Calcium Level 8.6, Corrected Calcium 9.4, Phosphorus Level 2.4, Magnesium Level 1.8, Total Bilirubin 0.7, Aspartate Amino Transf (AST/SGOT) 22, Alanine Aminotransferase (ALT/SGPT) 19, Alkaline Phosphatase 68, Total Protein 6.5, Albumin 3.0L 01/29/22 11:13: Glucometer 207H Microbiology 01/26/22 MRSA Screen - Final, Complete MRSA not isolated 01/26/22 Blood Culture - Preliminary, Resulted No growth 01/26/22 Urine Culture - Final, Complete Escherichia coli Mixed Bacterial Oralia Radiology PROCEDURE: CT abdomen and pelvis without contrast. TECHNIQUE: Multiple contiguous axial images were obtained through the abdomen and pelvis without the use of intravenous contrast. Auto Exposure Controls were utilized during the CT exam to meet ALARA standards for radiation dose reduction. INDICATION: Abdominal pain. Hematuria. Low back pain. Dysuria. COMPARISON: None. FINDINGS: Lung bases are clear. Diffuse fatty infiltration of the liver. The gallbladder, pancreas, adrenals, spleen, kidneys and collecting systems are negative on this noncontrast exam. Reproductive structures are grossly unremarkable. Diffuse bladder wall thickening. No free intraperitoneal air or fluid. Normal appendix. No lymphadenopathy. No evidence of bowel obstruction or inflammation. No acute osseous finding. IMPRESSION: 1. Diffuse bladder wall thickening suspicious for cystitis. Recommend correlation with urinalysis. The kidneys and collecting systems are negative on this noncontrast exam. No other acute appearing CT findings. 2. Hepatic steatosis. Dictated by: Dictated on workstation # [id number] Dict: 01/26/22 1536 Trans: 01/26/22 1724 [facility] [id number] Interpreted by: SAIRA FRY MD Electronically signed by: SAIRA FRY MD 01/26/22 1724 Meds See medications list Assessment/Plan Assessment/Plan Admission Dx Sepsis secondary to cystitis Admission Status: Inpatient Order (span 2 midnights) Reason for Inpatient Admission: Due to sepsis, admission is necessary for the delivery of IV antibiotics and for the careful monitoring of infectious course and vital signs. Assessment & Plan Sepsis secondary to cystitis - Ceftriaxone sodium dextrose, vancomycin was discontinued DVT prophylaxis - enoxaparin Diabetes - SS insulin paired with careful glucose monitoring Diarrhea - senna and docusate sodium Back pain - ketorolac, acetaminophen, and oxycodone Vaginal bleeding (passing clots) - ultrasound may be needed at hospital follow/up (1) Sepsis Status: Resolved Assessment & Plan: - Resolved at time of visit, Continue IV antibiotics, HDS, sensitivities acquired showing quinn-sensitive E. Coli to all antibiotics tested. Qualifiers: Qualified Codes: A41.51 - Sepsis due to Escherichia coli [e. coli] (2) Pyelonephritis Status: Acute Assessment & Plan: Continue antibiotics (3) Non-insulin dependent type 2 diabetes mellitus Status: Chronic Assessment & Plan: - Continue home meds (4) HTN (hypertension) Status: Chronic Assessment & Plan: - HDS Qualifiers: Qualified Codes: I10 - Essential (primary) hypertension Clinical Quality Measures Admission Status Admission Dx Sepsis secondary to cystitis Admission Status: Inpatient Order (span 2 midnights) Reason for Inpatient Admission: As stated in AP DVT/VTE Risk/Contraindication: VTE Addressed: Yes (DVT prophylaxis addressed with enoxaparin) VTE Present on Admission: No KEYLA PADGETT MD 01/29/222044: Subjective Review of Systems General: No Chills; Fatigue Pulmonary: No Dyspnea, No Cough Cardiovascular: No: Chest Pain, Palpitations Gastrointestinal: Abdominal Pain (Mostly localized to LRQ); No: Nausea, Vomiting, Diarrhea, Constipation Genitourinary: No Dysuria; Frequency Neurological: No: Weakness, Incoordination, Confusion Objective Exam General: Alert, Oriented X3, Cooperative, No Acute Distress HEENT: Mucous Memb Moist/[place] Lungs: Clear to Auscultation, Normal Air Movement Heart: Regular Rate, No Murmurs Abdomen: Normal Bowel Sounds, Soft, No Tenderness Extremities: No Edema, No Tenderness/Swelling Neuro: Normal Speech Supervisory-Addendum Brief Verification & Attestation Participated in pt care: history, physical Personally performed: exam, history Care discussed with: Medical Student Procedures: n/a Verification and Attestation of Medical Student E/M Service A medical student performed and documented this service in my presence. I reviewed and verified all information documented by the medical student and made modifications to such information, when appropriate. I personally performed the physical exam and medical decision making. Keyla Padgett, Jan 29, 2022,20:41 Sepisis Pyelonephritis Quinn-sensitive Ecoli UTI - Continue IVFs, IV antibiotics, continues to have fevers - 01/29: Fever curve trending down Anemia -Likely 2/2 to heavy vaginal bleeding, Iron panel pending, started on provera, will need outpatient workup - 01/29: iron panel pending, continue PO iron NIDDM - SSI, Holding PO meds incase contrast is needed HTN - Normotensive Abnormal Uterine bleeding - Needs outpatient workup Hepatic Steateosis - Seen on CT scan, needs to focus on diet and exercise with goal of weight loss DVT Px:SUJATHA Dugan Jan 29, 2022 12:56 KEYLA PADGETT MD Jan 29, 2022 20:45
[2022-01-29] MEDS: cefTRIAXone 1 GM PRE-MIX 50 ML IV SCH (15:42)
[2022-01-29] MEDS: KETOROLAC 30 MG/ML VIAL IVP PRN (15:43)
[2022-01-29 16:20] VITALS: BP 107/70
[2022-01-29 20:37] VITALS: BP 108/71
[2022-01-29] MEDS: ENOXAPARIN 40 MG/0.4 ML (LOVENOX) SYR SC SCH (20:37)
[2022-01-30 00:11] VITALS: BP 106/69
[2022-01-30 04:13] VITALS: BP 121/77
[2022-01-30] MEDS: inSUlin ASPART (NovoLOG) 1 UNIT/0.01 ML (CHARGE PER UNIT) SC SCH ×2 (05:41→12:26)
[2022-01-30 05:47] LABS: BASOPHILS % (AUTO) 0 % (0-10); EOSINOPHILS # (AUTO) 0.1 10^3/uL (0.0-0.3); EOSINOPHILS % (AUTO) 1 % (0-10); LYMPHOCYTES # (AUTO) 0.8 10^3/uL (1.0-4.0); LYMPHOCYTES % (AUTO) 7 % (12-44); MEAN CORPUSCULAR HEMOGLOBIN 27 pg (25-34); MEAN CORPUSCULAR HGB CONC 30 g/dL (32-36); MEAN CORPUSCULAR VOLUME 89 fL (80-99); MONOCYTES # (AUTO) 0.5 10^3/uL (0.0-1.0); MONOCYTES % (AUTO) 5 % (0-12); NEUTROPHILS # (AUTO) 8.9 10^3/uL (1.8-7.8); NEUTROPHILS % (AUTO) 85 % (42-75); PLATELET COUNT 296 10^3/uL (130-400); WHITE BLOOD COUNT 10.5 10^3/uL (4.3-11.0)
[2022-01-30 05:52] LABS: HEMATOCRIT 20 % (35-52); HEMOGLOBIN 6.2 g/dL (11.5-16.0)
[2022-01-30 05:58] LABS: ALBUMIN 2.9 GM/DL (3.2-4.5); POTASSIUM 3.3 MMOL/L (3.6-5.0)
[2022-01-30 06:00] LABS: CALCIUM 8.7 MG/DL (8.5-10.1)
[2022-01-30 06:01] LABS: TOTAL PROTEIN 6.4 GM/DL (6.4-8.2)
[2022-01-30 06:03] LABS: BILIRUBIN,TOTAL 0.5 MG/DL (0.1-1.0)
[2022-01-30 06:05] LABS: CREATININE SERUM 0.62 MG/DL (0.60-1.30)
[2022-01-30 06:08] LABS: MAGNESIUM 1.6 MG/DL (1.6-2.4)
[2022-01-30] MEDS ORDERED: IRON SUCROSE 200 MG/10 ML (VENOFER) VIAL IV ONE (07:00)
[2022-01-30 08:02] VITALS: BP 112/74
[2022-01-30] MEDS: GABAPENTIN 400 MG (NEURONTIN) CAP PO SCH ×2 (08:11→12:26)
[2022-01-30] MEDS: medroxyPROGESTERone 10 MG (PROVERA) TAB PO SCH (08:11)
[2022-01-30] MEDS: DOCUSATE SODIUM 100 MG (COLACE) CAP PO SCH (08:11)
[2022-01-30] MEDS: SENNOSIDES 8.6 MG (SENOKOT) TAB PO SCH (08:11)
[2022-01-30] MEDS: ATENOLOL 25 MG (TENORMIN) TAB PO SCH (08:11)
[2022-01-30] MEDS: ACETAMINOPHEN 500 MG TAB (TYLENOL) PO PRN (10:14)
[2022-01-30] MEDS ORDERED: CEFD300C3 PO (11:32)
[2022-01-30] MEDS ORDERED: FERR-84 PO (11:32)
[2022-01-30] MEDS ORDERED: LISI5TAB20 PO (11:32)
--- NOTE | 2022-01-30 11:33 | Discharge Summary ---
Discharge [facility] Reconcile Patient Problems Problems Reviewed?: Yes Discharge Medications New, Converted or Re-Newed RX: Transmitted to Pharmacy New Medications: Cefdinir (Cefdinir) 300 Mg Capsule 300 MG PO BID for 5 Days, #10 CAP Changed Medications: Ferrous Sulfate (Iron) 325 Mg (65 Mg Iron) Tablet 325 MG PO BID, #60 TAB (Changed from: Ferrous Sulfate (Iron) 325 Mg Tablet 325 Mg PO DAILY) Lisinopril (Lisinopril) 5 Mg Tablet 5 MG PO HS for 14 Days, TAB (Medication details modified) Hold until seen by your PCP Continued Medications: Atenolol (Atenolol) 50 Mg Tablet 50 MG PO DAILY, TAB Atorvastatin Calcium (Atorvastatin Calcium) 10 Mg Tablet 10 MG PO HS, TAB Citalopram Hydrobromide (Citalopram HBr) 40 Mg Tablet 40 MG PO HS, TAB Cyanocobalamin (Vitamin B-12) (Vitamin B-12) 1,000 Mcg Tablet 1000 MCG PO DAILY, TAB Empagliflozin (Jardiance) 10 Mg Tablet 10 MG PO DAILY, TAB Gabapentin (Gabapentin) 400 Mg Capsule 400 MG PO QID, CAP Metformin HCl (Metformin HCl) 1,000 Mg Tablet 1000 MG PO BID, TAB Patient Instructions Goal/Follow Up Appt: 1 week with PCP [facility] to see Dr Mclaughlin/Uriel for workup of AUB Activity & Diet Discharge Diet: ADA Diet Activity as Tolerated: Yes KEYLA PADGETT MD Jan 30, 2022 11:33
[2022-01-30 11:44] VITALS: BP 110/70
[2022-01-30 13:15] VITALS: BP 110/70
== END 2022-01-30 13:15 | disposition home or self-care (01) | DRG 872 ==
LOC: EDUNIT# 14:06 → ER 14:08 → ICU 16:37 → 4TH 01-27 11:45
PROVIDERS: ADMIT Internal Medicine; ATTEND Family Medicine
DX: A41.9 Sepsis, unspecified organism (principal); N10 Acute pyelonephritis; E11.9 Type 2 diabetes mellitus without complications; I10 Essential (primary) hypertension; N30.90 Cystitis, unspecified without hematuria; B96.20 Unspecified Escherichia coli [E. coli] as the cause of diseases classified elsewhere; D50.0 Iron deficiency anemia secondary to blood loss (chronic); N93.9 Abnormal uterine and vaginal bleeding, unspecified; K76.0 Fatty (change of) liver, not elsewhere classified; Z79.84 Long term (current) use of oral hypoglycemic drugs; Z79.899 Other long term (current) drug therapy; F32.A Depression, unspecified
CPT/HCPCS: 36415; 74176; 80053; 81000; 82728; 82947; 83540; 83550; 83605; 83735; 84100; 85007; 85025; 85027; 86141; 87040; 87077; 87081; 87088; 87186; 94664; 94760

== ENCOUNTER 2022-04-28 18:19 | Emergency (ER) | payer OTHER ==
[~2022-04-28 18:19] MED LIST changes: +ATOR10TA66 PO; +CEFD300C3 PO; +CITA40TA13 PO; +CYAN-41 PO; +EMPA10TA PO; +GABA-490 PO; +LISI5TAB20 PO
[2022-04-28 19:34] LABS: BASOPHILS % (AUTO) 0 % (0-10); EOSINOPHILS # (AUTO) 0.1 10^3/uL (0.0-0.3); EOSINOPHILS % (AUTO) 2 % (0-10); HEMATOCRIT 32 % (35-52); HEMOGLOBIN 10.1 g/dL (11.5-16.0); LYMPHOCYTES # (AUTO) 2.1 10^3/uL (1.0-4.0); LYMPHOCYTES % (AUTO) 29 % (12-44); MEAN CORPUSCULAR HEMOGLOBIN 28 pg (25-34); MEAN CORPUSCULAR HGB CONC 31 g/dL (32-36); MEAN CORPUSCULAR VOLUME 88 fL (80-99); MEAN PLATELET VOLUME 9.3 fL (9.0-12.2); MONOCYTES # (AUTO) 0.5 10^3/uL (0.0-1.0); MONOCYTES % (AUTO) 7 % (0-12); NEUTROPHILS # (AUTO) 4.4 10^3/uL (1.8-7.8); NEUTROPHILS % (AUTO) 61 % (42-75); PLATELET COUNT 315 10^3/uL (130-400); WHITE BLOOD COUNT 7.2 10^3/uL (4.3-11.0)
--- NOTE | 2022-04-28 19:57 | ED General ---
General Chief Complaint: - Reproductive Stated Complaint: DIZZY,LIGHTHEADED,SENT FROM [facility] FOR HEMOGLOBIN LVL Nursing Triage Note: PT ARRIVAL TO ER VIA PRIVATE VEHICLE FROM HOME AFTER BEING SENT FROM [facility]. PT WENT IN TO BE SEEN AT WALK IN CLINIC FOR DIZZINESS AND PASSING LARGE CLOTS VAGINALLY. PATIENT WAS TOLD THAT SHE NEEDED TO GO TO ER TO GET HER HEMAGLOBIN CHECKED. PATIENT STATES THAT THE PASSING OF CLOTS STARTED 2 DAYS AGO. PT HAS HAD THIS HAPPEN BEFORE AND HAD TO HAVE BLOOD TRANSFUSION. Source of Information: Patient History of Present Illness Date Seen by Provider: Apr 28, 2022 Time Seen by Provider: 19:13 Initial Comments PT ARRIVES VIA POV--SENT HERE FROM [facility], FOR LOW HEMOGLOBIN OF 9.2 PT SATES FOR THE LAST COUPLE OF DAYS SHE HAS FELT DIZZY AND LIGHTHEADED, AND SLIGHT SHORT OF BREATH AT TIME, AND OCCASIONALLY HER HEART BEATS A LITTLE FAST NO CHEST PAIN NO SYNCOPE NO SWEATS NO FEVER OR CHILLS NO NAUSEA/VOMITING/DIARRHEA OR ABDOMINAL PAIN . HAD NORMAL BM TODAY. NO BLACK/BLOODY/TARRY STOOLS NO URINARY SYMPTOMS PT IS CURRENTLY ON MENSTRUAL CYCLE--BEGAN 02/21/22. PERIODS ARE ALWAYS VERY HEAVY AND PASSES ALOT OF CLOTS. SHE STATES SHE ALWAYS USES ADULT DIAPERS INSTEAD OF PADS OR TAMPONS, AND IS CURRENTLY WEARING HER SECOND DIAPER FOR TODAY. SHE STATES THIS PERIOD IS A LITTLE HEAVIER THAN NORMAL. SHE HAS BEEN PASSING CLOTS FOR THE LAST 2 DAYS. SHE HAS A HISTORY OF ANEMIA, AND WAS ADMITTED IN WITH UTI, AND HER HGB GOT LOW 6.2. SHE STATES SHE RECEIVED IRON INFUSION AND NOT A BLOOD TRANSFUSION. SHE HAS NOT HAD HER HGB CHECKED SINCE THEN. SHE HAS BEEN TAKING IRO N PILLS SINCE THEN. SHE HAS NEVER HAD A BLOOD TRANSFUSION SHE WAS STARTED ON OCP'S 3 WEEKS AGO, TO HELP WITH THE HEAVY PERIODS. PRIOR TO THAT, SHE WAS NOT ON ANY HORMONE THERAPY. SHE HAS HAD A PRIOR BILATERAL TUBAL LIGATION. SHE HAS NOT SEEN A PAPER TESTER FOR THIS PROBLEM. SHE LATER STATES THAT SHE SAW DR. BROWN ONCE--AT LEAST 5 YEARS AGO. SHE STATES HE GAVE HER SOME PILLS TO "RESET EVERYTHING" AND IT HELPED TEMPORARILY, BUT SYMPTOMS HAVE GRADUALLY WORSENED. SHE HAS NEVER HAD A D&C OR BIOPSY OR ANY MARRIAGE COUNSELOR PROCEDURES OTHER THAN BTL. [facility]CP[facility], FREDI HUDSON Allergies and Home Medications Allergies Coded Allergies: No Known Drug Allergies (Unverified , 12/30/19) Patient Home Medication List Home Medication List Reviewed: Yes Atenolol (Atenolol) 50 Mg Tablet, 50 MG PO DAILY, (Reported) Entered as Reported by: SCOT GONZALEZ on 12/30/19 1201 Atorvastatin Calcium (Atorvastatin Calcium) 10 Mg Tablet, 10 MG PO HS, (Reported) Entered as Reported by: ALEXUS RODRÍGUEZ on 01/27/22921 Cefdinir (Cefdinir) 300 Mg Capsule, 300 MG PO BID Prescribed by: KEYLA PADGETT on 01/30/221131 Citalopram Hydrobromide (Citalopram HBr) 40 Mg Tablet, 40 MG PO HS, (Reported) Entered as Reported by: ALEXUS RODRÍGUEZ on 01/27/22921 Cyanocobalamin (Vitamin B-12) (Vitamin B-12) 1,000 Mcg Tablet, 1,000 MCG PO DAILY, (Reported) Entered as Reported by: ALEXUS RODRÍGUEZ on 01/27/22921 Empagliflozin (Jardiance) 10 Mg Tablet, 10 MG PO DAILY, (Reported) Entered as Reported by: ALEXUS RODRÍGUEZ on 01/27/22921 Ferrous Sulfate (Iron) 325 Mg (65 Mg Iron) Tablet, 325 MG PO BID Prescribed by: KEYLA PADGETT on 01/30/221131 Gabapentin (Gabapentin) 400 Mg Capsule, 400 MG PO QID, (Reported) Entered as Reported by: ALEXUS RODRÍGUEZ on 01/27/22921 Lisinopril (Lisinopril) 5 Mg Tablet, 5 MG PO HS Prescribed by: KEYLA PADGETT on 01/30/221131 Metformin HCl (Metformin HCl) 1,000 Mg Tablet, 1,000 MG PO BID, (Reported) Entered as Reported by: ALEXUS RODRÍGUEZ on 01/27/22921 Norethindrone (Ortho Micronor) 0.35 Mg Tablet, 4 TAB PO DAILY Prescribed by: SHAHIDA PORTER on 04/28/222038 Ondansetron (Ondansetron Odt) 4 Mg Tab.rapdis, 4 MG PO Q4H Prescribed by: SHAHIDA PORTER on 04/28/222038 Review of Systems Review of Systems Constitutional: No chills, No diaphoresis; dizziness; No fever, No malaise, No weakness EENTM: no symptoms reported Respiratory: see HPI, short of breath Cardiovascular: see HPI; No chest pain, No edema, No palpitations, No syncope Gastrointestinal: no symptoms reported Genitourinary: see HPI : No LMP: Apr 23, 2022 Musculoskeletal: no symptoms reported Skin: no symptoms reported Psychiatric/Neurological: No Symptoms Reported; Denies Headache Hematologic/Lymphatic: See HPI Immunological/Allergic: no symptoms reported Past Aspsrmu-Rlrhae-Oeojvn Hx Patient Social History Tobacco Use?: No Use of E-Cig and/or Vaping dev: No Substance use?: No Alcohol Use?: No Pt feels they are or have been: No Immunizations Up To Date Influenza Vaccine Up-to-Date: No; Not Current First/Initial COVID19 Vaccinat: UNKNOWN COVID19 Vaccine Byproducts Operator: J&J Seasonal Allergies Seasonal Allergies: Yes Past Medical History Surgeries: Yes (TUBES IN EARS MULTIPLE TIMES;R 4TH TOE AMPUTATED 12/2019) Ear Surgery, Orthopedic, Tubal Ligation Respiratory: No Cardiac: Yes Hypertension Neurological: No Reproductive Disorders: Yes Female Reproductive Disorders: Menstrual Problems MARRIAGE COUNSELOR History: Tubal Ligation Sexually Transmitted Disease: No HIV/AIDS: No Genitourinary: Yes UTI-Chronic Gastrointestinal: No Musculoskeletal: Yes (RIGHT 4TH TOE AMPUTATED DUE TO OSTEOMYELITIS) Endocrine: Yes Diabetes, Non-Insulin dep HEENT: Yes (GLASSES; BMT'S CHILD) Chronic Ear Infection Loss of Vision: Denies Hearing Impairment: Hard of Hearing, Bilateral Hearing Aide Cancer: No Psychosocial: Yes (HX DEPRESSION) Depression Integumentary: Yes (OSTEOMYELITIS/DIABETIC FOOT ULCER WITH RIGHT 4TH TOE AMPUTATION) Blood Disorders: Yes (ANEMIA) Adverse Reaction/Blood Tranf: No (N/A) Physical Exam Vital Signs Vital Signs - First Documented 04/28/22 18:35 Temp 37.2 Pulse 91 Resp 16 B/P (MAP) 123/72 (89) Pulse Ox 97 O2 Delivery Room Air Capillary Refill : Less Than 3 Seconds Height, Weight, BMI Height: 5'8.00" Weight: 248lbs. 0.0oz. [id number]; 35.91 BMI Method: General Appearance: No Apparent Distress, WD/WN, Obese, Other (FLAT AFFECT. HAIR IS VERY THIN.) HEENT: PERRL/EOMI, Pale Conjunctivae (L), Pale Conjunctivae (R) Neck: Normal Inspection Respiratory: Normal Breath Sounds, No Accessory Muscle Use, No Respiratory Distress Cardiovascular: Regular Rate, Rhythm, No Murmur Gastrointestinal: Non Tender, Soft Back: No CVA Tenderness Extremity: Normal Capillary Refill, Normal Inspection, No Pedal Edema Neurologic/Psychiatric: Alert, Oriented x3, No Motor/Sensory Deficits, cook barbecue II- XII Norm as Tested Skin: Warm/Dry, Pallor Progress/Results/Core Measures Suspected Sepsis SIRS Temperature: Pulse: 91 Respiratory Rate: 16 Laboratory Tests 04/28/22 19:12: White Blood Count 7.2 Blood Pressure 123 /72 Mean: 89 Laboratory Tests 04/28/22 19:12: Creatinine 0.80, INR Comment 0.9, Platelet Count 315, Total Bilirubin 0.8 Results/Orders Lab Results Laboratory Tests Test 04/28/22 19:12 Range/Units White Blood Count 7.2 4.3-11.0 10^3/uL Red Blood Count 3.67 L 3.80-5.11 10^6/uL Hemoglobin 10.1 L 11.5-16.0 g/dL Hematocrit 32 L 35-52 % Mean Corpuscular Volume 88 80-99 fL Mean Corpuscular Hemoglobin 28 25-34 pg Mean Corpuscular Hemoglobin Concent 31 L 32-36 g/dL Red Cell Distribution Width 15.5 H 10.0-14.5 % Platelet Count 315 130-400 10^3/uL Mean Platelet Volume 9.3 9.0-12.2 fL Immature Granulocyte % (Auto) 1 % Neutrophils (%) (Auto) 61 42-75 % Lymphocytes (%) (Auto) 29 12-44 % Monocytes (%) (Auto) 7 0-12 % Eosinophils (%) (Auto) 2 0-10 % Basophils (%) (Auto) 0 0-10 % Neutrophils # (Auto) 4.4 1.8-7.8 10^3/uL Lymphocytes # (Auto) 2.1 1.0-4.0 10^3/uL Monocytes # (Auto) 0.5 0.0-1.0 10^3/uL Eosinophils # (Auto) 0.1 0.0-0.3 10^3/uL Basophils # (Auto) 0.0 0.0-0.1 10^3/uL Immature Granulocyte # (Auto) 0.1 0.0-0.1 10^3/uL Prothrombin Time 12.5 12.2-14.7 SEC INR Comment 0.9 0.8-1.4 Activated Partial Thromboplast Time 30 24-35 SEC Sodium Level 137 135-145 MMOL/L Potassium Level 3.9 3.6-5.0 MMOL/L Chloride Level 97 L 98-107 MMOL/L Carbon Dioxide Level 26 21-32 MMOL/L Anion Gap 14 5-14 MMOL/L Blood Urea Nitrogen 20 H 7-18 MG/DL Creatinine 0.80 0.60-1.30 MG/DL Estimat Glomerular Filtration Rate 95 BUN/Creatinine Ratio 25 Glucose Level 115 H 70-105 MG/DL Calcium Level 9.4 8.5-10.1 MG/DL Corrected Calcium 9.2 8.5-10.1 MG/DL Total Bilirubin 0.8 0.1-1.0 MG/DL Aspartate Amino Transf (AST/SGOT) 20 5-34 U/L Alanine Aminotransferase (ALT/SGPT) 20 0-55 U/L Alkaline Phosphatase 64 40-136 U/L Total Protein 7.5 6.4-8.2 GM/DL Albumin 4.2 3.2-4.5 GM/DL Serum Test, Qualitative NEGATIVE NEGATIVE My Orders Orders - SHAHIDA PORTER DO Ed Iv/Invasive Line Start (04/28/22 19:27) Monitor-Rhythm Ecg Trace Only (04/28/22 19:27) Cbc With Automated Diff (04/28/22 19:27) Comprehensive Metabolic Panel (04/28/22 19:27) Hcg,Qualitative Serum (04/28/22 19:27) Protime With Inr (04/28/22 19:27) Partial Thromboplastin Time (04/28/22 19:27) Type And Screen (04/28/22 19:27) Ed Iv/Invasive Line Start (04/28/22 19:27) Ed Iv/Invasive Line Start (04/28/22 19:27) Ed Iv/Invasive Line Start (04/28/22 20:05) Ns Iv 1000 Ml (Sodium Chloride 0.9%) (04/28/22 20:15) Vital Signs/I&O 04/28/22 04/28/22 18:35 21:10 Temp 37.2 Pulse 91 83 Resp 16 11 B/P (MAP) 123/72 (89) 120/72 Pulse Ox 97 97 O2 Delivery Room Air Room Air Capillary Refill : Less Than 3 Seconds Blood Pressure Mean: 89 Progress Note : Progress Note BLOOD PRESSURE IN 90'S SYSTOLIC ON ARRIVAL. GIVEN IV FLUIDS--BP UP TO > 100 SYSTOLIC NO TACHYCARDIA OR ARRHYTHMIA NO HYPOXIA NO DYSPNEA DID NOT SATURATE HER CURRENT ADULT DIAPER DURING ER STAY. ANTICIPATED COURSE, SYMPTOMATIC TREATMENT, CONTINUATION OF HER IRON SUPPLEMENT, PRESCRIBED MEDIATIONS, NEED FOR FOLLOW UP WITH BOTH [facility] TO RECHECK HGB, NEED FOR FOLLOW UP WITH DR. BROWN FOR FURTHER EVALUATION OF THIS PROBLEM AND RE TURN PRECAUTIONS. Departure Impression Primary Impression: Menorrhagia Additional Impressions: Mild anemia Non-insulin dependent type 2 diabetes mellitus Disposition: 01 HOME, SELF-CARE Condition: Improved Departure-Patient Inst. Decision time for Depature: 20:35 Referrals: AYLA BROWN HEATHER L APRN (PCP) Primary Care Physician Patient Instructions: Heavy Periods ED, Anemia Caused by Low Iron, Adult (DC) Add. Discharge Instructions: HOME, REST CONTINUE YOUR CURRENT MEDICATIONS PRESCRIBED INCREASE YOUR FLUID INTAKE FOLLOW UP WITH [facility] IN 1-2 DAYS TO RECHECK YOUR HEMOGLOBIN LEVEL FOLLOW UP WITH DR. BROWN, PAPER TESTER, FOR FURTHER EVALUATION AND TREATMENT OF THIS CONDITION. RETURN TO ER IF SYMPTOMS WORSEN All discharge instructions reviewed with patient and/or family. Voiced understanding. Scripts Norethindrone (Ortho Micronor) 0.35 Mg Tablet 4 TAB PO DAILY for 5 Days, #1 EA Prov: SHAHIDA PORTER DO 04/28/22 Ondansetron (Ondansetron Odt) 4 Mg Tab.rapdis 4 MG PO Q4H for Nausea/Vomiting, #10 TAB Prov: SHAHIDA PORTER DO 04/28/22 SHAHIDA PORTER DO Apr 28, 2022 19:57
[2022-04-28 20:07] LABS: ALBUMIN 4.2 GM/DL (3.2-4.5); BILIRUBIN,TOTAL 0.8 MG/DL (0.1-1.0); CALCIUM 9.4 MG/DL (8.5-10.1); CREATININE SERUM 0.8 MG/DL (0.60-1.30); POTASSIUM 3.9 MMOL/L (3.6-5.0); TOTAL PROTEIN 7.5 GM/DL (6.4-8.2)
[2022-04-28 20:15] LABS: INR 0.9 (0.8-1.4); PROTHROMBIN TIME PATIENT 12.5 SEC (12.2-14.7)
[2022-04-28] MEDS ORDERED: NS IV 1000 ML 1,000 ML IV SCH (20:15)
[2022-04-28] MEDS ORDERED: ONDA4TAB11 PO (20:39)
[2022-04-28] MEDS ORDERED: NORE0.3536 PO (20:39)
[2022-04-28 21:10] VITALS: BP 120/72
== END 2022-04-28 21:10 | disposition home or self-care (01) ==
LOC: EDUNIT# 18:19 → ER 18:21
DX: N92.0 Excessive and frequent menstruation with regular cycle (principal); D64.9 Anemia, unspecified; E11.9 Type 2 diabetes mellitus without complications; E66.9 Obesity, unspecified; I10 Essential (primary) hypertension; Z68.35 Body mass index [BMI] 35.0-35.9, adult; Z32.02 Encounter for pregnancy test, result negative; Z28.311 Partially vaccinated for COVID-19
CPT/HCPCS: 36415; 80053; 84703; 85025; 85610; 85730; 86850; 86900; 86901; 99282